=== PATIENT | male | born 1990 | race Caucasian/White ===

== ENCOUNTER 2017-03-11 16:02 | Inpatient (IN) | payer MEDICAID, OTHER ==
[~2017-03-11] VITALS: Ht 175.3 cm; Wt 74.4 kg
[~2017-03-11 16:02] MED LIST: BACIO TP; CLON0.5T PO; DULO60CA44 PO; GABA-533 PO; IBUP-2070 PO; QUET100T PO; TRAM50TA50 PO
[2017-03-11] MEDS ORDERED: METH10 PO (16:34)
[2017-03-11] MEDS ORDERED: TOPI100T9 PO (16:34)
[2017-03-11] MEDS ORDERED: ZOLP10TA2 PO (16:34)
[2017-03-11] MEDS ORDERED: HALOPERIDOL LACTATE 5 MG/ML VIAL IM ONE (16:45)
[2017-03-11] MEDS ORDERED: LORazepam 2 MG/ML VIAL IM ONE (16:45)
[2017-03-11 16:49] LABS: BASOPHILS # (AUTO) 0.03 K/uL (0.00-0.20); BASOPHILS % (AUTO) 0.4 % (0.0-2.0); EOSINOPHILS # (AUTO) 0.37 K/uL (0.00-0.70); EOSINOPHILS % (AUTO) 4.81 % (1.0-6.0); HEMATOCRIT 41.5 % (41-53); HEMOGLOBIN 13.9 g/dL (13.5-17.5); LYMPHOCYTES % (AUTO) 26.7 % (22.0-44.0); MEAN CORPUSCULAR HEMOGLOBIN 27.7 pg (26.0-34.0); MEAN CORPUSCULAR HGB CONC 33.5 G/dL (31.0-37.0); MEAN CORPUSCULAR VOLUME 83 fL (80-100); MONOCYTES # (AUTO) 0.5 K/uL (0.1-1.0); MONOCYTES % (AUTO) 6.6 % (2.0-9.0); NEUTROPHILS # (AUTO) 4.7 K/uL (1.8-7.7); NEUTROPHILS % (AUTO) 61.5 % (40.0-70.0); PLATELET COUNT (AUTO) 164 K/uL (150-450); RED BLOOD CELL COUNT(AUTO) 5.01 MIL/uL (4.50-5.90); RED CELL DISTRIBUTION WIDTH 14.5 % (11.5-14.5); WHITE BLOOD COUNT (AUTO) 7.6 K/uL (4.5-11.0)
[2017-03-11 17:02] LABS: ANION GAP 10 mmol/L (8-16); CARBON DIOXIDE 27 mmol/L (22-29); CHLORIDE 101 mmol/L (98-107); CREATININE 0.73 mg/dL (0.60-1.30); GLOMERULAR FILTR. RATE CALC > 60 mL/min (>60); POTASSIUM 4.1 mmol/L (3.5-5.1); SODIUM SERUM 138 mmol/L (136-145); UREA NITROGEN, BLOOD 18 mg/dL (7-18)
[2017-03-11 17:08] LABS: ALANINE AMINOTRANSFERASE 28 U/L (12-78); ALBUMIN 4.2 g/dL (3.4-5.0); ASPARTATE AMINOTRANSFERASE 25 U/L (15-37); BILIRUBIN,TOTAL 0.5 mg/dL (0.1-1.0); TOTAL PROTEIN, SERUM 8.1 g/dL (6.4-8.2)
[2017-03-11] MEDS ORDERED: HALOPERIDOL 5 MG TABLET PO PRN (18:30)
[2017-03-11] MEDS ORDERED: ZOLPIDEM TARTRATE 10 MG TABLET PO PRN (18:30)
[2017-03-12] MEDS: LORazepam 2 MG TABLET PO PRN ×3 (07:57→17:07)
[2017-03-12 08:00] VITALS: BP 113/60
[2017-03-12] MEDS: NICOTINE 21 MG/24 HOUR PATCH TD SCH (09:51)
[2017-03-12] MEDS ORDERED: METHADONE HCL 10 MG TABLET PO ONE (10:00)
[2017-03-12] MEDS ORDERED: VENL-193 PO (13:13)
[2017-03-12] MEDS ORDERED: GABA-531 PO (13:16)
[2017-03-12] MEDS ORDERED: HYDR-4031 PO (15:03)
[2017-03-12] MEDS ORDERED: TraMADol HCL 50 MG TABLET PO PRN (15:45)
[2017-03-12] MEDS ORDERED: ACETAMINOPHEN 325 MG TABLET PO PRN (15:45)
[2017-03-12] MEDS: HydrOXYzine PAMOATE 25 MG CAPSULE PO SCH (16:05)
[2017-03-12] MEDS: VENLAFAXINE HCL 75 MG TABLET PO SCH (16:05)
[2017-03-12] MEDS: GABAPENTIN 300 MG CAPSULE PO SCH (16:05)
[2017-03-12] MEDS: CARISOPRODOL 350 MG TABLET PO SCH (16:06)
[2017-03-12 16:43] VITALS: BP 118/64
[2017-03-13] MEDS: METHADONE HCL 10 MG TABLET PO SCH (07:47)
[2017-03-13] MEDS: CARISOPRODOL 350 MG TABLET PO SCH ×2 (07:47→17:47)
[2017-03-13] MEDS: GABAPENTIN 300 MG CAPSULE PO SCH ×3 (07:48→17:47)
[2017-03-13] MEDS: LORazepam 2 MG TABLET PO PRN ×3 (07:48→18:20)
[2017-03-13] MEDS: HydrOXYzine PAMOATE 25 MG CAPSULE PO SCH ×3 (07:49→17:47)
[2017-03-13] MEDS: NICOTINE 21 MG/24 HOUR PATCH TD SCH (07:50)
[2017-03-13] MEDS: CIMETIDINE 400 MG TABLET PO SCH (07:50)
[2017-03-13] MEDS: LORATADINE 10 MG TABLET PO SCH (07:50)
[2017-03-13] MEDS: VENLAFAXINE HCL 75 MG TABLET PO SCH ×2 (07:50→17:47)
[2017-03-13 08:06] VITALS: BP 104/56
[2017-03-13 18:18] VITALS: BP 123/80
[2017-03-14] MEDS: LORATADINE 10 MG TABLET PO SCH (08:33)
[2017-03-14] MEDS: GABAPENTIN 300 MG CAPSULE PO SCH ×2 (08:36→12:50)
[2017-03-14] MEDS: METHADONE HCL 10 MG TABLET PO SCH (08:36)
[2017-03-14] MEDS: VENLAFAXINE HCL 75 MG TABLET PO SCH (08:36)
[2017-03-14] MEDS: CARISOPRODOL 350 MG TABLET PO SCH (08:37)
[2017-03-14] MEDS: CIMETIDINE 400 MG TABLET PO SCH (08:38)
[2017-03-14 08:40] VITALS: BP 135/84
[2017-03-14] MEDS: NICOTINE 21 MG/24 HOUR PATCH TD SCH (08:43)
[2017-03-14] MEDS: HydrOXYzine PAMOATE 25 MG CAPSULE PO SCH (09:00)
[2017-03-14] MEDS: LORazepam 2 MG TABLET PO PRN (09:51)
[2017-03-14] MEDS ORDERED: LORA10TA7 PO (10:51)
[2017-03-14] MEDS ORDERED: CARI350 PO (10:51)
[2017-03-14] MEDS ORDERED: CIME400T PO (10:51)
== END 2017-03-14 13:00 | disposition home or self-care (01) | DRG 751 ==
LOC: EMS 16:03 → 3EC 19:40
DX: F33.3 Major depressive disorder, recurrent, severe with psychotic symptoms (principal); F11.10 Opioid abuse, uncomplicated; F60.3 Borderline personality disorder; J45.909 Unspecified asthma, uncomplicated; K21.9 Gastro-esophageal reflux disease without esophagitis; G43.909 Migraine, unspecified, not intractable, without status migrainosus; M79.7 Fibromyalgia; Z53.29 Procedure and treatment not carried out because of patient's decision for other reasons; F43.10 Post-traumatic stress disorder, unspecified; F10.20 Alcohol dependence, uncomplicated; M54.9 Dorsalgia, unspecified; G89.4 Chronic pain syndrome; F17.210 Nicotine dependence, cigarettes, uncomplicated; Z83.3 Family history of diabetes mellitus; Z91.5 Personal history of self-harm; Z79.899 Other long term (current) drug therapy; Z88.1 Allergy status to other antibiotic agents; Z88.8 Allergy status to other drugs, medicaments and biological substances
CPT/HCPCS: 96372; 99285; G0480; J1630; J2060

== ENCOUNTER 2017-04-20 18:59 | Inpatient (IN) | payer MEDICAID, OTHER ==
[~2017-04-20] VITALS: Ht 175.3 cm; Wt 81.8 kg
[~2017-04-20 18:59] MED LIST changes: -BACIO TP; +CIME400T PO; -CLON0.5T PO; -DULO60CA44 PO; +GABA-531 PO; -GABA-533 PO; +HYDR-4031 PO; -IBUP-2070 PO; +LORA10TA7 PO; +METH10 PO; -QUET100T PO; -TRAM50TA50 PO; +VENL-193 PO
[2017-04-20] MEDS ORDERED: HALO2 PO (19:26)
[2017-04-20 21:05] LABS: BASOPHILS % (AUTO) 0.1 % (0.0-2.0); EOSINOPHILS % (AUTO) 3.4 % (1.0-6.0); HEMATOCRIT 36.7 % (41-53); HEMOGLOBIN 12.6 g/dL (13.5-17.5); LYMPHOCYTES # (AUTO) 2.4 K/uL (1.0-4.8); LYMPHOCYTES % (AUTO) 33.2 % (22.0-44.0); MEAN CORPUSCULAR HEMOGLOBIN 28.3 pg (26.0-34.0); MEAN CORPUSCULAR HGB CONC 34.3 G/dL (31.0-37.0); MEAN CORPUSCULAR VOLUME 82 fL (80-100); MONOCYTES # (AUTO) 0.5 K/uL (0.1-1.0); MONOCYTES % (AUTO) 6.3 % (2.0-9.0); NEUTROPHILS # (AUTO) 4.1 K/uL (1.8-7.7); PLATELET COUNT (AUTO) 205 K/uL (150-450); RED BLOOD CELL COUNT(AUTO) 4.45 MIL/uL (4.50-5.90); WHITE BLOOD COUNT (AUTO) 7.2 K/uL (4.5-11.0)
[2017-04-20 21:15] LABS: ANION GAP 9 mmol/L (8-16); CALCIUM, TOTAL 8.6 mg/dL (8.8-10.5); CARBON DIOXIDE 28 mmol/L (22-29); CHLORIDE 103 mmol/L (98-107); CREATININE 0.83 mg/dL (0.60-1.30); GLOMERULAR FILTR. RATE CALC > 60 mL/min (>60); POTASSIUM 3.7 mmol/L (3.5-5.1); SODIUM SERUM 140 mmol/L (136-145); UREA NITROGEN, BLOOD 17 mg/dL (7-18)
[2017-04-20 21:21] LABS: ALANINE AMINOTRANSFERASE 27 U/L (12-78); ALBUMIN 3.8 g/dL (3.4-5.0); ASPARTATE AMINOTRANSFERASE 18 U/L (15-37); BILIRUBIN,TOTAL 0.1 mg/dL (0.1-1.0); TOTAL PROTEIN, SERUM 6.9 g/dL (6.4-8.2)
[2017-04-20] MEDS ORDERED: LORazepam 2 MG TABLET PO ONE (22:15)
[2017-04-20] MEDS ORDERED: TraMADol HCL 50 MG TABLET PO ONE (22:15)
[2017-04-20] MEDS: ZOLPIDEM TARTRATE 10 MG TABLET PO PRN (23:40)
[2017-04-21] MEDS: HALOPERIDOL 5 MG TABLET PO PRN ×2 (00:42→16:24)
[2017-04-21 02:27] VITALS: BP 142/88
[2017-04-21 03:09] VITALS: BP 142/88
[2017-04-21 07:12] LABS: CHOL/HDL RATIO 3.2 (4.2-7.3)
[2017-04-21] MEDS: LORazepam 2 MG TABLET PO PRN ×2 (07:56→14:55)
[2017-04-21] MEDS ORDERED: CloNIDine HCL 0.1 MG TABLET PO PRN (08:30)
[2017-04-21] MEDS ORDERED: PETROLATUM,WHITE 71 GM JELLY TP PRN (08:30)
[2017-04-21] MEDS ORDERED: ALBUTEROL SULFATE HFA 90 MCG/PUFF 8 GM INHALER IH PRN (08:30)
[2017-04-21] MEDS ORDERED: MAG HYDROX/AL HYDROX/SIMETH ES 30 ML SUSPENSION UDCUP PO PRN (08:30)
[2017-04-21] MEDS ORDERED: BENZOCAINE/MENTHOL LOZENGE MM PRN (08:30)
[2017-04-21] MEDS ORDERED: ONDANSETRON HCL 4 MG TABLET PO PRN (08:30)
[2017-04-21] MEDS ORDERED: LOPERAMIDE HCL 2 MG CAPSULE PO PRN (08:30)
[2017-04-21] MEDS ORDERED: BACITRACIN 28.4 GM OINTMENT TP PRN (08:30)
[2017-04-21] MEDS: CIMETIDINE 400 MG TABLET PO SCH (09:37)
[2017-04-21] MEDS: LORATADINE 10 MG TABLET PO SCH (09:37)
[2017-04-21] MEDS: GABAPENTIN 300 MG CAPSULE PO SCH ×3 (09:37→16:24)
[2017-04-21] MEDS: MULTIVITAMINS WITH MINERALS, THERAPEUTIC TABLET PO SCH (09:38)
[2017-04-21] MEDS: NICOTINE 21 MG/24 HOUR PATCH TD SCH (09:41)
[2017-04-21 10:24] VITALS: BP 119/76
[2017-04-21 16:51] VITALS: BP 113/81
[2017-04-21] MEDS: OLANZapine 5 MG TABLET PO SCH (21:29)
[2017-04-22] MEDS: MULTIVITAMINS WITH MINERALS, THERAPEUTIC TABLET PO SCH (08:52)
[2017-04-22] MEDS: GABAPENTIN 300 MG CAPSULE PO SCH ×3 (08:52→16:38)
[2017-04-22] MEDS: LORazepam 2 MG TABLET PO PRN ×4 (08:52→23:37)
[2017-04-22] MEDS: LORATADINE 10 MG TABLET PO SCH (08:52)
[2017-04-22] MEDS: FLUoxetine HCL 20 MG CAPSULE PO SCH (08:52)
[2017-04-22] MEDS: CIMETIDINE 400 MG TABLET PO SCH (08:52)
[2017-04-22] MEDS: NICOTINE 21 MG/24 HOUR PATCH TD SCH (08:55)
[2017-04-22 09:54] VITALS: BP 104/61
[2017-04-22] MEDS: HALOPERIDOL 5 MG TABLET PO PRN ×2 (16:38→22:00)
[2017-04-22] MEDS ORDERED: DiphenhydrAMINE HCL 50 MG/ML VIAL IM ONE (18:30)
[2017-04-22 18:35] VITALS: BP 112/73
[2017-04-22] MEDS: OLANZapine 5 MG TABLET PO SCH (20:19)
[2017-04-22] MEDS: ZOLPIDEM TARTRATE 10 MG TABLET PO PRN (21:01)
[2017-04-23 08:05] VITALS: BP 112/73
[2017-04-23] MEDS: BENZTROPINE MESYLATE 0.5 MG TABLET PO SCH ×2 (09:56→17:04)
[2017-04-23] MEDS: GABAPENTIN 300 MG CAPSULE PO SCH ×3 (09:56→17:04)
[2017-04-23] MEDS: METHADONE HCL 10 MG TABLET PO SCH (09:56)
[2017-04-23] MEDS: MULTIVITAMINS WITH MINERALS, THERAPEUTIC TABLET PO SCH (09:56)
[2017-04-23] MEDS: CIMETIDINE 400 MG TABLET PO SCH (09:56)
[2017-04-23] MEDS: LORATADINE 10 MG TABLET PO SCH (09:56)
[2017-04-23] MEDS: FLUoxetine HCL 20 MG CAPSULE PO SCH (09:57)
[2017-04-23] MEDS: NICOTINE 21 MG/24 HOUR PATCH TD SCH (10:00)
[2017-04-23] MEDS: LORazepam 2 MG TABLET PO PRN ×2 (12:07→17:04)
[2017-04-23] MEDS: HALOPERIDOL 5 MG TABLET PO PRN ×2 (12:56→17:04)
[2017-04-23 16:00] VITALS: BP 107/71
[2017-04-23] MEDS: OLANZapine 5 MG TABLET PO SCH (20:15)
[2017-04-23] MEDS: ZOLPIDEM TARTRATE 10 MG TABLET PO PRN (20:17)
[2017-04-24] MEDS: LORazepam 2 MG TABLET PO PRN ×3 (04:15→15:44)
[2017-04-24] MEDS: IBUPROFEN 600 MG TABLET PO PRN (04:15)
[2017-04-24 04:17] VITALS: BP 129/78
[2017-04-24] MEDS: HALOPERIDOL 5 MG TABLET PO PRN ×3 (04:56→16:32)
[2017-04-24] MEDS: FERROUS SULFATE 325 MG EC TABLET PO SCH ×2 (06:54→16:32)
[2017-04-24 08:04] VITALS: BP 114/60
[2017-04-24] MEDS: LORATADINE 10 MG TABLET PO SCH (08:08)
[2017-04-24] MEDS: METHADONE HCL 10 MG TABLET PO SCH (08:08)
[2017-04-24] MEDS: BENZTROPINE MESYLATE 0.5 MG TABLET PO SCH ×2 (08:08→16:32)
[2017-04-24] MEDS: FLUoxetine HCL 20 MG CAPSULE PO SCH (08:08)
[2017-04-24] MEDS: GABAPENTIN 300 MG CAPSULE PO SCH ×3 (08:08→16:33)
[2017-04-24] MEDS: MULTIVITAMINS WITH MINERALS, THERAPEUTIC TABLET PO SCH (08:08)
[2017-04-24] MEDS: CIMETIDINE 400 MG TABLET PO SCH (08:08)
[2017-04-24] MEDS: NICOTINE 21 MG/24 HOUR PATCH TD SCH (08:15)
[2017-04-24] MEDS ORDERED: BISACODYL 10 MG RECTAL RECTAL SUPPOSITORY PR PRN (09:30)
[2017-04-24] MEDS: DOCUSATE SODIUM 250 MG CAPSULE PO SCH ×2 (11:34→16:31)
[2017-04-24] MEDS: ZOLPIDEM TARTRATE 10 MG TABLET PO PRN (20:15)
[2017-04-24] MEDS: OLANZapine 10 MG TABLET PO SCH (20:15)
[2017-04-24 20:37] VITALS: BP 127/69
[2017-04-25 01:00] VITALS: BP 115/58
[2017-04-25] MEDS: IBUPROFEN 600 MG TABLET PO PRN (01:01)
[2017-04-25] MEDS: HALOPERIDOL 5 MG TABLET PO PRN ×2 (01:52→23:15)
[2017-04-25] MEDS: ACETAMINOPHEN 325 MG TABLET PO PRN (04:14)
[2017-04-25] MEDS: FERROUS SULFATE 325 MG EC TABLET PO SCH ×2 (06:41→16:46)
[2017-04-25 08:00] VITALS: BP 145/96
[2017-04-25] MEDS: MULTIVITAMINS WITH MINERALS, THERAPEUTIC TABLET PO SCH (08:37)
[2017-04-25] MEDS: METHADONE HCL 10 MG TABLET PO SCH (08:37)
[2017-04-25] MEDS: VENLAFAXINE HCL 75 MG ER CAPSULE PO SCH (08:37)
[2017-04-25] MEDS: DOCUSATE SODIUM 250 MG CAPSULE PO SCH ×2 (08:37→16:47)
[2017-04-25] MEDS: GABAPENTIN 300 MG CAPSULE PO SCH ×3 (08:37→18:11)
[2017-04-25] MEDS: CIMETIDINE 400 MG TABLET PO SCH (08:38)
[2017-04-25] MEDS: NICOTINE 21 MG/24 HOUR PATCH TD SCH (08:38)
[2017-04-25] MEDS: BENZTROPINE MESYLATE 0.5 MG TABLET PO SCH ×2 (08:39→16:46)
[2017-04-25] MEDS: LORATADINE 10 MG TABLET PO SCH (08:40)
[2017-04-25 16:01] VITALS: BP 124/74
[2017-04-25] MEDS: ZOLPIDEM TARTRATE 10 MG TABLET PO PRN (21:07)
[2017-04-25] MEDS: OLANZapine 10 MG TABLET PO SCH (21:07)
[2017-04-26 06:00] VITALS: BP 137/115
[2017-04-26] MEDS: IBUPROFEN 600 MG TABLET PO PRN ×2 (06:04→13:13)
[2017-04-26] MEDS: HALOPERIDOL 5 MG TABLET PO PRN ×4 (06:29→23:44)
[2017-04-26] MEDS: FERROUS SULFATE 325 MG EC TABLET PO SCH ×2 (06:58→16:07)
[2017-04-26] MEDS: CIMETIDINE 400 MG TABLET PO SCH (08:13)
[2017-04-26] MEDS: LORATADINE 10 MG TABLET PO SCH (08:13)
[2017-04-26] MEDS: BENZTROPINE MESYLATE 0.5 MG TABLET PO SCH ×2 (08:14→16:09)
[2017-04-26 08:16] VITALS: BP 130/77
[2017-04-26] MEDS: VENLAFAXINE HCL 75 MG ER CAPSULE PO SCH (08:23)
[2017-04-26] MEDS: DOCUSATE SODIUM 250 MG CAPSULE PO SCH ×2 (08:23→16:07)
[2017-04-26] MEDS: MULTIVITAMINS WITH MINERALS, THERAPEUTIC TABLET PO SCH (08:23)
[2017-04-26] MEDS: GABAPENTIN 300 MG CAPSULE PO SCH ×3 (08:24→16:08)
[2017-04-26] MEDS: METHADONE HCL 10 MG TABLET PO SCH (08:24)
[2017-04-26] MEDS: NICOTINE 21 MG/24 HOUR PATCH TD SCH (08:25)
[2017-04-26 13:13] VITALS: BP 112/78
[2017-04-26 14:13] VITALS: BP 114/78
[2017-04-26 16:44] VITALS: BP 134/84
[2017-04-26] MEDS: OLANZapine 10 MG TABLET PO SCH (20:26)
[2017-04-26] MEDS: ZOLPIDEM TARTRATE 10 MG TABLET PO PRN (21:02)
[2017-04-27 04:14] VITALS: BP 134/72
[2017-04-27 04:50] VITALS: BP 141/89
[2017-04-27] MEDS: IBUPROFEN 600 MG TABLET PO PRN (04:53)
[2017-04-27] MEDS: FERROUS SULFATE 325 MG EC TABLET PO SCH ×2 (06:57→17:55)
[2017-04-27] MEDS: METHADONE HCL 10 MG TABLET PO SCH (08:38)
[2017-04-27] MEDS: VENLAFAXINE HCL 150 MG ER CAPSULE PO SCH (08:38)
[2017-04-27] MEDS: GABAPENTIN 300 MG CAPSULE PO SCH ×3 (08:39→17:55)
[2017-04-27] MEDS: LORATADINE 10 MG TABLET PO SCH (08:39)
[2017-04-27] MEDS: DOCUSATE SODIUM 250 MG CAPSULE PO SCH ×2 (08:39→17:55)
[2017-04-27] MEDS: CIMETIDINE 400 MG TABLET PO SCH (08:39)
[2017-04-27] MEDS: BENZTROPINE MESYLATE 0.5 MG TABLET PO SCH ×2 (08:39→17:55)
[2017-04-27] MEDS: MULTIVITAMINS WITH MINERALS, THERAPEUTIC TABLET PO SCH (08:39)
[2017-04-27] MEDS: NICOTINE 21 MG/24 HOUR PATCH TD SCH (08:47)
[2017-04-27 10:06] VITALS: BP 134/77
[2017-04-27] MEDS: HALOPERIDOL 5 MG TABLET PO PRN (12:29)
[2017-04-27] MEDS: MAGNESIUM HYDROXIDE SUSPENSION 30 ML UDCUP PO PRN (12:33)
[2017-04-27 16:00] VITALS: BP 136/93
[2017-04-27] MEDS ORDERED: BENZ0.5T6 PO (16:26)
[2017-04-27] MEDS ORDERED: OLAN10TA3 PO (16:30)
[2017-04-27] MEDS ORDERED: FERR-89 PO ×2 (16:43→16:44)
[2017-04-27] MEDS: OLANZapine 10 MG TABLET PO SCH (21:19)
[2017-04-27] MEDS: ZOLPIDEM TARTRATE 10 MG TABLET PO PRN (22:06)
[2017-04-28 02:03] VITALS: BP 142/77
[2017-04-28 06:00] VITALS: BP 125/85
[2017-04-28] MEDS: HALOPERIDOL 5 MG TABLET PO PRN ×2 (06:03→13:13)
[2017-04-28] MEDS: IBUPROFEN 600 MG TABLET PO PRN (06:03)
[2017-04-28] MEDS: FERROUS SULFATE 325 MG EC TABLET PO SCH ×2 (06:56→16:14)
[2017-04-28] MEDS: VENLAFAXINE HCL 150 MG ER CAPSULE PO SCH (08:21)
[2017-04-28] MEDS: DOCUSATE SODIUM 250 MG CAPSULE PO SCH ×2 (08:21→16:14)
[2017-04-28] MEDS: METHADONE HCL 10 MG TABLET PO SCH (08:21)
[2017-04-28] MEDS: MULTIVITAMINS WITH MINERALS, THERAPEUTIC TABLET PO SCH (08:21)
[2017-04-28] MEDS: GABAPENTIN 300 MG CAPSULE PO SCH ×3 (08:22→16:14)
[2017-04-28] MEDS: LORATADINE 10 MG TABLET PO SCH (08:22)
[2017-04-28] MEDS: BENZTROPINE MESYLATE 0.5 MG TABLET PO SCH ×2 (08:22→16:14)
[2017-04-28] MEDS: CIMETIDINE 400 MG TABLET PO SCH (08:22)
[2017-04-28] MEDS: NICOTINE 21 MG/24 HOUR PATCH TD SCH (08:27)
[2017-04-28 08:30] VITALS: BP 124/77
[2017-04-28] MEDS: MAGNESIUM HYDROXIDE SUSPENSION 30 ML UDCUP PO PRN ×2 (09:12→16:14)
[2017-04-28 10:31] VITALS: BP 124/77
[2017-04-28] MEDS: ACETAMINOPHEN 325 MG TABLET PO PRN (10:31)
[2017-04-28 15:45] VITALS: BP 135/81
[2017-04-28 17:43] VITALS: BP 135/81
[2017-04-28] MEDS: OLANZapine 10 MG TABLET PO SCH (21:44)
[2017-04-29 00:01] VITALS: BP 132/76
[2017-04-29] MEDS: HALOPERIDOL 5 MG TABLET PO PRN ×4 (00:04→17:08)
[2017-04-29] MEDS: ACETAMINOPHEN 325 MG TABLET PO PRN (00:04)
[2017-04-29] MEDS: ZOLPIDEM TARTRATE 10 MG TABLET PO PRN ×2 (00:08→20:29)
[2017-04-29] MEDS: FERROUS SULFATE 325 MG EC TABLET PO SCH ×2 (06:40→17:08)
[2017-04-29] MEDS: MULTIVITAMINS WITH MINERALS, THERAPEUTIC TABLET PO SCH (08:18)
[2017-04-29] MEDS: GABAPENTIN 300 MG CAPSULE PO SCH ×3 (08:18→17:08)
[2017-04-29] MEDS: METHADONE HCL 10 MG TABLET PO SCH (08:18)
[2017-04-29] MEDS: VENLAFAXINE HCL 150 MG ER CAPSULE PO SCH (08:19)
[2017-04-29] MEDS: DOCUSATE SODIUM 250 MG CAPSULE PO SCH ×2 (08:19→17:08)
[2017-04-29] MEDS: LORATADINE 10 MG TABLET PO SCH (08:20)
[2017-04-29] MEDS: BENZTROPINE MESYLATE 0.5 MG TABLET PO SCH ×2 (08:20→17:08)
[2017-04-29] MEDS: CIMETIDINE 400 MG TABLET PO SCH (08:20)
[2017-04-29] MEDS: NICOTINE 21 MG/24 HOUR PATCH TD SCH (08:24)
[2017-04-29 08:30] VITALS: BP 128/85
[2017-04-29] MEDS: IBUPROFEN 600 MG TABLET PO PRN (11:46)
[2017-04-29] MEDS: MAGNESIUM HYDROXIDE SUSPENSION 30 ML UDCUP PO PRN (12:37)
[2017-04-29] MEDS: OLANZapine 10 MG TABLET PO SCH (20:29)
[2017-04-29 22:04] VITALS: BP 128/79
[2017-04-30] MEDS: ACETAMINOPHEN 325 MG TABLET PO PRN (02:50)
[2017-04-30] MEDS: HALOPERIDOL 5 MG TABLET PO PRN ×2 (02:58→08:41)
[2017-04-30 03:39] VITALS: BP 131/77
[2017-04-30] MEDS: FERROUS SULFATE 325 MG EC TABLET PO SCH (06:38)
[2017-04-30] MEDS: GABAPENTIN 300 MG CAPSULE PO SCH ×2 (08:40→13:35)
[2017-04-30 08:41] VITALS: BP 115/76
[2017-04-30] MEDS: DOCUSATE SODIUM 250 MG CAPSULE PO SCH (08:41)
[2017-04-30] MEDS: IBUPROFEN 600 MG TABLET PO PRN (08:41)
[2017-04-30] MEDS: METHADONE HCL 10 MG TABLET PO SCH (08:41)
[2017-04-30] MEDS: BENZTROPINE MESYLATE 0.5 MG TABLET PO SCH (08:41)
[2017-04-30] MEDS: CIMETIDINE 400 MG TABLET PO SCH (08:41)
[2017-04-30] MEDS: LORATADINE 10 MG TABLET PO SCH (08:41)
[2017-04-30] MEDS: VENLAFAXINE HCL 150 MG ER CAPSULE PO SCH (08:41)
[2017-04-30] MEDS: MULTIVITAMINS WITH MINERALS, THERAPEUTIC TABLET PO SCH (08:41)
[2017-04-30] MEDS: NICOTINE 21 MG/24 HOUR PATCH TD SCH ×2 (08:42→08:57)
[2017-04-30] MEDS: MAGNESIUM HYDROXIDE SUSPENSION 30 ML UDCUP PO PRN (09:44)
[2017-05-01] MEDS ORDERED: VENL-68 PO (12:45)
== END 2017-04-30 15:32 | disposition home or self-care (01) | DRG 750 ==
LOC: EMS 19:02 → 3EI 04-21 00:15
PROVIDERS: ADMIT Psychiatry & Neurology Psychiatry; ATTEND Psychiatry & Neurology Psychiatry
DX: F25.0 Schizoaffective disorder, bipolar type (principal); F11.20 Opioid dependence, uncomplicated; E83.51 Hypocalcemia; F60.3 Borderline personality disorder; S61.511A Laceration without foreign body of right wrist, initial encounter; D64.9 Anemia, unspecified; G89.29 Other chronic pain; Z88.1 Allergy status to other antibiotic agents; J45.909 Unspecified asthma, uncomplicated; G43.909 Migraine, unspecified, not intractable, without status migrainosus; K21.9 Gastro-esophageal reflux disease without esophagitis; Z72.0 Tobacco use; G47.00 Insomnia, unspecified; S61.512A Laceration without foreign body of left wrist, initial encounter; X78.8XXA Intentional self-harm by other sharp object, initial encounter; Y92.009 Unspecified place in unspecified non-institutional (private) residence as the place of occurrence of the external cause
CPT/HCPCS: 82306; 84443; 99285; 99406; G0480; J1200

== ENCOUNTER 2017-05-01 12:14 | Inpatient (IN) | payer MEDICAID, OTHER ==
[~2017-05-01] VITALS: Ht 175.3 cm; Wt 86.0 kg
[~2017-05-01 12:14] MED LIST changes: +BACIO TP; +BENZ0.5T6 PO; +BENZ56.72; +CARI250T PO; +CARI350 PO; +CARI350T PO; +CEPH500 PO; +CEPH500C2; +CLON0.1T PO; +CLON0.5T PO; +CLON1 PO; +CLON1TAB4 PO; +DIPH50 GT; +DIVA250T25 PO; +DULO20CA30 PO; +DULO60CA44 PO; +EFFEXOR PO; +FERR-89 PO; +GABA-533 PO; +GABA250S PO; +HALO2 PO; +HYDR-3114 PO; +HYDR-3421; +HYDR-3965 PO; +HYDR-3971 PO; +IBUP-2070 PO; +LAMO25 PO; +MIRT15 PO; +MOME17N NASAL; +OLAN10TA3 PO; +OXYC10IR; +PANT40TA25 PO; +QUET100T PO; +RISP4 PO; +TOPI100T9 PO; +TRAM50TA4 PO; +TRAM50TA50 PO; +VENL-67 PO; +WELLBUTRIN PO; +ZOLP10 PO; +ZOLP10TA2 PO
[2017-05-01] MEDS ORDERED: LORazepam 2 MG/ML VIAL IM ONE (12:45)
[2017-05-01] MEDS ORDERED: VENL-68 PO (12:45)
[2017-05-01] MEDS ORDERED: HALOPERIDOL LACTATE 5 MG/ML VIAL IM ONE (12:45)
[2017-05-01 13:19] LABS: BASOPHILS % (AUTO) 0.4 % (0.0-2.0); EOSINOPHILS % (AUTO) 4.4 % (1.0-6.0); HEMATOCRIT 37.3 % (41-53); HEMOGLOBIN 12.7 g/dL (13.5-17.5); LYMPHOCYTES # (AUTO) 1.7 K/uL (1.0-4.8); LYMPHOCYTES % (AUTO) 26.9 % (22.0-44.0); MEAN CORPUSCULAR HEMOGLOBIN 28.8 pg (26.0-34.0); MEAN CORPUSCULAR HGB CONC 34.1 G/dL (31.0-37.0); MEAN CORPUSCULAR VOLUME 84 fL (80-100); MONOCYTES # (AUTO) 0.5 K/uL (0.1-1.0); MONOCYTES % (AUTO) 8.2 % (2.0-9.0); NEUTROPHILS # (AUTO) 3.8 K/uL (1.8-7.7); NEUTROPHILS % (AUTO) 60.1 % (40.0-70.0); PLATELET COUNT (AUTO) 185 K/uL (150-450); RED BLOOD CELL COUNT(AUTO) 4.42 MIL/uL (4.50-5.90); RED CELL DISTRIBUTION WIDTH 15.5 % (11.5-14.5); WHITE BLOOD COUNT (AUTO) 6.3 K/uL (4.5-11.0)
[2017-05-01 13:41] LABS: ANION GAP 11 mmol/L (8-16); CALCIUM, TOTAL 8.6 mg/dL (8.8-10.5); CARBON DIOXIDE 28 mmol/L (22-29); CHLORIDE 104 mmol/L (98-107); CREATININE 0.87 mg/dL (0.60-1.30); GLOMERULAR FILTR. RATE CALC > 60 mL/min (>60); SODIUM SERUM 143 mmol/L (136-145); UREA NITROGEN, BLOOD 14 mg/dL (7-18)
[2017-05-01 13:48] LABS: ALANINE AMINOTRANSFERASE 37 U/L (12-78); ALBUMIN 4.1 g/dL (3.4-5.0); ASPARTATE AMINOTRANSFERASE 34 U/L (15-37); BILIRUBIN,TOTAL 0.2 mg/dL (0.1-1.0); TOTAL PROTEIN, SERUM 7.3 g/dL (6.4-8.2)
[2017-05-01 16:55] VITALS: BP 141/85
[2017-05-01] MEDS: LORazepam 2 MG TABLET PO PRN (19:57)
[2017-05-01] MEDS: OLANZapine 10 MG TABLET PO SCH (20:00)
[2017-05-01] MEDS: ZOLPIDEM TARTRATE 10 MG TABLET PO PRN (21:04)
[2017-05-02] MEDS: LORazepam 2 MG TABLET PO PRN ×3 (00:41→12:11)
[2017-05-02 03:06] VITALS: BP 140/89
[2017-05-02] MEDS: HALOPERIDOL 5 MG TABLET PO PRN ×3 (03:10→16:06)
[2017-05-02] MEDS: FERROUS SULFATE 325 MG EC TABLET PO SCH ×2 (06:48→16:03)
[2017-05-02 07:51] LABS: CHOL/HDL RATIO 2.9 (4.2-7.3)
[2017-05-02 08:39] VITALS: BP 131/90
[2017-05-02] MEDS: LORATADINE 10 MG TABLET PO SCH (08:41)
[2017-05-02] MEDS: METHADONE HCL 10 MG TABLET PO SCH (08:41)
[2017-05-02] MEDS: GABAPENTIN 300 MG CAPSULE PO SCH ×3 (08:41→16:04)
[2017-05-02] MEDS: HydrOXYzine PAMOATE 25 MG CAPSULE PO SCH ×3 (08:41→16:03)
[2017-05-02] MEDS: NICOTINE 21 MG/24 HOUR PATCH TD SCH (08:41)
[2017-05-02] MEDS: BENZTROPINE MESYLATE 0.5 MG TABLET PO SCH ×2 (08:41→16:03)
[2017-05-02] MEDS: VENLAFAXINE HCL 75 MG ER CAPSULE PO SCH (08:41)
[2017-05-02] MEDS: CIMETIDINE 400 MG TABLET PO SCH (08:41)
[2017-05-02] MEDS: DOCUSATE SODIUM 250 MG CAPSULE PO SCH ×2 (08:42→16:04)
[2017-05-02] MEDS: MULTIVITAMINS WITH MINERALS, THERAPEUTIC TABLET PO SCH (08:42)
[2017-05-02 17:17] VITALS: BP 129/83
[2017-05-02] MEDS: OLANZapine 10 MG TABLET PO SCH (21:42)
[2017-05-03] MEDS: LORazepam 2 MG TABLET PO PRN ×4 (02:11→19:21)
[2017-05-03] MEDS: ZOLPIDEM TARTRATE 10 MG TABLET PO PRN ×2 (02:11→20:21)
[2017-05-03 02:15] VITALS: BP 126/82
[2017-05-03] MEDS: FERROUS SULFATE 325 MG EC TABLET PO SCH ×2 (06:35→17:20)
[2017-05-03] MEDS: METHADONE HCL 10 MG TABLET PO SCH (08:24)
[2017-05-03] MEDS: BENZTROPINE MESYLATE 0.5 MG TABLET PO SCH ×2 (08:24→17:20)
[2017-05-03] MEDS: LORATADINE 10 MG TABLET PO SCH (08:24)
[2017-05-03] MEDS: DOCUSATE SODIUM 250 MG CAPSULE PO SCH ×2 (08:24→17:20)
[2017-05-03] MEDS: HydrOXYzine PAMOATE 25 MG CAPSULE PO SCH ×3 (08:25→17:20)
[2017-05-03] MEDS: GABAPENTIN 300 MG CAPSULE PO SCH ×3 (08:25→17:20)
[2017-05-03] MEDS: CIMETIDINE 400 MG TABLET PO SCH (08:25)
[2017-05-03] MEDS: VENLAFAXINE HCL 75 MG ER CAPSULE PO SCH (08:25)
[2017-05-03] MEDS: MULTIVITAMINS WITH MINERALS, THERAPEUTIC TABLET PO SCH (08:25)
[2017-05-03] MEDS: NICOTINE 21 MG/24 HOUR PATCH TD SCH (08:26)
[2017-05-03 08:53] VITALS: BP 118/64
[2017-05-03] MEDS: HALOPERIDOL 5 MG TABLET PO PRN (11:16)
[2017-05-03 17:03] VITALS: BP 135/95
[2017-05-03] MEDS ORDERED: ALBUTEROL SULFATE HFA 90 MCG/PUFF 8 GM INHALER IH PRN (19:30)
[2017-05-03] MEDS ORDERED: CloNIDine HCL 0.1 MG TABLET PO PRN (19:30)
[2017-05-03] MEDS ORDERED: BACITRACIN 28.4 GM OINTMENT TP PRN (19:30)
[2017-05-03] MEDS ORDERED: MAG HYDROX/AL HYDROX/SIMETH ES 30 ML SUSPENSION UDCUP PO PRN (19:30)
[2017-05-03] MEDS ORDERED: BENZOCAINE/MENTHOL LOZENGE [8 LOZENGES/PACKET] MM PRN (19:30)
[2017-05-03] MEDS ORDERED: PETROLATUM,WHITE 71 GM JELLY TP PRN (19:30)
[2017-05-03] MEDS ORDERED: ACETAMINOPHEN 325 MG TABLET PO PRN (19:30)
[2017-05-03] MEDS ORDERED: ONDANSETRON HCL 4 MG TABLET PO PRN (19:30)
[2017-05-03] MEDS: OLANZapine 10 MG TABLET PO SCH (20:21)
[2017-05-03] MEDS ORDERED: NICOTINE POLACRILEX 2 MG GUM CHEW PRN ×2 (21:45→22:00)
[2017-05-04] MEDS: IBUPROFEN 600 MG TABLET PO PRN (04:50)
[2017-05-04 04:51] VITALS: BP 125/77
[2017-05-04] MEDS: LORazepam 2 MG TABLET PO PRN ×3 (05:46→14:08)
[2017-05-04] MEDS: FERROUS SULFATE 325 MG EC TABLET PO SCH ×2 (06:56→16:19)
[2017-05-04 08:58] VITALS: BP 122/71
[2017-05-04] MEDS: HydrOXYzine PAMOATE 25 MG CAPSULE PO SCH ×3 (09:23→16:19)
[2017-05-04] MEDS: VENLAFAXINE HCL 75 MG ER CAPSULE PO SCH (09:23)
[2017-05-04] MEDS: METHADONE HCL 10 MG TABLET PO SCH (09:23)
[2017-05-04] MEDS: BENZTROPINE MESYLATE 0.5 MG TABLET PO SCH ×2 (09:23→16:20)
[2017-05-04] MEDS: DOCUSATE SODIUM 250 MG CAPSULE PO SCH ×2 (09:23→16:20)
[2017-05-04] MEDS: CIMETIDINE 400 MG TABLET PO SCH (09:24)
[2017-05-04] MEDS: OMEPRAZOLE 20 MG CAPSULE PO SCH (09:24)
[2017-05-04] MEDS: GABAPENTIN 300 MG CAPSULE PO SCH ×3 (09:24→16:19)
[2017-05-04] MEDS: MULTIVITAMINS WITH MINERALS, THERAPEUTIC TABLET PO SCH (09:24)
[2017-05-04] MEDS: LORATADINE 10 MG TABLET PO SCH (09:25)
[2017-05-04] MEDS: NICOTINE 21 MG/24 HOUR PATCH TD SCH (09:26)
[2017-05-04] MEDS: HALOPERIDOL 5 MG TABLET PO PRN (14:08)
[2017-05-04 16:30] VITALS: BP 131/78
[2017-05-04] MEDS: OLANZapine 10 MG TABLET PO SCH (21:36)
[2017-05-04] MEDS: ZOLPIDEM TARTRATE 10 MG TABLET PO PRN (23:35)
[2017-05-05] VITALS: BP 128/75
[2017-05-05] MEDS: IBUPROFEN 600 MG TABLET PO PRN ×2 (00:09→10:47)
[2017-05-05] MEDS: FERROUS SULFATE 325 MG EC TABLET PO SCH ×2 (06:43→17:16)
[2017-05-05 08:30] VITALS: BP 116/66
[2017-05-05] MEDS: VENLAFAXINE HCL 75 MG ER CAPSULE PO SCH (08:32)
[2017-05-05] MEDS: OMEPRAZOLE 20 MG CAPSULE PO SCH (08:32)
[2017-05-05] MEDS: HydrOXYzine PAMOATE 25 MG CAPSULE PO SCH ×3 (08:32→15:51)
[2017-05-05] MEDS: LORATADINE 10 MG TABLET PO SCH (08:33)
[2017-05-05] MEDS: DOCUSATE SODIUM 250 MG CAPSULE PO SCH ×2 (08:33→15:51)
[2017-05-05] MEDS: BENZTROPINE MESYLATE 0.5 MG TABLET PO SCH ×2 (08:33→15:52)
[2017-05-05] MEDS: MULTIVITAMINS WITH MINERALS, THERAPEUTIC TABLET PO SCH (08:33)
[2017-05-05] MEDS: GABAPENTIN 300 MG CAPSULE PO SCH ×3 (08:33→15:51)
[2017-05-05] MEDS: METHADONE HCL 10 MG TABLET PO SCH (08:33)
[2017-05-05] MEDS: CIMETIDINE 400 MG TABLET PO SCH (08:34)
[2017-05-05] MEDS: NICOTINE 21 MG/24 HOUR PATCH TD SCH (08:42)
[2017-05-05] MEDS: LORazepam 2 MG TABLET PO PRN ×3 (08:43→22:15)
[2017-05-05 10:47] VITALS: BP 123/75
[2017-05-05 11:47] VITALS: BP 115/68
[2017-05-05] MEDS: HALOPERIDOL 5 MG TABLET PO PRN (12:03)
[2017-05-05 16:00] VITALS: BP 128/72
[2017-05-05] MEDS: OLANZapine 10 MG TABLET PO SCH (20:55)
[2017-05-05] MEDS: ZOLPIDEM TARTRATE 10 MG TABLET PO PRN (21:03)
[2017-05-05 22:22] VITALS: BP 109/69
[2017-05-06 00:29] VITALS: BP 116/72
[2017-05-06] MEDS: FERROUS SULFATE 325 MG EC TABLET PO SCH ×2 (07:09→16:30)
[2017-05-06] MEDS: LORazepam 2 MG TABLET PO PRN ×3 (07:51→20:06)
[2017-05-06] MEDS: GABAPENTIN 300 MG CAPSULE PO SCH ×3 (08:12→16:10)
[2017-05-06] MEDS: HydrOXYzine PAMOATE 25 MG CAPSULE PO SCH ×3 (08:12→16:09)
[2017-05-06] MEDS: MULTIVITAMINS WITH MINERALS, THERAPEUTIC TABLET PO SCH (08:12)
[2017-05-06] MEDS: METHADONE HCL 10 MG TABLET PO SCH (08:12)
[2017-05-06] MEDS: CIMETIDINE 400 MG TABLET PO SCH (08:12)
[2017-05-06] MEDS: BENZTROPINE MESYLATE 0.5 MG TABLET PO SCH ×2 (08:13→16:30)
[2017-05-06] MEDS: OMEPRAZOLE 20 MG CAPSULE PO SCH (08:13)
[2017-05-06] MEDS: NICOTINE 21 MG/24 HOUR PATCH TD SCH (08:13)
[2017-05-06] MEDS: VENLAFAXINE HCL 75 MG ER CAPSULE PO SCH (08:13)
[2017-05-06] MEDS: DOCUSATE SODIUM 250 MG CAPSULE PO SCH ×2 (08:13→16:09)
[2017-05-06] MEDS: LORATADINE 10 MG TABLET PO SCH (08:14)
[2017-05-06] MEDS: MAGNESIUM HYDROXIDE SUSPENSION 30 ML UDCUP PO PRN (11:22)
[2017-05-06 13:04] VITALS: BP 123/73
[2017-05-06 16:13] VITALS: BP 140/86
[2017-05-06] MEDS: HALOPERIDOL 5 MG TABLET PO PRN (16:13)
[2017-05-06] MEDS: OLANZapine 10 MG TABLET PO SCH (20:06)
[2017-05-06] MEDS: ZOLPIDEM TARTRATE 10 MG TABLET PO PRN (21:12)
[2017-05-07 02:12] VITALS: BP 130/88
[2017-05-07] MEDS: FERROUS SULFATE 325 MG EC TABLET PO SCH ×2 (07:14→16:35)
[2017-05-07] MEDS: DOCUSATE SODIUM 250 MG CAPSULE PO SCH ×2 (08:55→16:34)
[2017-05-07] MEDS: METHADONE HCL 10 MG TABLET PO SCH (08:55)
[2017-05-07] MEDS: LORATADINE 10 MG TABLET PO SCH (08:55)
[2017-05-07] MEDS: BENZTROPINE MESYLATE 0.5 MG TABLET PO SCH ×2 (08:55→16:35)
[2017-05-07] MEDS: CIMETIDINE 400 MG TABLET PO SCH (08:56)
[2017-05-07] MEDS: HydrOXYzine PAMOATE 25 MG CAPSULE PO SCH ×3 (08:56→16:35)
[2017-05-07] MEDS: VENLAFAXINE HCL 75 MG ER CAPSULE PO SCH (08:56)
[2017-05-07] MEDS: OMEPRAZOLE 20 MG CAPSULE PO SCH (08:56)
[2017-05-07] MEDS: GABAPENTIN 300 MG CAPSULE PO SCH ×3 (08:56→16:35)
[2017-05-07] MEDS: MULTIVITAMINS WITH MINERALS, THERAPEUTIC TABLET PO SCH (08:57)
[2017-05-07] MEDS: NICOTINE 21 MG/24 HOUR PATCH TD SCH (09:02)
[2017-05-07] MEDS: LORazepam 2 MG TABLET PO PRN ×3 (09:02→20:05)
[2017-05-07 12:38] VITALS: BP 125/76
[2017-05-07] MEDS: HALOPERIDOL 5 MG TABLET PO PRN (12:53)
[2017-05-07] MEDS: LOPERAMIDE HCL 2 MG CAPSULE PO PRN (16:36)
[2017-05-07 17:21] VITALS: BP 148/97
[2017-05-07] MEDS: OLANZapine 10 MG TABLET PO SCH (20:05)
[2017-05-07] MEDS: ZOLPIDEM TARTRATE 10 MG TABLET PO PRN (22:36)
[2017-05-08 01:53] VITALS: BP 120/72
[2017-05-08] MEDS: FERROUS SULFATE 325 MG EC TABLET PO SCH ×2 (07:07→17:04)
[2017-05-08 08:00] VITALS: BP 130/77
[2017-05-08] MEDS: GABAPENTIN 300 MG CAPSULE PO SCH ×3 (08:35→17:04)
[2017-05-08] MEDS: METHADONE HCL 10 MG TABLET PO SCH (08:35)
[2017-05-08] MEDS: OMEPRAZOLE 20 MG CAPSULE PO SCH (08:35)
[2017-05-08] MEDS: VENLAFAXINE HCL 75 MG ER CAPSULE PO SCH (08:35)
[2017-05-08] MEDS: MULTIVITAMINS WITH MINERALS, THERAPEUTIC TABLET PO SCH (08:35)
[2017-05-08] MEDS: DOCUSATE SODIUM 250 MG CAPSULE PO SCH ×2 (08:35→17:04)
[2017-05-08] MEDS: HydrOXYzine PAMOATE 25 MG CAPSULE PO SCH ×3 (08:35→17:04)
[2017-05-08] MEDS: BENZTROPINE MESYLATE 0.5 MG TABLET PO SCH ×2 (08:36→17:04)
[2017-05-08] MEDS: LORATADINE 10 MG TABLET PO SCH (08:36)
[2017-05-08] MEDS: CIMETIDINE 400 MG TABLET PO SCH (08:36)
[2017-05-08] MEDS: LORazepam 2 MG TABLET PO PRN ×3 (08:41→21:20)
[2017-05-08] MEDS: NICOTINE 21 MG/24 HOUR PATCH TD SCH (08:43)
[2017-05-08] MEDS: HALOPERIDOL 5 MG TABLET PO PRN (11:01)
[2017-05-08] MEDS: LOPERAMIDE HCL 2 MG CAPSULE PO PRN (11:03)
[2017-05-08 16:40] VITALS: BP 116/72
[2017-05-08] MEDS: ZOLPIDEM TARTRATE 10 MG TABLET PO PRN (20:15)
[2017-05-08] MEDS: OLANZapine 10 MG TABLET PO SCH (20:15)
[2017-05-09] MEDS: LORazepam 2 MG TABLET PO PRN ×3 (05:36→16:30)
[2017-05-09] MEDS: HALOPERIDOL 5 MG TABLET PO PRN ×2 (05:41→18:21)
[2017-05-09] MEDS: FERROUS SULFATE 325 MG EC TABLET PO SCH ×2 (07:01→16:32)
[2017-05-09] MEDS: METHADONE HCL 10 MG TABLET PO SCH (08:18)
[2017-05-09] MEDS: DOCUSATE SODIUM 250 MG CAPSULE PO SCH ×2 (08:19→16:32)
[2017-05-09] MEDS: GABAPENTIN 300 MG CAPSULE PO SCH ×3 (08:19→16:33)
[2017-05-09] MEDS: OMEPRAZOLE 20 MG CAPSULE PO SCH (08:19)
[2017-05-09] MEDS: BENZTROPINE MESYLATE 0.5 MG TABLET PO SCH ×2 (08:19→16:32)
[2017-05-09] MEDS: CIMETIDINE 400 MG TABLET PO SCH (08:19)
[2017-05-09] MEDS: MULTIVITAMINS WITH MINERALS, THERAPEUTIC TABLET PO SCH (08:19)
[2017-05-09] MEDS: VENLAFAXINE HCL 75 MG ER CAPSULE PO SCH (08:20)
[2017-05-09] MEDS: LORATADINE 10 MG TABLET PO SCH (08:20)
[2017-05-09] MEDS: HydrOXYzine PAMOATE 25 MG CAPSULE PO SCH ×3 (08:20→16:32)
[2017-05-09] MEDS: NICOTINE 21 MG/24 HOUR PATCH TD SCH (08:25)
[2017-05-09 08:41] VITALS: BP 104/64
[2017-05-09 13:00] VITALS: BP 127/81
[2017-05-09 13:21] VITALS: BP 127/81
[2017-05-09 16:00] VITALS: BP 120/70
[2017-05-09] MEDS: ZOLPIDEM TARTRATE 10 MG TABLET PO PRN (20:06)
[2017-05-09] MEDS: OLANZapine 10 MG TABLET PO SCH (20:06)
[2017-05-10 01:23] VITALS: BP 125/72
[2017-05-10] MEDS: LORazepam 2 MG TABLET PO PRN ×3 (01:25→12:55)
[2017-05-10] MEDS: HALOPERIDOL 5 MG TABLET PO PRN ×3 (01:31→20:18)
[2017-05-10] MEDS: FERROUS SULFATE 325 MG EC TABLET PO SCH ×2 (06:58→19:24)
[2017-05-10 08:10] VITALS: BP 130/79
[2017-05-10] MEDS: CIMETIDINE 400 MG TABLET PO SCH (08:45)
[2017-05-10] MEDS: HydrOXYzine PAMOATE 25 MG CAPSULE PO SCH ×3 (08:45→15:56)
[2017-05-10] MEDS: OMEPRAZOLE 20 MG CAPSULE PO SCH (08:46)
[2017-05-10] MEDS: DOCUSATE SODIUM 250 MG CAPSULE PO SCH ×2 (08:46→15:57)
[2017-05-10] MEDS: VENLAFAXINE HCL 75 MG ER CAPSULE PO SCH (08:46)
[2017-05-10] MEDS: BENZTROPINE MESYLATE 0.5 MG TABLET PO SCH ×2 (08:46→15:56)
[2017-05-10] MEDS: METHADONE HCL 10 MG TABLET PO SCH (08:46)
[2017-05-10] MEDS: LORATADINE 10 MG TABLET PO SCH (08:46)
[2017-05-10] MEDS: MULTIVITAMINS WITH MINERALS, THERAPEUTIC TABLET PO SCH (08:46)
[2017-05-10] MEDS: GABAPENTIN 300 MG CAPSULE PO SCH ×3 (08:46→15:57)
[2017-05-10] MEDS: NICOTINE 21 MG/24 HOUR PATCH TD SCH (08:47)
[2017-05-10 16:08] VITALS: BP 119/73
[2017-05-10] MEDS: OLANZapine 10 MG TABLET PO SCH (20:01)
[2017-05-11] MEDS: IBUPROFEN 600 MG TABLET PO PRN (03:38)
[2017-05-11] MEDS: HALOPERIDOL 5 MG TABLET PO PRN ×3 (03:38→16:10)
[2017-05-11 03:40] VITALS: BP 121/79
[2017-05-11] MEDS: FERROUS SULFATE 325 MG EC TABLET PO SCH ×2 (06:49→16:09)
[2017-05-11] MEDS: OMEPRAZOLE 20 MG CAPSULE PO SCH (07:41)
[2017-05-11] MEDS: MULTIVITAMINS WITH MINERALS, THERAPEUTIC TABLET PO SCH (07:41)
[2017-05-11] MEDS: DOCUSATE SODIUM 250 MG CAPSULE PO SCH ×2 (07:41→16:09)
[2017-05-11] MEDS: METHADONE HCL 10 MG TABLET PO SCH (07:41)
[2017-05-11] MEDS: CIMETIDINE 400 MG TABLET PO SCH (07:42)
[2017-05-11] MEDS: VENLAFAXINE HCL 75 MG ER CAPSULE PO SCH (07:42)
[2017-05-11] MEDS: LORATADINE 10 MG TABLET PO SCH (07:42)
[2017-05-11] MEDS: HydrOXYzine PAMOATE 25 MG CAPSULE PO SCH ×3 (07:42→16:09)
[2017-05-11] MEDS: BENZTROPINE MESYLATE 0.5 MG TABLET PO SCH ×2 (07:42→16:09)
[2017-05-11] MEDS: GABAPENTIN 300 MG CAPSULE PO SCH ×3 (07:42→16:09)
[2017-05-11] MEDS: NICOTINE 21 MG/24 HOUR PATCH TD SCH (07:44)
[2017-05-11 08:22] VITALS: BP 102/67
[2017-05-11] MEDS: MAGNESIUM HYDROXIDE SUSPENSION 30 ML UDCUP PO PRN (12:43)
[2017-05-11 16:07] VITALS: BP 120/75
[2017-05-11] MEDS: OLANZapine 10 MG TABLET PO SCH (20:35)
[2017-05-11] MEDS: ZOLPIDEM TARTRATE 10 MG TABLET PO PRN (20:56)
[2017-05-12] MEDS: FERROUS SULFATE 325 MG EC TABLET PO SCH ×2 (06:55→16:28)
[2017-05-12] MEDS: GABAPENTIN 300 MG CAPSULE PO SCH ×3 (07:59→16:28)
[2017-05-12] MEDS: MULTIVITAMINS WITH MINERALS, THERAPEUTIC TABLET PO SCH (07:59)
[2017-05-12] MEDS: CIMETIDINE 400 MG TABLET PO SCH (07:59)
[2017-05-12] MEDS: OMEPRAZOLE 20 MG CAPSULE PO SCH (07:59)
[2017-05-12] MEDS: DOCUSATE SODIUM 250 MG CAPSULE PO SCH ×2 (07:59→16:28)
[2017-05-12] MEDS: METHADONE HCL 10 MG TABLET PO SCH (07:59)
[2017-05-12] MEDS: BENZTROPINE MESYLATE 0.5 MG TABLET PO SCH ×2 (08:00→16:28)
[2017-05-12] MEDS: HydrOXYzine PAMOATE 25 MG CAPSULE PO SCH ×3 (08:00→16:28)
[2017-05-12] MEDS: LORATADINE 10 MG TABLET PO SCH (08:00)
[2017-05-12] MEDS: VENLAFAXINE HCL 75 MG ER CAPSULE PO SCH (08:00)
[2017-05-12] MEDS: NICOTINE 21 MG/24 HOUR PATCH TD SCH (08:04)
[2017-05-12 09:00] VITALS: BP 101/65
[2017-05-12 10:17] VITALS: BP 101/65
[2017-05-12] MEDS: HALOPERIDOL 5 MG TABLET PO PRN ×3 (10:17→20:59)
[2017-05-12] MEDS: IBUPROFEN 600 MG TABLET PO PRN (10:17)
[2017-05-12] MEDS: MAGNESIUM HYDROXIDE SUSPENSION 30 ML UDCUP PO PRN (12:44)
[2017-05-12 16:15] VITALS: BP 114/75
[2017-05-12] MEDS: OLANZapine 10 MG TABLET PO SCH (20:24)
[2017-05-12] MEDS: SIMETHICONE 80 MG CHEWABLE TABLET CHEW PRN (20:26)
[2017-05-12] MEDS: ZOLPIDEM TARTRATE 10 MG TABLET PO PRN (20:59)
[2017-05-13] MEDS ORDERED: SIMETHICONE 80 MG CHEWABLE TABLET CHEW SCH
[2017-05-13 01:49] VITALS: BP 119/71
[2017-05-13] MEDS: FERROUS SULFATE 325 MG EC TABLET PO SCH ×2 (06:59→16:33)
[2017-05-13 08:11] VITALS: BP 107/61
[2017-05-13] MEDS: GABAPENTIN 300 MG CAPSULE PO SCH ×3 (08:25→16:20)
[2017-05-13] MEDS: OMEPRAZOLE 20 MG CAPSULE PO SCH (08:25)
[2017-05-13] MEDS: MULTIVITAMINS WITH MINERALS, THERAPEUTIC TABLET PO SCH (08:26)
[2017-05-13] MEDS: METHADONE HCL 10 MG TABLET PO SCH (08:26)
[2017-05-13] MEDS: DOCUSATE SODIUM 250 MG CAPSULE PO SCH ×2 (08:26→16:20)
[2017-05-13] MEDS: LORATADINE 10 MG TABLET PO SCH (08:27)
[2017-05-13] MEDS: BENZTROPINE MESYLATE 0.5 MG TABLET PO SCH ×2 (08:27→16:20)
[2017-05-13] MEDS: VENLAFAXINE HCL 75 MG ER CAPSULE PO SCH (08:27)
[2017-05-13] MEDS: NICOTINE 21 MG/24 HOUR PATCH TD SCH (08:28)
[2017-05-13] MEDS: CIMETIDINE 400 MG TABLET PO SCH (08:28)
[2017-05-13] MEDS: HydrOXYzine PAMOATE 25 MG CAPSULE PO SCH ×3 (08:28→16:20)
[2017-05-13] MEDS: MAGNESIUM HYDROXIDE SUSPENSION 30 ML UDCUP PO PRN (08:39)
[2017-05-13] MEDS: SIMETHICONE 80 MG CHEWABLE TABLET CHEW PRN ×2 (08:40→17:02)
[2017-05-13 09:27] VITALS: BP 107/61
[2017-05-13] MEDS: IBUPROFEN 600 MG TABLET PO PRN (09:30)
[2017-05-13] MEDS: HALOPERIDOL 5 MG TABLET PO PRN ×2 (12:17→18:06)
[2017-05-13 16:10] VITALS: BP 106/77
[2017-05-13 16:11] VITALS: BP 106/77
[2017-05-13] MEDS ORDERED: QUEtiapine FUMARATE 100 MG TABLET PO SCH (17:00)
[2017-05-13] MEDS ORDERED: RisperiDONE 0.5 MG TABLET PO SCH (17:15)
[2017-05-13] MEDS ORDERED: DIVALPROEX SODIUM 125 MG DR CAPSULE PO SCH (17:15)
[2017-05-13] MEDS: OLANZapine 10 MG TABLET PO SCH (20:01)
[2017-05-13] MEDS: ZOLPIDEM TARTRATE 10 MG TABLET PO PRN (20:01)
[2017-05-14] MEDS: HALOPERIDOL 5 MG TABLET PO PRN ×2 (01:14→08:30)
[2017-05-14 01:24] VITALS: BP 117/62
[2017-05-14] MEDS: FERROUS SULFATE 325 MG EC TABLET PO SCH (06:51)
[2017-05-14 08:12] VITALS: BP 109/63
[2017-05-14] MEDS: METHADONE HCL 10 MG TABLET PO SCH (08:25)
[2017-05-14] MEDS: MULTIVITAMINS WITH MINERALS, THERAPEUTIC TABLET PO SCH (08:26)
[2017-05-14] MEDS: OMEPRAZOLE 20 MG CAPSULE PO SCH (08:26)
[2017-05-14] MEDS: VENLAFAXINE HCL 75 MG ER CAPSULE PO SCH (08:26)
[2017-05-14] MEDS: GABAPENTIN 300 MG CAPSULE PO SCH ×2 (08:26→12:15)
[2017-05-14] MEDS: DOCUSATE SODIUM 250 MG CAPSULE PO SCH (08:26)
[2017-05-14] MEDS: LORATADINE 10 MG TABLET PO SCH (08:26)
[2017-05-14] MEDS: CIMETIDINE 400 MG TABLET PO SCH (08:26)
[2017-05-14] MEDS: BENZTROPINE MESYLATE 0.5 MG TABLET PO SCH (08:26)
[2017-05-14] MEDS: HydrOXYzine PAMOATE 25 MG CAPSULE PO SCH ×2 (08:27→12:15)
[2017-05-14] MEDS: SIMETHICONE 80 MG CHEWABLE TABLET CHEW PRN (08:30)
[2017-05-14] MEDS: NICOTINE 21 MG/24 HOUR PATCH TD SCH (08:35)
[2017-05-14] MEDS ORDERED: GuanFACINE HCL 1 MG TABLET PO SCH (09:00)
[2017-05-14] MEDS: MAGNESIUM HYDROXIDE SUSPENSION 30 ML UDCUP PO PRN (10:32)
[2017-05-14] MEDS ORDERED: VENL-67 PO (13:04)
[2017-05-14] MEDS ORDERED: HYDR-4031 PO (13:04)
[2017-05-14] MEDS ORDERED: METH10 PO (13:31)
[2017-05-14] MEDS ORDERED: DOCU250C91 PO (13:31)
== END 2017-05-14 15:45 | disposition home or self-care (01) | DRG 750 ==
LOC: EMS 12:16 → AHU 14:45 → 3EI 15:29 → 3EC 05-08 14:39
PROVIDERS: ADMIT Psychiatry & Neurology Psychiatry; ATTEND Psychiatry & Neurology Psychiatry
DX: F25.0 Schizoaffective disorder, bipolar type (principal); I42.0 Dilated cardiomyopathy; R45.851 Suicidal ideations; F11.20 Opioid dependence, uncomplicated; E83.51 Hypocalcemia; I50.9 Heart failure, unspecified; D64.9 Anemia, unspecified; S41.112A Laceration without foreign body of left upper arm, initial encounter; F17.210 Nicotine dependence, cigarettes, uncomplicated; Z88.1 Allergy status to other antibiotic agents; Z88.2 Allergy status to sulfonamides; F43.10 Post-traumatic stress disorder, unspecified; F60.3 Borderline personality disorder; G43.909 Migraine, unspecified, not intractable, without status migrainosus; G47.00 Insomnia, unspecified; G89.29 Other chronic pain; J45.909 Unspecified asthma, uncomplicated; K21.9 Gastro-esophageal reflux disease without esophagitis; K59.00 Constipation, unspecified; M79.7 Fibromyalgia; W19.XXXA Unspecified fall, initial encounter; N47.6 Balanoposthitis; Z71.6 Tobacco abuse counseling; Z72.89 Other problems related to lifestyle; Z71.41 Alcohol abuse counseling and surveillance of alcoholic; F64.9 Gender identity disorder, unspecified; X58.XXXA Exposure to other specified factors, initial encounter; Y93.89 Activity, other specified; Y92.89 Other specified places as the place of occurrence of the external cause; Y99.8 Other external cause status
CPT/HCPCS: 82306; 84443; 87081; 96372; 99285; G0480; J1630; J2060; Q0162

== ENCOUNTER 2017-05-25 15:49 | Emergency (ER) | payer MEDICAID, OTHER ==
[~2017-05-25] VITALS: Ht 175.3 cm; Wt 77.0 kg
[~2017-05-25 15:49] MED LIST changes: -BACIO TP; -BENZ56.72; -CARI250T PO; -CARI350 PO; -CARI350T PO; -CEPH500 PO; -CEPH500C2; -CLON0.1T PO; -CLON0.5T PO; -CLON1 PO; -CLON1TAB4 PO; -DIPH50 GT; -DIVA250T25 PO; +DOCU250C91 PO; -DULO20CA30 PO; -DULO60CA44 PO; -EFFEXOR PO; -GABA-533 PO; -GABA250S PO; -HALO2 PO; -HYDR-3114 PO; -HYDR-3421; -HYDR-3965 PO; -HYDR-3971 PO; -IBUP-2070 PO; -LAMO25 PO; -MIRT15 PO; -MOME17N NASAL; -OXYC10IR; -PANT40TA25 PO; -QUET100T PO; -RISP4 PO; -TOPI100T9 PO; -TRAM50TA4 PO; -TRAM50TA50 PO; -VENL-193 PO; -WELLBUTRIN PO; -ZOLP10 PO; -ZOLP10TA2 PO
[2017-05-25] MEDS ORDERED: LORazepam 2 MG TABLET PO ONE (17:45)
[2017-05-25] MEDS ORDERED: HALOPERIDOL 5 MG TABLET PO ONE (17:45)
[2017-05-25 18:02] VITALS: BP 136/85
== END 2017-05-25 18:12 | disposition home or self-care (01) ==
LOC: EMS 15:50
DX: F20.0 Paranoid schizophrenia (principal); F31.9 Bipolar disorder, unspecified; F60.3 Borderline personality disorder; F17.210 Nicotine dependence, cigarettes, uncomplicated; K21.9 Gastro-esophageal reflux disease without esophagitis; J45.909 Unspecified asthma, uncomplicated; G43.909 Migraine, unspecified, not intractable, without status migrainosus; Z86.59 Personal history of other mental and behavioral disorders; Z88.4 Allergy status to anesthetic agent; Z88.2 Allergy status to sulfonamides
CPT/HCPCS: 99284; 99406

== ENCOUNTER 2017-06-12 20:04 | Inpatient (IN) | payer MEDICAID, OTHER ==
[~2017-06-12] VITALS: Ht 175.3 cm; Wt 89.0 kg
[2017-06-12 21:14] LABS: BASOPHILS # (AUTO) 0.02 K/uL (0.00-0.20); BASOPHILS % (AUTO) 0.3 % (0.0-2.0); EOSINOPHILS # (AUTO) 0.39 K/uL (0.00-0.70); EOSINOPHILS % (AUTO) 5.53 % (1.0-6.0); HEMATOCRIT 41.9 % (41-53); HEMOGLOBIN 14.2 g/dL (13.5-17.5); LYMPHOCYTES # (AUTO) 2.3 K/uL (1.0-4.8); LYMPHOCYTES % (AUTO) 32.1 % (22.0-44.0); MEAN CORPUSCULAR HEMOGLOBIN 28.7 pg (26.0-34.0); MEAN CORPUSCULAR HGB CONC 33.9 G/dL (31.0-37.0); MEAN CORPUSCULAR VOLUME 85 fL (80-100); MONOCYTES # (AUTO) 0.7 K/uL (0.1-1.0); MONOCYTES % (AUTO) 9.9 % (2.0-9.0); NEUTROPHILS # (AUTO) 3.7 K/uL (1.8-7.7); NEUTROPHILS % (AUTO) 52.2 % (40.0-70.0); PLATELET COUNT (AUTO) 181 K/uL (150-450); RED BLOOD CELL COUNT(AUTO) 4.95 MIL/uL (4.50-5.90); RED CELL DISTRIBUTION WIDTH 14.4 % (11.5-14.5); WHITE BLOOD COUNT (AUTO) 7.1 K/uL (4.5-11.0)
[2017-06-12 21:41] LABS: ANION GAP 10 mmol/L (8-16); CALCIUM, TOTAL 8.8 mg/dL (8.8-10.5); CARBON DIOXIDE 28 mmol/L (22-29); CHLORIDE 103 mmol/L (98-107); CREATININE 0.88 mg/dL (0.60-1.30); GLOMERULAR FILTR. RATE CALC > 60 mL/min (>60); SODIUM SERUM 141 mmol/L (136-145); UREA NITROGEN, BLOOD 12 mg/dL (7-18)
[2017-06-12 21:47] LABS: ALANINE AMINOTRANSFERASE 37 U/L (12-78); ALBUMIN 4.2 g/dL (3.4-5.0); ASPARTATE AMINOTRANSFERASE 28 U/L (15-37); BILIRUBIN,TOTAL 0.3 mg/dL (0.1-1.0); TOTAL PROTEIN, SERUM 7.7 g/dL (6.4-8.2)
[2017-06-13] MEDS ORDERED: LORazepam 2 MG TABLET PO ONE (00:30)
[2017-06-13] MEDS ORDERED: DiphenhydrAMINE HCL 25 MG CAPSULE PO ONE (00:30)
[2017-06-13 01:18] LABS: APPEARANCE,URINE CLEAR (CLEAR); GLUCOSE, URINE (UA) NEGATIVE (NEGATIVE); KETONES,URINE NEGATIVE (NEGATIVE); LEUKOCYTE ESTERASE ,URINE NEGATIVE (NEGATIVE); OCCULT BLOOD,URINE NEGATIVE (NEGATIVE); PH,URINE 6.5 (5.0-8.0); PROTEIN,URINE NEGATIVE (NEGATIVE)
[2017-06-13 01:19] LABS: ADD UA MICROSCOPIC NO
[2017-06-13 01:29] LABS: CHOL/HDL RATIO 3.8 (4.2-7.3)
[2017-06-13] MEDS: LORazepam 2 MG TABLET PO PRN ×3 (03:25→19:49)
[2017-06-13] MEDS: ZOLPIDEM TARTRATE 10 MG TABLET PO PRN ×2 (03:26→20:14)
[2017-06-13 05:52] VITALS: BP 134/89
[2017-06-13] MEDS ORDERED: -PHARMACY VACCINE NOTE- MISC ONE ×2 (06:45)
[2017-06-13 08:42] VITALS: BP 107/71
[2017-06-13] MEDS ORDERED: MAG HYDROX/AL HYDROX/SIMETH ES 30 ML SUSPENSION UDCUP PO PRN (08:45)
[2017-06-13] MEDS ORDERED: IBUPROFEN 600 MG TABLET PO PRN (08:45)
[2017-06-13] MEDS ORDERED: BACITRACIN 28.4 GM OINTMENT TP PRN (08:45)
[2017-06-13] MEDS ORDERED: BENZOCAINE/MENTHOL LOZENGE MM PRN (08:45)
[2017-06-13] MEDS ORDERED: PETROLATUM,WHITE 71 GM JELLY TP PRN (08:45)
[2017-06-13] MEDS ORDERED: ONDANSETRON HCL 4 MG TABLET PO PRN (08:45)
[2017-06-13] MEDS ORDERED: ALBUTEROL SULFATE HFA 90 MCG/PUFF 8 GM INHALER IH PRN (08:45)
[2017-06-13] MEDS ORDERED: LOPERAMIDE HCL 2 MG CAPSULE PO PRN (08:45)
[2017-06-13] MEDS ORDERED: ACETAMINOPHEN 325 MG TABLET PO PRN (08:45)
[2017-06-13] MEDS ORDERED: CloNIDine HCL 0.1 MG TABLET PO PRN (08:45)
[2017-06-13] MEDS: OMEPRAZOLE 20 MG CAPSULE PO SCH (09:18)
[2017-06-13] MEDS: METHADONE HCL 10 MG TABLET PO SCH (09:18)
[2017-06-13] MEDS: DOCUSATE SODIUM 100 MG CAPSULE PO SCH (09:18)
[2017-06-13] MEDS: BACITRACIN 28.4 GM OINTMENT TP SCH ×2 (10:41→17:17)
[2017-06-13] MEDS: HALOPERIDOL 5 MG TABLET PO PRN ×2 (11:05→19:50)
[2017-06-13] MEDS ORDERED: LORazepam 2 MG/ML VIAL IM ONE (11:30)
[2017-06-13] MEDS ORDERED: HALOPERIDOL LACTATE 5 MG/ML VIAL IM ONE (11:30)
[2017-06-13] MEDS ORDERED: DiphenhydrAMINE HCL 50 MG/ML VIAL IM ONE (11:30)
[2017-06-13] MEDS ORDERED: LORazepam 2 MG/ML VIAL ONE (11:32)
[2017-06-13] MEDS ORDERED: DiphenhydrAMINE HCL 50 MG/ML VIAL ONE (11:32)
[2017-06-13] MEDS ORDERED: HALOPERIDOL LACTATE 5 MG/ML VIAL ONE (11:32)
[2017-06-13] MEDS: NICOTINE 21 MG/24 HOUR PATCH TD SCH (13:05)
[2017-06-13] MEDS: OLANZapine 10 MG TABLET PO SCH (20:13)
[2017-06-14 07:09] VITALS: BP 108/66
[2017-06-14 08:04] VITALS: BP 110/70
[2017-06-14] MEDS: METHADONE HCL 10 MG TABLET PO SCH (08:58)
[2017-06-14] MEDS: GABAPENTIN 300 MG CAPSULE PO SCH ×3 (08:58→17:10)
[2017-06-14] MEDS: OMEPRAZOLE 20 MG CAPSULE PO SCH (08:58)
[2017-06-14] MEDS: HydrOXYzine PAMOATE 25 MG CAPSULE PO SCH ×3 (08:58→17:10)
[2017-06-14] MEDS: DOCUSATE SODIUM 100 MG CAPSULE PO SCH (08:58)
[2017-06-14] MEDS: NICOTINE 21 MG/24 HOUR PATCH TD SCH (08:59)
[2017-06-14] MEDS: VENLAFAXINE HCL 75 MG ER CAPSULE PO SCH (08:59)
[2017-06-14] MEDS: BACITRACIN 28.4 GM OINTMENT TP SCH ×2 (08:59→17:10)
[2017-06-14] MEDS: LORazepam 2 MG TABLET PO PRN ×2 (09:28→17:18)
[2017-06-14] MEDS: HALOPERIDOL 5 MG TABLET PO PRN ×2 (09:28→17:18)
[2017-06-14 16:21] VITALS: BP 108/60
[2017-06-14 21:04] VITALS: BP 113/61
[2017-06-14] MEDS: OLANZapine 10 MG TABLET PO SCH (21:45)
[2017-06-14] MEDS: ZOLPIDEM TARTRATE 10 MG TABLET PO PRN (21:46)
[2017-06-15 09:30] VITALS: BP 110/62
[2017-06-15] MEDS: METHADONE HCL 10 MG TABLET PO SCH (10:17)
[2017-06-15] MEDS: VENLAFAXINE HCL 75 MG ER CAPSULE PO SCH (10:17)
[2017-06-15] MEDS: GABAPENTIN 300 MG CAPSULE PO SCH ×3 (10:17→17:08)
[2017-06-15] MEDS: HydrOXYzine PAMOATE 25 MG CAPSULE PO SCH ×3 (10:17→17:08)
[2017-06-15] MEDS: DOCUSATE SODIUM 100 MG CAPSULE PO SCH (10:18)
[2017-06-15] MEDS: OMEPRAZOLE 20 MG CAPSULE PO SCH (10:18)
[2017-06-15] MEDS: NICOTINE 21 MG/24 HOUR PATCH TD SCH (10:24)
[2017-06-15] MEDS: BACITRACIN 28.4 GM OINTMENT TP SCH ×2 (10:25→17:08)
[2017-06-15] MEDS: HALOPERIDOL 5 MG TABLET PO PRN ×2 (11:15→17:10)
[2017-06-15] MEDS: LORazepam 2 MG TABLET PO PRN ×2 (11:16→17:10)
[2017-06-15 16:06] VITALS: BP 115/71
[2017-06-15] MEDS: OLANZapine 10 MG TABLET PO SCH (21:05)
[2017-06-16 03:20] VITALS: BP 123/77
[2017-06-16] MEDS: LORazepam 2 MG TABLET PO PRN ×3 (03:26→14:19)
[2017-06-16] MEDS: DOCUSATE SODIUM 100 MG CAPSULE PO SCH (08:53)
[2017-06-16] MEDS: OMEPRAZOLE 20 MG CAPSULE PO SCH (08:54)
[2017-06-16] MEDS: METHADONE HCL 10 MG TABLET PO SCH (08:54)
[2017-06-16] MEDS: VENLAFAXINE HCL 75 MG ER CAPSULE PO SCH (08:54)
[2017-06-16] MEDS: HydrOXYzine PAMOATE 25 MG CAPSULE PO SCH ×3 (08:55→16:04)
[2017-06-16] MEDS: GABAPENTIN 300 MG CAPSULE PO SCH ×3 (08:55→16:04)
[2017-06-16] MEDS: HALOPERIDOL 5 MG TABLET PO PRN ×2 (08:56→14:19)
[2017-06-16] MEDS: NICOTINE 21 MG/24 HOUR PATCH TD SCH (08:57)
[2017-06-16] MEDS: BACITRACIN 28.4 GM OINTMENT TP SCH ×2 (09:00→16:05)
[2017-06-16 11:53] VITALS: BP 129/79
[2017-06-16 14:16] VITALS: BP 120/75
[2017-06-16 16:11] VITALS: BP 118/70
[2017-06-16] MEDS: OLANZapine 10 MG TABLET PO SCH (20:56)
[2017-06-17] MEDS: DOCUSATE SODIUM 100 MG CAPSULE PO SCH (08:53)
[2017-06-17] MEDS: METHADONE HCL 10 MG TABLET PO SCH (08:54)
[2017-06-17] MEDS: OMEPRAZOLE 20 MG CAPSULE PO SCH (08:55)
[2017-06-17] MEDS: HydrOXYzine PAMOATE 25 MG CAPSULE PO SCH ×3 (08:55→16:34)
[2017-06-17] MEDS: VENLAFAXINE HCL 75 MG ER CAPSULE PO SCH (08:55)
[2017-06-17] MEDS: NICOTINE 21 MG/24 HOUR PATCH TD SCH (08:55)
[2017-06-17] MEDS: GABAPENTIN 300 MG CAPSULE PO SCH ×3 (08:55→16:34)
[2017-06-17] MEDS: LORazepam 2 MG TABLET PO PRN ×2 (08:59→13:23)
[2017-06-17] MEDS: HALOPERIDOL 5 MG TABLET PO PRN ×2 (08:59→13:23)
[2017-06-17] MEDS: BACITRACIN 28.4 GM OINTMENT TP SCH ×2 (09:00→16:34)
[2017-06-17 09:54] VITALS: BP 125/75
[2017-06-17 17:00] VITALS: BP 128/75
[2017-06-17] MEDS: OLANZapine 10 MG TABLET PO SCH (21:59)
[2017-06-18 08:10] VITALS: BP 117/67
[2017-06-18] MEDS: VENLAFAXINE HCL 75 MG ER CAPSULE PO SCH (08:51)
[2017-06-18] MEDS: METHADONE HCL 10 MG TABLET PO SCH (08:51)
[2017-06-18] MEDS: DOCUSATE SODIUM 100 MG CAPSULE PO SCH (08:52)
[2017-06-18] MEDS: HydrOXYzine PAMOATE 25 MG CAPSULE PO SCH ×3 (08:52→16:36)
[2017-06-18] MEDS: GABAPENTIN 300 MG CAPSULE PO SCH ×3 (08:52→16:36)
[2017-06-18] MEDS: OMEPRAZOLE 20 MG CAPSULE PO SCH (08:52)
[2017-06-18] MEDS: NICOTINE 21 MG/24 HOUR PATCH TD SCH (08:53)
[2017-06-18] MEDS: BACITRACIN 28.4 GM OINTMENT TP SCH ×2 (09:00→16:40)
[2017-06-18] MEDS: LORazepam 2 MG TABLET PO PRN ×2 (09:48→14:16)
[2017-06-18] MEDS: HALOPERIDOL 5 MG TABLET PO PRN ×3 (09:48→20:21)
[2017-06-18 16:15] VITALS: BP 118/65
[2017-06-18] MEDS: ZOLPIDEM TARTRATE 10 MG TABLET PO PRN (20:21)
[2017-06-18] MEDS: OLANZapine 10 MG TABLET PO SCH (20:21)
[2017-06-19] MEDS: LORazepam 2 MG TABLET PO PRN ×3 (06:22→17:04)
[2017-06-19] MEDS: HALOPERIDOL 5 MG TABLET PO PRN ×2 (06:24→14:19)
[2017-06-19 08:00] VITALS: BP 130/69
[2017-06-19] MEDS: METHADONE HCL 10 MG TABLET PO SCH (08:12)
[2017-06-19] MEDS: DOCUSATE SODIUM 100 MG CAPSULE PO SCH (08:12)
[2017-06-19] MEDS: HydrOXYzine PAMOATE 25 MG CAPSULE PO SCH ×3 (08:13→17:04)
[2017-06-19] MEDS: NICOTINE 21 MG/24 HOUR PATCH TD SCH (08:13)
[2017-06-19] MEDS: OMEPRAZOLE 20 MG CAPSULE PO SCH (08:13)
[2017-06-19] MEDS: GABAPENTIN 300 MG CAPSULE PO SCH ×3 (08:13→17:04)
[2017-06-19] MEDS: VENLAFAXINE HCL 75 MG ER CAPSULE PO SCH (08:13)
[2017-06-19] MEDS: BACITRACIN 28.4 GM OINTMENT TP SCH ×2 (08:14→17:05)
[2017-06-19] MEDS: MAGNESIUM HYDROXIDE SUSPENSION 30 ML UDCUP PO PRN (14:19)
[2017-06-19 16:09] VITALS: BP 138/75
[2017-06-19] MEDS: OLANZapine 10 MG TABLET PO SCH (20:39)
[2017-06-20] MEDS: ZOLPIDEM TARTRATE 10 MG TABLET PO PRN (02:56)
[2017-06-20 04:58] VITALS: BP 121/83
[2017-06-20 08:51] VITALS: BP 128/80
[2017-06-20] MEDS: HydrOXYzine PAMOATE 25 MG CAPSULE PO SCH ×2 (08:51→12:45)
[2017-06-20] MEDS: VENLAFAXINE HCL 75 MG ER CAPSULE PO SCH (08:51)
[2017-06-20] MEDS: OMEPRAZOLE 20 MG CAPSULE PO SCH (08:51)
[2017-06-20] MEDS: NICOTINE 21 MG/24 HOUR PATCH TD SCH (08:51)
[2017-06-20] MEDS: BACITRACIN 28.4 GM OINTMENT TP SCH (08:51)
[2017-06-20] MEDS: DOCUSATE SODIUM 100 MG CAPSULE PO SCH (08:52)
[2017-06-20] MEDS: METHADONE HCL 10 MG TABLET PO SCH (08:52)
[2017-06-20] MEDS: GABAPENTIN 300 MG CAPSULE PO SCH ×2 (08:52→12:45)
[2017-06-20] MEDS ORDERED: DSS100 PO (09:36)
[2017-06-20] MEDS ORDERED: OMEP20 PO (09:36)
[2017-06-20] MEDS: MAGNESIUM HYDROXIDE SUSPENSION 30 ML UDCUP PO PRN (11:19)
[2017-06-20] MEDS ORDERED: CIMETIDINE 400 MG TABLET PO SCH (12:00)
[2017-06-20] MEDS: HALOPERIDOL 5 MG TABLET PO PRN (12:44)
== END 2017-06-20 15:12 | disposition home or self-care (01) | DRG 750 ==
LOC: EMS 20:14 → B3A 06-13 03:37 → B2S 06-13 10:20 → 3EI 06-14 20:24
PROVIDERS: ADMIT Psychiatry & Neurology Psychiatry; ATTEND Psychiatry & Neurology Psychiatry
DX: F25.9 Schizoaffective disorder, unspecified (principal); F11.20 Opioid dependence, uncomplicated; R45.851 Suicidal ideations; F43.10 Post-traumatic stress disorder, unspecified; M41.9 Scoliosis, unspecified; K21.9 Gastro-esophageal reflux disease without esophagitis; J45.909 Unspecified asthma, uncomplicated; G89.4 Chronic pain syndrome; G47.00 Insomnia, unspecified; F41.9 Anxiety disorder, unspecified; S51.812A Laceration without foreign body of left forearm, initial encounter; F10.20 Alcohol dependence, uncomplicated; G43.909 Migraine, unspecified, not intractable, without status migrainosus; F17.210 Nicotine dependence, cigarettes, uncomplicated; Z88.2 Allergy status to sulfonamides; Z88.1 Allergy status to other antibiotic agents; Z88.8 Allergy status to other drugs, medicaments and biological substances; Z79.899 Other long term (current) drug therapy; Z79.51 Long term (current) use of inhaled steroids; Z71.51 Drug abuse counseling and surveillance of drug abuser; Z71.41 Alcohol abuse counseling and surveillance of alcoholic; Z71.6 Tobacco abuse counseling; X78.8XXA Intentional self-harm by other sharp object, initial encounter; Y93.89 Activity, other specified; Y92.89 Other specified places as the place of occurrence of the external cause; Y99.8 Other external cause status
CPT/HCPCS: 87081; 99285; G0480; J1200; J1630; J2060

== ENCOUNTER 2017-08-09 16:11 | Inpatient (IN) | payer MEDICAID, OTHER ==
[~2017-08-09] VITALS: Ht 175.3 cm; Wt 108.9 kg
[~2017-08-09 16:11] MED LIST changes: -BENZ0.5T6 PO; -CIME400T PO; -DOCU250C91 PO; +DSS100 PO; -FERR-89 PO; -LORA10TA7 PO; -METH10 PO; +OMEP20 PO
[2017-08-09] MEDS ORDERED: ADDE10 PO (16:29)
[2017-08-09] MEDS ORDERED: HALO5 PO (16:29)
[2017-08-09] MEDS ORDERED: TRAM50TA4 PO (16:29)
[2017-08-09] MEDS ORDERED: CARI350 PO (16:29)
[2017-08-09] MEDS ORDERED: CLON2 PO (16:29)
[2017-08-09] MEDS ORDERED: ZOLP10TA7 PO (16:29)
[2017-08-09] MEDS ORDERED: METH10 PO (16:29)
[2017-08-09] MEDS ORDERED: LITH300CRT PO (16:29)
[2017-08-09 17:08] LABS: BASOPHILS % (AUTO) 0.7 % (0.0-2.0); EOSINOPHILS % (AUTO) 1.9 % (1.0-6.0); HEMATOCRIT 38.9 % (41-53); HEMOGLOBIN 13.3 g/dL (13.5-17.5); LYMPHOCYTES # (AUTO) 1.1 K/uL (1.0-4.8); LYMPHOCYTES % (AUTO) 24.3 % (22.0-44.0); MEAN CORPUSCULAR HEMOGLOBIN 28.8 pg (26.0-34.0); MEAN CORPUSCULAR HGB CONC 34.3 G/dL (31.0-37.0); MEAN CORPUSCULAR VOLUME 84 fL (80-100); MONOCYTES # (AUTO) 0.4 K/uL (0.1-1.0); MONOCYTES % (AUTO) 9.2 % (2.0-9.0); NEUTROPHILS % (AUTO) 63.9 % (40.0-70.0); PLATELET COUNT (AUTO) 195 K/uL (150-450); RED BLOOD CELL COUNT(AUTO) 4.62 MIL/uL (4.50-5.90); RED CELL DISTRIBUTION WIDTH 13.6 % (11.5-14.5)
[2017-08-09 17:27] LABS: AMPHET/METH SCREEN,URINE POSITIVE (NEGATIVE); BARBITURATE SCREEN, URINE NEGATIVE (NEGATIVE); BENZODIAZEPINES SCREEN,URINE NEGATIVE (NEGATIVE); CANNABINOID SCREEN,URINE POSITIVE (NEGATIVE); COCAINE SCREEN,URINE NEGATIVE (NEGATIVE); METHADONE SCREEN, URINE POSITIVE (NEGATIVE); OPIATE SCREEN,URINE POSITIVE (NEGATIVE)
[2017-08-09 17:31] LABS: ANION GAP 11 mmol/L (8-16); CALCIUM, TOTAL 8.7 mg/dL (8.8-10.5); CARBON DIOXIDE 25 mmol/L (22-29); CHLORIDE 104 mmol/L (98-107); CREATININE 0.86 mg/dL (0.60-1.30); GLOMERULAR FILTR. RATE CALC > 60 mL/min (>60); GLUCOSE,RANDOM 133 mg/dL (70-110); POTASSIUM 3.5 mmol/L (3.5-5.1); SODIUM SERUM 140 mmol/L (136-145); UREA NITROGEN, BLOOD 11 mg/dL (7-18)
[2017-08-09 17:35] LABS: ALANINE AMINOTRANSFERASE 46 U/L (12-78); ALBUMIN 4.2 g/dL (3.4-5.0); ALKALINE PHOSPHATASE 82 U/L (46-116); ASPARTATE AMINOTRANSFERASE 32 U/L (15-37); BILIRUBIN,TOTAL 0.3 mg/dL (0.1-1.0); TOTAL PROTEIN, SERUM 7.7 g/dL (6.4-8.2)
[2017-08-09] MEDS ORDERED: BACITRACIN 0.9 GM PACKET OINTMENT TP ONE (17:45)
[2017-08-09] MEDS ORDERED: SODIUM CHLORIDE 0.9% 250 ML IRRIG SOLUTION BOTTLE IRRIG ONE (17:45)
[2017-08-09 17:57] LABS: PHENCYCLIDINE SCREEN,URINE NEGATIVE (NEGATIVE)
[2017-08-09 18:47] LABS: LITHIUM < 0.20 mmol/L (0.60-1.20)
[2017-08-09] MEDS: LORazepam 2 MG TABLET PO PRN (21:02)
[2017-08-10 01:56] VITALS: BP 120/78
[2017-08-10] MEDS ORDERED: -PHARMACY VACCINE NOTE- MISC ONE (02:00)
[2017-08-10] MEDS ORDERED: PNEUMOCOCCAL VACCINE POLYVALENT 0.5 ML VIAL [PPSV23] IM ONE (02:00)
[2017-08-10] MEDS ORDERED: INFLUENZA VIRUS VACCINE QVS 2017-18 (3YR+)/PF 60 MCG/0.5 ML SYRINGE IM ONE (02:00)
[2017-08-10 08:27] VITALS: BP 123/71
[2017-08-10] MEDS: BACITRACIN 28.4 GM OINTMENT TP SCH ×2 (09:02→16:36)
[2017-08-10] MEDS: NICOTINE 21 MG/24 HOUR PATCH TD SCH (09:02)
[2017-08-10 09:04] LABS: HEMOGLOBIN A1C 5.5 % (4.5-6.2)
[2017-08-10 09:15] LABS: CHOL/HDL RATIO 4.2 (4.2-7.3); FREE T4 (FREE THYROXINE) 1.1 ng/dL (0.76-1.46); THYROID STIMULATING HORMONE 0.44 uIU/mL (0.36-3.74)
[2017-08-10] MEDS: METHADONE HCL 10 MG TABLET PO SCH (12:20)
[2017-08-10] MEDS: HydrOXYzine PAMOATE 25 MG CAPSULE PO SCH ×2 (12:20→16:33)
[2017-08-10] MEDS: GABAPENTIN 300 MG CAPSULE PO SCH ×2 (12:20→16:34)
[2017-08-10] MEDS: LITHIUM CARBONATE 300 MG CAPSULE PO SCH ×2 (12:20→16:33)
[2017-08-10] MEDS: LORazepam 2 MG TABLET PO PRN ×2 (12:20→17:43)
[2017-08-10] MEDS: HALOPERIDOL 5 MG TABLET PO PRN (14:38)
[2017-08-10 16:07] VITALS: BP 129/84
[2017-08-10] MEDS: OLANZapine 10 MG TABLET PO SCH (16:34)
[2017-08-10] MEDS: ZOLPIDEM TARTRATE 10 MG TABLET PO PRN (20:31)
[2017-08-11 07:07] VITALS: BP 121/78
[2017-08-11 08:27] LABS: HEMATOCRIT 40.7 % (41-53); HEMOGLOBIN 13.6 g/dL (13.5-17.5); MEAN CORPUSCULAR HEMOGLOBIN 28.4 pg (26.0-34.0); MEAN CORPUSCULAR HGB CONC 33.5 G/dL (31.0-37.0); MEAN CORPUSCULAR VOLUME 85 fL (80-100); PLATELET COUNT (AUTO) 168 K/uL (150-450)
[2017-08-11 08:38] LABS: LITHIUM < 0.20 mmol/L (0.60-1.20)
[2017-08-11 08:55] LABS: ALANINE AMINOTRANSFERASE 36 U/L (12-78); ALBUMIN 3.8 g/dL (3.4-5.0); ALKALINE PHOSPHATASE 75 U/L (46-116); ANION GAP 6 mmol/L (8-16); ASPARTATE AMINOTRANSFERASE 19 U/L (15-37); BILIRUBIN,TOTAL 0.3 mg/dL (0.1-1.0); CALCIUM, TOTAL 8.6 mg/dL (8.8-10.5); CARBON DIOXIDE 29 mmol/L (22-29); CHLORIDE 103 mmol/L (98-107); CREATININE 0.86 mg/dL (0.60-1.30); GLOMERULAR FILTR. RATE CALC > 60 mL/min (>60); GLUCOSE,RANDOM 90 mg/dL (70-110); POTASSIUM 3.7 mmol/L (3.5-5.1); SODIUM SERUM 138 mmol/L (136-145); THYROID STIMULATING HORMONE 1.34 uIU/mL (0.36-3.74); TOTAL PROTEIN, SERUM 7.5 g/dL (6.4-8.2); UREA NITROGEN, BLOOD 11 mg/dL (7-18)
[2017-08-11] MEDS: BACITRACIN 28.4 GM OINTMENT TP SCH ×2 (09:00→16:48)
[2017-08-11 09:01] LABS: BAND NEUTROPHILS % (MANUAL) 4 % (1-5); EOSINOPHILS % (MANUAL) 1 % (1-6); LYMPHOCYTES % (MANUAL) 26 % (22-44); MONOCYTES % (MANUAL) 7 % (2-9); SEGMENTED NEUTROPHILS % 62 % (40-70)
[2017-08-11] MEDS: OLANZapine 10 MG TABLET PO SCH ×2 (09:05→16:40)
[2017-08-11] MEDS: METHADONE HCL 10 MG TABLET PO SCH (09:05)
[2017-08-11] MEDS: NICOTINE 21 MG/24 HOUR PATCH TD SCH (09:05)
[2017-08-11] MEDS: VENLAFAXINE HCL 75 MG ER CAPSULE PO SCH (09:06)
[2017-08-11] MEDS: GABAPENTIN 300 MG CAPSULE PO SCH ×3 (09:06→13:24)
[2017-08-11] MEDS: HydrOXYzine PAMOATE 25 MG CAPSULE PO SCH ×3 (09:06→16:40)
[2017-08-11] MEDS: LITHIUM CARBONATE 300 MG CAPSULE PO SCH ×3 (09:06→16:40)
[2017-08-11 10:22] VITALS: BP 120/76
[2017-08-11] MEDS: LORazepam 2 MG TABLET PO PRN (11:19)
[2017-08-11] MEDS: CARISOPRODOL 350 MG TABLET PO SCH ×2 (13:24→17:00)
[2017-08-11] MEDS: TraMADol HCL 50 MG TABLET PO SCH ×2 (13:25→17:50)
[2017-08-11 16:35] VITALS: BP 131/77
[2017-08-12 06:53] VITALS: BP 126/77
[2017-08-12] MEDS: NICOTINE 21 MG/24 HOUR PATCH TD SCH (09:02)
[2017-08-12] MEDS: METHADONE HCL 10 MG TABLET PO SCH (09:02)
[2017-08-12] MEDS: CARISOPRODOL 350 MG TABLET PO SCH ×3 (09:03→16:06)
[2017-08-12] MEDS: OMEPRAZOLE 20 MG CAPSULE PO SCH (09:03)
[2017-08-12] MEDS: LITHIUM CARBONATE 300 MG CAPSULE PO SCH ×3 (09:03→16:06)
[2017-08-12] MEDS: HydrOXYzine PAMOATE 25 MG CAPSULE PO SCH ×3 (09:03→16:06)
[2017-08-12] MEDS: GABAPENTIN 300 MG CAPSULE PO SCH ×3 (09:03→16:06)
[2017-08-12] MEDS: VENLAFAXINE HCL 75 MG ER CAPSULE PO SCH (09:03)
[2017-08-12] MEDS: BACITRACIN 28.4 GM OINTMENT TP SCH ×2 (09:04→16:06)
[2017-08-12] MEDS: OLANZapine 10 MG TABLET PO SCH ×2 (09:05→16:06)
[2017-08-12 10:10] VITALS: BP 124/76
[2017-08-12] MEDS: TraMADol HCL 50 MG TABLET PO PRN (10:10)
[2017-08-12] MEDS: LORazepam 2 MG TABLET PO PRN ×2 (10:10→16:58)
[2017-08-12 16:08] VITALS: BP 117/80
[2017-08-13 06:40] VITALS: BP 126/81
[2017-08-13] MEDS: NICOTINE 21 MG/24 HOUR PATCH TD SCH (08:53)
[2017-08-13] MEDS: OLANZapine 10 MG TABLET PO SCH ×2 (08:54→16:17)
[2017-08-13] MEDS: HydrOXYzine PAMOATE 25 MG CAPSULE PO SCH ×3 (08:54→16:16)
[2017-08-13] MEDS: GABAPENTIN 300 MG CAPSULE PO SCH ×3 (08:54→16:16)
[2017-08-13] MEDS: VENLAFAXINE HCL 75 MG ER CAPSULE PO SCH (08:55)
[2017-08-13] MEDS: METHADONE HCL 10 MG TABLET PO SCH (08:55)
[2017-08-13] MEDS: CARISOPRODOL 350 MG TABLET PO SCH ×3 (08:55→16:16)
[2017-08-13] MEDS: OMEPRAZOLE 20 MG CAPSULE PO SCH (08:55)
[2017-08-13] MEDS: BACITRACIN 28.4 GM OINTMENT TP SCH ×2 (08:56→16:17)
[2017-08-13] MEDS: LITHIUM CARBONATE 300 MG CAPSULE PO SCH ×3 (08:56→16:16)
[2017-08-13 09:49] VITALS: BP 132/74
[2017-08-13] MEDS: LORazepam 2 MG TABLET PO PRN ×3 (10:48→23:49)
[2017-08-13 10:51] VITALS: BP 126/80
[2017-08-13 16:47] VITALS: BP 134/75
[2017-08-13] MEDS: TraMADol HCL 50 MG TABLET PO PRN (16:50)
[2017-08-14] MEDS: ZOLPIDEM TARTRATE 10 MG TABLET PO PRN (00:42)
[2017-08-14 00:55] VITALS: BP 109/85
[2017-08-14 08:16] VITALS: BP 146/68
[2017-08-14] MEDS: CARISOPRODOL 350 MG TABLET PO SCH ×3 (09:14→16:18)
[2017-08-14] MEDS: BACITRACIN 28.4 GM OINTMENT TP SCH ×2 (09:14→16:19)
[2017-08-14] MEDS: HydrOXYzine PAMOATE 25 MG CAPSULE PO SCH ×3 (09:14→16:18)
[2017-08-14] MEDS: METHADONE HCL 10 MG TABLET PO SCH (09:15)
[2017-08-14] MEDS: NICOTINE 21 MG/24 HOUR PATCH TD SCH (09:15)
[2017-08-14] MEDS: LITHIUM CARBONATE 300 MG CAPSULE PO SCH ×3 (09:16→16:18)
[2017-08-14] MEDS: GABAPENTIN 300 MG CAPSULE PO SCH ×3 (09:16→16:18)
[2017-08-14] MEDS: OMEPRAZOLE 20 MG CAPSULE PO SCH (09:16)
[2017-08-14] MEDS: VENLAFAXINE HCL 75 MG ER CAPSULE PO SCH (09:16)
[2017-08-14] MEDS: OLANZapine 10 MG TABLET PO SCH ×2 (09:16→16:18)
[2017-08-14] MEDS: LORazepam 2 MG TABLET PO PRN ×3 (09:17→20:20)
[2017-08-14] MEDS: TraMADol HCL 50 MG TABLET PO PRN (10:56)
[2017-08-14 20:53] VITALS: BP 128/80
[2017-08-15 06:45] VITALS: BP 137/72
[2017-08-15] MEDS: HydrOXYzine PAMOATE 25 MG CAPSULE PO SCH ×3 (08:53→16:21)
[2017-08-15] MEDS: VENLAFAXINE HCL 75 MG ER CAPSULE PO SCH (08:53)
[2017-08-15] MEDS: OMEPRAZOLE 20 MG CAPSULE PO SCH (08:54)
[2017-08-15] MEDS: CARISOPRODOL 350 MG TABLET PO SCH ×3 (08:54→16:21)
[2017-08-15] MEDS: LITHIUM CARBONATE 300 MG CAPSULE PO SCH ×3 (08:54→16:22)
[2017-08-15] MEDS: LORazepam 2 MG TABLET PO PRN ×2 (08:55→16:23)
[2017-08-15] MEDS: NICOTINE 21 MG/24 HOUR PATCH TD SCH (08:55)
[2017-08-15] MEDS: METHADONE HCL 10 MG TABLET PO SCH (08:55)
[2017-08-15] MEDS: GABAPENTIN 300 MG CAPSULE PO SCH ×3 (08:55→16:21)
[2017-08-15] MEDS: OLANZapine 10 MG TABLET PO SCH ×2 (08:56→16:22)
[2017-08-15] MEDS: BACITRACIN 28.4 GM OINTMENT TP SCH ×2 (08:57→16:21)
[2017-08-15 09:00] VITALS: BP 132/73
[2017-08-15] MEDS: TraMADol HCL 50 MG TABLET PO PRN (16:21)
[2017-08-15 16:31] VITALS: BP 125/78
[2017-08-16 02:19] VITALS: BP 129/71
[2017-08-16] MEDS: ZOLPIDEM TARTRATE 10 MG TABLET PO PRN (02:27)
[2017-08-16 09:00] VITALS: BP 121/63
[2017-08-16] MEDS: GABAPENTIN 300 MG CAPSULE PO SCH ×3 (09:19→16:46)
[2017-08-16] MEDS: VENLAFAXINE HCL 75 MG ER CAPSULE PO SCH (09:19)
[2017-08-16] MEDS: LITHIUM CARBONATE 300 MG CAPSULE PO SCH ×3 (09:20→16:46)
[2017-08-16] MEDS: HydrOXYzine PAMOATE 25 MG CAPSULE PO SCH ×3 (09:20→16:47)
[2017-08-16] MEDS: BACITRACIN 28.4 GM OINTMENT TP SCH ×2 (09:20→16:49)
[2017-08-16] MEDS: OLANZapine 10 MG TABLET PO SCH ×2 (09:20→16:48)
[2017-08-16] MEDS: OMEPRAZOLE 20 MG CAPSULE PO SCH (09:20)
[2017-08-16] MEDS: CARISOPRODOL 350 MG TABLET PO SCH ×3 (09:20→16:47)
[2017-08-16] MEDS: NICOTINE 21 MG/24 HOUR PATCH TD SCH (09:20)
[2017-08-16] MEDS: METHADONE HCL 10 MG TABLET PO SCH (09:21)
[2017-08-16] MEDS: LORazepam 2 MG TABLET PO PRN ×2 (11:56→16:47)
[2017-08-16 16:18] VITALS: BP 131/81
[2017-08-16] MEDS: TraMADol HCL 50 MG TABLET PO PRN (16:47)
[2017-08-17 00:31] VITALS: BP 119/82
[2017-08-17] MEDS: LORazepam 2 MG TABLET PO PRN ×3 (00:32→18:09)
[2017-08-17 08:54] VITALS: BP 141/69
[2017-08-17] MEDS: NICOTINE 21 MG/24 HOUR PATCH TD SCH (09:00)
[2017-08-17] MEDS: BACITRACIN 28.4 GM OINTMENT TP SCH ×2 (09:00→16:47)
[2017-08-17] MEDS: GABAPENTIN 300 MG CAPSULE PO SCH ×3 (10:50→16:45)
[2017-08-17] MEDS: OLANZapine 10 MG TABLET PO SCH ×2 (10:50→16:46)
[2017-08-17] MEDS: OMEPRAZOLE 20 MG CAPSULE PO SCH (10:50)
[2017-08-17] MEDS: HydrOXYzine PAMOATE 25 MG CAPSULE PO SCH ×3 (10:50→16:46)
[2017-08-17] MEDS: VENLAFAXINE HCL 75 MG ER CAPSULE PO SCH (10:50)
[2017-08-17] MEDS: CARISOPRODOL 350 MG TABLET PO SCH ×3 (10:51→16:47)
[2017-08-17] MEDS: LITHIUM CARBONATE 300 MG CAPSULE PO SCH ×3 (10:52→16:46)
[2017-08-17] MEDS: METHADONE HCL 10 MG TABLET PO SCH (11:09)
[2017-08-17 12:30] VITALS: BP 135/71
[2017-08-17] MEDS: TraMADol HCL 50 MG TABLET PO PRN (12:39)
[2017-08-17 16:18] VITALS: BP 121/94
[2017-08-17] MEDS: MAGNESIUM HYDROXIDE SUSPENSION 30 ML UDCUP PO PRN (18:06)
[2017-08-17] MEDS: ZOLPIDEM TARTRATE 10 MG TABLET PO PRN (20:28)
[2017-08-17] MEDS: ALBUTEROL SULFATE HFA 90 MCG/PUFF 8 GM INHALER IH PRN (21:30)
[2017-08-18 03:05] VITALS: BP 140/78
[2017-08-18] MEDS: LORazepam 2 MG TABLET PO PRN (04:15)
[2017-08-18] MEDS: METHADONE HCL 10 MG TABLET PO SCH (08:34)
[2017-08-18] MEDS: GABAPENTIN 300 MG CAPSULE PO SCH ×3 (08:34→16:57)
[2017-08-18] MEDS: CARISOPRODOL 350 MG TABLET PO SCH ×3 (08:34→16:57)
[2017-08-18] MEDS: OMEPRAZOLE 20 MG CAPSULE PO SCH (08:34)
[2017-08-18] MEDS: HydrOXYzine PAMOATE 25 MG CAPSULE PO SCH ×3 (08:34→16:57)
[2017-08-18] MEDS: OLANZapine 10 MG TABLET PO SCH ×2 (08:34→16:57)
[2017-08-18] MEDS: VENLAFAXINE HCL 75 MG ER CAPSULE PO SCH (08:34)
[2017-08-18] MEDS: LITHIUM CARBONATE 300 MG CAPSULE PO SCH ×3 (08:34→16:57)
[2017-08-18] MEDS: NICOTINE 21 MG/24 HOUR PATCH TD SCH (08:35)
[2017-08-18 08:39] VITALS: BP 124/66
[2017-08-18] MEDS: TraMADol HCL 50 MG TABLET PO PRN (08:39)
[2017-08-18] MEDS: BACITRACIN 28.4 GM OINTMENT TP SCH ×2 (08:43→16:58)
[2017-08-18 08:50] VITALS: BP 124/66
[2017-08-18] MEDS: MAGNESIUM HYDROXIDE SUSPENSION 30 ML UDCUP PO PRN (14:27)
[2017-08-18 16:42] VITALS: BP 137/116
[2017-08-18] MEDS: ALBUTEROL SULFATE HFA 90 MCG/PUFF 8 GM INHALER IH PRN (17:37)
[2017-08-18] MEDS: ZOLPIDEM TARTRATE 10 MG TABLET PO PRN (20:26)
[2017-08-18 20:33] VITALS: BP 134/92
[2017-08-19 06:07] VITALS: BP 125/85
[2017-08-19] MEDS: NICOTINE 21 MG/24 HOUR PATCH TD SCH (08:17)
[2017-08-19] MEDS: GABAPENTIN 300 MG CAPSULE PO SCH ×3 (08:18→16:35)
[2017-08-19] MEDS: CARISOPRODOL 350 MG TABLET PO SCH ×3 (08:18→16:35)
[2017-08-19] MEDS: VENLAFAXINE HCL 75 MG ER CAPSULE PO SCH (08:19)
[2017-08-19] MEDS: METHADONE HCL 10 MG TABLET PO SCH (08:19)
[2017-08-19] MEDS: OLANZapine 10 MG TABLET PO SCH ×2 (08:19→16:35)
[2017-08-19] MEDS: BACITRACIN 28.4 GM OINTMENT TP SCH ×2 (08:20→16:35)
[2017-08-19] MEDS: OMEPRAZOLE 20 MG CAPSULE PO SCH (08:20)
[2017-08-19] MEDS: LITHIUM CARBONATE 300 MG CAPSULE PO SCH ×3 (08:20→16:35)
[2017-08-19] MEDS: HydrOXYzine PAMOATE 25 MG CAPSULE PO SCH ×3 (08:20→16:35)
[2017-08-19 08:42] VITALS: BP 120/76
[2017-08-19] MEDS: LORazepam 2 MG TABLET PO PRN ×2 (17:11→23:49)
[2017-08-19 17:35] VITALS: BP 124/94
[2017-08-19 18:19] VITALS: BP 128/83
[2017-08-19] MEDS: TraMADol HCL 50 MG TABLET PO PRN (18:19)
[2017-08-19] MEDS: MAGNESIUM HYDROXIDE SUSPENSION 30 ML UDCUP PO PRN (20:20)
[2017-08-19] MEDS: ZOLPIDEM TARTRATE 10 MG TABLET PO PRN (20:27)
[2017-08-20 05:00] VITALS: BP 133/83
[2017-08-20] MEDS: LORazepam 2 MG TABLET PO PRN ×2 (05:03→16:37)
[2017-08-20 08:29] VITALS: BP 112/72
[2017-08-20] MEDS: METHADONE HCL 10 MG TABLET PO SCH (08:48)
[2017-08-20] MEDS: OMEPRAZOLE 20 MG CAPSULE PO SCH (08:48)
[2017-08-20] MEDS: VENLAFAXINE HCL 75 MG ER CAPSULE PO SCH (08:48)
[2017-08-20] MEDS: CARISOPRODOL 350 MG TABLET PO SCH ×3 (08:48→16:07)
[2017-08-20] MEDS: NICOTINE 21 MG/24 HOUR PATCH TD SCH (08:48)
[2017-08-20] MEDS: HydrOXYzine PAMOATE 25 MG CAPSULE PO SCH ×3 (08:49→16:07)
[2017-08-20] MEDS: GABAPENTIN 300 MG CAPSULE PO SCH ×3 (08:49→16:07)
[2017-08-20] MEDS: LITHIUM CARBONATE 300 MG CAPSULE PO SCH ×3 (08:49→16:07)
[2017-08-20] MEDS: OLANZapine 10 MG TABLET PO SCH ×2 (08:49→16:07)
[2017-08-20] MEDS: MAGNESIUM HYDROXIDE SUSPENSION 30 ML UDCUP PO PRN (11:19)
[2017-08-20 16:34] VITALS: BP 133/85
[2017-08-20 17:20] VITALS: BP 129/84
[2017-08-20] MEDS: TraMADol HCL 50 MG TABLET PO PRN (17:28)
[2017-08-21 00:41] VITALS: BP 129/71
[2017-08-21] MEDS: LORazepam 2 MG TABLET PO PRN ×3 (00:46→16:54)
[2017-08-21] MEDS: OLANZapine 10 MG TABLET PO SCH ×2 (08:47→16:56)
[2017-08-21] MEDS: VENLAFAXINE HCL 75 MG ER CAPSULE PO SCH (08:47)
[2017-08-21] MEDS: GABAPENTIN 300 MG CAPSULE PO SCH ×3 (08:47→16:55)
[2017-08-21] MEDS: NICOTINE 21 MG/24 HOUR PATCH TD SCH (08:47)
[2017-08-21] MEDS: METHADONE HCL 10 MG TABLET PO SCH (08:47)
[2017-08-21] MEDS: LITHIUM CARBONATE 300 MG CAPSULE PO SCH ×3 (08:48→16:55)
[2017-08-21] MEDS: CARISOPRODOL 350 MG TABLET PO SCH ×3 (08:48→16:55)
[2017-08-21] MEDS: OMEPRAZOLE 20 MG CAPSULE PO SCH (08:48)
[2017-08-21 08:50] VITALS: BP 139/72
[2017-08-21] MEDS: TraMADol HCL 50 MG TABLET PO PRN ×2 (08:52→16:55)
[2017-08-21 09:03] VITALS: BP 139/72
[2017-08-21] MEDS: HydrOXYzine PAMOATE 25 MG CAPSULE PO SCH ×3 (09:41→16:55)
[2017-08-21 09:50] VITALS: BP 128/74
[2017-08-21 16:26] VITALS: BP 137/87
[2017-08-21] MEDS: MAGNESIUM HYDROXIDE SUSPENSION 30 ML UDCUP PO PRN (18:27)
[2017-08-21] MEDS: ZOLPIDEM TARTRATE 10 MG TABLET PO PRN (22:03)
[2017-08-22 03:54] VITALS: BP 126/76
[2017-08-22 08:40] VITALS: BP 108/66
[2017-08-22] MEDS: HydrOXYzine PAMOATE 25 MG CAPSULE PO SCH ×3 (09:00→16:12)
[2017-08-22] MEDS: GABAPENTIN 300 MG CAPSULE PO SCH ×3 (09:00→16:12)
[2017-08-22] MEDS: LITHIUM CARBONATE 300 MG CAPSULE PO SCH ×3 (09:00→16:13)
[2017-08-22] MEDS: CARISOPRODOL 350 MG TABLET PO SCH ×3 (09:00→16:12)
[2017-08-22] MEDS: METHADONE HCL 10 MG TABLET PO SCH (09:50)
[2017-08-22] MEDS: OMEPRAZOLE 20 MG CAPSULE PO SCH (09:50)
[2017-08-22] MEDS: NICOTINE 21 MG/24 HOUR PATCH TD SCH (09:51)
[2017-08-22] MEDS: VENLAFAXINE HCL 75 MG ER CAPSULE PO SCH (09:51)
[2017-08-22] MEDS: OLANZapine 10 MG TABLET PO SCH ×2 (09:51→16:13)
[2017-08-22] MEDS: LORazepam 2 MG TABLET PO PRN (14:46)
[2017-08-22 16:12] VITALS: BP 129/74
[2017-08-22] MEDS: TraMADol HCL 50 MG TABLET PO PRN (16:14)
[2017-08-22] MEDS: MAGNESIUM HYDROXIDE SUSPENSION 30 ML UDCUP PO PRN (16:17)
[2017-08-22 16:41] VITALS: BP 129/74
[2017-08-23 00:05] VITALS: BP 131/94
[2017-08-23] MEDS: ZOLPIDEM TARTRATE 10 MG TABLET PO PRN (00:42)
[2017-08-23] MEDS: CARISOPRODOL 350 MG TABLET PO SCH ×3 (08:52→16:26)
[2017-08-23] MEDS: OLANZapine 10 MG TABLET PO SCH ×2 (08:52→16:27)
[2017-08-23] MEDS: OMEPRAZOLE 20 MG CAPSULE PO SCH (08:52)
[2017-08-23] MEDS: VENLAFAXINE HCL 75 MG ER CAPSULE PO SCH (08:52)
[2017-08-23] MEDS: GABAPENTIN 300 MG CAPSULE PO SCH ×3 (08:52→16:27)
[2017-08-23] MEDS: HydrOXYzine PAMOATE 25 MG CAPSULE PO SCH ×3 (08:53→16:27)
[2017-08-23] MEDS: LITHIUM CARBONATE 300 MG CAPSULE PO SCH ×3 (08:53→16:26)
[2017-08-23] MEDS: METHADONE HCL 10 MG TABLET PO SCH (08:53)
[2017-08-23 09:00] VITALS: BP 128/81
[2017-08-23] MEDS: NICOTINE 21 MG/24 HOUR PATCH TD SCH (09:37)
[2017-08-23] MEDS: TraMADol HCL 50 MG TABLET PO PRN (12:11)
[2017-08-23] MEDS: LORazepam 2 MG TABLET PO PRN ×2 (12:11→16:27)
[2017-08-23 16:19] VITALS: BP 122/68
[2017-08-24 00:20] VITALS: BP 124/74
[2017-08-24] MEDS: ZOLPIDEM TARTRATE 10 MG TABLET PO PRN ×2 (00:25→23:51)
[2017-08-24] MEDS: ALBUTEROL SULFATE HFA 90 MCG/PUFF 8 GM INHALER IH PRN (00:54)
[2017-08-24] MEDS: LORazepam 2 MG TABLET PO PRN ×3 (01:45→18:45)
[2017-08-24] MEDS: VENLAFAXINE HCL 75 MG ER CAPSULE PO SCH (08:55)
[2017-08-24] MEDS: OMEPRAZOLE 20 MG CAPSULE PO SCH (08:55)
[2017-08-24] MEDS: HydrOXYzine PAMOATE 25 MG CAPSULE PO SCH ×3 (08:55→16:11)
[2017-08-24] MEDS: OLANZapine 10 MG TABLET PO SCH ×2 (08:55→16:11)
[2017-08-24] MEDS: GABAPENTIN 300 MG CAPSULE PO SCH ×3 (08:55→16:11)
[2017-08-24] MEDS: CARISOPRODOL 350 MG TABLET PO SCH ×3 (08:55→16:11)
[2017-08-24] MEDS: METHADONE HCL 10 MG TABLET PO SCH (08:55)
[2017-08-24] MEDS: NICOTINE 21 MG/24 HOUR PATCH TD SCH (08:56)
[2017-08-24] MEDS: LITHIUM CARBONATE 300 MG CAPSULE PO SCH ×3 (08:56→16:11)
[2017-08-24] MEDS: TraMADol HCL 50 MG TABLET PO PRN (09:14)
[2017-08-24 09:25] VITALS: BP 140/87
[2017-08-24 12:00] VITALS: BP 124/87
[2017-08-24 16:05] VITALS: BP 141/75
[2017-08-24] MEDS: MAGNESIUM HYDROXIDE SUSPENSION 30 ML UDCUP PO PRN (18:49)
[2017-08-25 00:01] VITALS: BP 111/75
[2017-08-25] MEDS: LORazepam 2 MG TABLET PO PRN ×2 (02:46→08:42)
[2017-08-25 08:34] VITALS: BP 121/78
[2017-08-25] MEDS: OLANZapine 10 MG TABLET PO SCH ×2 (08:42→16:14)
[2017-08-25] MEDS: OMEPRAZOLE 20 MG CAPSULE PO SCH (08:42)
[2017-08-25] MEDS: METHADONE HCL 10 MG TABLET PO SCH (08:42)
[2017-08-25] MEDS: GABAPENTIN 300 MG CAPSULE PO SCH ×3 (08:42→16:14)
[2017-08-25] MEDS: LITHIUM CARBONATE 300 MG CAPSULE PO SCH ×3 (08:42→16:14)
[2017-08-25] MEDS: CARISOPRODOL 350 MG TABLET PO SCH ×3 (08:43→16:13)
[2017-08-25] MEDS: HydrOXYzine PAMOATE 25 MG CAPSULE PO SCH ×3 (08:43→16:14)
[2017-08-25] MEDS: VENLAFAXINE HCL 75 MG ER CAPSULE PO SCH (08:43)
[2017-08-25] MEDS: NICOTINE 21 MG/24 HOUR PATCH TD SCH (08:43)
[2017-08-25] MEDS: TraMADol HCL 50 MG TABLET PO PRN (08:53)
[2017-08-25 16:11] VITALS: BP 135/69
[2017-08-25] MEDS: ZOLPIDEM TARTRATE 10 MG TABLET PO PRN (21:18)
[2017-08-26] MEDS: LORazepam 2 MG TABLET PO PRN ×2 (00:32→15:18)
[2017-08-26 00:33] VITALS: BP 147/85
[2017-08-26 08:23] VITALS: BP 129/70
[2017-08-26] MEDS: HydrOXYzine PAMOATE 25 MG CAPSULE PO SCH ×3 (09:36→16:08)
[2017-08-26] MEDS: METHADONE HCL 10 MG TABLET PO SCH (09:36)
[2017-08-26] MEDS: CARISOPRODOL 350 MG TABLET PO SCH ×3 (09:37→17:20)
[2017-08-26] MEDS: OLANZapine 10 MG TABLET PO SCH ×2 (09:37→16:07)
[2017-08-26] MEDS: OMEPRAZOLE 20 MG CAPSULE PO SCH (09:37)
[2017-08-26] MEDS: NICOTINE 21 MG/24 HOUR PATCH TD SCH (09:37)
[2017-08-26] MEDS: LITHIUM CARBONATE 300 MG CAPSULE PO SCH ×3 (09:37→16:08)
[2017-08-26] MEDS: VENLAFAXINE HCL 75 MG ER CAPSULE PO SCH (09:37)
[2017-08-26] MEDS: GABAPENTIN 300 MG CAPSULE PO SCH ×3 (09:37→16:07)
[2017-08-26 16:16] VITALS: BP 128/83
[2017-08-26] MEDS: MAGNESIUM HYDROXIDE SUSPENSION 30 ML UDCUP PO PRN (17:40)
[2017-08-26 19:36] VITALS: BP 122/76
[2017-08-26] MEDS: ACETAMINOPHEN 325 MG TABLET PO PRN (19:36)
[2017-08-26] MEDS: ZOLPIDEM TARTRATE 10 MG TABLET PO PRN (21:06)
[2017-08-27 02:46] VITALS: BP 123/76
[2017-08-27] MEDS: LORazepam 2 MG TABLET PO PRN ×2 (02:47→11:26)
[2017-08-27 09:04] VITALS: BP 125/81
[2017-08-27] MEDS: VENLAFAXINE HCL 75 MG ER CAPSULE PO SCH (10:04)
[2017-08-27] MEDS: CARISOPRODOL 350 MG TABLET PO SCH ×3 (10:04→17:08)
[2017-08-27] MEDS: LITHIUM CARBONATE 300 MG CAPSULE PO SCH ×3 (10:04→16:50)
[2017-08-27] MEDS: OLANZapine 10 MG TABLET PO SCH ×2 (10:04→16:50)
[2017-08-27] MEDS: HydrOXYzine PAMOATE 25 MG CAPSULE PO SCH ×3 (10:04→16:50)
[2017-08-27] MEDS: OMEPRAZOLE 20 MG CAPSULE PO SCH (10:04)
[2017-08-27] MEDS: GABAPENTIN 300 MG CAPSULE PO SCH ×3 (10:05→16:50)
[2017-08-27] MEDS: NICOTINE 21 MG/24 HOUR PATCH TD SCH (10:06)
[2017-08-27] MEDS: METHADONE HCL 10 MG TABLET PO SCH (10:10)
[2017-08-27] MEDS ORDERED: TUBERCULIN, PURIFIED PROTEIN DERIVATIVE 5 TU/0.1 ML SYG ID ONE (14:00)
[2017-08-27 16:08] VITALS: BP 122/83
[2017-08-27] MEDS: TraMADol HCL 50 MG TABLET PO PRN (17:30)
[2017-08-27 17:31] VITALS: BP 126/76
[2017-08-27] MEDS: MAGNESIUM HYDROXIDE SUSPENSION 30 ML UDCUP PO PRN (17:31)
[2017-08-28] MEDS: ZOLPIDEM TARTRATE 10 MG TABLET PO PRN ×2 (00:11→23:45)
[2017-08-28] MEDS: LORazepam 2 MG TABLET PO PRN ×3 (01:22→17:47)
[2017-08-28 01:25] VITALS: BP 127/81
[2017-08-28 01:32] VITALS: BP 139/75
[2017-08-28] MEDS: MAGNESIUM HYDROXIDE SUSPENSION 30 ML UDCUP PO PRN ×2 (01:52→17:49)
[2017-08-28 06:18] VITALS: BP 133/81
[2017-08-28 08:59] VITALS: BP 124/81
[2017-08-28] MEDS: OMEPRAZOLE 20 MG CAPSULE PO SCH (09:35)
[2017-08-28] MEDS: LITHIUM CARBONATE 300 MG CAPSULE PO SCH ×3 (09:35→17:06)
[2017-08-28] MEDS: VENLAFAXINE HCL 75 MG ER CAPSULE PO SCH (09:35)
[2017-08-28] MEDS: CARISOPRODOL 350 MG TABLET PO SCH ×3 (09:35→17:06)
[2017-08-28] MEDS: HydrOXYzine PAMOATE 25 MG CAPSULE PO SCH ×3 (09:35→17:06)
[2017-08-28] MEDS: OLANZapine 10 MG TABLET PO SCH ×2 (09:35→17:07)
[2017-08-28] MEDS: GABAPENTIN 300 MG CAPSULE PO SCH ×3 (09:35→17:07)
[2017-08-28] MEDS: NICOTINE 21 MG/24 HOUR PATCH TD SCH (09:35)
[2017-08-28] MEDS: METHADONE HCL 10 MG TABLET PO SCH (09:36)
[2017-08-28 16:38] VITALS: BP 126/77
[2017-08-29 00:01] VITALS: BP 134/90
[2017-08-29 03:01] VITALS: BP 146/86
[2017-08-29] MEDS: LORazepam 2 MG TABLET PO PRN ×2 (03:05→12:58)
[2017-08-29] MEDS: METHADONE HCL 10 MG TABLET PO SCH (08:53)
[2017-08-29] MEDS: OMEPRAZOLE 20 MG CAPSULE PO SCH (08:53)
[2017-08-29] MEDS: GABAPENTIN 300 MG CAPSULE PO SCH ×3 (08:53→16:58)
[2017-08-29] MEDS: VENLAFAXINE HCL 75 MG ER CAPSULE PO SCH (08:53)
[2017-08-29] MEDS: LITHIUM CARBONATE 300 MG CAPSULE PO SCH ×3 (08:53→16:58)
[2017-08-29] MEDS: CARISOPRODOL 350 MG TABLET PO SCH ×3 (08:53→16:58)
[2017-08-29] MEDS: HydrOXYzine PAMOATE 25 MG CAPSULE PO SCH ×3 (08:54→16:57)
[2017-08-29] MEDS: NICOTINE 21 MG/24 HOUR PATCH TD SCH (08:54)
[2017-08-29 08:59] VITALS: BP 124/64
[2017-08-29] MEDS: OLANZapine 10 MG TABLET PO SCH ×2 (10:15→16:58)
[2017-08-29 16:47] VITALS: BP 131/82
[2017-08-29] MEDS: ZOLPIDEM TARTRATE 10 MG TABLET PO PRN (22:15)
[2017-08-30] MEDS: LORazepam 2 MG TABLET PO PRN ×2 (00:05→13:34)
[2017-08-30] MEDS: MAGNESIUM HYDROXIDE SUSPENSION 30 ML UDCUP PO PRN (00:05)
[2017-08-30 00:44] VITALS: BP 126/77
[2017-08-30 08:19] VITALS: BP 128/64
[2017-08-30] MEDS: CARISOPRODOL 350 MG TABLET PO SCH ×3 (09:24→17:04)
[2017-08-30] MEDS: LITHIUM CARBONATE 300 MG CAPSULE PO SCH ×3 (09:24→17:05)
[2017-08-30] MEDS: METHADONE HCL 10 MG TABLET PO SCH (09:24)
[2017-08-30] MEDS: NICOTINE 21 MG/24 HOUR PATCH TD SCH (09:25)
[2017-08-30] MEDS: OLANZapine 10 MG TABLET PO SCH ×2 (09:25→17:05)
[2017-08-30] MEDS: VENLAFAXINE HCL 75 MG ER CAPSULE PO SCH (09:25)
[2017-08-30] MEDS: GABAPENTIN 300 MG CAPSULE PO SCH ×3 (09:25→17:03)
[2017-08-30] MEDS: HydrOXYzine PAMOATE 25 MG CAPSULE PO SCH ×3 (09:25→17:03)
[2017-08-30] MEDS: OMEPRAZOLE 20 MG CAPSULE PO SCH (09:26)
[2017-08-30 16:13] VITALS: BP 133/82
[2017-08-30] MEDS: TraMADol HCL 50 MG TABLET PO PRN (17:03)
[2017-08-30] MEDS: ZOLPIDEM TARTRATE 10 MG TABLET PO PRN (21:07)
[2017-08-31 00:03] VITALS: BP 125/71
[2017-08-31] MEDS: LORazepam 2 MG TABLET PO PRN ×2 (00:51→13:36)
[2017-08-31] MEDS: OMEPRAZOLE 20 MG CAPSULE PO SCH (08:41)
[2017-08-31] MEDS: HydrOXYzine PAMOATE 25 MG CAPSULE PO SCH ×3 (08:41→16:53)
[2017-08-31] MEDS: CARISOPRODOL 350 MG TABLET PO SCH ×3 (08:41→16:53)
[2017-08-31] MEDS: OLANZapine 10 MG TABLET PO SCH ×2 (08:41→16:53)
[2017-08-31] MEDS: NICOTINE 21 MG/24 HOUR PATCH TD SCH (08:41)
[2017-08-31] MEDS: VENLAFAXINE HCL 75 MG ER CAPSULE PO SCH (08:41)
[2017-08-31] MEDS: LITHIUM CARBONATE 300 MG CAPSULE PO SCH ×3 (08:41→16:53)
[2017-08-31] MEDS: METHADONE HCL 10 MG TABLET PO SCH (08:42)
[2017-08-31] MEDS: GABAPENTIN 300 MG CAPSULE PO SCH ×3 (08:45→16:53)
[2017-08-31 09:00] VITALS: BP 131/64
[2017-08-31 16:05] VITALS: BP 130/84
[2017-08-31] MEDS: MAGNESIUM HYDROXIDE SUSPENSION 30 ML UDCUP PO PRN (16:57)
[2017-08-31] MEDS: ZOLPIDEM TARTRATE 10 MG TABLET PO PRN (20:46)
[2017-09-01 02:00] VITALS: BP 135/79
[2017-09-01] MEDS: LORazepam 2 MG TABLET PO PRN ×2 (02:03→13:45)
[2017-09-01 09:02] VITALS: BP 109/67
[2017-09-01] MEDS: GABAPENTIN 300 MG CAPSULE PO SCH ×3 (09:27→16:11)
[2017-09-01] MEDS: VENLAFAXINE HCL 75 MG ER CAPSULE PO SCH (09:27)
[2017-09-01] MEDS: OLANZapine 10 MG TABLET PO SCH ×2 (09:28→16:11)
[2017-09-01] MEDS: HydrOXYzine PAMOATE 25 MG CAPSULE PO SCH ×3 (09:28→16:12)
[2017-09-01] MEDS: CARISOPRODOL 350 MG TABLET PO SCH ×3 (09:28→16:12)
[2017-09-01] MEDS: LITHIUM CARBONATE 300 MG CAPSULE PO SCH ×3 (09:28→16:11)
[2017-09-01] MEDS: METHADONE HCL 10 MG TABLET PO SCH (09:28)
[2017-09-01] MEDS: NICOTINE 21 MG/24 HOUR PATCH TD SCH (09:29)
[2017-09-01] MEDS: OMEPRAZOLE 20 MG CAPSULE PO SCH (09:35)
[2017-09-01 16:04] VITALS: BP 133/77
[2017-09-01] MEDS: ZOLPIDEM TARTRATE 10 MG TABLET PO PRN (22:02)
[2017-09-02 04:52] VITALS: BP 130/82
[2017-09-02] MEDS: LORazepam 2 MG TABLET PO PRN ×3 (04:57→20:10)
[2017-09-02] MEDS: OMEPRAZOLE 20 MG CAPSULE PO SCH (08:23)
[2017-09-02] MEDS: HydrOXYzine PAMOATE 25 MG CAPSULE PO SCH ×3 (08:24→16:35)
[2017-09-02] MEDS: VENLAFAXINE HCL 75 MG ER CAPSULE PO SCH (08:24)
[2017-09-02] MEDS: CARISOPRODOL 350 MG TABLET PO SCH ×3 (08:24→16:35)
[2017-09-02] MEDS: LITHIUM CARBONATE 300 MG CAPSULE PO SCH ×3 (08:24→16:35)
[2017-09-02] MEDS: GABAPENTIN 300 MG CAPSULE PO SCH ×3 (08:24→16:35)
[2017-09-02] MEDS: OLANZapine 10 MG TABLET PO SCH ×2 (08:24→16:35)
[2017-09-02] MEDS: METHADONE HCL 10 MG TABLET PO SCH (08:25)
[2017-09-02] MEDS: NICOTINE 21 MG/24 HOUR PATCH TD SCH (08:25)
[2017-09-02 09:02] VITALS: BP 129/77
[2017-09-02] MEDS: HALOPERIDOL 5 MG TABLET PO PRN (13:47)
[2017-09-02 16:08] VITALS: BP 133/70
[2017-09-02] MEDS ORDERED: PERMETHRIN 1% 60 ML LOTION TP ONE (19:45)
[2017-09-03 04:00] VITALS: BP 125/72
[2017-09-03] MEDS: LORazepam 2 MG TABLET PO PRN ×2 (04:02→12:26)
[2017-09-03 08:05] VITALS: BP 124/76
[2017-09-03] MEDS: VENLAFAXINE HCL 75 MG ER CAPSULE PO SCH (09:23)
[2017-09-03] MEDS: LITHIUM CARBONATE 300 MG CAPSULE PO SCH ×3 (09:23→16:18)
[2017-09-03] MEDS: OLANZapine 10 MG TABLET PO SCH ×2 (09:23→16:19)
[2017-09-03] MEDS: GABAPENTIN 300 MG CAPSULE PO SCH ×3 (09:24→16:18)
[2017-09-03] MEDS: OMEPRAZOLE 20 MG CAPSULE PO SCH (09:24)
[2017-09-03] MEDS: METHADONE HCL 10 MG TABLET PO SCH (09:24)
[2017-09-03] MEDS: CARISOPRODOL 350 MG TABLET PO SCH ×3 (09:24→16:18)
[2017-09-03] MEDS: HydrOXYzine PAMOATE 25 MG CAPSULE PO SCH ×3 (09:25→16:19)
[2017-09-03] MEDS: NICOTINE 21 MG/24 HOUR PATCH TD SCH (09:25)
[2017-09-03 16:24] VITALS: BP 135/85
[2017-09-03] MEDS: HALOPERIDOL 5 MG TABLET PO PRN (17:41)
[2017-09-03] MEDS: TraMADol HCL 50 MG TABLET PO PRN (18:37)
[2017-09-04 01:06] VITALS: BP 121/75
[2017-09-04] MEDS: HydrOXYzine PAMOATE 25 MG CAPSULE PO SCH ×3 (08:14→16:18)
[2017-09-04] MEDS: GABAPENTIN 300 MG CAPSULE PO SCH ×3 (08:14→16:18)
[2017-09-04] MEDS: CARISOPRODOL 350 MG TABLET PO SCH ×3 (08:14→16:18)
[2017-09-04] MEDS: OMEPRAZOLE 20 MG CAPSULE PO SCH (08:14)
[2017-09-04] MEDS: METHADONE HCL 10 MG TABLET PO SCH (08:14)
[2017-09-04] MEDS: LITHIUM CARBONATE 300 MG CAPSULE PO SCH ×3 (08:15→16:18)
[2017-09-04] MEDS: OLANZapine 10 MG TABLET PO SCH ×2 (08:15→16:18)
[2017-09-04] MEDS: NICOTINE 21 MG/24 HOUR PATCH TD SCH (08:15)
[2017-09-04] MEDS: VENLAFAXINE HCL 75 MG ER CAPSULE PO SCH (08:15)
[2017-09-04 08:30] VITALS: BP 117/84
[2017-09-04] MEDS: HALOPERIDOL 5 MG TABLET PO PRN (10:08)
[2017-09-04 16:27] VITALS: BP 134/80
[2017-09-04] MEDS: MAGNESIUM HYDROXIDE SUSPENSION 30 ML UDCUP PO PRN (18:54)
[2017-09-05 03:57] VITALS: BP 148/84
[2017-09-05] MEDS: HALOPERIDOL 5 MG TABLET PO PRN (03:58)
[2017-09-05 08:25] VITALS: BP 113/67
[2017-09-05] MEDS: LITHIUM CARBONATE 300 MG CAPSULE PO SCH ×3 (09:24→16:57)
[2017-09-05] MEDS: OMEPRAZOLE 20 MG CAPSULE PO SCH (09:24)
[2017-09-05] MEDS: METHADONE HCL 10 MG TABLET PO SCH (09:24)
[2017-09-05] MEDS: OLANZapine 10 MG TABLET PO SCH ×2 (09:24→16:57)
[2017-09-05] MEDS: CARISOPRODOL 350 MG TABLET PO SCH ×3 (09:25→16:57)
[2017-09-05] MEDS: HydrOXYzine PAMOATE 25 MG CAPSULE PO SCH ×3 (09:25→16:57)
[2017-09-05] MEDS: NICOTINE 21 MG/24 HOUR PATCH TD SCH (09:25)
[2017-09-05] MEDS: GABAPENTIN 300 MG CAPSULE PO SCH ×3 (09:25→16:57)
[2017-09-05] MEDS: VENLAFAXINE HCL 75 MG ER CAPSULE PO SCH (09:25)
[2017-09-05] MEDS ORDERED: DiphenhydrAMINE HCL 50 MG/ML VIAL IM ONE (09:55)
[2017-09-05 10:07] VITALS: BP 144/84
[2017-09-05] MEDS: TraMADol HCL 50 MG TABLET PO PRN (14:14)
[2017-09-05 16:50] VITALS: BP 124/77
[2017-09-05] MEDS: BENZTROPINE MESYLATE 1 MG TABLET PO SCH (16:57)
[2017-09-06 01:04] VITALS: BP 128/60
[2017-09-06] MEDS: BENZTROPINE MESYLATE 1 MG TABLET PO SCH ×2 (08:16→16:36)
[2017-09-06] MEDS: VENLAFAXINE HCL 75 MG ER CAPSULE PO SCH (08:16)
[2017-09-06] MEDS: HydrOXYzine PAMOATE 25 MG CAPSULE PO SCH ×3 (08:17→16:36)
[2017-09-06] MEDS: CARISOPRODOL 350 MG TABLET PO SCH ×3 (08:17→16:37)
[2017-09-06] MEDS: OMEPRAZOLE 20 MG CAPSULE PO SCH (08:17)
[2017-09-06] MEDS: LITHIUM CARBONATE 300 MG CAPSULE PO SCH ×3 (08:17→16:37)
[2017-09-06] MEDS: METHADONE HCL 10 MG TABLET PO SCH (08:17)
[2017-09-06] MEDS: OLANZapine 10 MG TABLET PO SCH ×2 (08:17→16:36)
[2017-09-06] MEDS: GABAPENTIN 300 MG CAPSULE PO SCH ×3 (08:17→16:36)
[2017-09-06] MEDS: NICOTINE 21 MG/24 HOUR PATCH TD SCH (08:18)
[2017-09-06] MEDS: MAGNESIUM HYDROXIDE SUSPENSION 30 ML UDCUP PO PRN (08:52)
[2017-09-06] MEDS ORDERED: PERMETHRIN 1% 60 ML LOTION TP ONE (09:30)
[2017-09-06] MEDS: HALOPERIDOL 5 MG TABLET PO PRN ×2 (11:25→21:43)
[2017-09-06 16:06] VITALS: BP 134/67
[2017-09-07 01:10] VITALS: BP 122/74
[2017-09-07 08:40] VITALS: BP 115/63
[2017-09-07] MEDS: NICOTINE 21 MG/24 HOUR PATCH TD SCH (08:41)
[2017-09-07] MEDS: OMEPRAZOLE 20 MG CAPSULE PO SCH (08:41)
[2017-09-07] MEDS: HydrOXYzine PAMOATE 25 MG CAPSULE PO SCH ×3 (08:41→16:31)
[2017-09-07] MEDS: GABAPENTIN 300 MG CAPSULE PO SCH ×3 (08:41→16:31)
[2017-09-07] MEDS: CARISOPRODOL 350 MG TABLET PO SCH ×3 (08:42→17:06)
[2017-09-07] MEDS: METHADONE HCL 10 MG TABLET PO SCH (08:42)
[2017-09-07] MEDS: OLANZapine 10 MG TABLET PO SCH ×2 (08:42→16:31)
[2017-09-07] MEDS: VENLAFAXINE HCL 75 MG ER CAPSULE PO SCH (08:42)
[2017-09-07] MEDS: LITHIUM CARBONATE 300 MG CAPSULE PO SCH ×3 (08:42→16:31)
[2017-09-07] MEDS: BENZTROPINE MESYLATE 1 MG TABLET PO SCH ×2 (08:42→16:31)
[2017-09-07] MEDS: TraMADol HCL 50 MG TABLET PO PRN (08:43)
[2017-09-07] MEDS ORDERED: PERMETHRIN 1% 60 ML LOTION TP ONE (11:00)
[2017-09-07 16:32] VITALS: BP 122/80
[2017-09-08 01:02] VITALS: BP 129/81
[2017-09-08 08:12] VITALS: BP 128/63
[2017-09-08] MEDS: BENZTROPINE MESYLATE 1 MG TABLET PO SCH ×2 (08:54→16:26)
[2017-09-08] MEDS: OMEPRAZOLE 20 MG CAPSULE PO SCH (08:54)
[2017-09-08] MEDS: VENLAFAXINE HCL 75 MG ER CAPSULE PO SCH (08:54)
[2017-09-08] MEDS: METHADONE HCL 10 MG TABLET PO SCH (08:54)
[2017-09-08] MEDS: HydrOXYzine PAMOATE 25 MG CAPSULE PO SCH ×3 (08:55→16:26)
[2017-09-08] MEDS: CARISOPRODOL 350 MG TABLET PO SCH ×3 (08:55→16:26)
[2017-09-08] MEDS: GABAPENTIN 300 MG CAPSULE PO SCH ×3 (08:55→16:26)
[2017-09-08] MEDS: LITHIUM CARBONATE 300 MG CAPSULE PO SCH ×3 (08:55→16:26)
[2017-09-08] MEDS: OLANZapine 10 MG TABLET PO SCH ×2 (08:55→16:26)
[2017-09-08] MEDS: NICOTINE 21 MG/24 HOUR PATCH TD SCH (08:56)
[2017-09-08 16:05] VITALS: BP 130/64
[2017-09-08] MEDS: TraZODone HCL 50 MG TABLET PO SCH (20:13)
[2017-09-09] MEDS: HALOPERIDOL 5 MG TABLET PO PRN ×2 (01:58→09:55)
[2017-09-09 04:35] VITALS: BP 111/79
[2017-09-09] MEDS: CARISOPRODOL 350 MG TABLET PO SCH ×3 (08:23→16:09)
[2017-09-09] MEDS: LITHIUM CARBONATE 300 MG CAPSULE PO SCH ×3 (08:23→16:09)
[2017-09-09] MEDS: OMEPRAZOLE 20 MG CAPSULE PO SCH (08:23)
[2017-09-09] MEDS: VENLAFAXINE HCL 75 MG ER CAPSULE PO SCH (08:23)
[2017-09-09] MEDS: BENZTROPINE MESYLATE 1 MG TABLET PO SCH ×2 (08:23→16:57)
[2017-09-09] MEDS: METHADONE HCL 10 MG TABLET PO SCH (08:24)
[2017-09-09] MEDS: GABAPENTIN 300 MG CAPSULE PO SCH ×3 (08:24→16:09)
[2017-09-09] MEDS: HydrOXYzine PAMOATE 25 MG CAPSULE PO SCH ×3 (08:24→16:09)
[2017-09-09] MEDS: OLANZapine 10 MG TABLET PO SCH ×2 (08:24→16:09)
[2017-09-09] MEDS: NICOTINE 21 MG/24 HOUR PATCH TD SCH (08:25)
[2017-09-09 09:30] VITALS: BP 115/73
[2017-09-09 16:38] VITALS: BP 116/70
[2017-09-09] MEDS: MAGNESIUM HYDROXIDE SUSPENSION 30 ML UDCUP PO PRN (18:21)
[2017-09-09] MEDS: DOCUSATE SODIUM 100 MG CAPSULE PO PRN (19:44)
[2017-09-09] MEDS: TraZODone HCL 50 MG TABLET PO SCH (20:06)
[2017-09-10 06:27] VITALS: BP 120/88
[2017-09-10 08:24] VITALS: BP 133/79
[2017-09-10] MEDS: METHADONE HCL 10 MG TABLET PO SCH (08:25)
[2017-09-10] MEDS: HydrOXYzine PAMOATE 25 MG CAPSULE PO SCH ×3 (08:25→16:27)
[2017-09-10] MEDS: CARISOPRODOL 350 MG TABLET PO SCH ×3 (08:25→16:27)
[2017-09-10] MEDS: OLANZapine 10 MG TABLET PO SCH ×2 (08:26→16:27)
[2017-09-10] MEDS: BENZTROPINE MESYLATE 1 MG TABLET PO SCH ×2 (08:26→16:27)
[2017-09-10] MEDS: OMEPRAZOLE 20 MG CAPSULE PO SCH (08:26)
[2017-09-10] MEDS: VENLAFAXINE HCL 75 MG ER CAPSULE PO SCH (08:26)
[2017-09-10] MEDS: GABAPENTIN 300 MG CAPSULE PO SCH ×3 (08:26→16:26)
[2017-09-10] MEDS: LITHIUM CARBONATE 300 MG CAPSULE PO SCH ×3 (08:26→16:27)
[2017-09-10] MEDS: NICOTINE 21 MG/24 HOUR PATCH TD SCH (08:27)
[2017-09-10] MEDS: HALOPERIDOL 5 MG TABLET PO PRN ×2 (13:10→20:06)
[2017-09-10] MEDS ORDERED: PERMETHRIN 1% 60 ML LOTION TP ONE (13:30)
[2017-09-10 16:28] VITALS: BP 128/74
[2017-09-10] MEDS: TraZODone HCL 50 MG TABLET PO SCH (20:05)
[2017-09-10] MEDS: DOCUSATE SODIUM 100 MG CAPSULE PO PRN (20:06)
[2017-09-10] MEDS: MAGNESIUM HYDROXIDE SUSPENSION 30 ML UDCUP PO PRN (20:06)
[2017-09-11 00:01] VITALS: BP 122/75
[2017-09-11] MEDS: CARISOPRODOL 350 MG TABLET PO SCH ×3 (08:29→16:05)
[2017-09-11] MEDS: GABAPENTIN 300 MG CAPSULE PO SCH ×3 (08:29→16:04)
[2017-09-11] MEDS: OLANZapine 10 MG TABLET PO SCH ×2 (08:29→16:05)
[2017-09-11] MEDS: LITHIUM CARBONATE 300 MG CAPSULE PO SCH ×3 (08:29→16:04)
[2017-09-11] MEDS: VENLAFAXINE HCL 75 MG ER CAPSULE PO SCH (08:30)
[2017-09-11] MEDS: OMEPRAZOLE 20 MG CAPSULE PO SCH (08:30)
[2017-09-11] MEDS: METHADONE HCL 10 MG TABLET PO SCH (08:30)
[2017-09-11] MEDS: BENZTROPINE MESYLATE 1 MG TABLET PO SCH ×2 (08:30→16:04)
[2017-09-11] MEDS: NICOTINE 21 MG/24 HOUR PATCH TD SCH (08:30)
[2017-09-11] MEDS: HydrOXYzine PAMOATE 25 MG CAPSULE PO SCH ×3 (08:30→16:04)
[2017-09-11 08:33] VITALS: BP 137/76
[2017-09-11] MEDS: HALOPERIDOL 5 MG TABLET PO PRN (13:57)
[2017-09-11 16:08] VITALS: BP 123/74
[2017-09-11 18:30] VITALS: BP 135/78
[2017-09-11] MEDS: CHLORHEXIDINE GLUCONATE 0.12% 15 ML UDCUP ORAL RINSE PO PRN (18:38)
[2017-09-11] MEDS: TraMADol HCL 50 MG TABLET PO PRN (18:38)
[2017-09-11] MEDS: MAGNESIUM HYDROXIDE SUSPENSION 30 ML UDCUP PO PRN (18:38)
[2017-09-11] MEDS: TraZODone HCL 50 MG TABLET PO SCH (20:59)
[2017-09-12 00:01] VITALS: BP 132/87
[2017-09-12 08:13] VITALS: BP 126/60
[2017-09-12] MEDS: METHADONE HCL 10 MG TABLET PO SCH (08:59)
[2017-09-12] MEDS: LITHIUM CARBONATE 300 MG CAPSULE PO SCH ×3 (08:59→16:18)
[2017-09-12] MEDS: OLANZapine 10 MG TABLET PO SCH ×2 (09:00→16:18)
[2017-09-12] MEDS: VENLAFAXINE HCL 75 MG ER CAPSULE PO SCH (09:00)
[2017-09-12] MEDS: NICOTINE 21 MG/24 HOUR PATCH TD SCH (09:00)
[2017-09-12] MEDS: CARISOPRODOL 350 MG TABLET PO SCH ×3 (09:00→16:17)
[2017-09-12] MEDS: GABAPENTIN 300 MG CAPSULE PO SCH ×3 (09:00→16:17)
[2017-09-12] MEDS: OMEPRAZOLE 20 MG CAPSULE PO SCH (09:00)
[2017-09-12] MEDS: BENZTROPINE MESYLATE 1 MG TABLET PO SCH ×2 (09:00→16:17)
[2017-09-12] MEDS: HydrOXYzine PAMOATE 25 MG CAPSULE PO SCH ×3 (09:00→16:18)
[2017-09-12] MEDS: HALOPERIDOL 5 MG TABLET PO PRN (14:26)
[2017-09-12 16:39] VITALS: BP 141/70
[2017-09-12] MEDS: TraZODone HCL 50 MG TABLET PO SCH (20:27)
[2017-09-13 00:05] VITALS: BP 135/70
[2017-09-13 08:05] VITALS: BP 134/75
[2017-09-13] MEDS: OLANZapine 10 MG TABLET PO SCH ×2 (08:22→16:54)
[2017-09-13] MEDS: BENZTROPINE MESYLATE 1 MG TABLET PO SCH ×2 (08:22→16:53)
[2017-09-13] MEDS: CARISOPRODOL 350 MG TABLET PO SCH ×3 (08:22→16:53)
[2017-09-13] MEDS: HydrOXYzine PAMOATE 25 MG CAPSULE PO SCH ×3 (08:22→16:52)
[2017-09-13] MEDS: OMEPRAZOLE 20 MG CAPSULE PO SCH (08:22)
[2017-09-13] MEDS: LITHIUM CARBONATE 300 MG CAPSULE PO SCH ×3 (08:22→16:54)
[2017-09-13] MEDS: METHADONE HCL 10 MG TABLET PO SCH (08:23)
[2017-09-13] MEDS: GABAPENTIN 300 MG CAPSULE PO SCH ×3 (08:23→16:53)
[2017-09-13] MEDS: NICOTINE 21 MG/24 HOUR PATCH TD SCH (08:23)
[2017-09-13] MEDS: VENLAFAXINE HCL 75 MG ER CAPSULE PO SCH (08:23)
[2017-09-13] MEDS: MAGNESIUM HYDROXIDE SUSPENSION 30 ML UDCUP PO PRN (13:32)
[2017-09-13] MEDS: HALOPERIDOL 5 MG TABLET PO PRN (14:52)
[2017-09-13] MEDS: TraMADol HCL 50 MG TABLET PO PRN (16:52)
[2017-09-13] MEDS: DOCUSATE SODIUM 100 MG CAPSULE PO PRN (16:53)
[2017-09-13] MEDS: CHLORHEXIDINE GLUCONATE 0.12% 15 ML UDCUP ORAL RINSE PO PRN (16:54)
[2017-09-13 17:06] VITALS: BP 118/87
[2017-09-13] MEDS: TraZODone HCL 50 MG TABLET PO SCH (20:52)
[2017-09-14 06:46] VITALS: BP 110/80
[2017-09-14 08:17] VITALS: BP 127/75
[2017-09-14] MEDS: HydrOXYzine PAMOATE 25 MG CAPSULE PO SCH ×3 (09:09→16:31)
[2017-09-14] MEDS: LITHIUM CARBONATE 300 MG CAPSULE PO SCH ×3 (09:09→16:31)
[2017-09-14] MEDS: BENZTROPINE MESYLATE 1 MG TABLET PO SCH ×2 (09:09→16:31)
[2017-09-14] MEDS: OMEPRAZOLE 20 MG CAPSULE PO SCH (09:09)
[2017-09-14] MEDS: OLANZapine 10 MG TABLET PO SCH ×2 (09:09→16:31)
[2017-09-14] MEDS: GABAPENTIN 300 MG CAPSULE PO SCH ×3 (09:10→16:31)
[2017-09-14] MEDS: METHADONE HCL 10 MG TABLET PO SCH (09:10)
[2017-09-14] MEDS: CARISOPRODOL 350 MG TABLET PO SCH ×3 (09:10→16:31)
[2017-09-14] MEDS: VENLAFAXINE HCL 75 MG ER CAPSULE PO SCH (09:10)
[2017-09-14] MEDS: NICOTINE 21 MG/24 HOUR PATCH TD SCH (09:10)
[2017-09-14 16:15] VITALS: BP 131/76
[2017-09-14] MEDS: CHLORHEXIDINE GLUCONATE 0.12% 15 ML UDCUP ORAL RINSE PO PRN (18:20)
[2017-09-14] MEDS: TraMADol HCL 50 MG TABLET PO PRN (18:21)
[2017-09-14] MEDS: MAGNESIUM HYDROXIDE SUSPENSION 30 ML UDCUP PO PRN (18:22)
[2017-09-14 18:23] VITALS: BP 128/72
[2017-09-14] MEDS: TraZODone HCL 50 MG TABLET PO SCH (20:04)
[2017-09-15 01:25] VITALS: BP 129/81
[2017-09-15 08:48] VITALS: BP 122/75
[2017-09-15] MEDS: BENZTROPINE MESYLATE 1 MG TABLET PO SCH ×2 (09:07→16:33)
[2017-09-15] MEDS: LITHIUM CARBONATE 300 MG CAPSULE PO SCH ×3 (09:07→16:33)
[2017-09-15] MEDS: VENLAFAXINE HCL 75 MG ER CAPSULE PO SCH (09:07)
[2017-09-15] MEDS: GABAPENTIN 300 MG CAPSULE PO SCH ×3 (09:08→16:33)
[2017-09-15] MEDS: CARISOPRODOL 350 MG TABLET PO SCH ×3 (09:08→17:20)
[2017-09-15] MEDS: OLANZapine 10 MG TABLET PO SCH ×2 (09:08→16:33)
[2017-09-15] MEDS: HydrOXYzine PAMOATE 25 MG CAPSULE PO SCH ×3 (09:08→16:33)
[2017-09-15] MEDS: OMEPRAZOLE 20 MG CAPSULE PO SCH (09:08)
[2017-09-15] MEDS: NICOTINE 21 MG/24 HOUR PATCH TD SCH (09:10)
[2017-09-15] MEDS: METHADONE HCL 10 MG TABLET PO SCH (09:23)
[2017-09-15] MEDS: MAGNESIUM HYDROXIDE SUSPENSION 30 ML UDCUP PO PRN ×2 (10:37→20:04)
[2017-09-15] MEDS: TraMADol HCL 50 MG TABLET PO PRN ×2 (12:16→20:16)
[2017-09-15 12:25] VITALS: BP 125/87
[2017-09-15] MEDS: CHLORHEXIDINE GLUCONATE 0.12% 15 ML UDCUP ORAL RINSE PO PRN ×2 (13:47→20:10)
[2017-09-15 16:11] VITALS: BP 124/70
[2017-09-15] MEDS: TraZODone HCL 50 MG TABLET PO SCH (20:04)
[2017-09-15 20:15] VITALS: BP 128/82
[2017-09-16 08:25] VITALS: BP 127/92
[2017-09-16] MEDS: METHADONE HCL 10 MG TABLET PO SCH (09:58)
[2017-09-16] MEDS: GABAPENTIN 300 MG CAPSULE PO SCH ×3 (09:59→16:08)
[2017-09-16] MEDS: LITHIUM CARBONATE 300 MG CAPSULE PO SCH ×3 (09:59→16:08)
[2017-09-16] MEDS: VENLAFAXINE HCL 75 MG ER CAPSULE PO SCH (09:59)
[2017-09-16] MEDS: OMEPRAZOLE 20 MG CAPSULE PO SCH (09:59)
[2017-09-16] MEDS: OLANZapine 10 MG TABLET PO SCH ×2 (09:59→16:10)
[2017-09-16] MEDS: CHLORHEXIDINE GLUCONATE 0.12% 15 ML UDCUP ORAL RINSE PO PRN (10:00)
[2017-09-16] MEDS: CARISOPRODOL 350 MG TABLET PO SCH ×3 (10:00→16:47)
[2017-09-16] MEDS: HydrOXYzine PAMOATE 25 MG CAPSULE PO SCH ×3 (10:00→16:10)
[2017-09-16] MEDS: BENZTROPINE MESYLATE 1 MG TABLET PO SCH ×2 (10:00→16:08)
[2017-09-16] MEDS: MAGNESIUM HYDROXIDE SUSPENSION 30 ML UDCUP PO PRN ×2 (10:01→20:16)
[2017-09-16] MEDS: NICOTINE 21 MG/24 HOUR PATCH TD SCH (10:42)
[2017-09-16 11:04] VITALS: BP 133/84
[2017-09-16] MEDS: TraMADol HCL 50 MG TABLET PO PRN ×2 (11:06→20:16)
[2017-09-16 12:06] VITALS: BP 128/76
[2017-09-16 16:11] VITALS: BP 124/76
[2017-09-16 20:16] VITALS: BP 130/70
[2017-09-16] MEDS: TraZODone HCL 50 MG TABLET PO SCH (20:16)
[2017-09-17 05:59] VITALS: BP 107/73
[2017-09-17 08:08] VITALS: BP 135/78
[2017-09-17] MEDS: METHADONE HCL 10 MG TABLET PO SCH (08:43)
[2017-09-17] MEDS: LITHIUM CARBONATE 300 MG CAPSULE PO SCH ×3 (08:44→16:53)
[2017-09-17] MEDS: NICOTINE 21 MG/24 HOUR PATCH TD SCH (08:44)
[2017-09-17] MEDS: GABAPENTIN 300 MG CAPSULE PO SCH ×3 (08:44→16:53)
[2017-09-17] MEDS: HydrOXYzine PAMOATE 25 MG CAPSULE PO SCH ×3 (08:44→16:53)
[2017-09-17] MEDS: OMEPRAZOLE 20 MG CAPSULE PO SCH (08:44)
[2017-09-17] MEDS: VENLAFAXINE HCL 75 MG ER CAPSULE PO SCH (08:44)
[2017-09-17] MEDS: BENZTROPINE MESYLATE 1 MG TABLET PO SCH ×2 (08:44→16:05)
[2017-09-17] MEDS: OLANZapine 10 MG TABLET PO SCH ×2 (08:45→16:06)
[2017-09-17] MEDS: CARISOPRODOL 350 MG TABLET PO SCH ×3 (08:45→17:23)
[2017-09-17] MEDS: TraMADol HCL 50 MG TABLET PO PRN (08:59)
[2017-09-17] MEDS ORDERED: PERMETHRIN 1% 60 ML LOTION TP ONE (09:00)
[2017-09-17] MEDS: MAGNESIUM HYDROXIDE SUSPENSION 30 ML UDCUP PO PRN (13:58)
[2017-09-17] MEDS: CHLORHEXIDINE GLUCONATE 0.12% 15 ML UDCUP ORAL RINSE PO PRN (13:58)
[2017-09-17 16:17] VITALS: BP 110/75
[2017-09-17] MEDS: TraZODone HCL 50 MG TABLET PO SCH (20:12)
[2017-09-18 02:24] VITALS: BP 131/84
[2017-09-18 08:20] VITALS: BP 131/76
[2017-09-18] MEDS: LITHIUM CARBONATE 300 MG CAPSULE PO SCH ×3 (08:45→16:13)
[2017-09-18] MEDS: OMEPRAZOLE 20 MG CAPSULE PO SCH (08:45)
[2017-09-18] MEDS: OLANZapine 10 MG TABLET PO SCH ×2 (08:45→16:13)
[2017-09-18] MEDS: VENLAFAXINE HCL 75 MG ER CAPSULE PO SCH (08:45)
[2017-09-18] MEDS: BENZTROPINE MESYLATE 1 MG TABLET PO SCH ×2 (08:46→16:13)
[2017-09-18] MEDS: GABAPENTIN 300 MG CAPSULE PO SCH ×3 (08:46→16:13)
[2017-09-18] MEDS: HydrOXYzine PAMOATE 25 MG CAPSULE PO SCH ×3 (08:46→16:13)
[2017-09-18] MEDS: METHADONE HCL 10 MG TABLET PO SCH (08:46)
[2017-09-18] MEDS: CARISOPRODOL 350 MG TABLET PO SCH ×3 (08:46→16:13)
[2017-09-18] MEDS: NICOTINE 21 MG/24 HOUR PATCH TD SCH (08:47)
[2017-09-18] MEDS: TraMADol HCL 50 MG TABLET PO PRN ×2 (08:57→18:23)
[2017-09-18 16:01] VITALS: BP_SYST 115
[2017-09-18 18:20] VITALS: BP_SYST 123
[2017-09-18] MEDS: MAGNESIUM HYDROXIDE SUSPENSION 30 ML UDCUP PO PRN (18:22)
[2017-09-18] MEDS: TraZODone HCL 50 MG TABLET PO SCH (20:36)
[2017-09-19 05:45] VITALS: BP 128/76
[2017-09-19] MEDS: METHADONE HCL 10 MG TABLET PO SCH (08:42)
[2017-09-19] MEDS: GABAPENTIN 300 MG CAPSULE PO SCH ×3 (08:43→16:13)
[2017-09-19] MEDS: BENZTROPINE MESYLATE 1 MG TABLET PO SCH ×2 (08:44→16:13)
[2017-09-19] MEDS: LITHIUM CARBONATE 300 MG CAPSULE PO SCH ×3 (08:44→16:12)
[2017-09-19] MEDS: OMEPRAZOLE 20 MG CAPSULE PO SCH (08:45)
[2017-09-19] MEDS: OLANZapine 10 MG TABLET PO SCH ×2 (08:46→16:12)
[2017-09-19] MEDS: HydrOXYzine PAMOATE 25 MG CAPSULE PO SCH ×3 (08:46→16:12)
[2017-09-19] MEDS: CARISOPRODOL 350 MG TABLET PO SCH ×3 (08:46→16:13)
[2017-09-19] MEDS: VENLAFAXINE HCL 75 MG ER CAPSULE PO SCH (08:46)
[2017-09-19 09:16] VITALS: BP 121/64
[2017-09-19] MEDS: NICOTINE 21 MG/24 HOUR PATCH TD SCH (10:36)
[2017-09-19] MEDS: HALOPERIDOL 5 MG TABLET PO PRN (14:33)
[2017-09-19 17:10] VITALS: BP 117/65
[2017-09-19 17:54] VITALS: BP 110/87
[2017-09-19] MEDS: MAGNESIUM HYDROXIDE SUSPENSION 30 ML UDCUP PO PRN (17:58)
[2017-09-19] MEDS: TraMADol HCL 50 MG TABLET PO PRN (17:59)
[2017-09-19] MEDS: TraZODone HCL 50 MG TABLET PO SCH (20:13)
[2017-09-20 06:30] VITALS: BP 110/62
[2017-09-20 08:25] VITALS: BP 114/63
[2017-09-20] MEDS: BENZTROPINE MESYLATE 1 MG TABLET PO SCH ×2 (09:03→16:08)
[2017-09-20] MEDS: OMEPRAZOLE 20 MG CAPSULE PO SCH (09:03)
[2017-09-20] MEDS: OLANZapine 10 MG TABLET PO SCH ×2 (09:03→16:08)
[2017-09-20] MEDS: HydrOXYzine PAMOATE 25 MG CAPSULE PO SCH ×3 (09:03→16:08)
[2017-09-20] MEDS: GABAPENTIN 300 MG CAPSULE PO SCH ×3 (09:03→16:08)
[2017-09-20] MEDS: VENLAFAXINE HCL 75 MG ER CAPSULE PO SCH (09:03)
[2017-09-20] MEDS: CARISOPRODOL 350 MG TABLET PO SCH ×3 (09:03→16:07)
[2017-09-20] MEDS: LITHIUM CARBONATE 300 MG CAPSULE PO SCH ×3 (09:03→16:08)
[2017-09-20] MEDS: METHADONE HCL 10 MG TABLET PO SCH (09:04)
[2017-09-20] MEDS: NICOTINE 21 MG/24 HOUR PATCH TD SCH (09:04)
[2017-09-20] MEDS: DOCUSATE SODIUM 100 MG CAPSULE PO SCH ×2 (09:09→16:08)
[2017-09-20 16:17] VITALS: BP 130/80
[2017-09-20] MEDS: CHLORHEXIDINE GLUCONATE 0.12% 15 ML UDCUP ORAL RINSE PO PRN (16:20)
[2017-09-20 17:45] VITALS: BP 128/75
[2017-09-20] MEDS: TraMADol HCL 50 MG TABLET PO PRN (17:47)
[2017-09-20] MEDS: MAGNESIUM HYDROXIDE SUSPENSION 30 ML UDCUP PO PRN (17:48)
[2017-09-20 18:47] VITALS: BP 120/70
[2017-09-20] MEDS: TraZODone HCL 50 MG TABLET PO SCH (20:29)
[2017-09-21 06:14] VITALS: BP 127/72
[2017-09-21 08:35] VITALS: BP 129/85
[2017-09-21] MEDS: NICOTINE 21 MG/24 HOUR PATCH TD SCH (08:56)
[2017-09-21] MEDS: BENZTROPINE MESYLATE 1 MG TABLET PO SCH ×2 (08:56→17:10)
[2017-09-21] MEDS: LITHIUM CARBONATE 300 MG CAPSULE PO SCH ×3 (08:56→17:10)
[2017-09-21] MEDS: GABAPENTIN 300 MG CAPSULE PO SCH ×3 (08:56→17:10)
[2017-09-21] MEDS: VENLAFAXINE HCL 75 MG ER CAPSULE PO SCH (08:56)
[2017-09-21] MEDS: HydrOXYzine PAMOATE 25 MG CAPSULE PO SCH ×3 (08:57→17:10)
[2017-09-21] MEDS: METHADONE HCL 10 MG TABLET PO SCH (08:57)
[2017-09-21] MEDS: DOCUSATE SODIUM 100 MG CAPSULE PO SCH ×2 (08:57→17:10)
[2017-09-21] MEDS: OLANZapine 10 MG TABLET PO SCH ×2 (08:57→17:10)
[2017-09-21] MEDS: CARISOPRODOL 350 MG TABLET PO SCH ×3 (08:57→17:10)
[2017-09-21] MEDS: OMEPRAZOLE 20 MG CAPSULE PO SCH (08:57)
[2017-09-21] MEDS: TraMADol HCL 50 MG TABLET PO PRN ×2 (08:58→20:12)
[2017-09-21 16:03] VITALS: BP 128/82
[2017-09-21] MEDS: TraZODone HCL 50 MG TABLET PO SCH (20:11)
[2017-09-21 20:12] VITALS: BP 124/78
[2017-09-21] MEDS: CHLORHEXIDINE GLUCONATE 0.12% 15 ML UDCUP ORAL RINSE PO PRN (20:12)
[2017-09-22 05:03] VITALS: BP 120/76
[2017-09-22 08:41] VITALS: BP 106/81
[2017-09-22] MEDS: GABAPENTIN 300 MG CAPSULE PO SCH ×3 (09:29→16:42)
[2017-09-22] MEDS: METHADONE HCL 10 MG TABLET PO SCH (09:29)
[2017-09-22] MEDS: LITHIUM CARBONATE 300 MG CAPSULE PO SCH ×3 (09:29→16:42)
[2017-09-22] MEDS: BENZTROPINE MESYLATE 1 MG TABLET PO SCH ×2 (09:29→16:42)
[2017-09-22] MEDS: DOCUSATE SODIUM 100 MG CAPSULE PO SCH ×2 (09:30→16:42)
[2017-09-22] MEDS: OMEPRAZOLE 20 MG CAPSULE PO SCH (09:30)
[2017-09-22] MEDS: CARISOPRODOL 350 MG TABLET PO SCH ×3 (09:30→16:43)
[2017-09-22] MEDS: VENLAFAXINE HCL 75 MG ER CAPSULE PO SCH (09:30)
[2017-09-22] MEDS: HydrOXYzine PAMOATE 25 MG CAPSULE PO SCH ×3 (09:31→16:42)
[2017-09-22] MEDS: OLANZapine 10 MG TABLET PO SCH ×2 (09:32→16:42)
[2017-09-22] MEDS: NICOTINE 21 MG/24 HOUR PATCH TD SCH (09:32)
[2017-09-22] MEDS: TraMADol HCL 50 MG TABLET PO PRN ×2 (11:09→19:36)
[2017-09-22 12:10] VITALS: BP 109/78
[2017-09-22 17:35] VITALS: BP 132/85
[2017-09-22 19:36] VITALS: BP 128/76
[2017-09-22] MEDS: MAGNESIUM HYDROXIDE SUSPENSION 30 ML UDCUP PO PRN (19:36)
[2017-09-22] MEDS: CHLORHEXIDINE GLUCONATE 0.12% 15 ML UDCUP ORAL RINSE PO PRN (19:36)
[2017-09-22] MEDS: TraZODone HCL 50 MG TABLET PO SCH (20:08)
[2017-09-23 06:05] VITALS: BP 130/60
[2017-09-23 08:34] VITALS: BP 135/66
[2017-09-23] MEDS: BENZTROPINE MESYLATE 1 MG TABLET PO SCH ×2 (09:10→16:29)
[2017-09-23] MEDS: VENLAFAXINE HCL 75 MG ER CAPSULE PO SCH (09:10)
[2017-09-23] MEDS: CARISOPRODOL 350 MG TABLET PO SCH ×3 (09:10→16:29)
[2017-09-23] MEDS: NICOTINE 21 MG/24 HOUR PATCH TD SCH (09:10)
[2017-09-23] MEDS: DOCUSATE SODIUM 100 MG CAPSULE PO SCH ×2 (09:10→16:29)
[2017-09-23] MEDS: OLANZapine 10 MG TABLET PO SCH ×2 (09:10→16:30)
[2017-09-23] MEDS: OMEPRAZOLE 20 MG CAPSULE PO SCH (09:10)
[2017-09-23] MEDS: LITHIUM CARBONATE 300 MG CAPSULE PO SCH ×3 (09:10→16:30)
[2017-09-23] MEDS: GABAPENTIN 300 MG CAPSULE PO SCH ×3 (09:10→16:29)
[2017-09-23] MEDS: HydrOXYzine PAMOATE 25 MG CAPSULE PO SCH ×3 (09:10→16:29)
[2017-09-23] MEDS: METHADONE HCL 10 MG TABLET PO SCH (09:10)
[2017-09-23] MEDS: CHLORHEXIDINE GLUCONATE 0.12% 15 ML UDCUP ORAL RINSE PO PRN (13:23)
[2017-09-23 14:06] VITALS: BP 120/67
[2017-09-23] MEDS: TraMADol HCL 50 MG TABLET PO PRN (14:06)
[2017-09-23 16:29] VITALS: BP 130/76
[2017-09-23] MEDS: HALOPERIDOL 5 MG TABLET PO PRN (16:30)
[2017-09-23] MEDS: TraZODone HCL 50 MG TABLET PO SCH (21:05)
[2017-09-24 01:47] VITALS: BP 111/67
[2017-09-24 08:05] VITALS: BP 121/73
[2017-09-24] MEDS: HydrOXYzine PAMOATE 25 MG CAPSULE PO SCH ×3 (08:55→16:15)
[2017-09-24] MEDS: OMEPRAZOLE 20 MG CAPSULE PO SCH (08:55)
[2017-09-24] MEDS: BENZTROPINE MESYLATE 1 MG TABLET PO SCH ×2 (08:56→16:14)
[2017-09-24] MEDS: DOCUSATE SODIUM 100 MG CAPSULE PO SCH ×2 (08:56→16:14)
[2017-09-24] MEDS: VENLAFAXINE HCL 75 MG ER CAPSULE PO SCH (08:56)
[2017-09-24] MEDS: CARISOPRODOL 350 MG TABLET PO SCH ×3 (08:56→16:14)
[2017-09-24] MEDS: LITHIUM CARBONATE 300 MG CAPSULE PO SCH ×3 (08:56→16:14)
[2017-09-24] MEDS: GABAPENTIN 300 MG CAPSULE PO SCH ×3 (08:56→16:14)
[2017-09-24] MEDS: METHADONE HCL 10 MG TABLET PO SCH (08:57)
[2017-09-24] MEDS: NICOTINE 21 MG/24 HOUR PATCH TD SCH (08:57)
[2017-09-24] MEDS: OLANZapine 10 MG TABLET PO SCH ×2 (09:02→16:15)
[2017-09-24 16:03] VITALS: BP 128/80
[2017-09-24] MEDS: HALOPERIDOL 5 MG TABLET PO PRN (16:14)
[2017-09-24] MEDS: TraMADol HCL 50 MG TABLET PO PRN (16:45)
[2017-09-24] MEDS: TraZODone HCL 50 MG TABLET PO SCH (21:09)
[2017-09-25 04:33] VITALS: BP 124/78
[2017-09-25 08:08] VITALS: BP 136/73
[2017-09-25] MEDS: BENZTROPINE MESYLATE 1 MG TABLET PO SCH ×2 (08:52→16:41)
[2017-09-25] MEDS: CARISOPRODOL 350 MG TABLET PO SCH ×3 (08:52→16:41)
[2017-09-25] MEDS: OLANZapine 10 MG TABLET PO SCH ×2 (08:52→16:41)
[2017-09-25] MEDS: GABAPENTIN 300 MG CAPSULE PO SCH ×3 (08:53→16:40)
[2017-09-25] MEDS: VENLAFAXINE HCL 75 MG ER CAPSULE PO SCH (08:53)
[2017-09-25] MEDS: METHADONE HCL 10 MG TABLET PO SCH (08:53)
[2017-09-25] MEDS: LITHIUM CARBONATE 300 MG CAPSULE PO SCH ×3 (08:53→16:41)
[2017-09-25] MEDS: HydrOXYzine PAMOATE 25 MG CAPSULE PO SCH ×2 (08:53→13:02)
[2017-09-25] MEDS: DOCUSATE SODIUM 100 MG CAPSULE PO SCH ×2 (08:53→16:41)
[2017-09-25] MEDS: NICOTINE 21 MG/24 HOUR PATCH TD SCH (08:53)
[2017-09-25] MEDS: OMEPRAZOLE 20 MG CAPSULE PO SCH (08:53)
[2017-09-25 16:12] VITALS: BP 112/70
[2017-09-25] MEDS: TraMADol HCL 50 MG TABLET PO PRN (16:39)
[2017-09-25] MEDS: MAGNESIUM HYDROXIDE SUSPENSION 30 ML UDCUP PO PRN (16:40)
[2017-09-25] MEDS ORDERED: HydrOXYzine PAMOATE 25 MG CAPSULE PO PRN (16:45)
[2017-09-25] MEDS: TraZODone HCL 50 MG TABLET PO SCH (20:25)
[2017-09-26 00:35] VITALS: BP 128/60
[2017-09-26 08:27] VITALS: BP 123/55
[2017-09-26] MEDS: CARISOPRODOL 350 MG TABLET PO SCH ×3 (08:30→17:01)
[2017-09-26] MEDS: BENZTROPINE MESYLATE 1 MG TABLET PO SCH ×2 (08:30→17:01)
[2017-09-26] MEDS: METHADONE HCL 10 MG TABLET PO SCH (08:30)
[2017-09-26] MEDS: OLANZapine 10 MG TABLET PO SCH ×2 (08:30→17:01)
[2017-09-26] MEDS: OMEPRAZOLE 20 MG CAPSULE PO SCH (08:30)
[2017-09-26] MEDS: VENLAFAXINE HCL 75 MG ER CAPSULE PO SCH (08:31)
[2017-09-26] MEDS: NICOTINE 21 MG/24 HOUR PATCH TD SCH (08:31)
[2017-09-26] MEDS: LITHIUM CARBONATE 300 MG CAPSULE PO SCH ×3 (08:31→17:01)
[2017-09-26] MEDS: DOCUSATE SODIUM 100 MG CAPSULE PO SCH ×2 (08:31→17:01)
[2017-09-26] MEDS: GABAPENTIN 300 MG CAPSULE PO SCH ×3 (08:31→17:01)
[2017-09-26 16:06] VITALS: BP 114/70
[2017-09-26 18:38] VITALS: BP 118/72
[2017-09-26] MEDS: TraMADol HCL 50 MG TABLET PO PRN (18:38)
[2017-09-26] MEDS: TraZODone HCL 50 MG TABLET PO SCH (20:14)
[2017-09-27 04:10] VITALS: BP 115/77
[2017-09-27 08:33] VITALS: BP 128/62
[2017-09-27] MEDS: LITHIUM CARBONATE 300 MG CAPSULE PO SCH ×3 (09:05→16:59)
[2017-09-27] MEDS: VENLAFAXINE HCL 75 MG ER CAPSULE PO SCH (09:05)
[2017-09-27] MEDS: OLANZapine 10 MG TABLET PO SCH ×2 (09:05→16:59)
[2017-09-27] MEDS: OMEPRAZOLE 20 MG CAPSULE PO SCH (09:05)
[2017-09-27] MEDS: BENZTROPINE MESYLATE 1 MG TABLET PO SCH ×2 (09:05→16:59)
[2017-09-27] MEDS: GABAPENTIN 300 MG CAPSULE PO SCH ×3 (09:05→16:59)
[2017-09-27] MEDS: DOCUSATE SODIUM 100 MG CAPSULE PO SCH ×2 (09:05→16:59)
[2017-09-27] MEDS: NICOTINE 21 MG/24 HOUR PATCH TD SCH (09:05)
[2017-09-27] MEDS: CARISOPRODOL 350 MG TABLET PO SCH ×3 (09:05→17:00)
[2017-09-27] MEDS: METHADONE HCL 10 MG TABLET PO SCH (09:06)
[2017-09-27 16:39] VITALS: BP 122/65
[2017-09-27] MEDS: TraZODone HCL 50 MG TABLET PO SCH (20:06)
[2017-09-27] MEDS: MAGNESIUM HYDROXIDE SUSPENSION 30 ML UDCUP PO PRN (20:44)
[2017-09-28 01:34] VITALS: BP 127/77
[2017-09-28 08:39] VITALS: BP 124/73
[2017-09-28] MEDS: VENLAFAXINE HCL 75 MG ER CAPSULE PO SCH (08:59)
[2017-09-28] MEDS: OMEPRAZOLE 20 MG CAPSULE PO SCH (08:59)
[2017-09-28] MEDS: DOCUSATE SODIUM 100 MG CAPSULE PO SCH ×2 (08:59→16:08)
[2017-09-28] MEDS: NICOTINE 21 MG/24 HOUR PATCH TD SCH (08:59)
[2017-09-28] MEDS: LITHIUM CARBONATE 300 MG CAPSULE PO SCH ×3 (08:59→16:38)
[2017-09-28] MEDS: BENZTROPINE MESYLATE 1 MG TABLET PO SCH ×2 (08:59→16:08)
[2017-09-28] MEDS: CARISOPRODOL 350 MG TABLET PO SCH ×3 (08:59→17:18)
[2017-09-28] MEDS: GABAPENTIN 300 MG CAPSULE PO SCH ×3 (08:59→16:37)
[2017-09-28] MEDS: METHADONE HCL 10 MG TABLET PO SCH (08:59)
[2017-09-28] MEDS: OLANZapine 10 MG TABLET PO SCH ×2 (09:00→16:08)
[2017-09-28 16:14] VITALS: BP 130/69
[2017-09-28] MEDS: TraMADol HCL 50 MG TABLET PO PRN (16:40)
[2017-09-28] MEDS: CHLORHEXIDINE GLUCONATE 0.12% 15 ML UDCUP ORAL RINSE PO PRN (18:08)
[2017-09-28] MEDS: TraZODone HCL 100 MG TABLET PO SCH (20:32)
[2017-09-29 06:07] VITALS: BP 122/65
[2017-09-29] MEDS: METHADONE HCL 10 MG TABLET PO SCH (08:11)
[2017-09-29] MEDS: VENLAFAXINE HCL 75 MG ER CAPSULE PO SCH (08:11)
[2017-09-29] MEDS: BENZTROPINE MESYLATE 1 MG TABLET PO SCH ×2 (08:11→16:42)
[2017-09-29] MEDS: CARISOPRODOL 350 MG TABLET PO SCH ×3 (08:11→16:43)
[2017-09-29] MEDS: OLANZapine 10 MG TABLET PO SCH ×2 (08:11→16:42)
[2017-09-29] MEDS: NICOTINE 21 MG/24 HOUR PATCH TD SCH (08:12)
[2017-09-29] MEDS: LITHIUM CARBONATE 300 MG CAPSULE PO SCH ×3 (08:12→16:42)
[2017-09-29] MEDS: GABAPENTIN 300 MG CAPSULE PO SCH ×3 (08:12→16:42)
[2017-09-29] MEDS: DOCUSATE SODIUM 100 MG CAPSULE PO SCH ×2 (08:12→16:42)
[2017-09-29] MEDS: OMEPRAZOLE 20 MG CAPSULE PO SCH (08:12)
[2017-09-29 08:22] VITALS: BP 133/75
[2017-09-29 16:05] VITALS: BP 120/80
[2017-09-29] MEDS: TraMADol HCL 50 MG TABLET PO PRN (16:43)
[2017-09-29] MEDS: TraZODone HCL 100 MG TABLET PO SCH (20:53)
[2017-09-30 00:01] VITALS: BP 123/77
[2017-09-30] MEDS: DOCUSATE SODIUM 100 MG CAPSULE PO SCH ×2 (08:21→16:02)
[2017-09-30] MEDS: LITHIUM CARBONATE 300 MG CAPSULE PO SCH ×3 (08:22→16:03)
[2017-09-30] MEDS: METHADONE HCL 10 MG TABLET PO SCH (08:22)
[2017-09-30] MEDS: GABAPENTIN 300 MG CAPSULE PO SCH ×3 (08:22→16:03)
[2017-09-30] MEDS: BENZTROPINE MESYLATE 1 MG TABLET PO SCH ×2 (08:22→16:02)
[2017-09-30] MEDS: CARISOPRODOL 350 MG TABLET PO SCH ×3 (08:22→16:03)
[2017-09-30] MEDS: OLANZapine 10 MG TABLET PO SCH ×2 (08:22→16:03)
[2017-09-30] MEDS: OMEPRAZOLE 20 MG CAPSULE PO SCH (08:23)
[2017-09-30] MEDS: NICOTINE 21 MG/24 HOUR PATCH TD SCH (08:23)
[2017-09-30] MEDS: VENLAFAXINE HCL 75 MG ER CAPSULE PO SCH (08:23)
[2017-09-30 08:24] VITALS: BP 126/69
[2017-09-30] MEDS ORDERED: METHADONE HCL 10 MG TABLET PO SCH (09:00)
[2017-09-30] MEDS: CHLORHEXIDINE GLUCONATE 0.12% 15 ML UDCUP ORAL RINSE PO PRN ×2 (09:33→17:35)
[2017-09-30 16:03] VITALS: BP 130/79
[2017-09-30] MEDS: TraMADol HCL 50 MG TABLET PO PRN (16:03)
[2017-09-30] MEDS: ACETAMINOPHEN 325 MG TABLET PO PRN (18:41)
[2017-09-30] MEDS: MAGNESIUM HYDROXIDE SUSPENSION 30 ML UDCUP PO PRN (20:12)
[2017-09-30] MEDS: TraZODone HCL 100 MG TABLET PO SCH (20:12)
[2017-10-01 05:31] VITALS: BP 112/66
[2017-10-01 08:00] VITALS: BP 120/76
[2017-10-01] MEDS: DOCUSATE SODIUM 100 MG CAPSULE PO SCH ×2 (08:28→16:19)
[2017-10-01] MEDS: VENLAFAXINE HCL 75 MG ER CAPSULE PO SCH (08:28)
[2017-10-01] MEDS: GABAPENTIN 300 MG CAPSULE PO SCH ×3 (08:28→16:19)
[2017-10-01] MEDS: CARISOPRODOL 350 MG TABLET PO SCH ×3 (08:28→16:54)
[2017-10-01] MEDS: LITHIUM CARBONATE 300 MG CAPSULE PO SCH ×3 (08:28→16:20)
[2017-10-01] MEDS: OMEPRAZOLE 20 MG CAPSULE PO SCH (08:28)
[2017-10-01] MEDS: OLANZapine 10 MG TABLET PO SCH ×2 (08:28→16:20)
[2017-10-01] MEDS: NICOTINE 21 MG/24 HOUR PATCH TD SCH (08:29)
[2017-10-01] MEDS: METHADONE HCL 10 MG TABLET PO SCH (08:29)
[2017-10-01] MEDS: BENZTROPINE MESYLATE 1 MG TABLET PO SCH ×2 (08:32→16:19)
[2017-10-01] MEDS: CHLORHEXIDINE GLUCONATE 0.12% 15 ML UDCUP ORAL RINSE PO PRN (13:21)
[2017-10-01 16:05] VITALS: BP 137/79
[2017-10-01 17:21] VITALS: BP 132/80
[2017-10-01] MEDS: TraMADol HCL 50 MG TABLET PO PRN (17:21)
[2017-10-01] MEDS: TraZODone HCL 100 MG TABLET PO SCH (21:00)
[2017-10-02 06:35] VITALS: BP 123/76
[2017-10-02 08:28] VITALS: BP 124/75
[2017-10-02] MEDS: BENZTROPINE MESYLATE 1 MG TABLET PO SCH ×2 (08:29→16:14)
[2017-10-02] MEDS: DOCUSATE SODIUM 100 MG CAPSULE PO SCH ×2 (08:29→16:14)
[2017-10-02] MEDS: OLANZapine 10 MG TABLET PO SCH ×2 (08:29→16:14)
[2017-10-02] MEDS: VENLAFAXINE HCL 75 MG ER CAPSULE PO SCH (08:29)
[2017-10-02] MEDS: GABAPENTIN 300 MG CAPSULE PO SCH ×3 (08:29→16:14)
[2017-10-02] MEDS: LITHIUM CARBONATE 300 MG CAPSULE PO SCH ×3 (08:29→16:14)
[2017-10-02] MEDS: NICOTINE 21 MG/24 HOUR PATCH TD SCH (08:29)
[2017-10-02] MEDS: CARISOPRODOL 350 MG TABLET PO SCH ×3 (08:29→16:14)
[2017-10-02] MEDS: METHADONE HCL 10 MG TABLET PO SCH (08:29)
[2017-10-02] MEDS: OMEPRAZOLE 20 MG CAPSULE PO SCH (08:30)
[2017-10-02] MEDS: TraMADol HCL 50 MG TABLET PO PRN (08:30)
[2017-10-02] MEDS: HydrOXYzine PAMOATE 50 MG CAPSULE PO PRN (11:37)
[2017-10-02] MEDS: CHLORHEXIDINE GLUCONATE 0.12% 15 ML UDCUP ORAL RINSE PO PRN (14:04)
[2017-10-02 16:16] VITALS: BP 120/68
[2017-10-02] MEDS: TraZODone HCL 100 MG TABLET PO SCH (20:47)
[2017-10-02] MEDS: MAGNESIUM HYDROXIDE SUSPENSION 30 ML UDCUP PO PRN (23:05)
[2017-10-03 00:20] VITALS: BP 126/67
[2017-10-03] MEDS: DOCUSATE SODIUM 100 MG CAPSULE PO SCH ×2 (08:09→16:10)
[2017-10-03] MEDS: LITHIUM CARBONATE 300 MG CAPSULE PO SCH ×3 (08:09→16:10)
[2017-10-03] MEDS: GABAPENTIN 300 MG CAPSULE PO SCH ×3 (08:09→16:10)
[2017-10-03] MEDS: OLANZapine 10 MG TABLET PO SCH ×2 (08:10→16:10)
[2017-10-03] MEDS: VENLAFAXINE HCL 75 MG ER CAPSULE PO SCH (08:10)
[2017-10-03] MEDS: CARISOPRODOL 350 MG TABLET PO SCH ×3 (08:10→16:10)
[2017-10-03] MEDS: METHADONE HCL 10 MG TABLET PO SCH (08:10)
[2017-10-03] MEDS: BENZTROPINE MESYLATE 1 MG TABLET PO SCH ×2 (08:10→16:10)
[2017-10-03] MEDS: OMEPRAZOLE 20 MG CAPSULE PO SCH (08:10)
[2017-10-03] MEDS: NICOTINE 21 MG/24 HOUR PATCH TD SCH (08:11)
[2017-10-03 08:21] VITALS: BP 118/71
[2017-10-03] MEDS: CHLORHEXIDINE GLUCONATE 0.12% 15 ML UDCUP ORAL RINSE PO PRN (12:30)
[2017-10-03] MEDS: MAGNESIUM HYDROXIDE SUSPENSION 30 ML UDCUP PO PRN (12:54)
[2017-10-03 16:13] VITALS: BP 122/68
[2017-10-03] MEDS: TraZODone HCL 100 MG TABLET PO SCH (20:18)
[2017-10-04 00:48] VITALS: BP 116/78
[2017-10-04 08:16] VITALS: BP 137/74
[2017-10-04] MEDS: OLANZapine 10 MG TABLET PO SCH ×2 (08:37→16:14)
[2017-10-04] MEDS: GABAPENTIN 300 MG CAPSULE PO SCH ×3 (08:37→16:14)
[2017-10-04] MEDS: CARISOPRODOL 350 MG TABLET PO SCH ×3 (08:38→16:48)
[2017-10-04] MEDS: OMEPRAZOLE 20 MG CAPSULE PO SCH (08:38)
[2017-10-04] MEDS: METHADONE HCL 10 MG TABLET PO SCH (08:38)
[2017-10-04] MEDS: DOCUSATE SODIUM 100 MG CAPSULE PO SCH ×2 (08:38→16:14)
[2017-10-04] MEDS: BENZTROPINE MESYLATE 1 MG TABLET PO SCH ×2 (08:38→16:14)
[2017-10-04] MEDS: LITHIUM CARBONATE 300 MG CAPSULE PO SCH ×3 (08:38→16:14)
[2017-10-04] MEDS: VENLAFAXINE HCL 75 MG ER CAPSULE PO SCH (08:38)
[2017-10-04] MEDS: NICOTINE 21 MG/24 HOUR PATCH TD SCH (08:39)
[2017-10-04] MEDS: TraMADol HCL 50 MG TABLET PO PRN (08:47)
[2017-10-04 16:12] VITALS: BP 111/63
[2017-10-04] MEDS: TraZODone HCL 100 MG TABLET PO SCH (20:09)
[2017-10-05 03:41] VITALS: BP 120/71
[2017-10-05 08:09] VITALS: BP 126/79
[2017-10-05] MEDS: LITHIUM CARBONATE 300 MG CAPSULE PO SCH ×3 (08:31→16:04)
[2017-10-05] MEDS: GABAPENTIN 300 MG CAPSULE PO SCH ×3 (08:31→16:04)
[2017-10-05] MEDS: OMEPRAZOLE 20 MG CAPSULE PO SCH (08:31)
[2017-10-05] MEDS: OLANZapine 10 MG TABLET PO SCH ×2 (08:31→16:05)
[2017-10-05] MEDS: BENZTROPINE MESYLATE 1 MG TABLET PO SCH ×2 (08:31→16:04)
[2017-10-05] MEDS: VENLAFAXINE HCL 75 MG ER CAPSULE PO SCH (08:32)
[2017-10-05] MEDS: CARISOPRODOL 350 MG TABLET PO SCH ×3 (08:32→16:04)
[2017-10-05] MEDS: METHADONE HCL 10 MG TABLET PO SCH (08:32)
[2017-10-05] MEDS: DOCUSATE SODIUM 100 MG CAPSULE PO SCH ×2 (08:33→16:04)
[2017-10-05] MEDS: NICOTINE 21 MG/24 HOUR PATCH TD SCH (08:33)
[2017-10-05 16:09] VITALS: BP 122/78
[2017-10-05] MEDS: CHLORHEXIDINE GLUCONATE 0.12% 15 ML UDCUP ORAL RINSE PO PRN (16:31)
[2017-10-05] MEDS: MAGNESIUM HYDROXIDE SUSPENSION 30 ML UDCUP PO PRN (16:31)
[2017-10-05] MEDS: TraZODone HCL 100 MG TABLET PO SCH (20:31)
[2017-10-06 01:45] VITALS: BP 128/78
[2017-10-06 08:03] VITALS: BP 122/77
[2017-10-06] MEDS: METHADONE HCL 10 MG TABLET PO SCH (08:07)
[2017-10-06] MEDS: CARISOPRODOL 350 MG TABLET PO SCH ×3 (08:07→16:09)
[2017-10-06] MEDS: OMEPRAZOLE 20 MG CAPSULE PO SCH (08:07)
[2017-10-06] MEDS: BENZTROPINE MESYLATE 1 MG TABLET PO SCH ×2 (08:07→16:08)
[2017-10-06] MEDS: DOCUSATE SODIUM 100 MG CAPSULE PO SCH ×2 (08:07→16:09)
[2017-10-06] MEDS: VENLAFAXINE HCL 75 MG ER CAPSULE PO SCH (08:07)
[2017-10-06] MEDS: GABAPENTIN 300 MG CAPSULE PO SCH ×3 (08:07→16:09)
[2017-10-06] MEDS: LITHIUM CARBONATE 300 MG CAPSULE PO SCH ×3 (08:08→16:09)
[2017-10-06] MEDS: NICOTINE 21 MG/24 HOUR PATCH TD SCH (08:08)
[2017-10-06] MEDS: OLANZapine 10 MG TABLET PO SCH ×2 (08:08→16:09)
[2017-10-06] MEDS: CHLORHEXIDINE GLUCONATE 0.12% 15 ML UDCUP ORAL RINSE PO PRN (13:00)
[2017-10-06 16:03] VITALS: BP 123/72
[2017-10-06] MEDS: TraZODone HCL 100 MG TABLET PO SCH (20:11)
[2017-10-07 00:33] VITALS: BP 122/79
[2017-10-07 08:13] VITALS: BP 131/77
[2017-10-07] MEDS: OLANZapine 10 MG TABLET PO SCH ×2 (08:13→17:06)
[2017-10-07] MEDS: NICOTINE 21 MG/24 HOUR PATCH TD SCH (08:13)
[2017-10-07] MEDS: LITHIUM CARBONATE 300 MG CAPSULE PO SCH ×3 (08:14→17:06)
[2017-10-07] MEDS: GABAPENTIN 300 MG CAPSULE PO SCH ×3 (08:14→17:06)
[2017-10-07] MEDS: DOCUSATE SODIUM 100 MG CAPSULE PO SCH ×2 (08:14→17:06)
[2017-10-07] MEDS: METHADONE HCL 10 MG TABLET PO SCH (08:15)
[2017-10-07] MEDS: VENLAFAXINE HCL 75 MG ER CAPSULE PO SCH (08:15)
[2017-10-07] MEDS: OMEPRAZOLE 20 MG CAPSULE PO SCH (08:15)
[2017-10-07] MEDS: CARISOPRODOL 350 MG TABLET PO SCH ×3 (08:15→17:06)
[2017-10-07] MEDS: BENZTROPINE MESYLATE 1 MG TABLET PO SCH ×2 (08:16→17:06)
[2017-10-07 16:00] VITALS: BP 116/63
[2017-10-07] MEDS: TraZODone HCL 100 MG TABLET PO SCH (20:15)
[2017-10-08 00:43] VITALS: BP 120/64
[2017-10-08 08:06] VITALS: BP 122/82
[2017-10-08] MEDS: BENZTROPINE MESYLATE 1 MG TABLET PO SCH ×2 (08:17→16:47)
[2017-10-08] MEDS: CARISOPRODOL 350 MG TABLET PO SCH ×3 (08:17→16:47)
[2017-10-08] MEDS: METHADONE HCL 10 MG TABLET PO SCH (08:17)
[2017-10-08] MEDS: OLANZapine 10 MG TABLET PO SCH ×2 (08:17→16:47)
[2017-10-08] MEDS: LITHIUM CARBONATE 300 MG CAPSULE PO SCH ×3 (08:17→16:47)
[2017-10-08] MEDS: VENLAFAXINE HCL 75 MG ER CAPSULE PO SCH (08:17)
[2017-10-08] MEDS: GABAPENTIN 300 MG CAPSULE PO SCH ×3 (08:17→16:47)
[2017-10-08] MEDS: OMEPRAZOLE 20 MG CAPSULE PO SCH (08:17)
[2017-10-08] MEDS: DOCUSATE SODIUM 100 MG CAPSULE PO SCH ×2 (08:17→16:47)
[2017-10-08] MEDS: NICOTINE 21 MG/24 HOUR PATCH TD SCH (08:18)
[2017-10-08] MEDS: HALOPERIDOL 5 MG TABLET PO PRN (12:56)
[2017-10-08] MEDS: TraMADol HCL 50 MG TABLET PO PRN (12:56)
[2017-10-08] MEDS: BACITRACIN 28.4 GM OINTMENT TP SCH (16:47)
[2017-10-08] MEDS: TraZODone HCL 100 MG TABLET PO SCH (20:51)
[2017-10-09 02:30] VITALS: BP 120/63
[2017-10-09 08:24] VITALS: BP 133/76
[2017-10-09] MEDS: VENLAFAXINE HCL 75 MG ER CAPSULE PO SCH (08:30)
[2017-10-09] MEDS: DOCUSATE SODIUM 100 MG CAPSULE PO SCH ×2 (08:30→17:26)
[2017-10-09] MEDS: GABAPENTIN 300 MG CAPSULE PO SCH ×3 (08:30→17:26)
[2017-10-09] MEDS: LITHIUM CARBONATE 300 MG CAPSULE PO SCH ×3 (08:31→17:26)
[2017-10-09] MEDS: OMEPRAZOLE 20 MG CAPSULE PO SCH (08:31)
[2017-10-09] MEDS: OLANZapine 10 MG TABLET PO SCH (08:31)
[2017-10-09] MEDS: CARISOPRODOL 350 MG TABLET PO SCH ×3 (08:31→17:45)
[2017-10-09] MEDS: BENZTROPINE MESYLATE 1 MG TABLET PO SCH ×2 (08:31→17:25)
[2017-10-09] MEDS: NICOTINE 21 MG/24 HOUR PATCH TD SCH (08:31)
[2017-10-09] MEDS: METHADONE HCL 10 MG TABLET PO SCH (08:32)
[2017-10-09] MEDS: BACITRACIN 28.4 GM OINTMENT TP SCH ×2 (08:35→17:26)
[2017-10-09 16:14] VITALS: BP 125/63
[2017-10-09] MEDS: TraZODone HCL 100 MG TABLET PO SCH (20:19)
[2017-10-09] MEDS: CHLORHEXIDINE GLUCONATE 0.12% 15 ML UDCUP ORAL RINSE PO PRN (20:19)
[2017-10-10 07:09] VITALS: BP 123/74
[2017-10-10] MEDS: GABAPENTIN 300 MG CAPSULE PO SCH ×3 (08:36→16:58)
[2017-10-10] MEDS: OMEPRAZOLE 20 MG CAPSULE PO SCH (08:36)
[2017-10-10] MEDS: DOCUSATE SODIUM 100 MG CAPSULE PO SCH ×2 (08:36→16:58)
[2017-10-10] MEDS: LITHIUM CARBONATE 300 MG CAPSULE PO SCH ×3 (08:36→16:58)
[2017-10-10] MEDS: CARISOPRODOL 350 MG TABLET PO SCH ×3 (08:36→16:58)
[2017-10-10] MEDS: METHADONE HCL 10 MG TABLET PO SCH (08:37)
[2017-10-10] MEDS: BENZTROPINE MESYLATE 1 MG TABLET PO SCH ×2 (08:37→16:58)
[2017-10-10] MEDS: VENLAFAXINE HCL 75 MG ER CAPSULE PO SCH (08:37)
[2017-10-10] MEDS: NICOTINE 21 MG/24 HOUR PATCH TD SCH (08:38)
[2017-10-10] MEDS: BACITRACIN 28.4 GM OINTMENT TP SCH ×2 (08:38→16:58)
[2017-10-10 08:54] VITALS: BP 126/74
[2017-10-10] MEDS ORDERED: ARIPiprazole 10 MG TABLET PO SCH (09:00)
[2017-10-10] MEDS: HALOPERIDOL 5 MG TABLET PO PRN ×2 (11:24→16:58)
[2017-10-10] MEDS: TraMADol HCL 50 MG TABLET PO PRN (11:24)
[2017-10-10] MEDS: HydrOXYzine PAMOATE 50 MG CAPSULE PO PRN (12:42)
[2017-10-10 16:00] VITALS: BP 118/68
[2017-10-10] MEDS: TraZODone HCL 100 MG TABLET PO SCH (20:30)
[2017-10-11 05:07] VITALS: BP 125/78
[2017-10-11 08:18] VITALS: BP 128/67
[2017-10-11] MEDS ORDERED: ARIPiprazole 10 MG TABLET PO SCH (09:00)
[2017-10-11] MEDS: BACITRACIN 28.4 GM OINTMENT TP SCH ×2 (09:14→16:31)
[2017-10-11] MEDS: GABAPENTIN 300 MG CAPSULE PO SCH ×3 (09:15→16:31)
[2017-10-11] MEDS: NICOTINE 21 MG/24 HOUR PATCH TD SCH (09:15)
[2017-10-11] MEDS: OMEPRAZOLE 20 MG CAPSULE PO SCH (09:17)
[2017-10-11] MEDS: CARISOPRODOL 350 MG TABLET PO SCH ×3 (09:17→16:31)
[2017-10-11] MEDS: METHADONE HCL 10 MG TABLET PO SCH (09:18)
[2017-10-11] MEDS: VENLAFAXINE HCL 75 MG ER CAPSULE PO SCH (09:18)
[2017-10-11] MEDS: DOCUSATE SODIUM 100 MG CAPSULE PO SCH ×2 (09:18→16:31)
[2017-10-11] MEDS: LITHIUM CARBONATE 300 MG CAPSULE PO SCH ×3 (09:18→16:31)
[2017-10-11] MEDS: BENZTROPINE MESYLATE 1 MG TABLET PO SCH ×2 (09:18→16:31)
[2017-10-11 11:56] VITALS: BP 123/71
[2017-10-11] MEDS: TraMADol HCL 50 MG TABLET PO PRN (11:58)
[2017-10-11 12:58] VITALS: BP 119/68
[2017-10-11 16:08] VITALS: BP 124/71
[2017-10-11] MEDS: TraZODone HCL 100 MG TABLET PO SCH (20:45)
[2017-10-12 05:34] VITALS: BP 111/75
[2017-10-12 08:26] VITALS: BP 136/76
[2017-10-12] MEDS: ARIPiprazole 15 MG TABLET PO SCH (09:10)
[2017-10-12] MEDS: METHADONE HCL 10 MG TABLET PO SCH (09:10)
[2017-10-12] MEDS: DOCUSATE SODIUM 100 MG CAPSULE PO SCH ×2 (09:11→16:19)
[2017-10-12] MEDS: GABAPENTIN 300 MG CAPSULE PO SCH ×3 (09:11→16:19)
[2017-10-12] MEDS: LITHIUM CARBONATE 300 MG CAPSULE PO SCH ×3 (09:11→16:19)
[2017-10-12] MEDS: BENZTROPINE MESYLATE 1 MG TABLET PO SCH ×2 (09:11→16:19)
[2017-10-12] MEDS: CARISOPRODOL 350 MG TABLET PO SCH ×3 (09:11→16:19)
[2017-10-12] MEDS: VENLAFAXINE HCL 75 MG ER CAPSULE PO SCH (09:11)
[2017-10-12] MEDS: NICOTINE 21 MG/24 HOUR PATCH TD SCH (09:15)
[2017-10-12] MEDS: OMEPRAZOLE 20 MG CAPSULE PO SCH (09:15)
[2017-10-12] MEDS: BACITRACIN 28.4 GM OINTMENT TP SCH ×2 (09:16→16:19)
[2017-10-12 16:00] VITALS: BP 120/68
[2017-10-12] MEDS: HALOPERIDOL 5 MG TABLET PO PRN (16:19)
[2017-10-12] MEDS: TraZODone HCL 100 MG TABLET PO SCH (20:32)
[2017-10-13 06:07] VITALS: BP 121/87
[2017-10-13 08:05] VITALS: BP 117/71
[2017-10-13] MEDS: OMEPRAZOLE 20 MG CAPSULE PO SCH (08:34)
[2017-10-13] MEDS: TraMADol HCL 50 MG TABLET PO PRN (08:34)
[2017-10-13] MEDS: METHADONE HCL 10 MG TABLET PO SCH (08:34)
[2017-10-13] MEDS: CARISOPRODOL 350 MG TABLET PO SCH ×3 (08:35→16:18)
[2017-10-13] MEDS: VENLAFAXINE HCL 75 MG ER CAPSULE PO SCH (08:35)
[2017-10-13] MEDS: LITHIUM CARBONATE 300 MG CAPSULE PO SCH ×3 (08:35→16:18)
[2017-10-13] MEDS: GABAPENTIN 300 MG CAPSULE PO SCH ×3 (08:36→16:18)
[2017-10-13] MEDS: ARIPiprazole 15 MG TABLET PO SCH (08:36)
[2017-10-13] MEDS: DOCUSATE SODIUM 100 MG CAPSULE PO SCH ×2 (08:36→16:18)
[2017-10-13] MEDS: BENZTROPINE MESYLATE 1 MG TABLET PO SCH ×2 (08:36→16:18)
[2017-10-13] MEDS: NICOTINE 21 MG/24 HOUR PATCH TD SCH (08:37)
[2017-10-13] MEDS: BACITRACIN 28.4 GM OINTMENT TP SCH ×2 (08:39→16:19)
[2017-10-13 16:09] VITALS: BP 125/74
[2017-10-13] MEDS: TraZODone HCL 100 MG TABLET PO SCH (20:18)
[2017-10-14 07:18] VITALS: BP 125/73
[2017-10-14] MEDS: DOCUSATE SODIUM 100 MG CAPSULE PO SCH ×2 (08:03→17:52)
[2017-10-14] MEDS: VENLAFAXINE HCL 75 MG ER CAPSULE PO SCH (08:03)
[2017-10-14] MEDS: OMEPRAZOLE 20 MG CAPSULE PO SCH (08:04)
[2017-10-14] MEDS: GABAPENTIN 300 MG CAPSULE PO SCH ×3 (08:04→17:51)
[2017-10-14] MEDS: LITHIUM CARBONATE 300 MG CAPSULE PO SCH ×3 (08:04→17:51)
[2017-10-14] MEDS: CARISOPRODOL 350 MG TABLET PO SCH ×3 (08:04→17:52)
[2017-10-14] MEDS: BENZTROPINE MESYLATE 1 MG TABLET PO SCH ×2 (08:04→17:51)
[2017-10-14] MEDS: METHADONE HCL 10 MG TABLET PO SCH (08:05)
[2017-10-14] MEDS: NICOTINE 21 MG/24 HOUR PATCH TD SCH (08:05)
[2017-10-14] MEDS: ARIPiprazole 15 MG TABLET PO SCH (08:05)
[2017-10-14 08:06] VITALS: BP 117/73
[2017-10-14] MEDS: BACITRACIN 28.4 GM OINTMENT TP SCH ×2 (08:06→17:51)
[2017-10-14] MEDS: TraMADol HCL 50 MG TABLET PO PRN (09:24)
[2017-10-14] MEDS: MAGNESIUM HYDROXIDE SUSPENSION 30 ML UDCUP PO PRN (11:53)
[2017-10-14 16:14] VITALS: BP 139/72
[2017-10-14] MEDS: HydrOXYzine PAMOATE 50 MG CAPSULE PO PRN (17:52)
[2017-10-14] MEDS: TraZODone HCL 100 MG TABLET PO SCH (20:54)
[2017-10-15 05:49] VITALS: BP 119/69
[2017-10-15] MEDS: ARIPiprazole 15 MG TABLET PO SCH (08:44)
[2017-10-15] MEDS: OMEPRAZOLE 20 MG CAPSULE PO SCH (08:44)
[2017-10-15] MEDS: NICOTINE 21 MG/24 HOUR PATCH TD SCH (08:45)
[2017-10-15] MEDS: CARISOPRODOL 350 MG TABLET PO SCH ×3 (08:45→17:00)
[2017-10-15] MEDS: BENZTROPINE MESYLATE 1 MG TABLET PO SCH ×2 (08:45→17:00)
[2017-10-15] MEDS: GABAPENTIN 300 MG CAPSULE PO SCH ×3 (08:45→17:00)
[2017-10-15] MEDS: METHADONE HCL 10 MG TABLET PO SCH (08:45)
[2017-10-15] MEDS: LITHIUM CARBONATE 300 MG CAPSULE PO SCH ×3 (08:45→17:00)
[2017-10-15] MEDS: VENLAFAXINE HCL 75 MG ER CAPSULE PO SCH (08:46)
[2017-10-15] MEDS: DOCUSATE SODIUM 100 MG CAPSULE PO SCH ×2 (08:46→17:00)
[2017-10-15] MEDS: BACITRACIN 28.4 GM OINTMENT TP SCH ×2 (08:47→17:02)
[2017-10-15] MEDS: TraMADol HCL 50 MG TABLET PO PRN ×2 (08:48→17:01)
[2017-10-15] MEDS: MAGNESIUM HYDROXIDE SUSPENSION 30 ML UDCUP PO PRN (08:48)
[2017-10-15 09:24] VITALS: BP 118/77
[2017-10-15] MEDS: HALOPERIDOL 5 MG TABLET PO PRN ×2 (11:22→17:01)
[2017-10-15 16:00] VITALS: BP 123/73
[2017-10-15] MEDS: CHLORHEXIDINE GLUCONATE 0.12% 15 ML UDCUP ORAL RINSE PO PRN (18:23)
[2017-10-15] MEDS: TraZODone HCL 100 MG TABLET PO SCH (20:04)
[2017-10-16 03:15] VITALS: BP 117/64
[2017-10-16] MEDS: GABAPENTIN 300 MG CAPSULE PO SCH ×3 (08:21→16:19)
[2017-10-16] MEDS: BENZTROPINE MESYLATE 1 MG TABLET PO SCH ×2 (08:21→16:19)
[2017-10-16] MEDS: OMEPRAZOLE 20 MG CAPSULE PO SCH (08:22)
[2017-10-16] MEDS: METHADONE HCL 10 MG TABLET PO SCH (08:22)
[2017-10-16] MEDS: ARIPiprazole 15 MG TABLET PO SCH (08:22)
[2017-10-16] MEDS: VENLAFAXINE HCL 75 MG ER CAPSULE PO SCH (08:22)
[2017-10-16] MEDS: DOCUSATE SODIUM 100 MG CAPSULE PO SCH ×2 (08:22→16:19)
[2017-10-16] MEDS: CARISOPRODOL 350 MG TABLET PO SCH ×3 (08:22→16:19)
[2017-10-16] MEDS: NICOTINE 21 MG/24 HOUR PATCH TD SCH (08:24)
[2017-10-16] MEDS: BACITRACIN 28.4 GM OINTMENT TP SCH ×2 (08:24→16:19)
[2017-10-16] MEDS: LITHIUM CARBONATE 300 MG CAPSULE PO SCH ×3 (08:30→16:19)
[2017-10-16] MEDS: MAGNESIUM HYDROXIDE SUSPENSION 30 ML UDCUP PO PRN (09:29)
[2017-10-16 09:43] VITALS: BP 123/68
[2017-10-16] MEDS: TraMADol HCL 50 MG TABLET PO PRN (10:02)
[2017-10-16] MEDS: HydrOXYzine PAMOATE 50 MG CAPSULE PO PRN ×2 (10:03→16:19)
[2017-10-16] MEDS: HALOPERIDOL 5 MG TABLET PO PRN ×2 (10:03→16:19)
[2017-10-16 16:00] VITALS: BP 115/79
[2017-10-16] MEDS: CHLORHEXIDINE GLUCONATE 0.12% 15 ML UDCUP ORAL RINSE PO PRN (17:27)
[2017-10-16] MEDS ORDERED: BACITRACIN 28.4 GM OINTMENT TP PRN (19:30)
[2017-10-16] MEDS ORDERED: MAGNESIUM CITRATE 300 ML ORAL SOLUTION PO PRN (19:30)
[2017-10-16] MEDS: TraZODone HCL 100 MG TABLET PO SCH (20:45)
[2017-10-17 01:02] VITALS: BP 104/89
[2017-10-17] MEDS: ARIPiprazole 15 MG TABLET PO SCH (08:02)
[2017-10-17] MEDS: BENZTROPINE MESYLATE 1 MG TABLET PO SCH ×2 (08:02→16:47)
[2017-10-17] MEDS: VENLAFAXINE HCL 75 MG ER CAPSULE PO SCH (08:02)
[2017-10-17] MEDS: OMEPRAZOLE 20 MG CAPSULE PO SCH (08:02)
[2017-10-17] MEDS: NICOTINE 21 MG/24 HOUR PATCH TD SCH (08:02)
[2017-10-17] MEDS: LITHIUM CARBONATE 300 MG CAPSULE PO SCH ×3 (08:02→16:47)
[2017-10-17] MEDS: DOCUSATE SODIUM 100 MG CAPSULE PO SCH ×2 (08:02→16:47)
[2017-10-17] MEDS: CARISOPRODOL 350 MG TABLET PO SCH ×3 (08:02→16:48)
[2017-10-17] MEDS: GABAPENTIN 300 MG CAPSULE PO SCH ×3 (08:02→16:47)
[2017-10-17] MEDS: BACITRACIN 28.4 GM OINTMENT TP SCH ×2 (08:07→16:48)
[2017-10-17] MEDS: MAGNESIUM HYDROXIDE SUSPENSION 30 ML UDCUP PO PRN (08:14)
[2017-10-17 08:15] VITALS: BP 124/94
[2017-10-17] MEDS: TraMADol HCL 50 MG TABLET PO PRN (08:18)
[2017-10-17 08:27] VITALS: BP 138/72
[2017-10-17 16:00] VITALS: BP 136/81
[2017-10-17] MEDS: TraZODone HCL 100 MG TABLET PO SCH (20:33)
[2017-10-17] MEDS: HALOPERIDOL 5 MG TABLET PO PRN (20:33)
[2017-10-17] MEDS: HydrOXYzine PAMOATE 50 MG CAPSULE PO PRN (20:33)
[2017-10-18 05:57] VITALS: BP 132/79
[2017-10-18 08:27] VITALS: BP 130/76
[2017-10-18] MEDS: GABAPENTIN 300 MG CAPSULE PO SCH ×3 (08:31→16:36)
[2017-10-18] MEDS: VENLAFAXINE HCL 75 MG ER CAPSULE PO SCH (08:31)
[2017-10-18] MEDS: LITHIUM CARBONATE 300 MG CAPSULE PO SCH ×3 (08:31→16:36)
[2017-10-18] MEDS: BENZTROPINE MESYLATE 1 MG TABLET PO SCH ×2 (08:31→16:35)
[2017-10-18] MEDS: ARIPiprazole 15 MG TABLET PO SCH (08:31)
[2017-10-18] MEDS: NICOTINE 21 MG/24 HOUR PATCH TD SCH (08:32)
[2017-10-18] MEDS: DOCUSATE SODIUM 100 MG CAPSULE PO SCH ×2 (08:32→16:36)
[2017-10-18] MEDS: OMEPRAZOLE 20 MG CAPSULE PO SCH (08:32)
[2017-10-18] MEDS: CARISOPRODOL 350 MG TABLET PO SCH ×3 (08:32→16:36)
[2017-10-18] MEDS: TraMADol HCL 50 MG TABLET PO PRN ×2 (08:33→21:46)
[2017-10-18] MEDS: BACITRACIN 28.4 GM OINTMENT TP SCH (08:33)
[2017-10-18] MEDS: HALOPERIDOL 5 MG TABLET PO PRN ×2 (09:21→16:36)
[2017-10-18 16:14] VITALS: BP 124/75
[2017-10-18] MEDS: HydrOXYzine PAMOATE 50 MG CAPSULE PO PRN (16:37)
[2017-10-18] MEDS: TraZODone HCL 100 MG TABLET PO SCH (20:34)
[2017-10-19 00:01] VITALS: BP 122/80
[2017-10-19] MEDS: HALOPERIDOL 5 MG TABLET PO PRN ×2 (00:12→16:39)
[2017-10-19] MEDS: HydrOXYzine PAMOATE 50 MG CAPSULE PO PRN (00:12)
[2017-10-19 08:00] VITALS: BP 125/71
[2017-10-19] MEDS: OMEPRAZOLE 20 MG CAPSULE PO SCH (08:27)
[2017-10-19] MEDS: VENLAFAXINE HCL 75 MG ER CAPSULE PO SCH (08:27)
[2017-10-19] MEDS: NICOTINE 21 MG/24 HOUR PATCH TD SCH (08:27)
[2017-10-19] MEDS: LITHIUM CARBONATE 300 MG CAPSULE PO SCH ×3 (08:27→16:38)
[2017-10-19] MEDS: DOCUSATE SODIUM 100 MG CAPSULE PO SCH ×2 (08:27→16:38)
[2017-10-19] MEDS: BENZTROPINE MESYLATE 1 MG TABLET PO SCH ×2 (08:27→16:38)
[2017-10-19] MEDS: GABAPENTIN 300 MG CAPSULE PO SCH ×3 (08:27→16:38)
[2017-10-19] MEDS: ARIPiprazole 15 MG TABLET PO SCH (08:27)
[2017-10-19] MEDS: CARISOPRODOL 350 MG TABLET PO SCH ×3 (08:28→16:38)
[2017-10-19] MEDS: METHADONE HCL 10 MG TABLET PO SCH (09:29)
[2017-10-19 16:00] VITALS: BP 138/81
[2017-10-19 16:37] VITALS: BP 135/79
[2017-10-19] MEDS: TraMADol HCL 50 MG TABLET PO PRN (16:39)
[2017-10-19 17:39] VITALS: BP 133/74
[2017-10-19] MEDS: TraZODone HCL 100 MG TABLET PO SCH (20:42)
[2017-10-20 05:27] VITALS: BP 108/77
[2017-10-20 08:12] VITALS: BP 123/63
[2017-10-20] MEDS: GABAPENTIN 300 MG CAPSULE PO SCH ×3 (08:31→16:37)
[2017-10-20] MEDS: ARIPiprazole 15 MG TABLET PO SCH (08:31)
[2017-10-20] MEDS: CARISOPRODOL 350 MG TABLET PO SCH ×3 (08:31→16:37)
[2017-10-20] MEDS: LITHIUM CARBONATE 300 MG CAPSULE PO SCH ×3 (08:31→16:37)
[2017-10-20] MEDS: OMEPRAZOLE 20 MG CAPSULE PO SCH (08:31)
[2017-10-20] MEDS: DOCUSATE SODIUM 100 MG CAPSULE PO SCH ×2 (08:31→16:37)
[2017-10-20] MEDS: BENZTROPINE MESYLATE 1 MG TABLET PO SCH ×2 (08:31→16:37)
[2017-10-20] MEDS: VENLAFAXINE HCL 75 MG ER CAPSULE PO SCH (08:31)
[2017-10-20] MEDS: METHADONE HCL 10 MG TABLET PO SCH (08:32)
[2017-10-20] MEDS: NICOTINE 21 MG/24 HOUR PATCH TD SCH (08:36)
[2017-10-20] MEDS: HALOPERIDOL 5 MG TABLET PO PRN (09:48)
[2017-10-20] MEDS: TraMADol HCL 50 MG TABLET PO PRN ×2 (09:48→18:15)
[2017-10-20 16:00] VITALS: BP 121/77
[2017-10-20] MEDS: MAGNESIUM HYDROXIDE SUSPENSION 30 ML UDCUP PO PRN (19:02)
[2017-10-20] MEDS: TraZODone HCL 100 MG TABLET PO SCH (20:45)
[2017-10-21 06:39] VITALS: BP 126/76
[2017-10-21] MEDS: CARISOPRODOL 350 MG TABLET PO SCH ×3 (08:19→17:00)
[2017-10-21] MEDS: METHADONE HCL 10 MG TABLET PO SCH (08:19)
[2017-10-21] MEDS: ARIPiprazole 15 MG TABLET PO SCH (08:20)
[2017-10-21] MEDS: BENZTROPINE MESYLATE 1 MG TABLET PO SCH ×2 (08:20→16:59)
[2017-10-21] MEDS: VENLAFAXINE HCL 75 MG ER CAPSULE PO SCH (08:20)
[2017-10-21] MEDS: GABAPENTIN 300 MG CAPSULE PO SCH ×3 (08:20→16:59)
[2017-10-21] MEDS: LITHIUM CARBONATE 300 MG CAPSULE PO SCH ×3 (08:20→16:59)
[2017-10-21] MEDS: NICOTINE 21 MG/24 HOUR PATCH TD SCH (08:27)
[2017-10-21 08:53] VITALS: BP 110/70
[2017-10-21] MEDS: DOCUSATE SODIUM 100 MG CAPSULE PO SCH ×2 (09:24→17:00)
[2017-10-21] MEDS: OMEPRAZOLE 20 MG CAPSULE PO SCH (09:24)
[2017-10-21 09:35] VITALS: BP 123/75
[2017-10-21] MEDS: TraMADol HCL 50 MG TABLET PO PRN (09:39)
[2017-10-21] MEDS: HALOPERIDOL 5 MG TABLET PO PRN (11:31)
[2017-10-21] MEDS: TraZODone HCL 100 MG TABLET PO SCH (20:57)
[2017-10-22 06:15] VITALS: BP 125/75
[2017-10-22 08:15] VITALS: BP 122/72
[2017-10-22] MEDS: LITHIUM CARBONATE 300 MG CAPSULE PO SCH ×3 (09:21→17:34)
[2017-10-22] MEDS: ARIPiprazole 15 MG TABLET PO SCH (09:21)
[2017-10-22] MEDS: GABAPENTIN 300 MG CAPSULE PO SCH ×3 (09:21→17:34)
[2017-10-22] MEDS: DOCUSATE SODIUM 100 MG CAPSULE PO SCH ×2 (09:21→17:33)
[2017-10-22] MEDS: OMEPRAZOLE 20 MG CAPSULE PO SCH (09:21)
[2017-10-22] MEDS: METHADONE HCL 10 MG TABLET PO SCH (09:22)
[2017-10-22] MEDS: VENLAFAXINE HCL 75 MG ER CAPSULE PO SCH (09:22)
[2017-10-22] MEDS: CARISOPRODOL 350 MG TABLET PO SCH ×3 (09:22→17:34)
[2017-10-22] MEDS: BENZTROPINE MESYLATE 1 MG TABLET PO SCH ×2 (09:22→17:34)
[2017-10-22] MEDS: NICOTINE 21 MG/24 HOUR PATCH TD SCH (09:22)
[2017-10-22 11:15] VITALS: BP 115/76
[2017-10-22] MEDS: HALOPERIDOL 5 MG TABLET PO PRN (11:15)
[2017-10-22] MEDS: TraMADol HCL 50 MG TABLET PO PRN (11:15)
[2017-10-22] MEDS: TraZODone HCL 100 MG TABLET PO SCH (21:24)
[2017-10-23 04:09] VITALS: BP 119/71
[2017-10-23 08:34] VITALS: BP 138/76
[2017-10-23 09:06] VITALS: BP 117/72
[2017-10-23] MEDS: GABAPENTIN 300 MG CAPSULE PO SCH ×3 (09:06→17:00)
[2017-10-23] MEDS: OMEPRAZOLE 20 MG CAPSULE PO SCH (09:06)
[2017-10-23] MEDS: CARISOPRODOL 350 MG TABLET PO SCH ×3 (09:09→17:01)
[2017-10-23] MEDS: VENLAFAXINE HCL 75 MG ER CAPSULE PO SCH (09:10)
[2017-10-23] MEDS: LITHIUM CARBONATE 300 MG CAPSULE PO SCH ×3 (09:11→17:01)
[2017-10-23] MEDS: BENZTROPINE MESYLATE 1 MG TABLET PO SCH ×2 (09:11→17:00)
[2017-10-23] MEDS: DOCUSATE SODIUM 100 MG CAPSULE PO SCH ×2 (09:11→17:01)
[2017-10-23] MEDS: ARIPiprazole 15 MG TABLET PO SCH (09:11)
[2017-10-23] MEDS: NICOTINE 21 MG/24 HOUR PATCH TD SCH (09:12)
[2017-10-23] MEDS: METHADONE HCL 10 MG TABLET PO SCH (09:13)
[2017-10-23] MEDS: TraMADol HCL 50 MG TABLET PO PRN (12:33)
[2017-10-23 12:37] VITALS: BP 134/84
[2017-10-23 13:33] VITALS: BP 124/76
[2017-10-23] MEDS: MAGNESIUM HYDROXIDE SUSPENSION 30 ML UDCUP PO PRN (13:54)
[2017-10-23 16:08] VITALS: BP 124/80
[2017-10-23] MEDS: HydrOXYzine PAMOATE 50 MG CAPSULE PO PRN (17:02)
[2017-10-23] MEDS: TraZODone HCL 100 MG TABLET PO SCH (20:49)
[2017-10-24 06:39] VITALS: BP 113/62
[2017-10-24 08:10] VITALS: BP 120/69
[2017-10-24] MEDS: BENZTROPINE MESYLATE 1 MG TABLET PO SCH ×2 (08:54→16:25)
[2017-10-24] MEDS: GABAPENTIN 300 MG CAPSULE PO SCH ×3 (08:54→16:26)
[2017-10-24] MEDS: VENLAFAXINE HCL 75 MG ER CAPSULE PO SCH (08:54)
[2017-10-24] MEDS: OMEPRAZOLE 20 MG CAPSULE PO SCH (08:54)
[2017-10-24] MEDS: LITHIUM CARBONATE 300 MG CAPSULE PO SCH ×3 (08:54→16:26)
[2017-10-24] MEDS: DOCUSATE SODIUM 100 MG CAPSULE PO SCH ×2 (08:54→16:26)
[2017-10-24] MEDS: ARIPiprazole 15 MG TABLET PO SCH (08:55)
[2017-10-24] MEDS: METHADONE HCL 10 MG TABLET PO SCH (08:57)
[2017-10-24] MEDS: CARISOPRODOL 350 MG TABLET PO SCH ×3 (08:57→16:26)
[2017-10-24] MEDS: NICOTINE 21 MG/24 HOUR PATCH TD SCH (09:00)
[2017-10-24 09:53] VITALS: BP 126/69
[2017-10-24] MEDS: TraMADol HCL 50 MG TABLET PO PRN ×2 (09:54→20:37)
[2017-10-24 10:47] VITALS: BP 120/69
[2017-10-24 16:00] VITALS: BP 117/89
[2017-10-24] MEDS: MAGNESIUM HYDROXIDE SUSPENSION 30 ML UDCUP PO PRN (17:15)
[2017-10-24] MEDS: TraZODone HCL 100 MG TABLET PO SCH (20:36)
[2017-10-25 04:46] VITALS: BP 122/79
[2017-10-25] MEDS: MAGNESIUM HYDROXIDE SUSPENSION 30 ML UDCUP PO PRN (05:03)
[2017-10-25] MEDS: ARIPiprazole 15 MG TABLET PO SCH (08:07)
[2017-10-25] MEDS: METHADONE HCL 10 MG TABLET PO SCH (08:07)
[2017-10-25] MEDS: LITHIUM CARBONATE 300 MG CAPSULE PO SCH ×3 (08:08→16:04)
[2017-10-25] MEDS: HydrOXYzine PAMOATE 50 MG CAPSULE PO PRN (08:08)
[2017-10-25] MEDS: OMEPRAZOLE 20 MG CAPSULE PO SCH (08:08)
[2017-10-25] MEDS: BENZTROPINE MESYLATE 1 MG TABLET PO SCH ×2 (08:08→16:04)
[2017-10-25] MEDS: VENLAFAXINE HCL 75 MG ER CAPSULE PO SCH (08:08)
[2017-10-25] MEDS: CARISOPRODOL 350 MG TABLET PO SCH ×3 (08:08→16:04)
[2017-10-25] MEDS: NICOTINE 21 MG/24 HOUR PATCH TD SCH (08:08)
[2017-10-25] MEDS: GABAPENTIN 300 MG CAPSULE PO SCH ×3 (08:08→16:04)
[2017-10-25] MEDS: TraMADol HCL 50 MG TABLET PO PRN (08:08)
[2017-10-25] MEDS: DOCUSATE SODIUM 100 MG CAPSULE PO SCH ×2 (08:08→16:04)
[2017-10-25 08:13] VITALS: BP 128/70
[2017-10-25 16:00] VITALS: BP 129/87
[2017-10-25] MEDS: TraZODone HCL 100 MG TABLET PO SCH (20:11)
[2017-10-26 06:50] VITALS: BP 123/85
[2017-10-26 08:31] VITALS: BP 117/70
[2017-10-26] MEDS: METHADONE HCL 10 MG TABLET PO SCH (08:56)
[2017-10-26] MEDS: LITHIUM CARBONATE 300 MG CAPSULE PO SCH ×3 (08:56→16:55)
[2017-10-26] MEDS: CARISOPRODOL 350 MG TABLET PO SCH ×3 (08:56→16:55)
[2017-10-26] MEDS: ARIPiprazole 15 MG TABLET PO SCH (08:56)
[2017-10-26] MEDS: GABAPENTIN 300 MG CAPSULE PO SCH ×3 (08:56→16:55)
[2017-10-26] MEDS: BENZTROPINE MESYLATE 1 MG TABLET PO SCH ×2 (08:56→16:55)
[2017-10-26] MEDS: OMEPRAZOLE 20 MG CAPSULE PO SCH (08:56)
[2017-10-26] MEDS: DOCUSATE SODIUM 100 MG CAPSULE PO SCH ×2 (08:57→16:55)
[2017-10-26] MEDS: NICOTINE 21 MG/24 HOUR PATCH TD SCH (08:57)
[2017-10-26] MEDS: VENLAFAXINE HCL 75 MG ER CAPSULE PO SCH (08:57)
[2017-10-26] MEDS: MAGNESIUM HYDROXIDE SUSPENSION 30 ML UDCUP PO PRN (11:35)
[2017-10-26 16:00] VITALS: BP 119/68
[2017-10-26] MEDS: TraZODone HCL 100 MG TABLET PO SCH (20:36)
[2017-10-26] MEDS: TraMADol HCL 50 MG TABLET PO PRN (20:36)
[2017-10-27 06:35] VITALS: BP 104/68
[2017-10-27] MEDS: NICOTINE 21 MG/24 HOUR PATCH TD SCH (08:19)
[2017-10-27] MEDS: GABAPENTIN 300 MG CAPSULE PO SCH ×3 (08:19→16:01)
[2017-10-27] MEDS: VENLAFAXINE HCL 75 MG ER CAPSULE PO SCH (08:19)
[2017-10-27] MEDS: ARIPiprazole 15 MG TABLET PO SCH (08:19)
[2017-10-27] MEDS: BENZTROPINE MESYLATE 1 MG TABLET PO SCH ×2 (08:19→16:00)
[2017-10-27] MEDS: DOCUSATE SODIUM 100 MG CAPSULE PO SCH ×2 (08:19→16:00)
[2017-10-27] MEDS: CARISOPRODOL 350 MG TABLET PO SCH ×3 (08:19→16:00)
[2017-10-27] MEDS: HydrOXYzine PAMOATE 50 MG CAPSULE PO PRN (08:20)
[2017-10-27] MEDS: OMEPRAZOLE 20 MG CAPSULE PO SCH (08:20)
[2017-10-27] MEDS: TraMADol HCL 50 MG TABLET PO PRN (08:20)
[2017-10-27] MEDS: LITHIUM CARBONATE 300 MG CAPSULE PO SCH ×3 (08:20→16:01)
[2017-10-27] MEDS: METHADONE HCL 10 MG TABLET PO SCH (08:20)
[2017-10-27 08:56] VITALS: BP 114/66
[2017-10-27] MEDS: MAGNESIUM HYDROXIDE SUSPENSION 30 ML UDCUP PO PRN ×2 (09:45→20:51)
[2017-10-27 13:50] VITALS: BP 112/68
[2017-10-27 16:18] VITALS: BP 111/73
[2017-10-27] MEDS: TraZODone HCL 100 MG TABLET PO SCH (20:19)
[2017-10-27] MEDS: HALOPERIDOL 5 MG TABLET PO PRN (21:35)
[2017-10-28 01:44] VITALS: BP 109/64
[2017-10-28] MEDS: VENLAFAXINE HCL 75 MG ER CAPSULE PO SCH (09:13)
[2017-10-28] MEDS: ARIPiprazole 15 MG TABLET PO SCH (09:13)
[2017-10-28] MEDS: LITHIUM CARBONATE 300 MG CAPSULE PO SCH ×3 (09:13→16:54)
[2017-10-28] MEDS: CARISOPRODOL 350 MG TABLET PO SCH ×3 (09:13→16:54)
[2017-10-28] MEDS: NICOTINE 21 MG/24 HOUR PATCH TD SCH (09:13)
[2017-10-28] MEDS: BENZTROPINE MESYLATE 1 MG TABLET PO SCH ×2 (09:13→16:54)
[2017-10-28] MEDS: DOCUSATE SODIUM 100 MG CAPSULE PO SCH ×2 (09:14→16:54)
[2017-10-28] MEDS: METHADONE HCL 10 MG TABLET PO SCH (09:14)
[2017-10-28] MEDS: GABAPENTIN 300 MG CAPSULE PO SCH ×3 (09:14→16:54)
[2017-10-28] MEDS: OMEPRAZOLE 20 MG CAPSULE PO SCH (09:14)
[2017-10-28 10:25] VITALS: BP 118/60
[2017-10-28] MEDS: MAGNESIUM HYDROXIDE SUSPENSION 30 ML UDCUP PO PRN ×2 (10:56→16:53)
[2017-10-28 16:31] VITALS: BP 130/81
[2017-10-28] MEDS: TraMADol HCL 50 MG TABLET PO PRN (16:53)
[2017-10-28] MEDS: TraZODone HCL 100 MG TABLET PO SCH (20:17)
[2017-10-29 05:11] VITALS: BP 124/71
[2017-10-29 08:00] VITALS: BP 116/69
[2017-10-29] MEDS: OMEPRAZOLE 20 MG CAPSULE PO SCH (08:36)
[2017-10-29] MEDS: DOCUSATE SODIUM 100 MG CAPSULE PO SCH ×2 (08:36→16:41)
[2017-10-29] MEDS: LITHIUM CARBONATE 300 MG CAPSULE PO SCH ×3 (08:36→16:42)
[2017-10-29] MEDS: ARIPiprazole 15 MG TABLET PO SCH (08:36)
[2017-10-29] MEDS: GABAPENTIN 300 MG CAPSULE PO SCH ×3 (08:37→16:40)
[2017-10-29] MEDS: METHADONE HCL 10 MG TABLET PO SCH (08:38)
[2017-10-29] MEDS: CARISOPRODOL 350 MG TABLET PO SCH ×3 (08:38→16:57)
[2017-10-29] MEDS: NICOTINE 21 MG/24 HOUR PATCH TD SCH (08:41)
[2017-10-29] MEDS: BENZTROPINE MESYLATE 1 MG TABLET PO SCH ×2 (09:19→16:40)
[2017-10-29] MEDS: VENLAFAXINE HCL 75 MG ER CAPSULE PO SCH (09:20)
[2017-10-29] MEDS: MAGNESIUM HYDROXIDE SUSPENSION 30 ML UDCUP PO PRN (13:22)
[2017-10-29] MEDS: TraMADol HCL 50 MG TABLET PO PRN (16:40)
[2017-10-29] MEDS: HydrOXYzine PAMOATE 50 MG CAPSULE PO PRN (16:41)
[2017-10-29 16:49] VITALS: BP 133/84
[2017-10-29] MEDS: TraZODone HCL 100 MG TABLET PO SCH (20:44)
[2017-10-30 05:26] VITALS: BP 132/82
[2017-10-30] MEDS: VENLAFAXINE HCL 75 MG ER CAPSULE PO SCH (08:00)
[2017-10-30] MEDS: DOCUSATE SODIUM 100 MG CAPSULE PO SCH ×2 (08:00→16:43)
[2017-10-30] MEDS: NICOTINE 21 MG/24 HOUR PATCH TD SCH (08:00)
[2017-10-30] MEDS: GABAPENTIN 300 MG CAPSULE PO SCH ×3 (08:00→16:43)
[2017-10-30] MEDS: LITHIUM CARBONATE 300 MG CAPSULE PO SCH ×3 (08:00→16:43)
[2017-10-30] MEDS: OMEPRAZOLE 20 MG CAPSULE PO SCH (08:00)
[2017-10-30] MEDS: BENZTROPINE MESYLATE 1 MG TABLET PO SCH ×2 (08:01→16:43)
[2017-10-30] MEDS: METHADONE HCL 10 MG TABLET PO SCH (08:01)
[2017-10-30] MEDS: CARISOPRODOL 350 MG TABLET PO SCH ×3 (08:01→16:43)
[2017-10-30] MEDS: ARIPiprazole 15 MG TABLET PO SCH (08:02)
[2017-10-30 09:10] VITALS: BP 117/70
[2017-10-30] MEDS: MAGNESIUM HYDROXIDE SUSPENSION 30 ML UDCUP PO PRN (14:35)
[2017-10-30] MEDS: TraZODone HCL 100 MG TABLET PO SCH (20:44)
[2017-10-31 05:26] VITALS: BP 122/68
[2017-10-31 08:11] VITALS: BP 110/69
[2017-10-31] MEDS: CARISOPRODOL 350 MG TABLET PO SCH ×3 (08:27→17:39)
[2017-10-31] MEDS: ARIPiprazole 15 MG TABLET PO SCH (08:27)
[2017-10-31] MEDS: OMEPRAZOLE 20 MG CAPSULE PO SCH (08:27)
[2017-10-31] MEDS: GABAPENTIN 300 MG CAPSULE PO SCH ×3 (08:27→17:39)
[2017-10-31] MEDS: LITHIUM CARBONATE 300 MG CAPSULE PO SCH ×3 (08:27→17:39)
[2017-10-31] MEDS: BENZTROPINE MESYLATE 1 MG TABLET PO SCH ×2 (08:27→17:39)
[2017-10-31] MEDS: DOCUSATE SODIUM 100 MG CAPSULE PO SCH ×2 (08:27→17:39)
[2017-10-31] MEDS: METHADONE HCL 10 MG TABLET PO SCH (08:27)
[2017-10-31] MEDS: VENLAFAXINE HCL 75 MG ER CAPSULE PO SCH (08:27)
[2017-10-31] MEDS: NICOTINE 21 MG/24 HOUR PATCH TD SCH (08:28)
[2017-10-31 16:00] VITALS: BP 117/72
[2017-10-31] MEDS: TraZODone HCL 100 MG TABLET PO SCH (20:42)
[2017-10-31] MEDS: MAGNESIUM HYDROXIDE SUSPENSION 30 ML UDCUP PO PRN (21:14)
[2017-11-01 02:29] VITALS: BP 124/82
[2017-11-01] MEDS: VENLAFAXINE HCL 75 MG ER CAPSULE PO SCH (09:49)
[2017-11-01] MEDS: LITHIUM CARBONATE 300 MG CAPSULE PO SCH ×3 (09:49→17:07)
[2017-11-01] MEDS: DOCUSATE SODIUM 100 MG CAPSULE PO SCH ×2 (09:49→17:07)
[2017-11-01] MEDS: OMEPRAZOLE 20 MG CAPSULE PO SCH (09:49)
[2017-11-01] MEDS: GABAPENTIN 300 MG CAPSULE PO SCH ×3 (09:49→17:07)
[2017-11-01] MEDS: ARIPiprazole 15 MG TABLET PO SCH (09:49)
[2017-11-01] MEDS: BENZTROPINE MESYLATE 1 MG TABLET PO SCH ×2 (09:49→17:07)
[2017-11-01] MEDS: NICOTINE 21 MG/24 HOUR PATCH TD SCH (09:50)
[2017-11-01] MEDS: METHADONE HCL 10 MG TABLET PO SCH (09:50)
[2017-11-01] MEDS: CARISOPRODOL 350 MG TABLET PO SCH ×3 (09:50→17:07)
[2017-11-01 09:58] VITALS: BP 120/67
[2017-11-01 17:20] VITALS: BP 128/76
[2017-11-01] MEDS: TraZODone HCL 100 MG TABLET PO SCH (20:33)
[2017-11-02 04:30] VITALS: BP 102/68
[2017-11-02 08:33] VITALS: BP 117/70
[2017-11-02] MEDS: METHADONE HCL 10 MG TABLET PO SCH (08:40)
[2017-11-02] MEDS: ARIPiprazole 15 MG TABLET PO SCH (08:40)
[2017-11-02] MEDS: BENZTROPINE MESYLATE 1 MG TABLET PO SCH ×2 (08:40→16:36)
[2017-11-02] MEDS: NICOTINE 21 MG/24 HOUR PATCH TD SCH (08:41)
[2017-11-02] MEDS: GABAPENTIN 300 MG CAPSULE PO SCH ×3 (08:41→16:37)
[2017-11-02] MEDS: LITHIUM CARBONATE 300 MG CAPSULE PO SCH ×3 (08:41→16:37)
[2017-11-02] MEDS: CARISOPRODOL 350 MG TABLET PO SCH ×3 (08:41→16:36)
[2017-11-02] MEDS: DOCUSATE SODIUM 100 MG CAPSULE PO SCH ×2 (08:42→16:37)
[2017-11-02] MEDS: VENLAFAXINE HCL 75 MG ER CAPSULE PO SCH (08:42)
[2017-11-02] MEDS: OMEPRAZOLE 20 MG CAPSULE PO SCH (08:42)
[2017-11-02 16:07] VITALS: BP 109/58
[2017-11-02] MEDS: HALOPERIDOL 5 MG TABLET PO PRN (18:46)
[2017-11-02] MEDS: TraZODone HCL 100 MG TABLET PO SCH (20:13)
[2017-11-03 06:44] VITALS: BP 111/72
[2017-11-03 08:13] VITALS: BP 110/62
[2017-11-03] MEDS: GABAPENTIN 300 MG CAPSULE PO SCH ×3 (09:38→17:23)
[2017-11-03] MEDS: METHADONE HCL 10 MG TABLET PO SCH (09:38)
[2017-11-03] MEDS: BENZTROPINE MESYLATE 1 MG TABLET PO SCH ×2 (09:38→17:23)
[2017-11-03] MEDS: VENLAFAXINE HCL 75 MG ER CAPSULE PO SCH (09:39)
[2017-11-03] MEDS: CARISOPRODOL 350 MG TABLET PO SCH ×3 (09:39→17:23)
[2017-11-03] MEDS: DOCUSATE SODIUM 100 MG CAPSULE PO SCH ×2 (09:39→17:23)
[2017-11-03] MEDS: ARIPiprazole 15 MG TABLET PO SCH (09:39)
[2017-11-03] MEDS: OMEPRAZOLE 20 MG CAPSULE PO SCH (09:39)
[2017-11-03] MEDS: LITHIUM CARBONATE 300 MG CAPSULE PO SCH ×3 (09:39→17:23)
[2017-11-03] MEDS: NICOTINE 21 MG/24 HOUR PATCH TD SCH (09:40)
[2017-11-03 12:00] VITALS: BP 128/83
[2017-11-03 16:30] VITALS: BP 129/75
[2017-11-03] MEDS: HALOPERIDOL 5 MG TABLET PO PRN (17:23)
[2017-11-03 20:44] VITALS: BP 133/81
[2017-11-03] MEDS: TraZODone HCL 100 MG TABLET PO SCH (20:44)
[2017-11-03] MEDS: MAGNESIUM HYDROXIDE SUSPENSION 30 ML UDCUP PO PRN (20:46)
[2017-11-03] MEDS: TraMADol HCL 50 MG TABLET PO PRN (20:46)
[2017-11-03 21:46] VITALS: BP 125/76
[2017-11-04 07:03] VITALS: BP 120/75
[2017-11-04] MEDS: DOCUSATE SODIUM 100 MG CAPSULE PO SCH ×2 (08:40→16:05)
[2017-11-04] MEDS: OMEPRAZOLE 20 MG CAPSULE PO SCH (08:40)
[2017-11-04] MEDS: LITHIUM CARBONATE 300 MG CAPSULE PO SCH ×3 (08:40→16:04)
[2017-11-04] MEDS: BENZTROPINE MESYLATE 1 MG TABLET PO SCH ×2 (08:40→16:04)
[2017-11-04] MEDS: ARIPiprazole 15 MG TABLET PO SCH (08:41)
[2017-11-04] MEDS: BuPROPion HCL 75 MG TABLET PO SCH (08:41)
[2017-11-04] MEDS: VENLAFAXINE HCL 75 MG ER CAPSULE PO SCH (08:41)
[2017-11-04] MEDS: GABAPENTIN 300 MG CAPSULE PO SCH ×3 (08:41→16:04)
[2017-11-04] MEDS: NICOTINE 21 MG/24 HOUR PATCH TD SCH (08:42)
[2017-11-04] MEDS: CARISOPRODOL 350 MG TABLET PO SCH ×3 (08:42→16:05)
[2017-11-04] MEDS: METHADONE HCL 10 MG TABLET PO SCH (08:42)
[2017-11-04 09:04] VITALS: BP 101/69
[2017-11-04] MEDS ORDERED: MAG HYDROX/AL HYDROX/SIMETH ES 30 ML SUSPENSION UDCUP PO PRN (14:15)
[2017-11-04] MEDS ORDERED: LOPERAMIDE HCL 2 MG CAPSULE PO PRN (14:15)
[2017-11-04] MEDS ORDERED: ACETAMINOPHEN 325 MG TABLET PO PRN (14:15)
[2017-11-04] MEDS ORDERED: PROMETHAZINE HCL 25 MG TABLET PO PRN (14:15)
[2017-11-04 16:16] VITALS: BP 108/64
[2017-11-04] MEDS: TraZODone HCL 100 MG TABLET PO SCH (20:25)
[2017-11-05 01:44] VITALS: BP 119/74
[2017-11-05 08:18] VITALS: BP 118/67
[2017-11-05] MEDS: OMEPRAZOLE 20 MG CAPSULE PO SCH (09:03)
[2017-11-05] MEDS: DOCUSATE SODIUM 100 MG CAPSULE PO SCH ×2 (09:04→16:43)
[2017-11-05] MEDS: METHADONE HCL 10 MG TABLET PO SCH (09:04)
[2017-11-05] MEDS: GABAPENTIN 300 MG CAPSULE PO SCH ×3 (09:04→16:43)
[2017-11-05] MEDS: BENZTROPINE MESYLATE 1 MG TABLET PO SCH ×2 (09:04→16:44)
[2017-11-05] MEDS: ARIPiprazole 15 MG TABLET PO SCH (09:04)
[2017-11-05] MEDS: BuPROPion HCL 75 MG TABLET PO SCH (09:05)
[2017-11-05] MEDS: VENLAFAXINE HCL 75 MG ER CAPSULE PO SCH (09:05)
[2017-11-05] MEDS: CARISOPRODOL 350 MG TABLET PO SCH ×3 (09:05→16:44)
[2017-11-05] MEDS: LITHIUM CARBONATE 300 MG CAPSULE PO SCH ×3 (09:05→16:43)
[2017-11-05] MEDS: NICOTINE 21 MG/24 HOUR PATCH TD SCH (09:06)
[2017-11-05 16:09] VITALS: BP 112/68
[2017-11-05] MEDS: MAGNESIUM HYDROXIDE SUSPENSION 30 ML UDCUP PO PRN (19:38)
[2017-11-05] MEDS: TraZODone HCL 100 MG TABLET PO SCH (20:19)
[2017-11-05] MEDS: TraMADol HCL 50 MG TABLET PO PRN (20:19)
[2017-11-06 06:36] VITALS: BP 121/66
[2017-11-06 08:00] VITALS: BP 116/67
[2017-11-06] MEDS: BuPROPion HCL 75 MG TABLET PO SCH (08:19)
[2017-11-06] MEDS: LITHIUM CARBONATE 300 MG CAPSULE PO SCH ×3 (08:20→16:14)
[2017-11-06] MEDS: BENZTROPINE MESYLATE 1 MG TABLET PO SCH ×2 (08:20→16:14)
[2017-11-06] MEDS: OMEPRAZOLE 20 MG CAPSULE PO SCH (08:20)
[2017-11-06] MEDS: GABAPENTIN 300 MG CAPSULE PO SCH ×3 (08:20→16:14)
[2017-11-06] MEDS: ARIPiprazole 15 MG TABLET PO SCH (08:20)
[2017-11-06] MEDS: METHADONE HCL 10 MG TABLET PO SCH (08:20)
[2017-11-06] MEDS: VENLAFAXINE HCL 75 MG ER CAPSULE PO SCH (08:20)
[2017-11-06] MEDS: DOCUSATE SODIUM 100 MG CAPSULE PO SCH ×2 (08:21→16:14)
[2017-11-06] MEDS: CARISOPRODOL 350 MG TABLET PO SCH ×3 (08:21→16:14)
[2017-11-06] MEDS: NICOTINE 21 MG/24 HOUR PATCH TD SCH (08:21)
[2017-11-06 12:58] VITALS: BP 142/78
[2017-11-06] MEDS: HALOPERIDOL 5 MG TABLET PO PRN ×2 (12:58→20:21)
[2017-11-06] MEDS: MAGNESIUM HYDROXIDE SUSPENSION 30 ML UDCUP PO PRN ×2 (12:58→21:33)
[2017-11-06] MEDS: TraMADol HCL 50 MG TABLET PO PRN ×2 (12:58→21:33)
[2017-11-06 16:29] VITALS: BP 118/87
[2017-11-06] MEDS: TraZODone HCL 100 MG TABLET PO SCH (20:01)
[2017-11-07 05:03] VITALS: BP 110/72
[2017-11-07 08:07] VITALS: BP 138/83
[2017-11-07] MEDS: VENLAFAXINE HCL 75 MG ER CAPSULE PO SCH (08:36)
[2017-11-07] MEDS: DOCUSATE SODIUM 100 MG CAPSULE PO SCH ×2 (08:36→16:28)
[2017-11-07] MEDS: GABAPENTIN 300 MG CAPSULE PO SCH ×3 (08:36→16:28)
[2017-11-07] MEDS: OMEPRAZOLE 20 MG CAPSULE PO SCH (08:36)
[2017-11-07] MEDS: CARISOPRODOL 350 MG TABLET PO SCH ×3 (08:36→16:29)
[2017-11-07] MEDS: METHADONE HCL 10 MG TABLET PO SCH (08:36)
[2017-11-07] MEDS: LITHIUM CARBONATE 300 MG CAPSULE PO SCH ×3 (08:37→16:28)
[2017-11-07] MEDS: BENZTROPINE MESYLATE 1 MG TABLET PO SCH ×2 (08:37→16:28)
[2017-11-07] MEDS: BuPROPion HCL 75 MG TABLET PO SCH (08:37)
[2017-11-07] MEDS: ARIPiprazole 15 MG TABLET PO SCH (08:37)
[2017-11-07] MEDS: NICOTINE 21 MG/24 HOUR PATCH TD SCH (08:38)
[2017-11-07] MEDS: TraMADol HCL 50 MG TABLET PO PRN (14:00)
[2017-11-07] MEDS: HALOPERIDOL 5 MG TABLET PO PRN ×2 (14:00→20:46)
[2017-11-07] MEDS: MAGNESIUM HYDROXIDE SUSPENSION 30 ML UDCUP PO PRN (14:00)
[2017-11-07 14:01] VITALS: BP 130/83
[2017-11-07 16:00] VITALS: BP 126/70
[2017-11-07] MEDS: HydrOXYzine PAMOATE 50 MG CAPSULE PO PRN (16:29)
[2017-11-07] MEDS: TraZODone HCL 100 MG TABLET PO SCH (20:46)
[2017-11-08 06:32] VITALS: BP 102/67
[2017-11-08] MEDS: ARIPiprazole 15 MG TABLET PO SCH (08:20)
[2017-11-08] MEDS: DOCUSATE SODIUM 100 MG CAPSULE PO SCH ×2 (08:21→16:31)
[2017-11-08] MEDS: OMEPRAZOLE 20 MG CAPSULE PO SCH (08:21)
[2017-11-08] MEDS: BENZTROPINE MESYLATE 1 MG TABLET PO SCH ×2 (08:21→16:31)
[2017-11-08] MEDS: METHADONE HCL 10 MG TABLET PO SCH (08:22)
[2017-11-08] MEDS: CARISOPRODOL 350 MG TABLET PO SCH ×3 (08:22→16:31)
[2017-11-08] MEDS: VENLAFAXINE HCL 75 MG ER CAPSULE PO SCH (08:23)
[2017-11-08] MEDS: GABAPENTIN 300 MG CAPSULE PO SCH ×3 (08:23→16:31)
[2017-11-08] MEDS: LITHIUM CARBONATE 300 MG CAPSULE PO SCH ×3 (08:23→16:31)
[2017-11-08 08:24] VITALS: BP 108/69
[2017-11-08] MEDS: NICOTINE 21 MG/24 HOUR PATCH TD SCH (08:25)
[2017-11-08] MEDS: BuPROPion HCL 75 MG TABLET PO SCH (08:28)
[2017-11-08 10:46] VITALS: BP 117/69
[2017-11-08] MEDS: TraMADol HCL 50 MG TABLET PO PRN (10:46)
[2017-11-08] MEDS: MAGNESIUM HYDROXIDE SUSPENSION 30 ML UDCUP PO PRN (10:48)
[2017-11-08 16:13] VITALS: BP 117/76
[2017-11-08] MEDS: TraZODone HCL 100 MG TABLET PO SCH (20:35)
[2017-11-09 06:01] VITALS: BP 119/82
[2017-11-09 08:26] VITALS: BP 119/64
[2017-11-09] MEDS: GABAPENTIN 300 MG CAPSULE PO SCH ×3 (09:06→16:57)
[2017-11-09] MEDS: BENZTROPINE MESYLATE 1 MG TABLET PO SCH ×2 (09:06→16:57)
[2017-11-09] MEDS: LITHIUM CARBONATE 300 MG CAPSULE PO SCH ×3 (09:07→16:57)
[2017-11-09] MEDS: OMEPRAZOLE 20 MG CAPSULE PO SCH (09:07)
[2017-11-09] MEDS: ARIPiprazole 15 MG TABLET PO SCH (09:07)
[2017-11-09] MEDS: VENLAFAXINE HCL 75 MG ER CAPSULE PO SCH (09:07)
[2017-11-09] MEDS: NICOTINE 21 MG/24 HOUR PATCH TD SCH (09:08)
[2017-11-09] MEDS: CARISOPRODOL 350 MG TABLET PO SCH ×3 (09:11→16:57)
[2017-11-09] MEDS: METHADONE HCL 10 MG TABLET PO SCH (09:11)
[2017-11-09] MEDS: BuPROPion HCL 75 MG TABLET PO SCH (09:12)
[2017-11-09] MEDS: DOCUSATE SODIUM 100 MG CAPSULE PO SCH ×2 (09:38→16:57)
[2017-11-09] MEDS: MAGNESIUM HYDROXIDE SUSPENSION 30 ML UDCUP PO PRN (12:25)
[2017-11-09] MEDS: HALOPERIDOL 5 MG TABLET PO PRN ×2 (12:25→20:00)
[2017-11-09] MEDS: TraMADol HCL 50 MG TABLET PO PRN (12:26)
[2017-11-09 16:19] VITALS: BP 119/67
[2017-11-09] MEDS: TraZODone HCL 100 MG TABLET PO SCH (20:00)
[2017-11-10 05:20] VITALS: BP 114/72
[2017-11-10 08:30] VITALS: BP 120/70
[2017-11-10] MEDS: ARIPiprazole 15 MG TABLET PO SCH (08:45)
[2017-11-10] MEDS: CARISOPRODOL 350 MG TABLET PO SCH ×3 (08:45→16:14)
[2017-11-10] MEDS: BuPROPion HCL 75 MG TABLET PO SCH (08:45)
[2017-11-10] MEDS: BENZTROPINE MESYLATE 1 MG TABLET PO SCH ×2 (08:45→16:14)
[2017-11-10] MEDS: METHADONE HCL 10 MG TABLET PO SCH (08:45)
[2017-11-10] MEDS: VENLAFAXINE HCL 75 MG ER CAPSULE PO SCH (08:46)
[2017-11-10] MEDS: OMEPRAZOLE 20 MG CAPSULE PO SCH (08:46)
[2017-11-10] MEDS: HALOPERIDOL 5 MG TABLET PO PRN (08:46)
[2017-11-10] MEDS: DOCUSATE SODIUM 100 MG CAPSULE PO SCH ×2 (08:46→16:14)
[2017-11-10] MEDS: LITHIUM CARBONATE 300 MG CAPSULE PO SCH ×3 (08:46→16:14)
[2017-11-10] MEDS: GABAPENTIN 300 MG CAPSULE PO SCH ×3 (08:46→16:14)
[2017-11-10] MEDS: NICOTINE 21 MG/24 HOUR PATCH TD SCH (08:47)
[2017-11-10] MEDS: TraMADol HCL 50 MG TABLET PO PRN (11:26)
[2017-11-10 12:34] VITALS: BP 125/73
[2017-11-10 16:00] VITALS: BP 128/76
[2017-11-10] MEDS: TraZODone HCL 100 MG TABLET PO SCH (20:59)
[2017-11-11 06:42] VITALS: BP 123/71
[2017-11-11] MEDS: BuPROPion HCL 75 MG TABLET PO SCH (09:00)
[2017-11-11] MEDS: ARIPiprazole 15 MG TABLET PO SCH (09:00)
[2017-11-11] MEDS: DOCUSATE SODIUM 100 MG CAPSULE PO SCH ×2 (09:00→16:29)
[2017-11-11] MEDS: METHADONE HCL 10 MG TABLET PO SCH (09:00)
[2017-11-11] MEDS: OMEPRAZOLE 20 MG CAPSULE PO SCH (09:00)
[2017-11-11] MEDS: VENLAFAXINE HCL 75 MG ER CAPSULE PO SCH (09:01)
[2017-11-11] MEDS: LITHIUM CARBONATE 300 MG CAPSULE PO SCH ×3 (09:01→16:30)
[2017-11-11] MEDS: NICOTINE 21 MG/24 HOUR PATCH TD SCH (09:01)
[2017-11-11] MEDS: GABAPENTIN 300 MG CAPSULE PO SCH ×3 (09:01→16:29)
[2017-11-11] MEDS: CARISOPRODOL 350 MG TABLET PO SCH ×3 (09:01→16:30)
[2017-11-11 09:03] VITALS: BP 119/71
[2017-11-11] MEDS: BENZTROPINE MESYLATE 1 MG TABLET PO SCH ×2 (09:09→16:30)
[2017-11-11] MEDS: MAGNESIUM HYDROXIDE SUSPENSION 30 ML UDCUP PO PRN (14:02)
[2017-11-11] MEDS: TraMADol HCL 50 MG TABLET PO PRN (14:02)
[2017-11-11] MEDS: HALOPERIDOL 5 MG TABLET PO PRN (14:02)
[2017-11-11 14:04] VITALS: BP 109/64
[2017-11-11 16:00] VITALS: BP 101/65
[2017-11-11] MEDS: HydrOXYzine PAMOATE 50 MG CAPSULE PO PRN (16:29)
[2017-11-11] MEDS: TraZODone HCL 100 MG TABLET PO SCH (20:29)
[2017-11-12 06:40] VITALS: BP 121/63
[2017-11-12] MEDS: METHADONE HCL 10 MG TABLET PO SCH (08:51)
[2017-11-12] MEDS: ARIPiprazole 15 MG TABLET PO SCH (08:51)
[2017-11-12] MEDS: CARISOPRODOL 350 MG TABLET PO SCH ×3 (08:51→16:07)
[2017-11-12 08:52] VITALS: BP 120/67
[2017-11-12] MEDS: VENLAFAXINE HCL 75 MG ER CAPSULE PO SCH (08:52)
[2017-11-12] MEDS: BENZTROPINE MESYLATE 1 MG TABLET PO SCH ×2 (08:52→16:07)
[2017-11-12] MEDS: DOCUSATE SODIUM 100 MG CAPSULE PO SCH ×2 (08:52→16:07)
[2017-11-12] MEDS: GABAPENTIN 300 MG CAPSULE PO SCH ×3 (08:52→16:07)
[2017-11-12] MEDS: LITHIUM CARBONATE 300 MG CAPSULE PO SCH ×3 (08:52→16:07)
[2017-11-12] MEDS: OMEPRAZOLE 20 MG CAPSULE PO SCH (08:52)
[2017-11-12] MEDS: NICOTINE 21 MG/24 HOUR PATCH TD SCH (08:59)
[2017-11-12] MEDS: BuPROPion HCL 75 MG TABLET PO SCH (08:59)
[2017-11-12] MEDS: MAGNESIUM HYDROXIDE SUSPENSION 30 ML UDCUP PO PRN (14:03)
[2017-11-12 16:15] VITALS: BP 112/66
[2017-11-12] MEDS: TraZODone HCL 100 MG TABLET PO SCH (20:16)
[2017-11-13 06:25] VITALS: BP 121/73
[2017-11-13] MEDS: ARIPiprazole 15 MG TABLET PO SCH (09:03)
[2017-11-13] MEDS: BENZTROPINE MESYLATE 1 MG TABLET PO SCH ×2 (09:04→16:14)
[2017-11-13] MEDS: DOCUSATE SODIUM 100 MG CAPSULE PO SCH ×2 (09:04→16:14)
[2017-11-13] MEDS: METHADONE HCL 10 MG TABLET PO SCH (09:05)
[2017-11-13] MEDS: LITHIUM CARBONATE 300 MG CAPSULE PO SCH ×3 (09:07→16:14)
[2017-11-13] MEDS: VENLAFAXINE HCL 75 MG ER CAPSULE PO SCH (09:07)
[2017-11-13] MEDS: OMEPRAZOLE 20 MG CAPSULE PO SCH (09:07)
[2017-11-13] MEDS: GABAPENTIN 300 MG CAPSULE PO SCH ×3 (09:07→16:14)
[2017-11-13] MEDS: NICOTINE 21 MG/24 HOUR PATCH TD SCH (09:10)
[2017-11-13 09:39] VITALS: BP 110/64
[2017-11-13] MEDS: BuPROPion HCL 75 MG TABLET PO SCH (09:57)
[2017-11-13] MEDS: CARISOPRODOL 350 MG TABLET PO SCH ×3 (09:58→16:14)
[2017-11-13] MEDS: HALOPERIDOL 5 MG TABLET PO PRN ×2 (13:18→20:10)
[2017-11-13] MEDS: TraMADol HCL 50 MG TABLET PO PRN (13:18)
[2017-11-13] MEDS: MAGNESIUM HYDROXIDE SUSPENSION 30 ML UDCUP PO PRN (13:18)
[2017-11-13 16:42] VITALS: BP 116/68
[2017-11-13] MEDS: TraZODone HCL 100 MG TABLET PO SCH (20:10)
[2017-11-14 06:42] VITALS: BP 114/66
[2017-11-14] MEDS: LITHIUM CARBONATE 300 MG CAPSULE PO SCH ×3 (08:14→16:05)
[2017-11-14] MEDS: ARIPiprazole 15 MG TABLET PO SCH (08:14)
[2017-11-14] MEDS: BENZTROPINE MESYLATE 1 MG TABLET PO SCH ×2 (08:15→16:05)
[2017-11-14] MEDS: CARISOPRODOL 350 MG TABLET PO SCH ×3 (08:15→16:06)
[2017-11-14] MEDS: OMEPRAZOLE 20 MG CAPSULE PO SCH (08:15)
[2017-11-14] MEDS: DOCUSATE SODIUM 100 MG CAPSULE PO SCH ×2 (08:15→16:05)
[2017-11-14] MEDS: GABAPENTIN 300 MG CAPSULE PO SCH ×3 (08:15→16:05)
[2017-11-14] MEDS: VENLAFAXINE HCL 75 MG ER CAPSULE PO SCH (08:15)
[2017-11-14] MEDS: METHADONE HCL 10 MG TABLET PO SCH (08:16)
[2017-11-14] MEDS: BuPROPion HCL 75 MG TABLET PO SCH (08:16)
[2017-11-14 08:29] VITALS: BP 111/65
[2017-11-14] MEDS: NICOTINE 21 MG/24 HOUR PATCH TD SCH (09:50)
[2017-11-14 11:39] VITALS: BP 115/69
[2017-11-14] MEDS: HALOPERIDOL 5 MG TABLET PO PRN ×2 (11:39→20:04)
[2017-11-14] MEDS: MAGNESIUM HYDROXIDE SUSPENSION 30 ML UDCUP PO PRN ×2 (11:39→20:33)
[2017-11-14] MEDS: TraMADol HCL 50 MG TABLET PO PRN ×2 (11:39→20:33)
[2017-11-14 16:03] VITALS: BP 121/71
[2017-11-14] MEDS: TraZODone HCL 100 MG TABLET PO SCH (20:04)
[2017-11-15 04:34] VITALS: BP 100/68
[2017-11-15 08:12] VITALS: BP 107/64
[2017-11-15] MEDS: LITHIUM CARBONATE 300 MG CAPSULE PO SCH ×3 (09:51→16:12)
[2017-11-15] MEDS: METHADONE HCL 10 MG TABLET PO SCH (09:51)
[2017-11-15] MEDS: DOCUSATE SODIUM 100 MG CAPSULE PO SCH ×2 (09:52→16:13)
[2017-11-15] MEDS: BENZTROPINE MESYLATE 1 MG TABLET PO SCH ×2 (09:52→16:12)
[2017-11-15] MEDS: ARIPiprazole 15 MG TABLET PO SCH (09:52)
[2017-11-15] MEDS: VENLAFAXINE HCL 75 MG ER CAPSULE PO SCH (09:53)
[2017-11-15] MEDS: OMEPRAZOLE 20 MG CAPSULE PO SCH (09:53)
[2017-11-15] MEDS: BuPROPion HCL 75 MG TABLET PO SCH (10:47)
[2017-11-15] MEDS: GABAPENTIN 300 MG CAPSULE PO SCH ×3 (10:47→16:12)
[2017-11-15] MEDS: NICOTINE 21 MG/24 HOUR PATCH TD SCH (10:47)
[2017-11-15] MEDS: CARISOPRODOL 350 MG TABLET PO SCH ×3 (10:48→16:12)
[2017-11-15 16:14] VITALS: BP 109/63
[2017-11-15] MEDS: HydrOXYzine PAMOATE 50 MG CAPSULE PO PRN (17:12)
[2017-11-15] MEDS: TraZODone HCL 100 MG TABLET PO SCH (21:15)
[2017-11-16 05:56] VITALS: BP 118/72
[2017-11-16] MEDS: METHADONE HCL 10 MG TABLET PO SCH (08:28)
[2017-11-16] MEDS: DOCUSATE SODIUM 100 MG CAPSULE PO SCH ×2 (08:29→16:30)
[2017-11-16] MEDS: LITHIUM CARBONATE 300 MG CAPSULE PO SCH ×3 (08:29→16:30)
[2017-11-16] MEDS: OMEPRAZOLE 20 MG CAPSULE PO SCH (08:29)
[2017-11-16] MEDS: NICOTINE 21 MG/24 HOUR PATCH TD SCH (08:29)
[2017-11-16] MEDS: BENZTROPINE MESYLATE 1 MG TABLET PO SCH ×2 (08:30→16:30)
[2017-11-16] MEDS: BuPROPion HCL 75 MG TABLET PO SCH (08:30)
[2017-11-16] MEDS: CARISOPRODOL 350 MG TABLET PO SCH ×3 (08:30→16:31)
[2017-11-16] MEDS: GABAPENTIN 300 MG CAPSULE PO SCH ×3 (08:30→16:30)
[2017-11-16] MEDS: VENLAFAXINE HCL 75 MG ER CAPSULE PO SCH (08:30)
[2017-11-16] MEDS: ARIPiprazole 15 MG TABLET PO SCH (08:30)
[2017-11-16 16:01] VITALS: BP 138/65
[2017-11-16] MEDS: HydrOXYzine PAMOATE 50 MG CAPSULE PO PRN (16:31)
[2017-11-16 18:14] VITALS: BP 133/72
[2017-11-16] MEDS: TraMADol HCL 50 MG TABLET PO PRN (18:16)
[2017-11-16] MEDS: MAGNESIUM HYDROXIDE SUSPENSION 30 ML UDCUP PO PRN (18:16)
[2017-11-16] MEDS: HALOPERIDOL 5 MG TABLET PO PRN (18:16)
[2017-11-16 19:16] VITALS: BP 124/81
[2017-11-16] MEDS: TraZODone HCL 100 MG TABLET PO SCH (20:49)
[2017-11-17] MEDS: LITHIUM CARBONATE 300 MG CAPSULE PO SCH ×3 (08:49→16:15)
[2017-11-17] MEDS: GABAPENTIN 300 MG CAPSULE PO SCH ×3 (08:49→16:15)
[2017-11-17] MEDS: ARIPiprazole 15 MG TABLET PO SCH (08:50)
[2017-11-17] MEDS: BENZTROPINE MESYLATE 1 MG TABLET PO SCH ×2 (08:50→16:15)
[2017-11-17] MEDS: VENLAFAXINE HCL 75 MG ER CAPSULE PO SCH (08:50)
[2017-11-17] MEDS: BuPROPion HCL 75 MG TABLET PO SCH (08:50)
[2017-11-17] MEDS: NICOTINE 21 MG/24 HOUR PATCH TD SCH (08:51)
[2017-11-17] MEDS: DOCUSATE SODIUM 100 MG CAPSULE PO SCH ×2 (08:51→16:15)
[2017-11-17] MEDS: CARISOPRODOL 350 MG TABLET PO SCH ×3 (08:51→16:15)
[2017-11-17] MEDS: METHADONE HCL 10 MG TABLET PO SCH (08:51)
[2017-11-17] MEDS: OMEPRAZOLE 20 MG CAPSULE PO SCH (08:51)
[2017-11-17 16:23] VITALS: BP 110/63
[2017-11-17 20:10] VITALS: BP 121/68
[2017-11-17] MEDS: TraMADol HCL 50 MG TABLET PO PRN (20:10)
[2017-11-17] MEDS: HALOPERIDOL 5 MG TABLET PO PRN (20:10)
[2017-11-17] MEDS: MAGNESIUM HYDROXIDE SUSPENSION 30 ML UDCUP PO PRN (20:10)
[2017-11-17] MEDS: TraZODone HCL 100 MG TABLET PO SCH (20:27)
[2017-11-18 07:10] VITALS: BP 135/76
[2017-11-18 08:27] VITALS: BP 113/63
[2017-11-18] MEDS: NICOTINE 21 MG/24 HOUR PATCH TD SCH (09:17)
[2017-11-18] MEDS: GABAPENTIN 300 MG CAPSULE PO SCH ×3 (09:18→16:27)
[2017-11-18] MEDS: VENLAFAXINE HCL 75 MG ER CAPSULE PO SCH (09:18)
[2017-11-18] MEDS: LITHIUM CARBONATE 300 MG CAPSULE PO SCH ×3 (09:18→16:27)
[2017-11-18] MEDS: BuPROPion HCL 75 MG TABLET PO SCH (09:18)
[2017-11-18] MEDS: ARIPiprazole 15 MG TABLET PO SCH (09:18)
[2017-11-18] MEDS: BENZTROPINE MESYLATE 1 MG TABLET PO SCH ×2 (09:18→16:27)
[2017-11-18] MEDS: DOCUSATE SODIUM 100 MG CAPSULE PO SCH ×2 (09:19→16:27)
[2017-11-18] MEDS: CARISOPRODOL 350 MG TABLET PO SCH ×3 (09:19→16:27)
[2017-11-18] MEDS: METHADONE HCL 10 MG TABLET PO SCH (09:19)
[2017-11-18] MEDS: OMEPRAZOLE 20 MG CAPSULE PO SCH (09:21)
[2017-11-18 12:59] VITALS: BP 120/75
[2017-11-18] MEDS: TraMADol HCL 50 MG TABLET PO PRN ×2 (12:59→21:05)
[2017-11-18] MEDS: HALOPERIDOL 5 MG TABLET PO PRN ×2 (12:59→21:05)
[2017-11-18] MEDS: MAGNESIUM HYDROXIDE SUSPENSION 30 ML UDCUP PO PRN ×2 (12:59→21:05)
[2017-11-18 16:33] VITALS: BP 122/74
[2017-11-18] MEDS: TraZODone HCL 100 MG TABLET PO SCH (20:02)
[2017-11-18 21:05] VITALS: BP 121/71
[2017-11-19 06:22] VITALS: BP 110/74
[2017-11-19 08:37] VITALS: BP 123/71
[2017-11-19] MEDS: BuPROPion HCL 75 MG TABLET PO SCH (10:09)
[2017-11-19] MEDS: GABAPENTIN 300 MG CAPSULE PO SCH ×3 (10:09→16:12)
[2017-11-19] MEDS: ARIPiprazole 15 MG TABLET PO SCH (10:09)
[2017-11-19] MEDS: OMEPRAZOLE 20 MG CAPSULE PO SCH (10:10)
[2017-11-19] MEDS: CARISOPRODOL 350 MG TABLET PO SCH ×3 (10:10→16:12)
[2017-11-19] MEDS: LITHIUM CARBONATE 300 MG CAPSULE PO SCH ×3 (10:10→16:12)
[2017-11-19] MEDS: METHADONE HCL 10 MG TABLET PO SCH (10:10)
[2017-11-19] MEDS: VENLAFAXINE HCL 75 MG ER CAPSULE PO SCH (10:10)
[2017-11-19] MEDS: BENZTROPINE MESYLATE 1 MG TABLET PO SCH ×2 (10:10→16:12)
[2017-11-19] MEDS: DOCUSATE SODIUM 100 MG CAPSULE PO SCH ×2 (10:11→16:12)
[2017-11-19] MEDS: NICOTINE 21 MG/24 HOUR PATCH TD SCH (10:11)
[2017-11-19 16:11] VITALS: BP 119/71
[2017-11-19] MEDS: HydrOXYzine PAMOATE 50 MG CAPSULE PO PRN (17:05)
[2017-11-19] MEDS: TraZODone HCL 100 MG TABLET PO SCH (20:20)
[2017-11-20 05:48] VITALS: BP 117/68
[2017-11-20] MEDS: METHADONE HCL 10 MG TABLET PO SCH (08:03)
[2017-11-20] MEDS: ARIPiprazole 15 MG TABLET PO SCH (08:03)
[2017-11-20] MEDS: GABAPENTIN 300 MG CAPSULE PO SCH ×3 (08:03→16:05)
[2017-11-20] MEDS: LITHIUM CARBONATE 300 MG CAPSULE PO SCH ×3 (08:03→16:05)
[2017-11-20] MEDS: VENLAFAXINE HCL 75 MG ER CAPSULE PO SCH (08:03)
[2017-11-20] MEDS: BuPROPion HCL 75 MG TABLET PO SCH (08:03)
[2017-11-20] MEDS: BENZTROPINE MESYLATE 1 MG TABLET PO SCH ×2 (08:03→16:05)
[2017-11-20] MEDS: OMEPRAZOLE 20 MG CAPSULE PO SCH (08:03)
[2017-11-20] MEDS: NICOTINE 21 MG/24 HOUR PATCH TD SCH (08:04)
[2017-11-20] MEDS: CARISOPRODOL 350 MG TABLET PO SCH ×3 (08:04→16:06)
[2017-11-20] MEDS: DOCUSATE SODIUM 100 MG CAPSULE PO SCH ×2 (08:04→16:05)
[2017-11-20 08:10] VITALS: BP 106/63
[2017-11-20 16:23] VITALS: BP 131/84
[2017-11-20] MEDS: HydrOXYzine PAMOATE 50 MG CAPSULE PO PRN (16:54)
[2017-11-20 18:39] VITALS: BP 135/74
[2017-11-20] MEDS: HALOPERIDOL 5 MG TABLET PO PRN (18:40)
[2017-11-20] MEDS: TraMADol HCL 50 MG TABLET PO PRN (18:40)
[2017-11-20] MEDS: MAGNESIUM HYDROXIDE SUSPENSION 30 ML UDCUP PO PRN (19:52)
[2017-11-20] MEDS: TraZODone HCL 100 MG TABLET PO SCH (20:26)
[2017-11-21 04:37] VITALS: BP 127/63
[2017-11-21] MEDS: VENLAFAXINE HCL 75 MG ER CAPSULE PO SCH (08:13)
[2017-11-21] MEDS: LITHIUM CARBONATE 300 MG CAPSULE PO SCH ×3 (08:13→16:25)
[2017-11-21] MEDS: OMEPRAZOLE 20 MG CAPSULE PO SCH (08:13)
[2017-11-21] MEDS: DOCUSATE SODIUM 100 MG CAPSULE PO SCH ×2 (08:13→16:25)
[2017-11-21] MEDS: GABAPENTIN 300 MG CAPSULE PO SCH ×3 (08:13→16:25)
[2017-11-21] MEDS: BENZTROPINE MESYLATE 1 MG TABLET PO SCH ×2 (08:13→16:25)
[2017-11-21] MEDS: ARIPiprazole 15 MG TABLET PO SCH (08:13)
[2017-11-21] MEDS: BuPROPion HCL 75 MG TABLET PO SCH (08:14)
[2017-11-21] MEDS: METHADONE HCL 10 MG TABLET PO SCH (08:14)
[2017-11-21] MEDS: NICOTINE 21 MG/24 HOUR PATCH TD SCH (08:14)
[2017-11-21] MEDS: CARISOPRODOL 350 MG TABLET PO SCH ×3 (08:14→16:25)
[2017-11-21 08:30] VITALS: BP 101/77
[2017-11-21] MEDS: HALOPERIDOL 5 MG TABLET PO PRN (14:53)
[2017-11-21] MEDS: TraMADol HCL 50 MG TABLET PO PRN (14:54)
[2017-11-21 16:07] VITALS: BP 131/88
[2017-11-21] MEDS: TraZODone HCL 100 MG TABLET PO SCH (20:16)
[2017-11-22 08:25] VITALS: BP 112/62
[2017-11-22] MEDS: CARISOPRODOL 350 MG TABLET PO SCH ×3 (08:47→16:17)
[2017-11-22] MEDS: BENZTROPINE MESYLATE 1 MG TABLET PO SCH ×2 (08:48→16:17)
[2017-11-22] MEDS: BuPROPion HCL 75 MG TABLET PO SCH (08:48)
[2017-11-22] MEDS: GABAPENTIN 300 MG CAPSULE PO SCH ×3 (08:48→16:17)
[2017-11-22] MEDS: VENLAFAXINE HCL 75 MG ER CAPSULE PO SCH (08:48)
[2017-11-22] MEDS: DOCUSATE SODIUM 100 MG CAPSULE PO SCH ×2 (08:49→16:17)
[2017-11-22] MEDS: LITHIUM CARBONATE 300 MG CAPSULE PO SCH ×3 (08:49→16:17)
[2017-11-22] MEDS: OMEPRAZOLE 20 MG CAPSULE PO SCH (08:49)
[2017-11-22] MEDS: ARIPiprazole 15 MG TABLET PO SCH (08:49)
[2017-11-22] MEDS: NICOTINE 21 MG/24 HOUR PATCH TD SCH (08:50)
[2017-11-22] MEDS: METHADONE HCL 10 MG TABLET PO SCH (08:50)
[2017-11-22 14:28] VITALS: BP 105/67
[2017-11-22] MEDS: TraMADol HCL 50 MG TABLET PO PRN (14:30)
[2017-11-22] MEDS: HALOPERIDOL 5 MG TABLET PO PRN (14:30)
[2017-11-22] MEDS: MAGNESIUM HYDROXIDE SUSPENSION 30 ML UDCUP PO PRN (14:30)
[2017-11-22 16:05] VITALS: BP 121/73
[2017-11-22] MEDS: MUPIROCIN CALCIUM 2% 22 GM OINTMENT NASAL SCH (16:17)
[2017-11-22] MEDS: TraZODone HCL 100 MG TABLET PO SCH (20:01)
[2017-11-23 04:01] VITALS: BP 124/88
[2017-11-23 08:02] VITALS: BP 114/64
[2017-11-23] MEDS: METHADONE HCL 10 MG TABLET PO SCH (08:13)
[2017-11-23] MEDS: GABAPENTIN 300 MG CAPSULE PO SCH ×3 (08:13→16:06)
[2017-11-23] MEDS: DOCUSATE SODIUM 100 MG CAPSULE PO SCH ×2 (08:14→16:07)
[2017-11-23] MEDS: CARISOPRODOL 350 MG TABLET PO SCH ×3 (08:14→16:07)
[2017-11-23] MEDS: ARIPiprazole 15 MG TABLET PO SCH (08:14)
[2017-11-23] MEDS: BENZTROPINE MESYLATE 1 MG TABLET PO SCH ×2 (08:14→16:06)
[2017-11-23] MEDS: LITHIUM CARBONATE 300 MG CAPSULE PO SCH ×3 (08:15→16:06)
[2017-11-23] MEDS: NICOTINE 21 MG/24 HOUR PATCH TD SCH (08:15)
[2017-11-23] MEDS: OMEPRAZOLE 20 MG CAPSULE PO SCH (08:15)
[2017-11-23] MEDS: BuPROPion HCL 75 MG TABLET PO SCH (08:15)
[2017-11-23] MEDS: VENLAFAXINE HCL 75 MG ER CAPSULE PO SCH (08:15)
[2017-11-23] MEDS: MUPIROCIN CALCIUM 2% 22 GM OINTMENT NASAL SCH ×2 (08:16→16:06)
[2017-11-23] MEDS: HALOPERIDOL 5 MG TABLET PO PRN (16:06)
[2017-11-23] MEDS: MAGNESIUM HYDROXIDE SUSPENSION 30 ML UDCUP PO PRN (16:07)
[2017-11-23 16:23] VITALS: BP 136/76
[2017-11-23] MEDS: TraMADol HCL 50 MG TABLET PO PRN (20:13)
[2017-11-23] MEDS: TraZODone HCL 100 MG TABLET PO SCH (20:13)
[2017-11-24 06:59] VITALS: BP 127/68
[2017-11-24] MEDS: METHADONE HCL 10 MG TABLET PO SCH (08:41)
[2017-11-24] MEDS: BuPROPion HCL 75 MG TABLET PO SCH (08:41)
[2017-11-24] MEDS: OMEPRAZOLE 20 MG CAPSULE PO SCH (08:42)
[2017-11-24] MEDS: DOCUSATE SODIUM 100 MG CAPSULE PO SCH ×2 (08:42→16:57)
[2017-11-24] MEDS: LITHIUM CARBONATE 300 MG CAPSULE PO SCH ×3 (08:42→16:57)
[2017-11-24] MEDS: CARISOPRODOL 350 MG TABLET PO SCH ×3 (08:42→16:57)
[2017-11-24] MEDS: VENLAFAXINE HCL 75 MG ER CAPSULE PO SCH (08:42)
[2017-11-24] MEDS: ARIPiprazole 15 MG TABLET PO SCH (08:42)
[2017-11-24] MEDS: GABAPENTIN 300 MG CAPSULE PO SCH ×3 (08:42→16:56)
[2017-11-24] MEDS: BENZTROPINE MESYLATE 1 MG TABLET PO SCH ×2 (08:44→16:57)
[2017-11-24] MEDS: NICOTINE 21 MG/24 HOUR PATCH TD SCH (08:44)
[2017-11-24] MEDS: MUPIROCIN CALCIUM 2% 22 GM OINTMENT NASAL SCH ×2 (08:45→16:57)
[2017-11-24 10:54] VITALS: BP 129/63
[2017-11-24 16:13] VITALS: BP 105/65
[2017-11-24] MEDS: TraZODone HCL 100 MG TABLET PO SCH (20:51)
[2017-11-25 01:11] VITALS: BP 112/67
[2017-11-25] MEDS: GABAPENTIN 300 MG CAPSULE PO SCH ×3 (08:47→17:01)
[2017-11-25] MEDS: VENLAFAXINE HCL 75 MG ER CAPSULE PO SCH (08:47)
[2017-11-25] MEDS: CARISOPRODOL 350 MG TABLET PO SCH ×3 (08:47→17:01)
[2017-11-25] MEDS: BENZTROPINE MESYLATE 1 MG TABLET PO SCH ×2 (08:47→17:01)
[2017-11-25] MEDS: ARIPiprazole 15 MG TABLET PO SCH (08:47)
[2017-11-25] MEDS: OMEPRAZOLE 20 MG CAPSULE PO SCH (08:47)
[2017-11-25] MEDS: LITHIUM CARBONATE 300 MG CAPSULE PO SCH ×3 (08:47→17:01)
[2017-11-25] MEDS: NICOTINE 21 MG/24 HOUR PATCH TD SCH (08:49)
[2017-11-25] MEDS: BuPROPion HCL 75 MG TABLET PO SCH (08:49)
[2017-11-25] MEDS: DOCUSATE SODIUM 100 MG CAPSULE PO SCH ×2 (08:49→17:01)
[2017-11-25] MEDS: MUPIROCIN CALCIUM 2% 22 GM OINTMENT NASAL SCH ×2 (08:49→17:00)
[2017-11-25] MEDS: METHADONE HCL 10 MG TABLET PO SCH (08:49)
[2017-11-25] MEDS: HALOPERIDOL 5 MG TABLET PO PRN ×2 (14:58→20:26)
[2017-11-25] MEDS: TraMADol HCL 50 MG TABLET PO PRN (14:59)
[2017-11-25] MEDS: MAGNESIUM HYDROXIDE SUSPENSION 30 ML UDCUP PO PRN ×2 (14:59→20:27)
[2017-11-25 15:00] VITALS: BP 124/79
[2017-11-25 16:08] VITALS: BP 119/79
[2017-11-25] MEDS: TraZODone HCL 100 MG TABLET PO SCH (20:26)
[2017-11-26] MEDS: OMEPRAZOLE 20 MG CAPSULE PO SCH (08:41)
[2017-11-26] MEDS: LITHIUM CARBONATE 300 MG CAPSULE PO SCH ×3 (08:41→16:59)
[2017-11-26] MEDS: VENLAFAXINE HCL 75 MG ER CAPSULE PO SCH (08:41)
[2017-11-26] MEDS: GABAPENTIN 300 MG CAPSULE PO SCH ×3 (08:41→17:00)
[2017-11-26] MEDS: MUPIROCIN CALCIUM 2% 22 GM OINTMENT NASAL SCH ×2 (08:41→17:03)
[2017-11-26] MEDS: ARIPiprazole 15 MG TABLET PO SCH (08:42)
[2017-11-26] MEDS: METHADONE HCL 10 MG TABLET PO SCH (08:42)
[2017-11-26] MEDS: BENZTROPINE MESYLATE 1 MG TABLET PO SCH ×2 (08:42→17:00)
[2017-11-26] MEDS: DOCUSATE SODIUM 100 MG CAPSULE PO SCH ×2 (08:42→16:59)
[2017-11-26] MEDS: BuPROPion HCL 75 MG TABLET PO SCH (08:42)
[2017-11-26] MEDS: CARISOPRODOL 350 MG TABLET PO SCH ×3 (08:42→17:00)
[2017-11-26] MEDS: NICOTINE 21 MG/24 HOUR PATCH TD SCH (08:42)
[2017-11-26 08:46] VITALS: BP 100/62
[2017-11-26 16:10] VITALS: BP 140/69
[2017-11-26] MEDS: TraZODone HCL 100 MG TABLET PO SCH (20:40)
[2017-11-26 20:47] VITALS: BP 131/70
[2017-11-26] MEDS: TraMADol HCL 50 MG TABLET PO PRN (20:47)
[2017-11-26] MEDS: MAGNESIUM HYDROXIDE SUSPENSION 30 ML UDCUP PO PRN (20:48)
[2017-11-27 06:46] VITALS: BP 119/68
[2017-11-27] MEDS: METHADONE HCL 10 MG TABLET PO SCH (08:20)
[2017-11-27] MEDS: ARIPiprazole 15 MG TABLET PO SCH (08:20)
[2017-11-27] MEDS: CARISOPRODOL 350 MG TABLET PO SCH ×3 (08:20→16:43)
[2017-11-27] MEDS: GABAPENTIN 300 MG CAPSULE PO SCH ×3 (08:20→16:43)
[2017-11-27] MEDS: BuPROPion HCL 75 MG TABLET PO SCH (08:20)
[2017-11-27] MEDS: VENLAFAXINE HCL 75 MG ER CAPSULE PO SCH (08:21)
[2017-11-27] MEDS: DOCUSATE SODIUM 100 MG CAPSULE PO SCH ×2 (08:21→16:43)
[2017-11-27] MEDS: NICOTINE 21 MG/24 HOUR PATCH TD SCH (08:21)
[2017-11-27] MEDS: BENZTROPINE MESYLATE 1 MG TABLET PO SCH ×2 (08:21→16:42)
[2017-11-27] MEDS: LITHIUM CARBONATE 300 MG CAPSULE PO SCH ×3 (08:21→16:42)
[2017-11-27] MEDS: OMEPRAZOLE 20 MG CAPSULE PO SCH (08:21)
[2017-11-27] MEDS: MUPIROCIN CALCIUM 2% 22 GM OINTMENT NASAL SCH (08:22)
[2017-11-27 08:37] VITALS: BP 118/71
[2017-11-27 17:57] VITALS: BP 110/67
[2017-11-27] MEDS: TraZODone HCL 100 MG TABLET PO SCH (20:53)
[2017-11-27] MEDS: MAGNESIUM HYDROXIDE SUSPENSION 30 ML UDCUP PO PRN (21:33)
[2017-11-28 05:04] VITALS: BP 109/68
[2017-11-28] MEDS: NICOTINE 21 MG/24 HOUR PATCH TD SCH (08:17)
[2017-11-28] MEDS: OMEPRAZOLE 20 MG CAPSULE PO SCH (08:17)
[2017-11-28] MEDS: BENZTROPINE MESYLATE 1 MG TABLET PO SCH ×2 (08:18→16:49)
[2017-11-28] MEDS: METHADONE HCL 10 MG TABLET PO SCH (08:18)
[2017-11-28] MEDS: GABAPENTIN 300 MG CAPSULE PO SCH ×3 (08:18→16:45)
[2017-11-28] MEDS: ARIPiprazole 15 MG TABLET PO SCH (08:18)
[2017-11-28] MEDS: BuPROPion HCL 75 MG TABLET PO SCH (08:19)
[2017-11-28] MEDS: DOCUSATE SODIUM 100 MG CAPSULE PO SCH ×2 (08:19→16:49)
[2017-11-28] MEDS: VENLAFAXINE HCL 75 MG ER CAPSULE PO SCH (08:19)
[2017-11-28] MEDS: LITHIUM CARBONATE 300 MG CAPSULE PO SCH ×3 (08:19→16:45)
[2017-11-28] MEDS: CARISOPRODOL 350 MG TABLET PO SCH ×3 (08:19→16:49)
[2017-11-28 08:20] VITALS: BP 128/75
[2017-11-28 13:20] VITALS: BP 116/74
[2017-11-28] MEDS: TraMADol HCL 50 MG TABLET PO PRN (13:26)
[2017-11-28] MEDS: HALOPERIDOL 5 MG TABLET PO PRN (13:26)
[2017-11-28] MEDS: MAGNESIUM HYDROXIDE SUSPENSION 30 ML UDCUP PO PRN (13:26)
[2017-11-28 16:29] VITALS: BP 130/78
[2017-11-28] MEDS: TraZODone HCL 100 MG TABLET PO SCH (20:08)
[2017-11-29] MEDS: DOCUSATE SODIUM 100 MG CAPSULE PO SCH ×2 (08:13→17:12)
[2017-11-29] MEDS: OMEPRAZOLE 20 MG CAPSULE PO SCH (08:13)
[2017-11-29] MEDS: LITHIUM CARBONATE 300 MG CAPSULE PO SCH ×3 (08:14→17:13)
[2017-11-29] MEDS: ARIPiprazole 15 MG TABLET PO SCH (08:14)
[2017-11-29] MEDS: BENZTROPINE MESYLATE 1 MG TABLET PO SCH ×2 (08:14→17:13)
[2017-11-29] MEDS: GABAPENTIN 300 MG CAPSULE PO SCH ×3 (08:14→17:13)
[2017-11-29] MEDS: HALOPERIDOL 5 MG TABLET PO PRN ×2 (08:14→20:32)
[2017-11-29] MEDS: NICOTINE 21 MG/24 HOUR PATCH TD SCH (08:14)
[2017-11-29] MEDS: TraMADol HCL 50 MG TABLET PO PRN (08:14)
[2017-11-29] MEDS: VENLAFAXINE HCL 75 MG ER CAPSULE PO SCH (08:14)
[2017-11-29] MEDS: CARISOPRODOL 350 MG TABLET PO SCH ×3 (08:15→17:12)
[2017-11-29] MEDS: METHADONE HCL 10 MG TABLET PO SCH (08:15)
[2017-11-29] MEDS: BuPROPion HCL 75 MG TABLET PO SCH (08:15)
[2017-11-29 08:35] VITALS: BP 109/69
[2017-11-29 16:35] VITALS: BP 117/64
[2017-11-29] MEDS: HydrOXYzine PAMOATE 50 MG CAPSULE PO PRN ×2 (17:12→20:32)
[2017-11-29] MEDS: MAGNESIUM HYDROXIDE SUSPENSION 30 ML UDCUP PO PRN (20:33)
[2017-11-29] MEDS: TraZODone HCL 100 MG TABLET PO SCH (20:57)
[2017-11-30] MEDS: NICOTINE 21 MG/24 HOUR PATCH TD SCH (08:52)
[2017-11-30] MEDS: METHADONE HCL 10 MG TABLET PO SCH (08:52)
[2017-11-30] MEDS: BuPROPion HCL 75 MG TABLET PO SCH (08:52)
[2017-11-30] MEDS: CARISOPRODOL 350 MG TABLET PO SCH ×3 (08:52→16:16)
[2017-11-30] MEDS: VENLAFAXINE HCL 75 MG ER CAPSULE PO SCH (08:53)
[2017-11-30] MEDS: BENZTROPINE MESYLATE 1 MG TABLET PO SCH ×2 (08:53→16:16)
[2017-11-30] MEDS: DOCUSATE SODIUM 100 MG CAPSULE PO SCH ×2 (08:53→16:16)
[2017-11-30] MEDS: OMEPRAZOLE 20 MG CAPSULE PO SCH (08:53)
[2017-11-30] MEDS: ARIPiprazole 15 MG TABLET PO SCH (08:53)
[2017-11-30] MEDS: LITHIUM CARBONATE 300 MG CAPSULE PO SCH ×3 (08:53→16:16)
[2017-11-30] MEDS: GABAPENTIN 300 MG CAPSULE PO SCH ×3 (08:53→16:16)
[2017-11-30] MEDS: MAGNESIUM HYDROXIDE SUSPENSION 30 ML UDCUP PO PRN (12:16)
[2017-11-30 12:17] VITALS: BP 118/74
[2017-11-30] MEDS: TraMADol HCL 50 MG TABLET PO PRN (12:17)
[2017-11-30] MEDS: HALOPERIDOL 5 MG TABLET PO PRN (12:17)
[2017-11-30 16:03] VITALS: BP 129/83
[2017-11-30] MEDS: TraZODone HCL 100 MG TABLET PO SCH (20:10)
[2017-12-01] MEDS: METHADONE HCL 10 MG TABLET PO SCH (08:58)
[2017-12-01] MEDS: LITHIUM CARBONATE 300 MG CAPSULE PO SCH ×3 (08:59→16:23)
[2017-12-01] MEDS: BENZTROPINE MESYLATE 1 MG TABLET PO SCH ×2 (08:59→16:24)
[2017-12-01] MEDS: OMEPRAZOLE 20 MG CAPSULE PO SCH (08:59)
[2017-12-01] MEDS: ARIPiprazole 15 MG TABLET PO SCH (08:59)
[2017-12-01] MEDS: DOCUSATE SODIUM 100 MG CAPSULE PO SCH ×2 (08:59→16:24)
[2017-12-01] MEDS: CARISOPRODOL 350 MG TABLET PO SCH ×3 (09:00→16:23)
[2017-12-01] MEDS: VENLAFAXINE HCL 75 MG ER CAPSULE PO SCH (09:00)
[2017-12-01] MEDS: BuPROPion HCL 75 MG TABLET PO SCH (09:00)
[2017-12-01] MEDS: GABAPENTIN 300 MG CAPSULE PO SCH ×3 (09:00→16:24)
[2017-12-01] MEDS: NICOTINE 21 MG/24 HOUR PATCH TD SCH (09:01)
[2017-12-01] MEDS: HALOPERIDOL 5 MG TABLET PO PRN (12:33)
[2017-12-01] MEDS: TraMADol HCL 50 MG TABLET PO PRN (12:33)
[2017-12-01] MEDS: MAGNESIUM HYDROXIDE SUSPENSION 30 ML UDCUP PO PRN (12:34)
[2017-12-01 12:35] VITALS: BP 120/76
[2017-12-01] MEDS ORDERED: LORazepam 2 MG/ML VIAL IM ONE (16:00)
[2017-12-01] MEDS ORDERED: HALOPERIDOL LACTATE 5 MG/ML VIAL IM ONE (16:00)
[2017-12-01] MEDS ORDERED: DiphenhydrAMINE HCL 50 MG/ML VIAL IM ONE (16:00)
[2017-12-01 16:44] VITALS: BP 127/82
[2017-12-01] MEDS: TraZODone HCL 100 MG TABLET PO SCH (20:12)
[2017-12-02 07:22] VITALS: BP 128/88
[2017-12-02] MEDS: BuPROPion HCL 75 MG TABLET PO SCH (08:44)
[2017-12-02] MEDS: VENLAFAXINE HCL 75 MG ER CAPSULE PO SCH (08:45)
[2017-12-02] MEDS: METHADONE HCL 10 MG TABLET PO SCH (08:45)
[2017-12-02] MEDS: BENZTROPINE MESYLATE 1 MG TABLET PO SCH ×2 (08:45→16:08)
[2017-12-02] MEDS: OMEPRAZOLE 20 MG CAPSULE PO SCH (08:45)
[2017-12-02] MEDS: GABAPENTIN 300 MG CAPSULE PO SCH ×3 (08:45→16:08)
[2017-12-02] MEDS: DOCUSATE SODIUM 100 MG CAPSULE PO SCH ×2 (08:46→16:08)
[2017-12-02] MEDS: ARIPiprazole 15 MG TABLET PO SCH (08:46)
[2017-12-02] MEDS: LITHIUM CARBONATE 300 MG CAPSULE PO SCH ×3 (08:46→16:08)
[2017-12-02] MEDS: CARISOPRODOL 350 MG TABLET PO SCH ×3 (08:46→16:08)
[2017-12-02] MEDS: NICOTINE 21 MG/24 HOUR PATCH TD SCH (08:46)
[2017-12-02 16:08] VITALS: BP 118/86
[2017-12-02] MEDS: TraMADol HCL 50 MG TABLET PO PRN (16:08)
[2017-12-02] MEDS: HALOPERIDOL 5 MG TABLET PO PRN (16:08)
[2017-12-02] MEDS: MAGNESIUM HYDROXIDE SUSPENSION 30 ML UDCUP PO PRN (16:09)
[2017-12-02] MEDS: TraZODone HCL 100 MG TABLET PO SCH (20:12)
[2017-12-03] MEDS: BENZTROPINE MESYLATE 1 MG TABLET PO SCH ×2 (08:56→16:05)
[2017-12-03] MEDS: ARIPiprazole 15 MG TABLET PO SCH (08:56)
[2017-12-03] MEDS: GABAPENTIN 300 MG CAPSULE PO SCH ×3 (08:56→16:05)
[2017-12-03] MEDS: CARISOPRODOL 350 MG TABLET PO SCH ×3 (08:57→16:06)
[2017-12-03] MEDS: BuPROPion HCL 75 MG TABLET PO SCH (08:57)
[2017-12-03] MEDS: METHADONE HCL 10 MG TABLET PO SCH (08:57)
[2017-12-03] MEDS: DOCUSATE SODIUM 100 MG CAPSULE PO SCH ×2 (08:58→16:05)
[2017-12-03] MEDS: LITHIUM CARBONATE 300 MG CAPSULE PO SCH ×3 (08:58→16:05)
[2017-12-03] MEDS: VENLAFAXINE HCL 75 MG ER CAPSULE PO SCH (08:58)
[2017-12-03] MEDS: OMEPRAZOLE 20 MG CAPSULE PO SCH (08:58)
[2017-12-03] MEDS: NICOTINE 21 MG/24 HOUR PATCH TD SCH (08:58)
[2017-12-03 16:06] VITALS: BP 110/64
[2017-12-03] MEDS: HALOPERIDOL 5 MG TABLET PO PRN (16:06)
[2017-12-03] MEDS: TraMADol HCL 50 MG TABLET PO PRN (17:40)
[2017-12-03] MEDS: MAGNESIUM HYDROXIDE SUSPENSION 30 ML UDCUP PO PRN (17:40)
[2017-12-03] MEDS: TraZODone HCL 100 MG TABLET PO SCH (20:12)
[2017-12-04] MEDS: GABAPENTIN 300 MG CAPSULE PO SCH ×3 (08:03→16:13)
[2017-12-04] MEDS: CARISOPRODOL 350 MG TABLET PO SCH ×3 (08:03→16:13)
[2017-12-04] MEDS: OMEPRAZOLE 20 MG CAPSULE PO SCH (08:04)
[2017-12-04] MEDS: VENLAFAXINE HCL 75 MG ER CAPSULE PO SCH (08:04)
[2017-12-04] MEDS: DOCUSATE SODIUM 100 MG CAPSULE PO SCH ×2 (08:04→16:12)
[2017-12-04] MEDS: BENZTROPINE MESYLATE 1 MG TABLET PO SCH ×2 (08:04→16:12)
[2017-12-04] MEDS: LITHIUM CARBONATE 300 MG CAPSULE PO SCH ×3 (08:04→16:12)
[2017-12-04] MEDS: ARIPiprazole 15 MG TABLET PO SCH (08:04)
[2017-12-04] MEDS: METHADONE HCL 10 MG TABLET PO SCH (08:04)
[2017-12-04] MEDS: BuPROPion HCL 75 MG TABLET PO SCH (08:04)
[2017-12-04] MEDS: NICOTINE 21 MG/24 HOUR PATCH TD SCH (08:05)
[2017-12-04 09:35] VITALS: BP 122/66
[2017-12-04] MEDS: MAGNESIUM HYDROXIDE SUSPENSION 30 ML UDCUP PO PRN (14:44)
[2017-12-04 14:45] VITALS: BP 108/65
[2017-12-04] MEDS: TraMADol HCL 50 MG TABLET PO PRN (14:45)
[2017-12-04] MEDS: HALOPERIDOL 5 MG TABLET PO PRN (14:45)
[2017-12-04 16:20] VITALS: BP 116/76
[2017-12-04] MEDS: TraZODone HCL 100 MG TABLET PO SCH (20:16)
[2017-12-05 08:01] VITALS: BP 120/72
[2017-12-05] MEDS: OMEPRAZOLE 20 MG CAPSULE PO SCH (08:04)
[2017-12-05] MEDS: BENZTROPINE MESYLATE 1 MG TABLET PO SCH ×2 (08:04→16:15)
[2017-12-05] MEDS: GABAPENTIN 300 MG CAPSULE PO SCH ×3 (08:04→16:15)
[2017-12-05] MEDS: ARIPiprazole 15 MG TABLET PO SCH (08:04)
[2017-12-05] MEDS: VENLAFAXINE HCL 75 MG ER CAPSULE PO SCH (08:04)
[2017-12-05] MEDS: LITHIUM CARBONATE 300 MG CAPSULE PO SCH ×3 (08:04→16:15)
[2017-12-05] MEDS: CARISOPRODOL 350 MG TABLET PO SCH ×3 (08:05→16:15)
[2017-12-05] MEDS: DOCUSATE SODIUM 100 MG CAPSULE PO SCH ×2 (08:05→16:15)
[2017-12-05] MEDS: BuPROPion HCL 75 MG TABLET PO SCH (08:05)
[2017-12-05] MEDS: NICOTINE 21 MG/24 HOUR PATCH TD SCH (08:05)
[2017-12-05] MEDS: METHADONE HCL 10 MG TABLET PO SCH (08:05)
[2017-12-05] MEDS: HALOPERIDOL 5 MG TABLET PO PRN ×2 (13:29→17:33)
[2017-12-05 16:03] VITALS: BP 121/72
[2017-12-05] MEDS: MAGNESIUM HYDROXIDE SUSPENSION 30 ML UDCUP PO PRN (17:33)
[2017-12-05 17:34] VITALS: BP 125/75
[2017-12-05] MEDS: TraMADol HCL 50 MG TABLET PO PRN (17:34)
[2017-12-05] MEDS: TraZODone HCL 100 MG TABLET PO SCH (20:26)
[2017-12-06] MEDS: ARIPiprazole 15 MG TABLET PO SCH (08:21)
[2017-12-06] MEDS: LITHIUM CARBONATE 300 MG CAPSULE PO SCH ×3 (08:21→16:11)
[2017-12-06] MEDS: GABAPENTIN 300 MG CAPSULE PO SCH ×3 (08:21→16:12)
[2017-12-06] MEDS: OMEPRAZOLE 20 MG CAPSULE PO SCH (08:21)
[2017-12-06] MEDS: VENLAFAXINE HCL 75 MG ER CAPSULE PO SCH (08:21)
[2017-12-06] MEDS: CARISOPRODOL 350 MG TABLET PO SCH ×3 (08:21→16:11)
[2017-12-06] MEDS: DOCUSATE SODIUM 100 MG CAPSULE PO SCH ×2 (08:21→16:11)
[2017-12-06] MEDS: BENZTROPINE MESYLATE 1 MG TABLET PO SCH ×2 (08:22→16:11)
[2017-12-06] MEDS: METHADONE HCL 10 MG TABLET PO SCH (08:22)
[2017-12-06] MEDS: BuPROPion HCL 75 MG TABLET PO SCH (08:22)
[2017-12-06] MEDS: NICOTINE 21 MG/24 HOUR PATCH TD SCH (08:23)
[2017-12-06 08:32] VITALS: BP 106/70
[2017-12-06 16:01] VITALS: BP 114/68
[2017-12-06] MEDS: HALOPERIDOL 5 MG TABLET PO PRN (16:25)
[2017-12-06] MEDS: MAGNESIUM HYDROXIDE SUSPENSION 30 ML UDCUP PO PRN (16:25)
[2017-12-06] MEDS: TraMADol HCL 50 MG TABLET PO PRN (16:25)
[2017-12-06 17:25] VITALS: BP 110/62
[2017-12-06] MEDS: TraZODone HCL 100 MG TABLET PO SCH (20:02)
[2017-12-07 03:40] VITALS: BP 112/72
[2017-12-07 08:16] VITALS: BP 117/63
[2017-12-07] MEDS: ARIPiprazole 15 MG TABLET PO SCH (08:23)
[2017-12-07] MEDS: BuPROPion HCL 75 MG TABLET PO SCH (08:23)
[2017-12-07] MEDS: GABAPENTIN 300 MG CAPSULE PO SCH ×3 (08:24→16:19)
[2017-12-07] MEDS: CARISOPRODOL 350 MG TABLET PO SCH ×3 (08:24→16:19)
[2017-12-07] MEDS: VENLAFAXINE HCL 75 MG ER CAPSULE PO SCH (08:24)
[2017-12-07] MEDS: LITHIUM CARBONATE 300 MG CAPSULE PO SCH ×3 (08:24→16:19)
[2017-12-07] MEDS: DOCUSATE SODIUM 100 MG CAPSULE PO SCH ×2 (08:24→16:19)
[2017-12-07] MEDS: OMEPRAZOLE 20 MG CAPSULE PO SCH (08:24)
[2017-12-07] MEDS: BENZTROPINE MESYLATE 1 MG TABLET PO SCH ×2 (08:24→16:19)
[2017-12-07] MEDS: METHADONE HCL 10 MG TABLET PO SCH (08:25)
[2017-12-07] MEDS: NICOTINE 21 MG/24 HOUR PATCH TD SCH (08:28)
[2017-12-07 14:00] VITALS: BP 126/103
[2017-12-07 16:00] VITALS: BP 126/103
[2017-12-07] MEDS: HALOPERIDOL 5 MG TABLET PO PRN (20:14)
[2017-12-07] MEDS: HydrOXYzine PAMOATE 50 MG CAPSULE PO PRN (20:14)
[2017-12-07 20:15] VITALS: BP 139/84
[2017-12-07] MEDS: MAGNESIUM HYDROXIDE SUSPENSION 30 ML UDCUP PO PRN (20:15)
[2017-12-07] MEDS: TraZODone HCL 100 MG TABLET PO SCH (21:03)
[2017-12-08 08:03] VITALS: BP 124/69
[2017-12-08] MEDS: BENZTROPINE MESYLATE 1 MG TABLET PO SCH ×2 (08:13→17:01)
[2017-12-08] MEDS: DOCUSATE SODIUM 100 MG CAPSULE PO SCH ×2 (08:13→17:02)
[2017-12-08] MEDS: VENLAFAXINE HCL 75 MG ER CAPSULE PO SCH (08:14)
[2017-12-08] MEDS: ARIPiprazole 15 MG TABLET PO SCH (08:14)
[2017-12-08] MEDS: OMEPRAZOLE 20 MG CAPSULE PO SCH (08:14)
[2017-12-08] MEDS: GABAPENTIN 300 MG CAPSULE PO SCH ×3 (08:14→17:01)
[2017-12-08] MEDS: LITHIUM CARBONATE 300 MG CAPSULE PO SCH ×3 (08:15→17:01)
[2017-12-08] MEDS: METHADONE HCL 10 MG TABLET PO SCH (08:16)
[2017-12-08] MEDS: CARISOPRODOL 350 MG TABLET PO SCH ×3 (08:17→17:01)
[2017-12-08] MEDS: BuPROPion HCL 75 MG TABLET PO SCH (08:17)
[2017-12-08] MEDS: NICOTINE 21 MG/24 HOUR PATCH TD SCH (08:17)
[2017-12-08 12:32] VITALS: BP 127/69
[2017-12-08] MEDS: TraMADol HCL 50 MG TABLET PO PRN (12:34)
[2017-12-08] MEDS: HALOPERIDOL 5 MG TABLET PO PRN ×2 (12:35→20:34)
[2017-12-08] MEDS: MAGNESIUM HYDROXIDE SUSPENSION 30 ML UDCUP PO PRN ×2 (12:38→21:31)
[2017-12-08 13:34] VITALS: BP 117/77
[2017-12-08 16:00] VITALS: BP 136/80
[2017-12-08] MEDS: HydrOXYzine PAMOATE 50 MG CAPSULE PO PRN (16:13)
[2017-12-08] MEDS: TraZODone HCL 100 MG TABLET PO SCH (20:34)
[2017-12-09 08:12] VITALS: BP 129/73
[2017-12-09] MEDS: OMEPRAZOLE 20 MG CAPSULE PO SCH (09:46)
[2017-12-09] MEDS: CARISOPRODOL 350 MG TABLET PO SCH ×3 (09:47→16:40)
[2017-12-09] MEDS: GABAPENTIN 300 MG CAPSULE PO SCH ×3 (09:47→16:39)
[2017-12-09] MEDS: METHADONE HCL 10 MG TABLET PO SCH (09:47)
[2017-12-09] MEDS: BENZTROPINE MESYLATE 1 MG TABLET PO SCH ×2 (09:47→16:39)
[2017-12-09] MEDS: BuPROPion HCL 75 MG TABLET PO SCH (09:48)
[2017-12-09] MEDS: LITHIUM CARBONATE 300 MG CAPSULE PO SCH ×3 (09:48→16:39)
[2017-12-09] MEDS: ARIPiprazole 15 MG TABLET PO SCH (09:48)
[2017-12-09] MEDS: DOCUSATE SODIUM 100 MG CAPSULE PO SCH ×2 (09:48→16:39)
[2017-12-09] MEDS: NICOTINE 21 MG/24 HOUR PATCH TD SCH (09:54)
[2017-12-09] MEDS: VENLAFAXINE HCL 75 MG ER CAPSULE PO SCH (10:07)
[2017-12-09] MEDS: MAGNESIUM HYDROXIDE SUSPENSION 30 ML UDCUP PO PRN ×2 (13:20→20:33)
[2017-12-09] MEDS: HALOPERIDOL 5 MG TABLET PO PRN ×2 (13:21→20:33)
[2017-12-09] MEDS: TraMADol HCL 50 MG TABLET PO PRN (13:21)
[2017-12-09] MEDS: HydrOXYzine PAMOATE 50 MG CAPSULE PO PRN (15:59)
[2017-12-09 16:06] VITALS: BP 118/76
[2017-12-09] MEDS: TraZODone HCL 100 MG TABLET PO SCH (20:33)
[2017-12-10] MEDS: NICOTINE 21 MG/24 HOUR PATCH TD SCH (08:18)
[2017-12-10] MEDS: GABAPENTIN 300 MG CAPSULE PO SCH ×3 (08:18→16:30)
[2017-12-10] MEDS: VENLAFAXINE HCL 75 MG ER CAPSULE PO SCH (08:18)
[2017-12-10] MEDS: OMEPRAZOLE 20 MG CAPSULE PO SCH (08:18)
[2017-12-10 08:19] VITALS: BP 111/68
[2017-12-10] MEDS: METHADONE HCL 10 MG TABLET PO SCH (08:21)
[2017-12-10] MEDS: BENZTROPINE MESYLATE 1 MG TABLET PO SCH ×2 (08:21→16:30)
[2017-12-10] MEDS: BuPROPion HCL 75 MG TABLET PO SCH (08:21)
[2017-12-10] MEDS: ARIPiprazole 15 MG TABLET PO SCH (08:21)
[2017-12-10] MEDS: CARISOPRODOL 350 MG TABLET PO SCH ×3 (08:21→16:30)
[2017-12-10] MEDS: LITHIUM CARBONATE 300 MG CAPSULE PO SCH ×3 (08:22→16:30)
[2017-12-10] MEDS: DOCUSATE SODIUM 100 MG CAPSULE PO SCH ×2 (08:22→16:30)
[2017-12-10 16:07] VITALS: BP 122/78
[2017-12-10] MEDS: TraMADol HCL 50 MG TABLET PO PRN (18:19)
[2017-12-10] MEDS: MAGNESIUM HYDROXIDE SUSPENSION 30 ML UDCUP PO PRN (18:19)
[2017-12-10] MEDS: HALOPERIDOL 5 MG TABLET PO PRN (18:19)
[2017-12-10] MEDS: TraZODone HCL 100 MG TABLET PO SCH (20:33)
[2017-12-11 06:20] VITALS: BP 122/82
[2017-12-11] MEDS: NICOTINE 21 MG/24 HOUR PATCH TD SCH (08:01)
[2017-12-11] MEDS: HALOPERIDOL 5 MG TABLET PO PRN ×2 (08:02→16:48)
[2017-12-11] MEDS: DOCUSATE SODIUM 100 MG CAPSULE PO SCH ×2 (08:02→16:48)
[2017-12-11] MEDS: VENLAFAXINE HCL 75 MG ER CAPSULE PO SCH (08:02)
[2017-12-11] MEDS: OMEPRAZOLE 20 MG CAPSULE PO SCH (08:02)
[2017-12-11] MEDS: BENZTROPINE MESYLATE 1 MG TABLET PO SCH ×2 (08:02→16:47)
[2017-12-11] MEDS: ARIPiprazole 15 MG TABLET PO SCH (08:02)
[2017-12-11] MEDS: METHADONE HCL 10 MG TABLET PO SCH (08:02)
[2017-12-11] MEDS: LITHIUM CARBONATE 300 MG CAPSULE PO SCH ×3 (08:02→16:48)
[2017-12-11] MEDS: GABAPENTIN 300 MG CAPSULE PO SCH ×3 (08:02→16:48)
[2017-12-11] MEDS: BuPROPion HCL 75 MG TABLET PO SCH (08:03)
[2017-12-11] MEDS: CARISOPRODOL 350 MG TABLET PO SCH ×3 (08:03→16:48)
[2017-12-11] MEDS: TraMADol HCL 50 MG TABLET PO PRN (08:04)
[2017-12-11 08:19] VITALS: BP 121/68
[2017-12-11] MEDS: MAGNESIUM HYDROXIDE SUSPENSION 30 ML UDCUP PO PRN (08:44)
[2017-12-11 09:03] VITALS: BP 122/72
[2017-12-11 16:09] VITALS: BP 131/65
[2017-12-11] MEDS: HydrOXYzine PAMOATE 50 MG CAPSULE PO PRN (20:36)
[2017-12-11] MEDS: TraZODone HCL 100 MG TABLET PO SCH (20:36)
[2017-12-12] MEDS: GABAPENTIN 300 MG CAPSULE PO SCH ×3 (08:21→16:09)
[2017-12-12] MEDS: LITHIUM CARBONATE 300 MG CAPSULE PO SCH ×3 (08:21→16:10)
[2017-12-12] MEDS: DOCUSATE SODIUM 100 MG CAPSULE PO SCH ×2 (08:21→16:10)
[2017-12-12] MEDS: NICOTINE 21 MG/24 HOUR PATCH TD SCH (08:22)
[2017-12-12] MEDS: BENZTROPINE MESYLATE 1 MG TABLET PO SCH ×2 (08:22→16:09)
[2017-12-12] MEDS: BuPROPion HCL 75 MG TABLET PO SCH (08:22)
[2017-12-12] MEDS: ARIPiprazole 15 MG TABLET PO SCH (08:22)
[2017-12-12] MEDS: OMEPRAZOLE 20 MG CAPSULE PO SCH (08:22)
[2017-12-12] MEDS: METHADONE HCL 10 MG TABLET PO SCH (08:22)
[2017-12-12] MEDS: VENLAFAXINE HCL 75 MG ER CAPSULE PO SCH (08:22)
[2017-12-12 08:23] VITALS: BP 129/64
[2017-12-12] MEDS: CARISOPRODOL 350 MG TABLET PO SCH ×3 (08:23→16:09)
[2017-12-12 16:17] VITALS: BP 132/77
[2017-12-12] MEDS: HALOPERIDOL 5 MG TABLET PO PRN (19:32)
[2017-12-12] MEDS: TraMADol HCL 50 MG TABLET PO PRN (19:33)
[2017-12-12] MEDS: MAGNESIUM HYDROXIDE SUSPENSION 30 ML UDCUP PO PRN (19:33)
[2017-12-12] MEDS: TraZODone HCL 100 MG TABLET PO SCH (20:36)
[2017-12-13] MEDS: METHADONE HCL 10 MG TABLET PO SCH (09:18)
[2017-12-13] MEDS: BuPROPion HCL 75 MG TABLET PO SCH (09:18)
[2017-12-13] MEDS: GABAPENTIN 300 MG CAPSULE PO SCH ×3 (09:19→18:06)
[2017-12-13] MEDS: VENLAFAXINE HCL 75 MG ER CAPSULE PO SCH (09:19)
[2017-12-13] MEDS: DOCUSATE SODIUM 100 MG CAPSULE PO SCH ×2 (09:19→18:05)
[2017-12-13] MEDS: BENZTROPINE MESYLATE 1 MG TABLET PO SCH ×2 (09:20→18:06)
[2017-12-13] MEDS: LITHIUM CARBONATE 300 MG CAPSULE PO SCH ×3 (09:20→18:06)
[2017-12-13] MEDS: ARIPiprazole 15 MG TABLET PO SCH (09:20)
[2017-12-13] MEDS: OMEPRAZOLE 20 MG CAPSULE PO SCH (09:20)
[2017-12-13] MEDS: CARISOPRODOL 350 MG TABLET PO SCH ×3 (09:21→18:06)
[2017-12-13] MEDS: NICOTINE 21 MG/24 HOUR PATCH TD SCH (09:21)
[2017-12-13] MEDS: CHLORHEXIDINE GLUCONATE 0.12% 15 ML UDCUP ORAL RINSE PO PRN (13:10)
[2017-12-13 16:03] VITALS: BP 135/88
[2017-12-13] MEDS: HydrOXYzine PAMOATE 50 MG CAPSULE PO PRN (17:07)
[2017-12-13] MEDS: MAGNESIUM HYDROXIDE SUSPENSION 30 ML UDCUP PO PRN (18:59)
[2017-12-13] MEDS: HALOPERIDOL 5 MG TABLET PO PRN (18:59)
[2017-12-13] MEDS: TraZODone HCL 100 MG TABLET PO SCH (20:40)
[2017-12-13 21:20] VITALS: BP 128/75
[2017-12-13] MEDS: TraMADol HCL 50 MG TABLET PO PRN (21:21)
[2017-12-14 08:22] VITALS: BP 95/57
[2017-12-14 08:40] VITALS: BP 110/68
[2017-12-14] MEDS: BENZTROPINE MESYLATE 1 MG TABLET PO SCH ×2 (08:43→16:51)
[2017-12-14] MEDS: DOCUSATE SODIUM 100 MG CAPSULE PO SCH ×2 (08:43→16:51)
[2017-12-14] MEDS: OMEPRAZOLE 20 MG CAPSULE PO SCH (08:43)
[2017-12-14] MEDS: NICOTINE 21 MG/24 HOUR PATCH TD SCH (08:43)
[2017-12-14] MEDS: LITHIUM CARBONATE 300 MG CAPSULE PO SCH ×3 (08:43→16:52)
[2017-12-14] MEDS: VENLAFAXINE HCL 75 MG ER CAPSULE PO SCH (08:43)
[2017-12-14] MEDS: GABAPENTIN 300 MG CAPSULE PO SCH ×3 (08:43→16:51)
[2017-12-14] MEDS: ARIPiprazole 15 MG TABLET PO SCH (08:43)
[2017-12-14] MEDS: METHADONE HCL 10 MG TABLET PO SCH (08:44)
[2017-12-14] MEDS: CARISOPRODOL 350 MG TABLET PO SCH ×3 (08:44→16:52)
[2017-12-14] MEDS: BuPROPion HCL 75 MG TABLET PO SCH (08:44)
[2017-12-14 16:03] VITALS: BP 114/69
[2017-12-14] MEDS: HALOPERIDOL 5 MG TABLET PO PRN (16:12)
[2017-12-14] MEDS: HydrOXYzine PAMOATE 50 MG CAPSULE PO PRN (16:12)
[2017-12-14 20:30] VITALS: BP 118/75
[2017-12-14] MEDS: TraMADol HCL 50 MG TABLET PO PRN (20:31)
[2017-12-14] MEDS: MAGNESIUM HYDROXIDE SUSPENSION 30 ML UDCUP PO PRN (20:32)
[2017-12-14] MEDS: TraZODone HCL 100 MG TABLET PO SCH (20:32)
[2017-12-15 08:28] VITALS: BP 125/67
[2017-12-15] MEDS: BENZTROPINE MESYLATE 1 MG TABLET PO SCH ×2 (09:28→16:29)
[2017-12-15] MEDS: ARIPiprazole 15 MG TABLET PO SCH (09:28)
[2017-12-15] MEDS: LITHIUM CARBONATE 300 MG CAPSULE PO SCH ×3 (09:29→16:30)
[2017-12-15] MEDS: VENLAFAXINE HCL 75 MG ER CAPSULE PO SCH (09:29)
[2017-12-15] MEDS: DOCUSATE SODIUM 100 MG CAPSULE PO SCH ×2 (09:29→16:30)
[2017-12-15] MEDS: GABAPENTIN 300 MG CAPSULE PO SCH ×3 (09:30→16:29)
[2017-12-15] MEDS: OMEPRAZOLE 20 MG CAPSULE PO SCH (09:31)
[2017-12-15] MEDS: NICOTINE 21 MG/24 HOUR PATCH TD SCH (09:37)
[2017-12-15] MEDS: CARISOPRODOL 350 MG TABLET PO SCH ×3 (09:37→16:30)
[2017-12-15] MEDS: BuPROPion HCL 75 MG TABLET PO SCH (09:37)
[2017-12-15] MEDS: METHADONE HCL 10 MG TABLET PO SCH (09:37)
[2017-12-15] MEDS: TraMADol HCL 50 MG TABLET PO PRN (14:56)
[2017-12-15] MEDS: MAGNESIUM HYDROXIDE SUSPENSION 30 ML UDCUP PO PRN (14:56)
[2017-12-15 16:26] VITALS: BP 131/81
[2017-12-15] MEDS: TraZODone HCL 100 MG TABLET PO SCH (20:14)
[2017-12-16] MEDS: GABAPENTIN 300 MG CAPSULE PO SCH ×3 (08:02→16:18)
[2017-12-16] MEDS: TraMADol HCL 50 MG TABLET PO PRN (08:02)
[2017-12-16] MEDS: HALOPERIDOL 5 MG TABLET PO PRN ×2 (08:02→20:56)
[2017-12-16] MEDS: NICOTINE 21 MG/24 HOUR PATCH TD SCH (08:02)
[2017-12-16] MEDS: HydrOXYzine PAMOATE 50 MG CAPSULE PO PRN (08:02)
[2017-12-16] MEDS: OMEPRAZOLE 20 MG CAPSULE PO SCH (08:03)
[2017-12-16] MEDS: METHADONE HCL 10 MG TABLET PO SCH (08:03)
[2017-12-16] MEDS: BENZTROPINE MESYLATE 1 MG TABLET PO SCH ×2 (08:03→16:18)
[2017-12-16] MEDS: ARIPiprazole 15 MG TABLET PO SCH (08:03)
[2017-12-16] MEDS: LITHIUM CARBONATE 300 MG CAPSULE PO SCH ×3 (08:03→16:18)
[2017-12-16] MEDS: BuPROPion HCL 75 MG TABLET PO SCH (08:03)
[2017-12-16] MEDS: CARISOPRODOL 350 MG TABLET PO SCH ×3 (08:03→16:18)
[2017-12-16] MEDS: DOCUSATE SODIUM 100 MG CAPSULE PO SCH ×2 (08:03→16:18)
[2017-12-16] MEDS: VENLAFAXINE HCL 75 MG ER CAPSULE PO SCH (08:03)
[2017-12-16 08:30] VITALS: BP 127/71
[2017-12-16 09:04] VITALS: BP 130/70
[2017-12-16 16:02] VITALS: BP 139/84
[2017-12-16] MEDS: TraZODone HCL 100 MG TABLET PO SCH (20:30)
[2017-12-17 06:29] VITALS: BP 125/76
[2017-12-17] MEDS: METHADONE HCL 10 MG TABLET PO SCH (08:13)
[2017-12-17] MEDS: GABAPENTIN 300 MG CAPSULE PO SCH ×3 (08:14→17:12)
[2017-12-17] MEDS: ARIPiprazole 15 MG TABLET PO SCH (08:14)
[2017-12-17] MEDS: BuPROPion HCL 75 MG TABLET PO SCH (08:14)
[2017-12-17] MEDS: BENZTROPINE MESYLATE 1 MG TABLET PO SCH ×2 (08:14→17:12)
[2017-12-17] MEDS: LITHIUM CARBONATE 300 MG CAPSULE PO SCH ×3 (08:15→17:12)
[2017-12-17] MEDS: DOCUSATE SODIUM 100 MG CAPSULE PO SCH ×2 (08:15→17:12)
[2017-12-17] MEDS: VENLAFAXINE HCL 75 MG ER CAPSULE PO SCH (08:15)
[2017-12-17] MEDS: OMEPRAZOLE 20 MG CAPSULE PO SCH (08:15)
[2017-12-17] MEDS: CARISOPRODOL 350 MG TABLET PO SCH ×3 (08:16→17:12)
[2017-12-17] MEDS: NICOTINE 21 MG/24 HOUR PATCH TD SCH (08:16)
[2017-12-17] MEDS: HALOPERIDOL 5 MG TABLET PO PRN ×2 (10:13→17:12)
[2017-12-17 16:31] VITALS: BP 121/77
[2017-12-17] MEDS: TraZODone HCL 100 MG TABLET PO SCH (21:06)
[2017-12-17] MEDS: HydrOXYzine PAMOATE 50 MG CAPSULE PO PRN (21:06)
[2017-12-18 06:46] VITALS: BP 107/73
[2017-12-18] MEDS: BuPROPion HCL 75 MG TABLET PO SCH (08:34)
[2017-12-18] MEDS: METHADONE HCL 10 MG TABLET PO SCH (08:34)
[2017-12-18] MEDS: CARISOPRODOL 350 MG TABLET PO SCH ×3 (08:34→16:47)
[2017-12-18] MEDS: BENZTROPINE MESYLATE 1 MG TABLET PO SCH ×2 (08:35→16:47)
[2017-12-18] MEDS: ARIPiprazole 15 MG TABLET PO SCH (08:35)
[2017-12-18] MEDS: VENLAFAXINE HCL 75 MG ER CAPSULE PO SCH (08:35)
[2017-12-18] MEDS: LITHIUM CARBONATE 300 MG CAPSULE PO SCH ×3 (08:35→16:47)
[2017-12-18] MEDS: GABAPENTIN 300 MG CAPSULE PO SCH ×3 (08:35→16:47)
[2017-12-18] MEDS: DOCUSATE SODIUM 100 MG CAPSULE PO SCH ×2 (08:35→16:47)
[2017-12-18] MEDS: NICOTINE 21 MG/24 HOUR PATCH TD SCH (08:36)
[2017-12-18] MEDS: OMEPRAZOLE 20 MG CAPSULE PO SCH (08:38)
[2017-12-18 08:51] VITALS: BP 122/71
[2017-12-18 13:17] VITALS: BP 118/70
[2017-12-18] MEDS: MAGNESIUM HYDROXIDE SUSPENSION 30 ML UDCUP PO PRN (13:17)
[2017-12-18] MEDS: TraMADol HCL 50 MG TABLET PO PRN (13:17)
[2017-12-18] MEDS: HALOPERIDOL 5 MG TABLET PO PRN ×2 (13:17→20:44)
[2017-12-18 16:35] VITALS: BP 130/68
[2017-12-18] MEDS: HydrOXYzine PAMOATE 50 MG CAPSULE PO PRN (17:29)
[2017-12-18] MEDS: TraZODone HCL 100 MG TABLET PO SCH (20:44)
[2017-12-19 06:59] VITALS: BP 110/62
[2017-12-19] MEDS: NICOTINE 21 MG/24 HOUR PATCH TD SCH (09:05)
[2017-12-19] MEDS: BENZTROPINE MESYLATE 1 MG TABLET PO SCH ×2 (09:05→17:09)
[2017-12-19] MEDS: ARIPiprazole 15 MG TABLET PO SCH (09:06)
[2017-12-19] MEDS: DOCUSATE SODIUM 100 MG CAPSULE PO SCH ×2 (09:06→17:10)
[2017-12-19] MEDS: LITHIUM CARBONATE 300 MG CAPSULE PO SCH ×3 (09:06→17:10)
[2017-12-19] MEDS: VENLAFAXINE HCL 75 MG ER CAPSULE PO SCH (09:06)
[2017-12-19] MEDS: BuPROPion HCL 75 MG TABLET PO SCH (09:06)
[2017-12-19] MEDS: GABAPENTIN 300 MG CAPSULE PO SCH ×3 (09:06→17:09)
[2017-12-19] MEDS: OMEPRAZOLE 20 MG CAPSULE PO SCH (09:06)
[2017-12-19] MEDS: CARISOPRODOL 350 MG TABLET PO SCH ×3 (09:07→17:09)
[2017-12-19] MEDS: METHADONE HCL 10 MG TABLET PO SCH (09:07)
[2017-12-19 13:29] VITALS: BP 120/83
[2017-12-19] MEDS: HALOPERIDOL 5 MG TABLET PO PRN ×2 (13:29→20:49)
[2017-12-19] MEDS: MAGNESIUM HYDROXIDE SUSPENSION 30 ML UDCUP PO PRN (13:29)
[2017-12-19] MEDS: TraMADol HCL 50 MG TABLET PO PRN (13:29)
[2017-12-19 16:13] VITALS: BP 129/83
[2017-12-19] MEDS: HydrOXYzine PAMOATE 50 MG CAPSULE PO PRN (17:10)
[2017-12-19] MEDS: TraZODone HCL 100 MG TABLET PO SCH (20:49)
[2017-12-20 06:32] VITALS: BP 111/66
[2017-12-20 08:04] VITALS: BP 126/69
[2017-12-20] MEDS: GABAPENTIN 300 MG CAPSULE PO SCH ×3 (08:52→16:36)
[2017-12-20] MEDS: OMEPRAZOLE 20 MG CAPSULE PO SCH (08:52)
[2017-12-20] MEDS: ARIPiprazole 15 MG TABLET PO SCH (08:52)
[2017-12-20] MEDS: BENZTROPINE MESYLATE 1 MG TABLET PO SCH ×2 (08:52→16:36)
[2017-12-20] MEDS: VENLAFAXINE HCL 75 MG ER CAPSULE PO SCH (08:53)
[2017-12-20] MEDS: DOCUSATE SODIUM 100 MG CAPSULE PO SCH ×2 (08:53→16:36)
[2017-12-20] MEDS: LITHIUM CARBONATE 300 MG CAPSULE PO SCH ×3 (08:53→16:36)
[2017-12-20] MEDS: CARISOPRODOL 350 MG TABLET PO SCH ×3 (08:54→16:41)
[2017-12-20] MEDS: BuPROPion HCL 75 MG TABLET PO SCH (08:54)
[2017-12-20] MEDS: METHADONE HCL 10 MG TABLET PO SCH (08:54)
[2017-12-20] MEDS: NICOTINE 21 MG/24 HOUR PATCH TD SCH (08:57)
[2017-12-20 16:08] VITALS: BP 128/83
[2017-12-20] MEDS: TraMADol HCL 50 MG TABLET PO PRN (17:26)
[2017-12-20] MEDS: MAGNESIUM HYDROXIDE SUSPENSION 30 ML UDCUP PO PRN (17:26)
[2017-12-20 17:29] VITALS: BP 125/86
[2017-12-20] MEDS: HALOPERIDOL 5 MG TABLET PO PRN (17:52)
[2017-12-20] MEDS: TraZODone HCL 100 MG TABLET PO SCH (20:03)
[2017-12-21 06:30] VITALS: BP 106/63
[2017-12-21 08:39] VITALS: BP 112/66
[2017-12-21] MEDS: ARIPiprazole 15 MG TABLET PO SCH (08:49)
[2017-12-21] MEDS: LITHIUM CARBONATE 300 MG CAPSULE PO SCH ×3 (08:50→16:19)
[2017-12-21] MEDS: VENLAFAXINE HCL 75 MG ER CAPSULE PO SCH (08:50)
[2017-12-21] MEDS: GABAPENTIN 300 MG CAPSULE PO SCH ×3 (08:50→16:18)
[2017-12-21] MEDS: DOCUSATE SODIUM 100 MG CAPSULE PO SCH ×2 (08:50→16:19)
[2017-12-21] MEDS: CARISOPRODOL 350 MG TABLET PO SCH ×3 (08:50→16:19)
[2017-12-21] MEDS: BENZTROPINE MESYLATE 1 MG TABLET PO SCH ×2 (08:50→16:18)
[2017-12-21] MEDS: OMEPRAZOLE 20 MG CAPSULE PO SCH (08:50)
[2017-12-21] MEDS: NICOTINE 21 MG/24 HOUR PATCH TD SCH (08:51)
[2017-12-21] MEDS: METHADONE HCL 10 MG TABLET PO SCH (08:51)
[2017-12-21] MEDS: BuPROPion HCL 75 MG TABLET PO SCH (08:51)
[2017-12-21] MEDS: MAGNESIUM HYDROXIDE SUSPENSION 30 ML UDCUP PO PRN ×2 (12:34→18:47)
[2017-12-21] MEDS: HALOPERIDOL 5 MG TABLET PO PRN ×2 (12:34→18:47)
[2017-12-21 13:03] VITALS: BP 118/68
[2017-12-21] MEDS: TraMADol HCL 50 MG TABLET PO PRN ×2 (13:03→21:40)
[2017-12-21 16:11] VITALS: BP 136/84
[2017-12-21] MEDS: TraZODone HCL 100 MG TABLET PO SCH (20:29)
[2017-12-21 21:40] VITALS: BP 132/78
[2017-12-22 04:26] VITALS: BP 101/60
[2017-12-22 08:25] VITALS: BP 112/71
[2017-12-22] MEDS: DOCUSATE SODIUM 100 MG CAPSULE PO SCH ×2 (08:55→16:02)
[2017-12-22] MEDS: VENLAFAXINE HCL 75 MG ER CAPSULE PO SCH (08:55)
[2017-12-22] MEDS: GABAPENTIN 300 MG CAPSULE PO SCH ×3 (08:55→16:02)
[2017-12-22] MEDS: OMEPRAZOLE 20 MG CAPSULE PO SCH (08:55)
[2017-12-22] MEDS: METHADONE HCL 10 MG TABLET PO SCH (08:55)
[2017-12-22] MEDS: ARIPiprazole 15 MG TABLET PO SCH (08:55)
[2017-12-22] MEDS: BuPROPion HCL 75 MG TABLET PO SCH (08:55)
[2017-12-22] MEDS: LITHIUM CARBONATE 300 MG CAPSULE PO SCH ×3 (08:55→16:02)
[2017-12-22] MEDS: BENZTROPINE MESYLATE 1 MG TABLET PO SCH ×2 (08:55→16:02)
[2017-12-22] MEDS: CARISOPRODOL 350 MG TABLET PO SCH ×3 (08:56→16:02)
[2017-12-22] MEDS: NICOTINE 21 MG/24 HOUR PATCH TD SCH (08:57)
[2017-12-22 16:03] VITALS: BP 129/77
[2017-12-22] MEDS: HALOPERIDOL 5 MG TABLET PO PRN (20:13)
[2017-12-22] MEDS: TraZODone HCL 100 MG TABLET PO SCH (20:13)
[2017-12-23 05:49] VITALS: BP 125/75
[2017-12-23 08:00] VITALS: BP 130/72
[2017-12-23] MEDS: GABAPENTIN 300 MG CAPSULE PO SCH ×3 (08:42→16:51)
[2017-12-23] MEDS: BENZTROPINE MESYLATE 1 MG TABLET PO SCH ×2 (08:42→16:51)
[2017-12-23] MEDS: VENLAFAXINE HCL 75 MG ER CAPSULE PO SCH (08:42)
[2017-12-23] MEDS: CARISOPRODOL 350 MG TABLET PO SCH ×3 (08:43→16:51)
[2017-12-23] MEDS: ARIPiprazole 15 MG TABLET PO SCH (08:43)
[2017-12-23] MEDS: LITHIUM CARBONATE 300 MG CAPSULE PO SCH ×3 (08:43→16:51)
[2017-12-23] MEDS: METHADONE HCL 10 MG TABLET PO SCH (08:43)
[2017-12-23] MEDS: DOCUSATE SODIUM 100 MG CAPSULE PO SCH ×2 (08:43→16:51)
[2017-12-23] MEDS: BuPROPion HCL 75 MG TABLET PO SCH (08:43)
[2017-12-23] MEDS: NICOTINE 21 MG/24 HOUR PATCH TD SCH (08:44)
[2017-12-23] MEDS: OMEPRAZOLE 20 MG CAPSULE PO SCH (09:04)
[2017-12-23 16:15] VITALS: BP 121/71
[2017-12-23 19:40] VITALS: BP 118/78
[2017-12-23] MEDS: MAGNESIUM HYDROXIDE SUSPENSION 30 ML UDCUP PO PRN (19:41)
[2017-12-23] MEDS: HALOPERIDOL 5 MG TABLET PO PRN (19:41)
[2017-12-23] MEDS: TraMADol HCL 50 MG TABLET PO PRN (19:41)
[2017-12-23] MEDS: TraZODone HCL 100 MG TABLET PO SCH (20:59)
[2017-12-24 05:59] VITALS: BP 125/85
[2017-12-24] MEDS: CARISOPRODOL 350 MG TABLET PO SCH ×3 (09:44→17:03)
[2017-12-24] MEDS: METHADONE HCL 10 MG TABLET PO SCH (09:44)
[2017-12-24] MEDS: VENLAFAXINE HCL 75 MG ER CAPSULE PO SCH (09:45)
[2017-12-24] MEDS: DOCUSATE SODIUM 100 MG CAPSULE PO SCH ×2 (09:45→16:15)
[2017-12-24] MEDS: GABAPENTIN 300 MG CAPSULE PO SCH ×3 (09:45→16:15)
[2017-12-24] MEDS: ARIPiprazole 15 MG TABLET PO SCH (09:45)
[2017-12-24] MEDS: OMEPRAZOLE 20 MG CAPSULE PO SCH (09:45)
[2017-12-24] MEDS: BENZTROPINE MESYLATE 1 MG TABLET PO SCH ×2 (09:45→16:15)
[2017-12-24] MEDS: BuPROPion HCL 75 MG TABLET PO SCH (09:45)
[2017-12-24] MEDS: LITHIUM CARBONATE 300 MG CAPSULE PO SCH ×3 (09:45→16:15)
[2017-12-24] MEDS: NICOTINE 21 MG/24 HOUR PATCH TD SCH (09:46)
[2017-12-24 16:00] VITALS: BP 133/73
[2017-12-24 20:13] VITALS: BP 128/80
[2017-12-24] MEDS: HALOPERIDOL 5 MG TABLET PO PRN (20:14)
[2017-12-24] MEDS: TraMADol HCL 50 MG TABLET PO PRN (20:14)
[2017-12-24] MEDS: MAGNESIUM HYDROXIDE SUSPENSION 30 ML UDCUP PO PRN (20:14)
[2017-12-24] MEDS: CHLORHEXIDINE GLUCONATE 0.12% 15 ML UDCUP ORAL RINSE PO PRN (20:16)
[2017-12-24] MEDS: TraZODone HCL 100 MG TABLET PO SCH (20:32)
[2017-12-25 06:39] VITALS: BP 121/60
[2017-12-25 08:42] VITALS: BP 131/68
[2017-12-25] MEDS: NICOTINE 21 MG/24 HOUR PATCH TD SCH (08:47)
[2017-12-25] MEDS: ARIPiprazole 15 MG TABLET PO SCH (08:48)
[2017-12-25] MEDS: BENZTROPINE MESYLATE 1 MG TABLET PO SCH ×2 (08:48→16:09)
[2017-12-25] MEDS: METHADONE HCL 10 MG TABLET PO SCH (08:48)
[2017-12-25] MEDS: VENLAFAXINE HCL 75 MG ER CAPSULE PO SCH (08:48)
[2017-12-25] MEDS: BuPROPion HCL 75 MG TABLET PO SCH (08:48)
[2017-12-25] MEDS: OMEPRAZOLE 20 MG CAPSULE PO SCH (08:49)
[2017-12-25] MEDS: CARISOPRODOL 350 MG TABLET PO SCH ×3 (08:49→16:09)
[2017-12-25] MEDS: GABAPENTIN 300 MG CAPSULE PO SCH ×3 (08:49→16:09)
[2017-12-25] MEDS: DOCUSATE SODIUM 100 MG CAPSULE PO SCH ×2 (08:49→16:09)
[2017-12-25] MEDS: LITHIUM CARBONATE 300 MG CAPSULE PO SCH ×3 (08:49→16:09)
[2017-12-25 16:33] VITALS: BP 136/86
[2017-12-25] MEDS: TraMADol HCL 50 MG TABLET PO PRN (17:43)
[2017-12-25 18:40] VITALS: BP 118/68
[2017-12-25] MEDS: HALOPERIDOL 5 MG TABLET PO PRN (20:16)
[2017-12-25] MEDS: TraZODone HCL 100 MG TABLET PO SCH (20:16)
[2017-12-25] MEDS: MAGNESIUM HYDROXIDE SUSPENSION 30 ML UDCUP PO PRN (20:17)
[2017-12-26 07:01] VITALS: BP 108/64
[2017-12-26] MEDS: LITHIUM CARBONATE 300 MG CAPSULE PO SCH ×3 (09:08→16:28)
[2017-12-26] MEDS: ARIPiprazole 15 MG TABLET PO SCH (09:08)
[2017-12-26] MEDS: OMEPRAZOLE 20 MG CAPSULE PO SCH (09:08)
[2017-12-26] MEDS: BENZTROPINE MESYLATE 1 MG TABLET PO SCH ×2 (09:08→16:27)
[2017-12-26] MEDS: GABAPENTIN 300 MG CAPSULE PO SCH ×3 (09:08→16:27)
[2017-12-26] MEDS: VENLAFAXINE HCL 75 MG ER CAPSULE PO SCH (09:08)
[2017-12-26] MEDS: BuPROPion HCL 75 MG TABLET PO SCH (09:09)
[2017-12-26] MEDS: CARISOPRODOL 350 MG TABLET PO SCH ×3 (09:09→16:28)
[2017-12-26] MEDS: NICOTINE 21 MG/24 HOUR PATCH TD SCH (09:09)
[2017-12-26] MEDS: METHADONE HCL 10 MG TABLET PO SCH (09:09)
[2017-12-26] MEDS: DOCUSATE SODIUM 100 MG CAPSULE PO SCH ×2 (09:09→16:28)
[2017-12-26] MEDS: CHLORHEXIDINE GLUCONATE 0.12% 15 ML UDCUP ORAL RINSE PO PRN (16:35)
[2017-12-26 16:37] VITALS: BP 129/78
[2017-12-26 19:45] VITALS: BP 118/82
[2017-12-26] MEDS: TraMADol HCL 50 MG TABLET PO PRN (19:47)
[2017-12-26] MEDS: HALOPERIDOL 5 MG TABLET PO PRN (19:47)
[2017-12-26] MEDS: MAGNESIUM HYDROXIDE SUSPENSION 30 ML UDCUP PO PRN (19:47)
[2017-12-26] MEDS: TraZODone HCL 100 MG TABLET PO SCH (20:31)
[2017-12-27 08:00] VITALS: BP 120/68
[2017-12-27] MEDS: METHADONE HCL 10 MG TABLET PO SCH (08:27)
[2017-12-27] MEDS: BuPROPion HCL 75 MG TABLET PO SCH (08:28)
[2017-12-27] MEDS: LITHIUM CARBONATE 300 MG CAPSULE PO SCH ×3 (08:28→16:02)
[2017-12-27] MEDS: BENZTROPINE MESYLATE 1 MG TABLET PO SCH ×2 (08:28→16:02)
[2017-12-27] MEDS: CARISOPRODOL 350 MG TABLET PO SCH ×3 (08:28→16:02)
[2017-12-27] MEDS: OMEPRAZOLE 20 MG CAPSULE PO SCH (08:28)
[2017-12-27] MEDS: VENLAFAXINE HCL 75 MG ER CAPSULE PO SCH (08:28)
[2017-12-27] MEDS: DOCUSATE SODIUM 100 MG CAPSULE PO SCH ×2 (08:28→16:02)
[2017-12-27] MEDS: GABAPENTIN 300 MG CAPSULE PO SCH ×3 (08:28→16:02)
[2017-12-27] MEDS: ARIPiprazole 15 MG TABLET PO SCH (08:29)
[2017-12-27] MEDS: NICOTINE 21 MG/24 HOUR PATCH TD SCH (08:29)
[2017-12-27 16:07] VITALS: BP 129/86
[2017-12-27] MEDS: CHLORHEXIDINE GLUCONATE 0.12% 15 ML UDCUP ORAL RINSE PO PRN (17:10)
[2017-12-27] MEDS: MAGNESIUM HYDROXIDE SUSPENSION 30 ML UDCUP PO PRN (18:57)
[2017-12-27 18:58] VITALS: BP 125/85
[2017-12-27] MEDS: HALOPERIDOL 5 MG TABLET PO PRN (18:58)
[2017-12-27] MEDS: TraMADol HCL 50 MG TABLET PO PRN (18:58)
[2017-12-27 19:58] VITALS: BP 128/88
[2017-12-27] MEDS: TraZODone HCL 100 MG TABLET PO SCH (20:10)
[2017-12-28 07:30] VITALS: BP 126/78
[2017-12-28] MEDS: VENLAFAXINE HCL 75 MG ER CAPSULE PO SCH (08:19)
[2017-12-28] MEDS: DOCUSATE SODIUM 100 MG CAPSULE PO SCH ×2 (08:19→16:54)
[2017-12-28] MEDS: HydrOXYzine PAMOATE 50 MG CAPSULE PO PRN (08:19)
[2017-12-28] MEDS: ARIPiprazole 15 MG TABLET PO SCH (08:19)
[2017-12-28] MEDS: BuPROPion HCL 75 MG TABLET PO SCH (08:20)
[2017-12-28] MEDS: TraMADol HCL 50 MG TABLET PO PRN ×2 (08:20→18:55)
[2017-12-28] MEDS: LITHIUM CARBONATE 300 MG CAPSULE PO SCH ×3 (08:20→16:54)
[2017-12-28] MEDS: METHADONE HCL 10 MG TABLET PO SCH (08:20)
[2017-12-28] MEDS: OMEPRAZOLE 20 MG CAPSULE PO SCH (08:20)
[2017-12-28] MEDS: NICOTINE 21 MG/24 HOUR PATCH TD SCH (08:20)
[2017-12-28] MEDS: GABAPENTIN 300 MG CAPSULE PO SCH ×3 (08:20→16:54)
[2017-12-28] MEDS: BENZTROPINE MESYLATE 1 MG TABLET PO SCH ×2 (08:20→16:54)
[2017-12-28] MEDS: CARISOPRODOL 350 MG TABLET PO SCH ×3 (08:21→16:53)
[2017-12-28 08:29] VITALS: BP 115/70
[2017-12-28 09:21] VITALS: BP 121/73
[2017-12-28 16:17] VITALS: BP 112/65
[2017-12-28] MEDS: HALOPERIDOL 5 MG TABLET PO PRN (18:55)
[2017-12-28] MEDS: MAGNESIUM HYDROXIDE SUSPENSION 30 ML UDCUP PO PRN (18:55)
[2017-12-28] MEDS: TraZODone HCL 100 MG TABLET PO SCH (20:30)
[2017-12-29 06:56] VITALS: BP 106/61
[2017-12-29 08:12] VITALS: BP 110/71
[2017-12-29] MEDS: METHADONE HCL 10 MG TABLET PO SCH (09:58)
[2017-12-29] MEDS: BuPROPion HCL 75 MG TABLET PO SCH (09:58)
[2017-12-29] MEDS: GABAPENTIN 300 MG CAPSULE PO SCH ×3 (09:59→16:33)
[2017-12-29] MEDS: ARIPiprazole 15 MG TABLET PO SCH (09:59)
[2017-12-29] MEDS: OMEPRAZOLE 20 MG CAPSULE PO SCH (09:59)
[2017-12-29] MEDS: LITHIUM CARBONATE 300 MG CAPSULE PO SCH ×3 (09:59→16:33)
[2017-12-29] MEDS: CARISOPRODOL 350 MG TABLET PO SCH ×3 (09:59→16:33)
[2017-12-29] MEDS: BENZTROPINE MESYLATE 1 MG TABLET PO SCH ×2 (09:59→16:33)
[2017-12-29] MEDS: DOCUSATE SODIUM 100 MG CAPSULE PO SCH ×2 (09:59→17:43)
[2017-12-29] MEDS: VENLAFAXINE HCL 75 MG ER CAPSULE PO SCH (10:00)
[2017-12-29] MEDS: NICOTINE 21 MG/24 HOUR PATCH TD SCH (10:00)
[2017-12-29] MEDS: HALOPERIDOL 5 MG TABLET PO PRN (14:52)
[2017-12-29] MEDS: TraMADol HCL 50 MG TABLET PO PRN (14:52)
[2017-12-29 14:53] VITALS: BP 138/83
[2017-12-29] MEDS: MAGNESIUM HYDROXIDE SUSPENSION 30 ML UDCUP PO PRN (14:53)
[2017-12-29 16:04] VITALS: BP 145/69
[2017-12-29] MEDS: TraZODone HCL 100 MG TABLET PO SCH (20:28)
[2017-12-30 06:45] VITALS: BP 128/71
[2017-12-30] MEDS: VENLAFAXINE HCL 75 MG ER CAPSULE PO SCH (09:20)
[2017-12-30] MEDS: BuPROPion HCL 75 MG TABLET PO SCH (09:20)
[2017-12-30] MEDS: METHADONE HCL 10 MG TABLET PO SCH (09:20)
[2017-12-30] MEDS: ARIPiprazole 15 MG TABLET PO SCH (09:20)
[2017-12-30] MEDS: CARISOPRODOL 350 MG TABLET PO SCH ×3 (09:20→16:29)
[2017-12-30] MEDS: LITHIUM CARBONATE 300 MG CAPSULE PO SCH ×3 (09:21→16:29)
[2017-12-30] MEDS: DOCUSATE SODIUM 100 MG CAPSULE PO SCH ×2 (09:21→16:29)
[2017-12-30] MEDS: OMEPRAZOLE 20 MG CAPSULE PO SCH (09:21)
[2017-12-30] MEDS: GABAPENTIN 300 MG CAPSULE PO SCH ×3 (09:21→16:29)
[2017-12-30] MEDS: BENZTROPINE MESYLATE 1 MG TABLET PO SCH ×2 (09:21→16:29)
[2017-12-30] MEDS: NICOTINE 21 MG/24 HOUR PATCH TD SCH (09:21)
[2017-12-30 16:12] VITALS: BP 125/68
[2017-12-30] MEDS: HALOPERIDOL 5 MG TABLET PO PRN (16:29)
[2017-12-30] MEDS: MAGNESIUM HYDROXIDE SUSPENSION 30 ML UDCUP PO PRN (19:00)
[2017-12-30 20:05] VITALS: BP 132/72
[2017-12-30] MEDS: TraMADol HCL 50 MG TABLET PO PRN (20:13)
[2017-12-30] MEDS: TraZODone HCL 100 MG TABLET PO SCH (20:13)
[2017-12-31 02:37] VITALS: BP 131/74
[2017-12-31] MEDS: GABAPENTIN 300 MG CAPSULE PO SCH ×3 (08:31→16:17)
[2017-12-31] MEDS: DOCUSATE SODIUM 100 MG CAPSULE PO SCH ×2 (08:31→16:17)
[2017-12-31] MEDS: VENLAFAXINE HCL 75 MG ER CAPSULE PO SCH (08:31)
[2017-12-31] MEDS: ARIPiprazole 15 MG TABLET PO SCH (08:31)
[2017-12-31] MEDS: BENZTROPINE MESYLATE 1 MG TABLET PO SCH ×2 (08:31→16:17)
[2017-12-31] MEDS: LITHIUM CARBONATE 300 MG CAPSULE PO SCH ×3 (08:31→16:17)
[2017-12-31] MEDS: NICOTINE 21 MG/24 HOUR PATCH TD SCH (08:32)
[2017-12-31] MEDS: CARISOPRODOL 350 MG TABLET PO SCH ×3 (08:32→16:17)
[2017-12-31] MEDS: BuPROPion HCL 75 MG TABLET PO SCH (08:32)
[2017-12-31] MEDS: OMEPRAZOLE 20 MG CAPSULE PO SCH (08:32)
[2017-12-31] MEDS: METHADONE HCL 10 MG TABLET PO SCH (08:33)
[2017-12-31 08:50] VITALS: BP 128/70
[2017-12-31] MEDS: TraMADol HCL 50 MG TABLET PO PRN ×2 (08:50→17:29)
[2017-12-31 16:16] VITALS: BP 122/78
[2017-12-31] MEDS: HALOPERIDOL 5 MG TABLET PO PRN (17:28)
[2017-12-31] MEDS: MAGNESIUM HYDROXIDE SUSPENSION 30 ML UDCUP PO PRN (17:29)
[2017-12-31 18:28] VITALS: BP 118/75
[2017-12-31] MEDS: TraZODone HCL 100 MG TABLET PO SCH (20:27)
[2018-01-01 02:23] VITALS: BP 121/73
[2018-01-01] MEDS: VENLAFAXINE HCL 75 MG ER CAPSULE PO SCH (08:30)
[2018-01-01] MEDS: LITHIUM CARBONATE 300 MG CAPSULE PO SCH ×3 (08:30→16:19)
[2018-01-01] MEDS: OMEPRAZOLE 20 MG CAPSULE PO SCH (08:31)
[2018-01-01] MEDS: CARISOPRODOL 350 MG TABLET PO SCH ×3 (08:31→16:18)
[2018-01-01] MEDS: BENZTROPINE MESYLATE 1 MG TABLET PO SCH ×2 (08:31→16:18)
[2018-01-01] MEDS: GABAPENTIN 300 MG CAPSULE PO SCH ×3 (08:31→16:19)
[2018-01-01] MEDS: BuPROPion HCL 75 MG TABLET PO SCH (08:31)
[2018-01-01] MEDS: METHADONE HCL 10 MG TABLET PO SCH (08:31)
[2018-01-01] MEDS: ARIPiprazole 15 MG TABLET PO SCH (08:31)
[2018-01-01] MEDS: DOCUSATE SODIUM 100 MG CAPSULE PO SCH ×2 (08:31→16:19)
[2018-01-01] MEDS: NICOTINE 21 MG/24 HOUR PATCH TD SCH (08:32)
[2018-01-01] MEDS: CHLORHEXIDINE GLUCONATE 0.12% 15 ML UDCUP ORAL RINSE PO PRN (08:56)
[2018-01-01] MEDS: TraMADol HCL 50 MG TABLET PO PRN (14:53)
[2018-01-01] MEDS: HALOPERIDOL 5 MG TABLET PO PRN (14:53)
[2018-01-01] MEDS: MAGNESIUM HYDROXIDE SUSPENSION 30 ML UDCUP PO PRN (14:58)
[2018-01-01 15:02] VITALS: BP 119/73
[2018-01-01 16:02] VITALS: BP 120/72
[2018-01-01] MEDS: TraZODone HCL 100 MG TABLET PO SCH (20:09)
[2018-01-02 06:16] VITALS: BP 117/63
[2018-01-02] MEDS: METHADONE HCL 10 MG TABLET PO SCH (08:39)
[2018-01-02] MEDS: BuPROPion HCL 75 MG TABLET PO SCH (08:39)
[2018-01-02] MEDS: VENLAFAXINE HCL 75 MG ER CAPSULE PO SCH (08:40)
[2018-01-02] MEDS: ARIPiprazole 15 MG TABLET PO SCH (08:40)
[2018-01-02] MEDS: GABAPENTIN 300 MG CAPSULE PO SCH ×3 (08:40→16:06)
[2018-01-02] MEDS: DOCUSATE SODIUM 100 MG CAPSULE PO SCH ×2 (08:40→16:07)
[2018-01-02] MEDS: OMEPRAZOLE 20 MG CAPSULE PO SCH (08:40)
[2018-01-02] MEDS: LITHIUM CARBONATE 300 MG CAPSULE PO SCH ×3 (08:40→16:07)
[2018-01-02] MEDS: NICOTINE 21 MG/24 HOUR PATCH TD SCH (08:40)
[2018-01-02] MEDS: BENZTROPINE MESYLATE 1 MG TABLET PO SCH ×2 (08:40→16:06)
[2018-01-02 09:40] VITALS: BP 118/74
[2018-01-02] MEDS: CARISOPRODOL 350 MG TABLET PO PRN ×2 (09:40→20:52)
[2018-01-02] MEDS: TraMADol HCL 50 MG TABLET PO PRN (10:18)
[2018-01-02] MEDS: HALOPERIDOL 5 MG TABLET PO PRN (15:15)
[2018-01-02 16:11] VITALS: BP 116/77
[2018-01-02 20:51] VITALS: BP 118/85
[2018-01-02] MEDS: TraZODone HCL 100 MG TABLET PO SCH (20:52)
[2018-01-03 06:23] VITALS: BP 108/68
[2018-01-03] MEDS: NICOTINE 21 MG/24 HOUR PATCH TD SCH (09:28)
[2018-01-03] MEDS: METHADONE HCL 10 MG TABLET PO SCH (09:28)
[2018-01-03] MEDS: BENZTROPINE MESYLATE 1 MG TABLET PO SCH ×2 (09:29→17:06)
[2018-01-03] MEDS: ARIPiprazole 15 MG TABLET PO SCH (09:29)
[2018-01-03] MEDS: DOCUSATE SODIUM 100 MG CAPSULE PO SCH ×2 (09:29→17:06)
[2018-01-03] MEDS: GABAPENTIN 300 MG CAPSULE PO SCH ×3 (09:29→17:06)
[2018-01-03] MEDS: OMEPRAZOLE 20 MG CAPSULE PO SCH (09:29)
[2018-01-03] MEDS: VENLAFAXINE HCL 75 MG ER CAPSULE PO SCH (09:29)
[2018-01-03] MEDS: LITHIUM CARBONATE 300 MG CAPSULE PO SCH ×3 (09:29→17:06)
[2018-01-03] MEDS: BuPROPion HCL 75 MG TABLET PO SCH (09:29)
[2018-01-03 09:38] VITALS: BP 115/70
[2018-01-03] MEDS: CARISOPRODOL 350 MG TABLET PO PRN ×2 (09:39→20:55)
[2018-01-03 12:34] VITALS: BP 110/65
[2018-01-03] MEDS: TraMADol HCL 50 MG TABLET PO PRN (12:35)
[2018-01-03] MEDS: HydrOXYzine PAMOATE 50 MG CAPSULE PO PRN (17:06)
[2018-01-03] MEDS: HALOPERIDOL 5 MG TABLET PO PRN (17:06)
[2018-01-03 20:53] VITALS: BP 124/81
[2018-01-03] MEDS: CHLORHEXIDINE GLUCONATE 0.12% 15 ML UDCUP ORAL RINSE PO PRN (20:54)
[2018-01-03] MEDS: MAGNESIUM HYDROXIDE SUSPENSION 30 ML UDCUP PO PRN (20:54)
[2018-01-03] MEDS: TraZODone HCL 100 MG TABLET PO SCH (20:54)
[2018-01-03 21:55] VITALS: BP 119/76
[2018-01-04] MEDS: OMEPRAZOLE 20 MG CAPSULE PO SCH (08:02)
[2018-01-04] MEDS: GABAPENTIN 300 MG CAPSULE PO SCH ×3 (08:02→16:42)
[2018-01-04] MEDS: HydrOXYzine PAMOATE 50 MG CAPSULE PO PRN (08:02)
[2018-01-04] MEDS: LITHIUM CARBONATE 300 MG CAPSULE PO SCH ×3 (08:02→16:42)
[2018-01-04] MEDS: VENLAFAXINE HCL 75 MG ER CAPSULE PO SCH (08:02)
[2018-01-04] MEDS: METHADONE HCL 10 MG TABLET PO SCH (08:02)
[2018-01-04] MEDS: TraMADol HCL 50 MG TABLET PO PRN ×2 (08:02→16:11)
[2018-01-04] MEDS: BENZTROPINE MESYLATE 1 MG TABLET PO SCH ×2 (08:02→16:42)
[2018-01-04] MEDS: HALOPERIDOL 5 MG TABLET PO PRN (08:02)
[2018-01-04] MEDS: ARIPiprazole 15 MG TABLET PO SCH (08:03)
[2018-01-04] MEDS: DOCUSATE SODIUM 100 MG CAPSULE PO SCH ×2 (08:03→16:42)
[2018-01-04] MEDS: NICOTINE 21 MG/24 HOUR PATCH TD SCH (08:03)
[2018-01-04] MEDS: BuPROPion HCL 75 MG TABLET PO SCH (08:33)
[2018-01-04 09:05] VITALS: BP 126/74
[2018-01-04] MEDS: CARISOPRODOL 350 MG TABLET PO PRN (13:08)
[2018-01-04 16:10] VITALS: BP 130/79
[2018-01-04] MEDS: TraZODone HCL 100 MG TABLET PO SCH (20:06)
[2018-01-05] MEDS: LITHIUM CARBONATE 300 MG CAPSULE PO SCH ×3 (08:35→16:14)
[2018-01-05] MEDS: BENZTROPINE MESYLATE 1 MG TABLET PO SCH ×2 (08:35→16:14)
[2018-01-05] MEDS: METHADONE HCL 10 MG TABLET PO SCH (08:35)
[2018-01-05] MEDS: ARIPiprazole 15 MG TABLET PO SCH (08:35)
[2018-01-05] MEDS: GABAPENTIN 300 MG CAPSULE PO SCH ×3 (08:35→16:14)
[2018-01-05] MEDS: BuPROPion HCL 75 MG TABLET PO SCH (08:35)
[2018-01-05] MEDS: NICOTINE 21 MG/24 HOUR PATCH TD SCH (08:36)
[2018-01-05] MEDS: VENLAFAXINE HCL 75 MG ER CAPSULE PO SCH (08:36)
[2018-01-05] MEDS: DOCUSATE SODIUM 100 MG CAPSULE PO SCH ×2 (08:36→16:14)
[2018-01-05] MEDS: OMEPRAZOLE 20 MG CAPSULE PO SCH (08:36)
[2018-01-05 12:19] VITALS: BP 132/78
[2018-01-05] MEDS: CARISOPRODOL 350 MG TABLET PO PRN (12:19)
[2018-01-05] MEDS: MAGNESIUM HYDROXIDE SUSPENSION 30 ML UDCUP PO PRN (13:38)
[2018-01-05 13:39] VITALS: BP 126/74
[2018-01-05] MEDS: TraMADol HCL 50 MG TABLET PO PRN (13:39)
[2018-01-05] MEDS: HALOPERIDOL 5 MG TABLET PO PRN ×2 (13:39→18:55)
[2018-01-05] MEDS: CHLORHEXIDINE GLUCONATE 0.12% 15 ML UDCUP ORAL RINSE PO PRN (13:46)
[2018-01-05 16:00] VITALS: BP 134/93
[2018-01-05] MEDS: TraZODone HCL 100 MG TABLET PO SCH (20:10)
[2018-01-06 05:35] VITALS: BP 129/68
[2018-01-06] MEDS: VENLAFAXINE HCL 75 MG ER CAPSULE PO SCH (08:02)
[2018-01-06] MEDS: DOCUSATE SODIUM 100 MG CAPSULE PO SCH ×2 (08:02→16:05)
[2018-01-06] MEDS: OMEPRAZOLE 20 MG CAPSULE PO SCH (08:02)
[2018-01-06] MEDS: GABAPENTIN 300 MG CAPSULE PO SCH ×3 (08:02→16:05)
[2018-01-06] MEDS: METHADONE HCL 10 MG TABLET PO SCH (08:03)
[2018-01-06] MEDS: BENZTROPINE MESYLATE 1 MG TABLET PO SCH ×2 (08:03→16:05)
[2018-01-06] MEDS: BuPROPion HCL 75 MG TABLET PO SCH (08:03)
[2018-01-06] MEDS: ARIPiprazole 15 MG TABLET PO SCH (08:03)
[2018-01-06] MEDS: LITHIUM CARBONATE 300 MG CAPSULE PO SCH ×3 (08:03→16:05)
[2018-01-06] MEDS: NICOTINE 21 MG/24 HOUR PATCH TD SCH (08:04)
[2018-01-06 08:13] VITALS: BP 119/68
[2018-01-06] MEDS: CHLORHEXIDINE GLUCONATE 0.12% 15 ML UDCUP ORAL RINSE PO PRN (12:41)
[2018-01-06 16:04] VITALS: BP 132/71
[2018-01-06] MEDS: HALOPERIDOL 5 MG TABLET PO PRN (16:08)
[2018-01-06 18:25] VITALS: BP 128/70
[2018-01-06] MEDS: MAGNESIUM HYDROXIDE SUSPENSION 30 ML UDCUP PO PRN (18:26)
[2018-01-06] MEDS: TraMADol HCL 50 MG TABLET PO PRN (18:26)
[2018-01-06] MEDS: CARISOPRODOL 350 MG TABLET PO PRN (20:06)
[2018-01-06 20:25] VITALS: BP 125/74
[2018-01-06] MEDS: TraZODone HCL 100 MG TABLET PO SCH (21:05)
[2018-01-07 06:36] VITALS: BP 114/61
[2018-01-07] MEDS: METHADONE HCL 10 MG TABLET PO SCH (08:28)
[2018-01-07] MEDS: BuPROPion HCL 75 MG TABLET PO SCH (08:28)
[2018-01-07] MEDS: DOCUSATE SODIUM 100 MG CAPSULE PO SCH ×2 (08:29→16:34)
[2018-01-07] MEDS: ARIPiprazole 15 MG TABLET PO SCH (08:29)
[2018-01-07] MEDS: VENLAFAXINE HCL 75 MG ER CAPSULE PO SCH (08:29)
[2018-01-07] MEDS: BENZTROPINE MESYLATE 1 MG TABLET PO SCH ×2 (08:29→16:34)
[2018-01-07] MEDS: OMEPRAZOLE 20 MG CAPSULE PO SCH (08:29)
[2018-01-07] MEDS: GABAPENTIN 300 MG CAPSULE PO SCH ×3 (08:29→16:34)
[2018-01-07] MEDS: NICOTINE 21 MG/24 HOUR PATCH TD SCH (08:29)
[2018-01-07] MEDS: LITHIUM CARBONATE 300 MG CAPSULE PO SCH ×3 (08:29→16:34)
[2018-01-07 12:52] VITALS: BP 108/70
[2018-01-07] MEDS: CARISOPRODOL 350 MG TABLET PO PRN (12:52)
[2018-01-07] MEDS: HALOPERIDOL 5 MG TABLET PO PRN ×2 (12:52→20:55)
[2018-01-07] MEDS: CHLORHEXIDINE GLUCONATE 0.12% 15 ML UDCUP ORAL RINSE PO PRN ×2 (14:31→20:56)
[2018-01-07] MEDS: TraMADol HCL 50 MG TABLET PO PRN (14:41)
[2018-01-07 15:41] VITALS: BP 116/74
[2018-01-07] MEDS: HydrOXYzine PAMOATE 50 MG CAPSULE PO PRN (16:34)
[2018-01-07 16:35] VITALS: BP 130/87
[2018-01-07] MEDS: TraZODone HCL 100 MG TABLET PO SCH (20:55)
[2018-01-07] MEDS: MAGNESIUM HYDROXIDE SUSPENSION 30 ML UDCUP PO PRN (20:56)
[2018-01-08 06:33] VITALS: BP 131/81
[2018-01-08] MEDS: NICOTINE 21 MG/24 HOUR PATCH TD SCH ×2 (08:56→09:00)
[2018-01-08] MEDS: METHADONE HCL 10 MG TABLET PO SCH (08:58)
[2018-01-08] MEDS: BuPROPion HCL 75 MG TABLET PO SCH (08:59)
[2018-01-08] MEDS: VENLAFAXINE HCL 75 MG ER CAPSULE PO SCH (08:59)
[2018-01-08] MEDS: BENZTROPINE MESYLATE 1 MG TABLET PO SCH ×2 (08:59→16:10)
[2018-01-08] MEDS: GABAPENTIN 300 MG CAPSULE PO SCH ×3 (09:00→16:10)
[2018-01-08] MEDS: ARIPiprazole 15 MG TABLET PO SCH (09:00)
[2018-01-08] MEDS: OMEPRAZOLE 20 MG CAPSULE PO SCH (09:01)
[2018-01-08] MEDS: LITHIUM CARBONATE 300 MG CAPSULE PO SCH ×3 (09:01→16:11)
[2018-01-08] MEDS: DOCUSATE SODIUM 100 MG CAPSULE PO SCH ×2 (09:01→16:11)
[2018-01-08 13:16] VITALS: BP 125/80
[2018-01-08] MEDS: CARISOPRODOL 350 MG TABLET PO PRN (13:17)
[2018-01-08 16:19] VITALS: BP 135/85
[2018-01-08] MEDS: TraZODone HCL 100 MG TABLET PO SCH (20:42)
[2018-01-09 05:57] VITALS: BP 124/67
[2018-01-09] MEDS: BuPROPion HCL 75 MG TABLET PO SCH (08:22)
[2018-01-09] MEDS: GABAPENTIN 300 MG CAPSULE PO SCH ×3 (08:23→17:03)
[2018-01-09] MEDS: DOCUSATE SODIUM 100 MG CAPSULE PO SCH ×2 (08:23→17:03)
[2018-01-09] MEDS: VENLAFAXINE HCL 75 MG ER CAPSULE PO SCH (08:23)
[2018-01-09] MEDS: LITHIUM CARBONATE 300 MG CAPSULE PO SCH ×3 (08:23→17:02)
[2018-01-09] MEDS: BENZTROPINE MESYLATE 1 MG TABLET PO SCH ×2 (08:23→17:03)
[2018-01-09] MEDS: ARIPiprazole 15 MG TABLET PO SCH (08:23)
[2018-01-09] MEDS: OMEPRAZOLE 20 MG CAPSULE PO SCH (08:23)
[2018-01-09] MEDS: METHADONE HCL 10 MG TABLET PO SCH (08:23)
[2018-01-09] MEDS: NICOTINE 21 MG/24 HOUR PATCH TD SCH (08:32)
[2018-01-09 08:37] VITALS: BP 120/64
[2018-01-09 10:21] VITALS: BP 118/72
[2018-01-09] MEDS: CARISOPRODOL 350 MG TABLET PO PRN ×2 (10:21→19:27)
[2018-01-09] MEDS: HALOPERIDOL 5 MG TABLET PO PRN ×2 (10:21→17:03)
[2018-01-09 16:02] VITALS: BP 120/72
[2018-01-09 19:26] VITALS: BP 116/75
[2018-01-09] MEDS: MAGNESIUM HYDROXIDE SUSPENSION 30 ML UDCUP PO PRN (19:28)
[2018-01-09] MEDS: TraZODone HCL 100 MG TABLET PO SCH (20:15)
[2018-01-09 21:06] VITALS: BP 118/74
[2018-01-09] MEDS: TraMADol HCL 50 MG TABLET PO PRN (21:07)
[2018-01-10 03:22] VITALS: BP 100/60
[2018-01-10] MEDS: BuPROPion HCL 75 MG TABLET PO SCH (08:17)
[2018-01-10] MEDS: GABAPENTIN 300 MG CAPSULE PO SCH ×3 (08:17→16:13)
[2018-01-10] MEDS: LITHIUM CARBONATE 300 MG CAPSULE PO SCH ×3 (08:18→16:13)
[2018-01-10] MEDS: OMEPRAZOLE 20 MG CAPSULE PO SCH (08:18)
[2018-01-10] MEDS: VENLAFAXINE HCL 75 MG ER CAPSULE PO SCH (08:18)
[2018-01-10] MEDS: BENZTROPINE MESYLATE 1 MG TABLET PO SCH ×2 (08:18→16:13)
[2018-01-10] MEDS: DOCUSATE SODIUM 100 MG CAPSULE PO SCH ×2 (08:18→16:13)
[2018-01-10] MEDS: ARIPiprazole 15 MG TABLET PO SCH (08:18)
[2018-01-10] MEDS: NICOTINE 21 MG/24 HOUR PATCH TD SCH (08:19)
[2018-01-10] MEDS: METHADONE HCL 10 MG TABLET PO SCH (08:19)
[2018-01-10 08:33] VITALS: BP 118/66
[2018-01-10 10:50] VITALS: BP 120/78
[2018-01-10] MEDS: CARISOPRODOL 350 MG TABLET PO PRN ×2 (10:50→19:56)
[2018-01-10 11:50] VITALS: BP 118/68
[2018-01-10 16:03] VITALS: BP 123/70
[2018-01-10] MEDS: HALOPERIDOL 5 MG TABLET PO PRN (16:12)
[2018-01-10] MEDS: TraMADol HCL 50 MG TABLET PO PRN (17:07)
[2018-01-10] MEDS: MAGNESIUM HYDROXIDE SUSPENSION 30 ML UDCUP PO PRN (17:07)
[2018-01-10 18:07] VITALS: BP 118/82
[2018-01-10] MEDS: TraZODone HCL 100 MG TABLET PO SCH (21:15)
[2018-01-11 08:19] VITALS: BP 101/59
[2018-01-11] MEDS: LITHIUM CARBONATE 300 MG CAPSULE PO SCH ×3 (08:41→16:02)
[2018-01-11] MEDS: VENLAFAXINE HCL 75 MG ER CAPSULE PO SCH (08:41)
[2018-01-11] MEDS: DOCUSATE SODIUM 100 MG CAPSULE PO SCH ×2 (08:41→16:02)
[2018-01-11] MEDS: BuPROPion HCL 75 MG TABLET PO SCH (08:41)
[2018-01-11] MEDS: BENZTROPINE MESYLATE 1 MG TABLET PO SCH ×2 (08:41→16:02)
[2018-01-11] MEDS: OMEPRAZOLE 20 MG CAPSULE PO SCH (08:41)
[2018-01-11] MEDS: GABAPENTIN 300 MG CAPSULE PO SCH ×3 (08:42→16:02)
[2018-01-11] MEDS: ARIPiprazole 15 MG TABLET PO SCH (08:42)
[2018-01-11] MEDS: NICOTINE 21 MG/24 HOUR PATCH TD SCH (08:44)
[2018-01-11] MEDS: METHADONE HCL 10 MG TABLET PO SCH (08:53)
[2018-01-11] MEDS: CARISOPRODOL 350 MG TABLET PO PRN (11:03)
[2018-01-11 16:03] VITALS: BP 110/62
[2018-01-11] MEDS: TraMADol HCL 50 MG TABLET PO PRN (16:05)
[2018-01-11] MEDS: MAGNESIUM HYDROXIDE SUSPENSION 30 ML UDCUP PO PRN (16:05)
[2018-01-11] MEDS: HALOPERIDOL 5 MG TABLET PO PRN (16:54)
[2018-01-11] MEDS: TraZODone HCL 100 MG TABLET PO SCH (20:03)
[2018-01-12 03:00] VITALS: BP 103/61
[2018-01-12] MEDS: BuPROPion HCL 75 MG TABLET PO SCH (08:28)
[2018-01-12] MEDS: BENZTROPINE MESYLATE 1 MG TABLET PO SCH ×2 (08:28→16:19)
[2018-01-12] MEDS: METHADONE HCL 10 MG TABLET PO SCH (08:28)
[2018-01-12] MEDS: ARIPiprazole 15 MG TABLET PO SCH (08:28)
[2018-01-12] MEDS: LITHIUM CARBONATE 300 MG CAPSULE PO SCH ×3 (08:28→16:19)
[2018-01-12] MEDS: VENLAFAXINE HCL 75 MG ER CAPSULE PO SCH (08:29)
[2018-01-12] MEDS: OMEPRAZOLE 20 MG CAPSULE PO SCH (08:29)
[2018-01-12] MEDS: GABAPENTIN 300 MG CAPSULE PO SCH ×3 (08:29→16:19)
[2018-01-12] MEDS: DOCUSATE SODIUM 100 MG CAPSULE PO SCH ×2 (08:29→16:19)
[2018-01-12] MEDS: NICOTINE 21 MG/24 HOUR PATCH TD SCH (08:30)
[2018-01-12 08:47] VITALS: BP 118/60
[2018-01-12] MEDS: CARISOPRODOL 350 MG TABLET PO PRN (10:39)
[2018-01-12] MEDS: HALOPERIDOL 5 MG TABLET PO PRN (12:17)
[2018-01-12] MEDS: TraMADol HCL 50 MG TABLET PO PRN (12:17)
[2018-01-12 16:15] VITALS: BP 136/87
[2018-01-12] MEDS: TraZODone HCL 100 MG TABLET PO SCH (21:01)
[2018-01-13 04:07] VITALS: BP 130/88
[2018-01-13] MEDS: NICOTINE 21 MG/24 HOUR PATCH TD SCH (08:06)
[2018-01-13] MEDS: OMEPRAZOLE 20 MG CAPSULE PO SCH (08:07)
[2018-01-13] MEDS: METHADONE HCL 10 MG TABLET PO SCH (08:07)
[2018-01-13] MEDS: BENZTROPINE MESYLATE 1 MG TABLET PO SCH ×2 (08:08→16:13)
[2018-01-13] MEDS: ARIPiprazole 15 MG TABLET PO SCH (08:08)
[2018-01-13] MEDS: LITHIUM CARBONATE 300 MG CAPSULE PO SCH ×3 (08:08→16:13)
[2018-01-13] MEDS: GABAPENTIN 300 MG CAPSULE PO SCH ×3 (08:08→16:13)
[2018-01-13] MEDS: DOCUSATE SODIUM 100 MG CAPSULE PO SCH ×2 (08:08→16:13)
[2018-01-13] MEDS: VENLAFAXINE HCL 75 MG ER CAPSULE PO SCH (08:08)
[2018-01-13] MEDS: BuPROPion HCL 75 MG TABLET PO SCH (08:09)
[2018-01-13 08:58] VITALS: BP 127/55
[2018-01-13] MEDS: CARISOPRODOL 350 MG TABLET PO PRN (09:55)
[2018-01-13 16:00] VITALS: BP 113/60
[2018-01-13] MEDS: HALOPERIDOL 5 MG TABLET PO PRN (16:13)
[2018-01-13] MEDS: TraZODone HCL 100 MG TABLET PO SCH (20:33)
[2018-01-13 20:45] VITALS: BP 135/68
[2018-01-13] MEDS: TraMADol HCL 50 MG TABLET PO PRN (20:50)
[2018-01-13] MEDS: MAGNESIUM HYDROXIDE SUSPENSION 30 ML UDCUP PO PRN (20:50)
[2018-01-14 08:02] VITALS: BP 112/59
[2018-01-14] MEDS: GABAPENTIN 300 MG CAPSULE PO SCH ×3 (08:03→16:10)
[2018-01-14] MEDS: BuPROPion HCL 75 MG TABLET PO SCH (08:04)
[2018-01-14] MEDS: METHADONE HCL 10 MG TABLET PO SCH (08:04)
[2018-01-14] MEDS: VENLAFAXINE HCL 75 MG ER CAPSULE PO SCH (08:04)
[2018-01-14] MEDS: BENZTROPINE MESYLATE 1 MG TABLET PO SCH ×2 (08:04→16:10)
[2018-01-14] MEDS: LITHIUM CARBONATE 300 MG CAPSULE PO SCH ×3 (08:04→16:10)
[2018-01-14] MEDS: NICOTINE 21 MG/24 HOUR PATCH TD SCH (08:04)
[2018-01-14] MEDS: ARIPiprazole 15 MG TABLET PO SCH (08:04)
[2018-01-14] MEDS: DOCUSATE SODIUM 100 MG CAPSULE PO SCH ×2 (08:04→16:10)
[2018-01-14] MEDS: OMEPRAZOLE 20 MG CAPSULE PO SCH (08:05)
[2018-01-14] MEDS: CARISOPRODOL 350 MG TABLET PO PRN (10:12)
[2018-01-14] MEDS: MAGNESIUM HYDROXIDE SUSPENSION 30 ML UDCUP PO PRN (12:12)
[2018-01-14 16:04] VITALS: BP 118/65
[2018-01-14] MEDS: TraZODone HCL 100 MG TABLET PO SCH (20:28)
[2018-01-15] MEDS: BuPROPion HCL 75 MG TABLET PO SCH (08:13)
[2018-01-15] MEDS: VENLAFAXINE HCL 75 MG ER CAPSULE PO SCH (08:14)
[2018-01-15] MEDS: BENZTROPINE MESYLATE 1 MG TABLET PO SCH ×2 (08:14→16:27)
[2018-01-15] MEDS: GABAPENTIN 300 MG CAPSULE PO SCH ×3 (08:14→16:27)
[2018-01-15] MEDS: DOCUSATE SODIUM 100 MG CAPSULE PO SCH ×2 (08:14→16:27)
[2018-01-15] MEDS: LITHIUM CARBONATE 300 MG CAPSULE PO SCH ×3 (08:14→16:27)
[2018-01-15] MEDS: OMEPRAZOLE 20 MG CAPSULE PO SCH (08:14)
[2018-01-15] MEDS: ARIPiprazole 15 MG TABLET PO SCH (08:14)
[2018-01-15] MEDS: METHADONE HCL 10 MG TABLET PO SCH (08:14)
[2018-01-15] MEDS: NICOTINE 21 MG/24 HOUR PATCH TD SCH (08:17)
[2018-01-15 08:19] VITALS: BP 118/67
[2018-01-15] MEDS: CARISOPRODOL 350 MG TABLET PO PRN (10:36)
[2018-01-15 13:20] VITALS: BP 122/78
[2018-01-15 16:41] VITALS: BP 124/78
[2018-01-15] MEDS: TraZODone HCL 100 MG TABLET PO SCH (20:38)
[2018-01-15] MEDS: MAGNESIUM HYDROXIDE SUSPENSION 30 ML UDCUP PO PRN (20:38)
[2018-01-16 07:07] VITALS: BP 135/72
[2018-01-16] MEDS: VENLAFAXINE HCL 75 MG ER CAPSULE PO SCH (08:45)
[2018-01-16] MEDS: ARIPiprazole 15 MG TABLET PO SCH (08:46)
[2018-01-16] MEDS: OMEPRAZOLE 20 MG CAPSULE PO SCH (08:46)
[2018-01-16] MEDS: LITHIUM CARBONATE 300 MG CAPSULE PO SCH ×3 (08:46→17:08)
[2018-01-16] MEDS: DOCUSATE SODIUM 100 MG CAPSULE PO SCH ×2 (08:46→17:10)
[2018-01-16] MEDS: BuPROPion HCL 75 MG TABLET PO SCH (08:46)
[2018-01-16] MEDS: BENZTROPINE MESYLATE 1 MG TABLET PO SCH ×2 (08:46→17:10)
[2018-01-16] MEDS: NICOTINE 21 MG/24 HOUR PATCH TD SCH (08:47)
[2018-01-16] MEDS: GABAPENTIN 300 MG CAPSULE PO SCH ×3 (08:47→17:10)
[2018-01-16] MEDS: METHADONE HCL 10 MG/5 ML SOLUTION ORAL.SYG PO SCH (08:48)
[2018-01-16] MEDS: MAGNESIUM HYDROXIDE SUSPENSION 30 ML UDCUP PO PRN (12:21)
[2018-01-16] MEDS: HALOPERIDOL 5 MG TABLET PO PRN (12:24)
[2018-01-16 16:05] VITALS: BP 125/71
[2018-01-16] MEDS: TraZODone HCL 100 MG TABLET PO SCH (20:46)
[2018-01-17 07:14] VITALS: BP 135/72
[2018-01-17 08:00] VITALS: BP 117/71
[2018-01-17] MEDS: NICOTINE 21 MG/24 HOUR PATCH TD SCH (08:24)
[2018-01-17] MEDS: METHADONE HCL 10 MG/5 ML SOLUTION ORAL.SYG PO SCH (08:24)
[2018-01-17] MEDS: BuPROPion HCL 75 MG TABLET PO SCH (08:24)
[2018-01-17] MEDS: LITHIUM CARBONATE 300 MG CAPSULE PO SCH ×3 (08:25→16:38)
[2018-01-17] MEDS: DOCUSATE SODIUM 100 MG CAPSULE PO SCH ×2 (08:25→16:39)
[2018-01-17] MEDS: ARIPiprazole 15 MG TABLET PO SCH (08:25)
[2018-01-17] MEDS: VENLAFAXINE HCL 75 MG ER CAPSULE PO SCH (08:25)
[2018-01-17] MEDS: OMEPRAZOLE 20 MG CAPSULE PO SCH (08:25)
[2018-01-17] MEDS: BENZTROPINE MESYLATE 1 MG TABLET PO SCH ×2 (08:25→16:38)
[2018-01-17] MEDS: GABAPENTIN 300 MG CAPSULE PO SCH ×3 (08:25→16:38)
[2018-01-17] MEDS: HALOPERIDOL 5 MG TABLET PO PRN (12:09)
[2018-01-17 16:05] VITALS: BP 127/69
[2018-01-17] MEDS: TraZODone HCL 100 MG TABLET PO SCH (20:20)
[2018-01-18] MEDS: METHADONE HCL 10 MG/5 ML SOLUTION ORAL.SYG PO SCH (08:23)
[2018-01-18] MEDS: DOCUSATE SODIUM 100 MG CAPSULE PO SCH (08:23)
[2018-01-18] MEDS: BuPROPion HCL 75 MG TABLET PO SCH (08:23)
[2018-01-18] MEDS: NICOTINE 21 MG/24 HOUR PATCH TD SCH (08:24)
[2018-01-18] MEDS: LITHIUM CARBONATE 300 MG CAPSULE PO SCH ×2 (08:24→13:02)
[2018-01-18] MEDS: GABAPENTIN 300 MG CAPSULE PO SCH ×2 (08:24→13:02)
[2018-01-18] MEDS: VENLAFAXINE HCL 75 MG ER CAPSULE PO SCH (08:24)
[2018-01-18] MEDS: BENZTROPINE MESYLATE 1 MG TABLET PO SCH (08:24)
[2018-01-18] MEDS: ARIPiprazole 15 MG TABLET PO SCH (08:24)
[2018-01-18 08:25] VITALS: BP 118/72
[2018-01-18] MEDS: OMEPRAZOLE 20 MG CAPSULE PO SCH (08:25)
[2018-01-18] MEDS: HALOPERIDOL 5 MG TABLET PO PRN ×2 (08:26→13:06)
[2018-01-18] MEDS ORDERED: LITH300T4 PO (15:00)
[2018-01-18] MEDS ORDERED: BENZ1TAB10 PO (15:00)
[2018-01-18] MEDS ORDERED: BUPR-93 PO (15:01)
[2018-01-18] MEDS ORDERED: ARIP30TA PO (15:01)
[2018-01-18] MEDS ORDERED: TRAZ-147 PO (15:01)
== END 2018-01-18 16:00 | disposition home or self-care (01) | DRG 750 ==
LOC: EMS 16:12 → B2S 21:41 → 2WR 08-21 12:36 → B3A 10-08 15:30
PROVIDERS: ADMIT Psychiatry & Neurology Psychiatry; ATTEND Psychiatry & Neurology Psychiatry
PROC: 3E0234Z Introduction of Serum, Toxoid and Vaccine into Muscle, Percutaneous Approach (ICD-10-PCS; principal; 2017-08-10)
DX: F25.0 Schizoaffective disorder, bipolar type (principal); M41.9 Scoliosis, unspecified; R45.851 Suicidal ideations; F32.9 Major depressive disorder, single episode, unspecified; F10.10 Alcohol abuse, uncomplicated; F12.90 Cannabis use, unspecified, uncomplicated; F17.210 Nicotine dependence, cigarettes, uncomplicated; F43.10 Post-traumatic stress disorder, unspecified; F60.3 Borderline personality disorder; G89.4 Chronic pain syndrome; J45.909 Unspecified asthma, uncomplicated; K21.9 Gastro-esophageal reflux disease without esophagitis; M79.7 Fibromyalgia; S61.511A Laceration without foreign body of right wrist, initial encounter; S61.512A Laceration without foreign body of left wrist, initial encounter; F19.10 Other psychoactive substance abuse, uncomplicated; G43.909 Migraine, unspecified, not intractable, without status migrainosus; Z91.5 Personal history of self-harm; Z23 Encounter for immunization; Z88.1 Allergy status to other antibiotic agents; Z88.2 Allergy status to sulfonamides; Z88.8 Allergy status to other drugs, medicaments and biological substances; Z79.899 Other long term (current) drug therapy; Z71.41 Alcohol abuse counseling and surveillance of alcoholic; Z71.51 Drug abuse counseling and surveillance of drug abuser; Z71.6 Tobacco abuse counseling
CPT/HCPCS: 83036; 84439; 84443; 85007; 87081; 90471; 99285; 99406; G0480; J1200; J1630; J2060; J3535

== ENCOUNTER 2018-01-25 14:24 | Inpatient (IN) | payer MEDICAID, OTHER ==
[~2018-01-25] VITALS: Ht 175.3 cm; Wt 102.2 kg
[~2018-01-25 14:24] MED LIST changes: +ARIP30TA PO; +BENZ1TAB10 PO; +BUPR-93 PO; -DSS100 PO; -HYDR-4031 PO; +LITH300T4 PO; +TRAZ-147 PO
[2018-01-25 15:35] LABS: BASOPHILS % (AUTO) 0.4 % (0.0-2.0); EOSINOPHILS % (AUTO) 0.3 % (1.0-6.0); HEMOGLOBIN 16.9 g/dL (13.5-17.5); LYMPHOCYTES # (AUTO) 2.3 K/uL (1.0-4.8); LYMPHOCYTES % (AUTO) 19.2 % (22.0-44.0); MEAN CORPUSCULAR HEMOGLOBIN 27.6 pg (26.0-34.0); MEAN CORPUSCULAR HGB CONC 34.5 G/dL (31.0-37.0); MEAN CORPUSCULAR VOLUME 80 fL (80-100); MONOCYTES % (AUTO) 8.4 % (2.0-9.0); NEUTROPHILS # (AUTO) 8.6 K/uL (1.8-7.7); NEUTROPHILS % (AUTO) 71.7 % (40.0-70.0); PLATELET COUNT (AUTO) 285 K/uL (150-450); RED BLOOD CELL COUNT(AUTO) 6.12 MIL/uL (4.50-5.90); RED CELL DISTRIBUTION WIDTH 14.9 % (11.5-14.5)
[2018-01-25 15:41] LABS: ANION GAP 13 mmol/L (8-16); CALCIUM, TOTAL 9.3 mg/dL (8.8-10.5); CARBON DIOXIDE 23 mmol/L (22-29); CHLORIDE 103 mmol/L (98-107); CREATININE 0.85 mg/dL (0.60-1.30); GLOMERULAR FILTR. RATE CALC > 60 mL/min (>60); GLUCOSE,RANDOM 112 mg/dL (70-110); POTASSIUM 3.7 mmol/L (3.5-5.1); SODIUM SERUM 139 mmol/L (136-145); UREA NITROGEN, BLOOD 8 mg/dL (7-18)
[2018-01-25 15:48] LABS: ALANINE AMINOTRANSFERASE 64 U/L (12-78); ALBUMIN 4.5 g/dL (3.4-5.0); ALKALINE PHOSPHATASE 127 U/L (46-116); ASPARTATE AMINOTRANSFERASE 24 U/L (15-37); BILIRUBIN,TOTAL 0.5 mg/dL (0.1-1.0); TOTAL PROTEIN, SERUM 8.4 g/dL (6.4-8.2)
[2018-01-25 16:35] LABS: AMPHET/METH SCREEN,URINE POSITIVE (NEGATIVE); BARBITURATE SCREEN, URINE NEGATIVE (NEGATIVE); BENZODIAZEPINES SCREEN,URINE NEGATIVE (NEGATIVE); CANNABINOID SCREEN,URINE NEGATIVE (NEGATIVE); COCAINE SCREEN,URINE NEGATIVE (NEGATIVE); METHADONE SCREEN, URINE POSITIVE (NEGATIVE); OPIATE SCREEN,URINE POSITIVE (NEGATIVE)
[2018-01-25 16:36] LABS: PHENCYCLIDINE SCREEN,URINE NEGATIVE (NEGATIVE)
[2018-01-25] MEDS ORDERED: ClonazePAM 1 MG TABLET PO ONE (18:00)
[2018-01-25] MEDS ORDERED: LORazepam 2 MG TABLET PO ONE (20:00)
[2018-01-25 20:04] LABS: LITHIUM < 0.20 mmol/L (0.60-1.20)
[2018-01-26] MEDS: ZOLPIDEM TARTRATE 10 MG TABLET PO PRN (03:00)
[2018-01-26] MEDS: HALOPERIDOL 5 MG TABLET PO PRN ×3 (03:00→14:20)
[2018-01-26] MEDS: LORazepam 2 MG TABLET PO PRN ×3 (03:01→14:20)
[2018-01-26 08:00] VITALS: BP 116/71
[2018-01-26] MEDS ORDERED: INFLUENZA VIRUS VACCINE QVS 2017-18 (3YR+)/PF 60 MCG/0.5 ML SYRINGE IM ONE (10:45)
[2018-01-26] MEDS ORDERED: LOPERAMIDE HCL 2 MG CAPSULE PO PRN (11:00)
[2018-01-26] MEDS ORDERED: IBUPROFEN 600 MG TABLET PO PRN (11:00)
[2018-01-26] MEDS ORDERED: ALBUTEROL SULFATE HFA 90 MCG/PUFF 8 GM INHALER IH PRN (11:00)
[2018-01-26] MEDS ORDERED: ACETAMINOPHEN 325 MG TABLET PO PRN (11:00)
[2018-01-26] MEDS: OMEPRAZOLE 20 MG CAPSULE PO SCH (11:28)
[2018-01-26 17:00] VITALS: BP 122/68
[2018-01-27] MEDS: LORazepam 2 MG TABLET PO PRN ×5 (02:16→23:59)
[2018-01-27 02:32] VITALS: BP 134/74
[2018-01-27] MEDS: OMEPRAZOLE 20 MG CAPSULE PO SCH (08:38)
[2018-01-27] MEDS: HALOPERIDOL 5 MG TABLET PO PRN ×2 (08:38→15:57)
[2018-01-27 08:58] VITALS: BP 124/76
[2018-01-27] MEDS: NICOTINE 21 MG/24 HOUR PATCH TD SCH ×2 (09:29→10:29)
[2018-01-27 16:29] VITALS: BP 122/77
[2018-01-27] MEDS: ZOLPIDEM TARTRATE 10 MG TABLET PO PRN (20:28)
[2018-01-28 05:48] VITALS: BP 120/80
[2018-01-28] MEDS: LORazepam 2 MG TABLET PO PRN ×3 (08:28→17:48)
[2018-01-28] MEDS: NICOTINE 21 MG/24 HOUR PATCH TD SCH (08:28)
[2018-01-28] MEDS: HALOPERIDOL 5 MG TABLET PO PRN ×3 (08:28→17:48)
[2018-01-28] MEDS: OMEPRAZOLE 20 MG CAPSULE PO SCH (08:28)
[2018-01-28 08:53] VITALS: BP 139/82
[2018-01-28] MEDS: HydrOXYzine PAMOATE 25 MG CAPSULE PO SCH (16:01)
[2018-01-28] MEDS: GABAPENTIN 300 MG CAPSULE PO SCH (16:01)
[2018-01-28 20:15] VITALS: BP 115/78
[2018-01-28] MEDS: OLANZapine 10 MG TABLET PO SCH (21:52)
[2018-01-29 05:13] VITALS: BP 134/86
[2018-01-29] MEDS: LORazepam 2 MG TABLET PO PRN ×4 (05:13→18:05)
[2018-01-29 09:08] VITALS: BP 127/72
[2018-01-29] MEDS: HydrOXYzine PAMOATE 25 MG CAPSULE PO SCH ×3 (09:09→17:35)
[2018-01-29] MEDS: GABAPENTIN 300 MG CAPSULE PO SCH ×3 (09:09→17:35)
[2018-01-29] MEDS: VENLAFAXINE HCL 75 MG ER CAPSULE PO SCH (09:09)
[2018-01-29] MEDS: OMEPRAZOLE 20 MG CAPSULE PO SCH (09:09)
[2018-01-29] MEDS: HALOPERIDOL 5 MG TABLET PO PRN ×3 (09:09→18:05)
[2018-01-29] MEDS: NICOTINE 21 MG/24 HOUR PATCH TD SCH (09:12)
[2018-01-29 17:56] VITALS: BP 102/79
[2018-01-29] MEDS: OLANZapine 10 MG TABLET PO SCH (20:07)
[2018-01-29] MEDS: ZOLPIDEM TARTRATE 10 MG TABLET PO PRN (20:39)
[2018-01-30] MEDS: GABAPENTIN 300 MG CAPSULE PO SCH ×2 (08:12→12:49)
[2018-01-30] MEDS: HALOPERIDOL 5 MG TABLET PO PRN ×2 (08:13→12:48)
[2018-01-30] MEDS: LORazepam 2 MG TABLET PO PRN ×2 (08:13→12:48)
[2018-01-30] MEDS: VENLAFAXINE HCL 75 MG ER CAPSULE PO SCH (08:13)
[2018-01-30] MEDS: OMEPRAZOLE 20 MG CAPSULE PO SCH (08:13)
[2018-01-30] MEDS: HydrOXYzine PAMOATE 25 MG CAPSULE PO SCH ×2 (08:14→12:49)
[2018-01-30] MEDS: NICOTINE 21 MG/24 HOUR PATCH TD SCH (08:15)
[2018-01-30 09:00] VITALS: BP 147/88
[2018-01-30] MEDS ORDERED: HYDR-4031 PO (10:04)
== END 2018-01-30 14:20 | disposition home or self-care (01) | DRG 750 ==
LOC: EMS 14:26 → AHU 21:30 → UNDOADMIN 21:30 → 3EI 21:30 → AHU 01-26 08:01 → 3EI 01-26 14:14
PROVIDERS: ADMIT Psychiatry & Neurology Psychiatry; ATTEND Psychiatry & Neurology Psychiatry
DX: F25.9 Schizoaffective disorder, unspecified (principal); R45.851 Suicidal ideations; F41.9 Anxiety disorder, unspecified; K21.9 Gastro-esophageal reflux disease without esophagitis; J45.909 Unspecified asthma, uncomplicated; F43.10 Post-traumatic stress disorder, unspecified; F17.200 Nicotine dependence, unspecified, uncomplicated; Z28.21 Immunization not carried out because of patient refusal; Z88.2 Allergy status to sulfonamides; Z88.1 Allergy status to other antibiotic agents; Z79.899 Other long term (current) drug therapy
CPT/HCPCS: 87081; 99285; G0480

== ENCOUNTER 2019-03-21 21:38 | Emergency (ER) | payer MEDICAID ==
[~2019-03-21] VITALS: Ht 175.3 cm; Wt 86.4 kg
[~2019-03-21 21:38] MED LIST changes: -ARIP30TA PO; -BENZ1TAB10 PO; -BUPR-93 PO; +HYDR-4031 PO; -LITH300T4 PO; -TRAZ-147 PO
[2019-03-21 21:40] VITALS: BP 139/91
[2019-03-21] MEDS ORDERED: CARI350 PO (21:47)
[2019-03-21] MEDS ORDERED: DICL2100G TP (21:47)
[2019-03-21] MEDS ORDERED: TOPI100T37 PO (21:47)
== END 2019-03-22 00:30 | disposition left against medical advice (07) ==
LOC: EMS 21:38
DX: R20.0 Anesthesia of skin (principal); J45.909 Unspecified asthma, uncomplicated; G43.909 Migraine, unspecified, not intractable, without status migrainosus; K21.9 Gastro-esophageal reflux disease without esophagitis; F31.9 Bipolar disorder, unspecified; F20.9 Schizophrenia, unspecified; F17.210 Nicotine dependence, cigarettes, uncomplicated; F19.90 Other psychoactive substance use, unspecified, uncomplicated; Z53.21 Procedure and treatment not carried out due to patient leaving prior to being seen by health care provider

== ENCOUNTER 2020-05-13 01:39 | Inpatient (IN) | payer MEDICAID ==
[~2020-05-13] VITALS: Ht 177.8 cm; Wt 85.7 kg
[~2020-05-13 01:39] MED LIST changes: +CARI350T26 PO; +DICL2100G TP; +GABA-1181 PO; -GABA-531 PO; -HYDR-4031 PO; -OLAN10TA3 PO; -OMEP20 PO; +TOPI100T37 PO
[2020-05-13] MEDS ORDERED: PERTUSS(ACELL),DIPH,TET VAC/PF 0.5 ML VIAL IM ONE (03:30)
[2020-05-13] MEDS ORDERED: DIPH50CA35 PO (03:34)
[2020-05-13] MEDS ORDERED: BUSP10TA23 PO (03:34)
[2020-05-13 03:38] LABS: BASOPHILS % (AUTO) 0.4 % (0.0-2.0); HEMATOCRIT 38.9 % (41-53); HEMOGLOBIN 13.2 g/dL (13.5-17.5); LYMPHOCYTES # (AUTO) 2.3 K/uL (1.0-4.8); LYMPHOCYTES % (AUTO) 41.6 % (22.0-44.0); MEAN CORPUSCULAR HGB CONC 34.1 G/dL (31.0-37.0); MEAN CORPUSCULAR VOLUME 82 fL (80-100); MONOCYTES # (AUTO) 0.4 K/uL (0.1-1.0); MONOCYTES % (AUTO) 7.5 % (2.0-9.0); NEUTROPHILS # (AUTO) 2.4 K/uL (1.8-7.7); NEUTROPHILS % (AUTO) 44.5 % (40.0-70.0); PLATELET COUNT (AUTO) 185 K/uL (150-450); RED BLOOD CELL COUNT(AUTO) 4.73 MIL/uL (4.50-5.90); RED CELL DISTRIBUTION WIDTH 14.6 % (11.5-14.5)
[2020-05-13] MEDS ORDERED: RisperiDONE 1 MG TABLET PO ONE (03:45)
[2020-05-13 03:47] LABS: ANION GAP 7 mmol/L (8-16); CALCIUM, TOTAL 8.9 mg/dL (8.8-10.5); CARBON DIOXIDE 29 mmol/L (22-29); CHLORIDE 104 mmol/L (98-107); CREATININE 0.78 mg/dL (0.60-1.30); GLOMERULAR FILTR. RATE CALC > 60 mL/min (>60); GLUCOSE,RANDOM 90 mg/dL (70-110); POTASSIUM 4.1 mmol/L (3.5-5.1); SODIUM SERUM 140 mmol/L (136-145); UREA NITROGEN, BLOOD 23 mg/dL (7-18)
[2020-05-13 03:52] LABS: ALANINE AMINOTRANSFERASE 80 U/L (12-78); ALBUMIN 4.7 g/dL (3.4-5.0); ALKALINE PHOSPHATASE 59 U/L (46-116); ASPARTATE AMINOTRANSFERASE 47 U/L (15-37); BILIRUBIN,TOTAL 0.4 mg/dL (0.1-1.0)
[2020-05-13] MEDS ORDERED: LORazepam 1 MG TABLET PO ONE (04:15)
[2020-05-13 04:47] LABS: AMPHET/METH SCREEN,URINE POSITIVE (NEGATIVE); BARBITURATE SCREEN, URINE NEGATIVE (NEGATIVE); BENZODIAZEPINES SCREEN,URINE NEGATIVE (NEGATIVE); CANNABINOID SCREEN,URINE POSITIVE (NEGATIVE); COCAINE SCREEN,URINE NEGATIVE (NEGATIVE); METHADONE SCREEN, URINE POSITIVE (NEGATIVE); OPIATE SCREEN,URINE POSITIVE (NEGATIVE)
[2020-05-13 04:49] LABS: PHENCYCLIDINE SCREEN,URINE NEGATIVE (NEGATIVE)
[2020-05-13 06:50] VITALS: BP 121/68
[2020-05-13] MEDS ORDERED: DOCUSATE SODIUM 100 MG CAPSULE PO PRN (07:45)
[2020-05-13] MEDS ORDERED: ACETAMINOPHEN 325 MG TABLET PO PRN (07:45)
[2020-05-13] MEDS ORDERED: MAG HYDROX/AL HYDROX/SIMETH ES 30 ML SUSPENSION UDCUP PO PRN (07:45)
[2020-05-13] MEDS ORDERED: LOPERAMIDE HCL 2 MG CAPSULE PO PRN (07:45)
[2020-05-13] MEDS ORDERED: GuaiFENesin/D-METHORPHAN [SUGAR-FREE] 200-20MG/10 ML SYRUP UDCUP PO PRN (07:45)
[2020-05-13] MEDS ORDERED: ALBUTEROL SULFATE HFA 90 MCG/PUFF 8 GM INHALER IH PRN (07:45)
[2020-05-13] MEDS ORDERED: PETROLATUM,WHITE 28 GM JELLY TP PRN (07:45)
[2020-05-13] MEDS ORDERED: CloNIDine HCL 0.1 MG TABLET PO PRN (07:45)
[2020-05-13] MEDS ORDERED: IBUPROFEN 400 MG TABLET PO PRN (07:45)
[2020-05-13] MEDS ORDERED: ONDANSETRON HCL 4 MG TABLET PO PRN (07:45)
[2020-05-13] MEDS ORDERED: NICOTINE 14 MG/24 HOUR PATCH TD PRN (07:45)
[2020-05-13 08:00] VITALS: BP 124/63
[2020-05-13] MEDS: BACITRACIN 28.4 GM OINTMENT TP SCH ×2 (08:48→17:33)
[2020-05-13] MEDS: METHADONE HCL 10 MG TABLET PO SCH (08:49)
[2020-05-13] MEDS ORDERED: -PHARMACY VACCINE NOTE- MISC ONE (09:00)
[2020-05-13] MEDS: VENLAFAXINE HCL 75 MG ER CAPSULE PO SCH (10:07)
[2020-05-13] MEDS: LORazepam 2 MG TABLET PO PRN ×2 (10:07→18:03)
[2020-05-13] MEDS: BusPIRone HCL 10 MG TABLET PO SCH ×2 (10:08→17:34)
[2020-05-13] MEDS: RisperiDONE 1 MG TABLET PO SCH ×2 (10:08→17:34)
[2020-05-13] MEDS: GABAPENTIN 300 MG CAPSULE PO SCH ×2 (12:20→17:34)
[2020-05-13 14:18] VITALS: BP 124/63
[2020-05-13 16:02] VITALS: BP 143/66
[2020-05-14 03:47] VITALS: BP 119/85
[2020-05-14] MEDS: LORazepam 2 MG TABLET PO PRN ×2 (03:48→09:47)
[2020-05-14 08:08] VITALS: BP 135/67
[2020-05-14] MEDS: BusPIRone HCL 10 MG TABLET PO SCH ×2 (08:13→16:16)
[2020-05-14] MEDS: VENLAFAXINE HCL 75 MG ER CAPSULE PO SCH (08:13)
[2020-05-14] MEDS: GABAPENTIN 300 MG CAPSULE PO SCH ×3 (08:13→16:16)
[2020-05-14] MEDS: METHADONE HCL 10 MG TABLET PO SCH (08:14)
[2020-05-14] MEDS: RisperiDONE 1 MG TABLET PO SCH ×2 (08:48→16:17)
[2020-05-14] MEDS: BACITRACIN 28.4 GM OINTMENT TP SCH ×2 (08:49→16:17)
[2020-05-14 09:38] LABS: CHOL/HDL RATIO 3.6 (4.2-7.3)
[2020-05-14] MEDS ORDERED: NICOTINE POLACRILEX 2 MG LOZENGE PO PRN (11:00)
[2020-05-14] MEDS ORDERED: GABA-1201 PO (11:06)
[2020-05-14 16:01] VITALS: BP 140/85
[2020-05-14] MEDS: ZOLPIDEM TARTRATE 10 MG TABLET PO PRN (21:36)
[2020-05-15] MEDS: LORazepam 2 MG TABLET PO PRN ×3 (00:26→20:50)
[2020-05-15 00:28] VITALS: BP 119/73
[2020-05-15 08:15] VITALS: BP 137/72
[2020-05-15] MEDS: METHADONE HCL 10 MG TABLET PO SCH (08:44)
[2020-05-15] MEDS: BusPIRone HCL 10 MG TABLET PO SCH ×2 (08:44→16:46)
[2020-05-15] MEDS: RisperiDONE 1 MG TABLET PO SCH ×2 (08:44→16:46)
[2020-05-15] MEDS: GABAPENTIN 300 MG CAPSULE PO SCH ×3 (08:44→16:46)
[2020-05-15] MEDS: VENLAFAXINE HCL 75 MG ER CAPSULE PO SCH (08:49)
[2020-05-15] MEDS: BACITRACIN 28.4 GM OINTMENT TP SCH ×2 (08:49→16:47)
[2020-05-15] MEDS ORDERED: LORazepam 2 MG TABLET PO PRN (11:45)
[2020-05-15 16:50] VITALS: BP 105/78
[2020-05-15] MEDS: ZOLPIDEM TARTRATE 10 MG TABLET PO PRN (21:59)
[2020-05-15] MEDS: HALOPERIDOL 5 MG TABLET PO PRN (23:45)
[2020-05-16 01:01] VITALS: BP 127/78
[2020-05-16] MEDS: LORazepam 2 MG TABLET PO PRN ×2 (07:06→17:02)
[2020-05-16] MEDS: RisperiDONE 1 MG TABLET PO SCH ×2 (08:02→16:37)
[2020-05-16] MEDS: BusPIRone HCL 10 MG TABLET PO SCH ×2 (08:02→16:36)
[2020-05-16] MEDS: GABAPENTIN 300 MG CAPSULE PO SCH ×3 (08:02→16:36)
[2020-05-16] MEDS: METHADONE HCL 10 MG TABLET PO SCH (08:03)
[2020-05-16] MEDS: VENLAFAXINE HCL 75 MG ER CAPSULE PO SCH (08:04)
[2020-05-16 08:24] VITALS: BP 114/74
[2020-05-16] MEDS: BACITRACIN 28.4 GM OINTMENT TP SCH ×2 (08:57→16:38)
[2020-05-16 16:34] VITALS: BP 111/86
[2020-05-16] MEDS: ZOLPIDEM TARTRATE 10 MG TABLET PO PRN (21:10)
[2020-05-17] MEDS: LORazepam 1 MG TABLET PO PRN ×2 (03:55→12:19)
[2020-05-17 04:10] VITALS: BP 103/60
[2020-05-17 08:12] VITALS: BP 107/64
[2020-05-17] MEDS: METHADONE HCL 10 MG TABLET PO SCH (08:57)
[2020-05-17] MEDS: BusPIRone HCL 10 MG TABLET PO SCH ×2 (08:58→21:09)
[2020-05-17] MEDS: VENLAFAXINE HCL 75 MG ER CAPSULE PO SCH (08:58)
[2020-05-17] MEDS: GABAPENTIN 300 MG CAPSULE PO SCH ×3 (08:58→21:09)
[2020-05-17] MEDS: RisperiDONE 1 MG TABLET PO SCH ×2 (08:58→21:09)
[2020-05-17] MEDS: BACITRACIN 28.4 GM OINTMENT TP SCH ×2 (09:00→21:09)
[2020-05-17] MEDS: HALOPERIDOL 5 MG TABLET PO PRN (10:00)
[2020-05-17 14:30] VITALS: BP 144/95
[2020-05-17 14:45] VITALS: BP 137/82
[2020-05-17 15:21] VITALS: BP 132/81
[2020-05-17] MEDS: ZOLPIDEM TARTRATE 10 MG TABLET PO PRN (21:15)
[2020-05-17] MEDS: MAGNESIUM HYDROXIDE SUSPENSION 30 ML UDCUP PO PRN (21:35)
[2020-05-18] MEDS: LORazepam 1 MG TABLET PO PRN ×3 (01:24→17:44)
[2020-05-18 02:34] VITALS: BP 144/95
[2020-05-18] MEDS: HALOPERIDOL 5 MG TABLET PO PRN ×2 (02:54→22:20)
[2020-05-18 08:07] VITALS: BP 114/60
[2020-05-18] MEDS: METHADONE HCL 10 MG TABLET PO SCH (08:10)
[2020-05-18] MEDS: RisperiDONE 1 MG TABLET PO SCH ×2 (08:11→16:18)
[2020-05-18] MEDS: GABAPENTIN 300 MG CAPSULE PO SCH ×3 (08:11→16:18)
[2020-05-18] MEDS: VENLAFAXINE HCL 75 MG ER CAPSULE PO SCH (08:11)
[2020-05-18] MEDS: BusPIRone HCL 10 MG TABLET PO SCH ×4 (08:15→16:18)
[2020-05-18] MEDS: BACITRACIN 28.4 GM OINTMENT TP SCH ×2 (08:18→16:18)
[2020-05-18 15:20] VITALS: BP 128/77
[2020-05-18] MEDS: ZOLPIDEM TARTRATE 10 MG TABLET PO PRN (20:55)
[2020-05-19 03:02] VITALS: BP 124/84
[2020-05-19] MEDS: LORazepam 1 MG TABLET PO PRN ×2 (03:05→11:07)
[2020-05-19 08:03] VITALS: BP 123/85
[2020-05-19] MEDS: RisperiDONE 1 MG TABLET PO SCH ×2 (08:09→16:08)
[2020-05-19] MEDS: BusPIRone HCL 10 MG TABLET PO SCH ×2 (08:14→16:08)
[2020-05-19] MEDS: VENLAFAXINE HCL 75 MG ER CAPSULE PO SCH (08:14)
[2020-05-19] MEDS: METHADONE HCL 10 MG TABLET PO SCH (08:14)
[2020-05-19] MEDS: GABAPENTIN 300 MG CAPSULE PO SCH ×3 (08:15→16:09)
[2020-05-19] MEDS: BACITRACIN 28.4 GM OINTMENT TP SCH ×2 (08:15→16:10)
[2020-05-19] MEDS: BENZTROPINE MESYLATE 2 MG TABLET PO SCH (16:08)
[2020-05-19 16:10] VITALS: BP 140/89
[2020-05-19] MEDS: MAGNESIUM HYDROXIDE SUSPENSION 30 ML UDCUP PO PRN (18:46)
[2020-05-20] VITALS: BP 142/85
[2020-05-20] MEDS: ZOLPIDEM TARTRATE 10 MG TABLET PO PRN (00:47)
[2020-05-20] MEDS: HALOPERIDOL 5 MG TABLET PO PRN (01:15)
[2020-05-20] MEDS: LORazepam 1 MG TABLET PO PRN (03:02)
[2020-05-20 08:03] VITALS: BP 118/67
[2020-05-20] MEDS: RisperiDONE 1 MG TABLET PO SCH (08:04)
[2020-05-20] MEDS: BENZTROPINE MESYLATE 2 MG TABLET PO SCH (08:04)
[2020-05-20] MEDS: BusPIRone HCL 10 MG TABLET PO SCH (08:04)
[2020-05-20] MEDS: GABAPENTIN 300 MG CAPSULE PO SCH ×2 (08:05→12:48)
[2020-05-20] MEDS: METHADONE HCL 10 MG TABLET PO SCH (08:05)
[2020-05-20] MEDS: VENLAFAXINE HCL 75 MG ER CAPSULE PO SCH (08:05)
[2020-05-20] MEDS: BACITRACIN 28.4 GM OINTMENT TP SCH (08:13)
[2020-05-20] MEDS ORDERED: MULTIVITAMINS WITH MINERALS, THERAPEUTIC TABLET PO SCH (09:00)
[2020-05-20] MEDS ORDERED: OMEGA-3/DHA/EPA/FISH OIL 1,000 MG CAPSULE PO SCH (09:00)
[2020-05-20] MEDS ORDERED: VENL-67 PO (11:08)
[2020-05-20] MEDS ORDERED: BENZ2TAB10 PO (11:08)
[2020-05-20] MEDS ORDERED: GABA-1181 PO (11:08)
[2020-05-20] MEDS ORDERED: RISP1TAB89 PO (11:08)
== END 2020-05-20 18:01 | disposition home or self-care (01) | DRG 885 ==
LOC: EMS 01:40 → B3A 03:42 → B2S 05-16 09:00
PROVIDERS: ADMIT Psychiatry & Neurology Child & Adolescent Psychiatry; ATTEND Psychiatry & Neurology Child & Adolescent Psychiatry
DX: F25.1 Schizoaffective disorder, depressive type (principal); F11.20 Opioid dependence, uncomplicated; R45.851 Suicidal ideations; Z91.19 Patient's noncompliance with other medical treatment and regimen; F41.9 Anxiety disorder, unspecified; M79.7 Fibromyalgia; M41.9 Scoliosis, unspecified; K21.9 Gastro-esophageal reflux disease without esophagitis; J45.909 Unspecified asthma, uncomplicated; Z88.8 Allergy status to other drugs, medicaments and biological substances; R74.0 Nonspecific elevation of levels of transaminase and lactic acid dehydrogenase [LDH]; F10.10 Alcohol abuse, uncomplicated; Y90.9 Presence of alcohol in blood, level not specified; C06.9 Malignant neoplasm of mouth, unspecified; F12.90 Cannabis use, unspecified, uncomplicated; G43.909 Migraine, unspecified, not intractable, without status migrainosus; F43.10 Post-traumatic stress disorder, unspecified; N47.6 Balanoposthitis; F17.210 Nicotine dependence, cigarettes, uncomplicated; Z88.2 Allergy status to sulfonamides
CPT/HCPCS: 90715; G0480